=== PATIENT | female | born 1950 | race American Indian/Alaskan Native ===

== ENCOUNTER 2021-11-15 16:57 | Inpatient (IN) | payer MEDICARE ==
[2021-11-15] MEDS ORDERED: SODIUM CHLORIDE 0.9% 500 ML 1,000 ML IV ONE (17:27)
[2021-11-15] MEDS ORDERED: CEFEPIME/NS 2 GM/100 ML 2 GM/100 ML BAG IV ONE (17:29)
--- NOTE | 2021-11-15 18:02 | XRay Report ---
CHEST 1 VIEW 11/15/2021 4:50 PM INDICATION / CLINICAL INFORMATION: TACHY. Malaise x2 days. History of ovarian cancer. COMPARISON: None available. FINDINGS: SUPPORT DEVICES: Right Port-A-Cath with tip projecting over the cavoatrial junction. HEART / MEDIASTINUM: Cardiac silhouette is obscured. LUNGS / PLEURA: Complete opacification of the left hemithorax. Right lung is essentially clear. No pn eumothorax. ADDITIONAL FINDINGS: No significant additional findings. IMPRESSION: 1. Complete opacification of the left hemithorax possibly due to large left pleural effusion. Signer Name: Mahendra David MD Signed: 11/15/2021 5:57 PM Workstation Name: [id number]
[2021-11-15 18:33] LABS: Alanine Aminotransferase 12 units/L (7-56); Albumin 2.4 g/dL (3.9-5); BUN/Creatinine Ratio 16; Blood Urea Nitrogen 13 mg/dL (7-17); Calcium 8.8 mg/dL (8.4-10.2); Hemolysis Index 4
[2021-11-15 18:43] LABS: Chol/HDL Ratio 2.48 %
[2021-11-15] MEDS ORDERED: SODIUM CHLORIDE 0.9% 1000 ML 1,000 ML IV ONE (18:52)
--- NOTE | 2021-11-15 21:17 | Cat Scan Report ---
CTA CHEST WITH CONTRAST INDICATION / CLINICAL INFORMATION: Chest pain, tachycardia, history of unspecified cancer. TECHNIQUE: Axial CT images were obtained through the chest after injection of 100 cc Omnipaque 350 IV contrast. 3 plane MIP and/or 3D reconstructions were produced. All CT scans at this location are per formed using CT dose reduction for ALARA by means of automated exposure control. COMPARISON: One view of the chest performed today. FINDINGS: PULMONARY EMBOLUS: Positive. Most proximal level of embolus is Main Pulmonary Artery. A saddle embolu s is present. THORACIC AORTA: No significant abnormality. HEART: There is left ventricular hypertrophy without other significant abnormalities. CORONARY ARTERY CALCIFICATION: Absent -- None. MEDIASTINUM / JB: No significant abnormality. There is expected positioning of a right internal jug ular vein Port-A-Cath. PLEURA: A large left pleural effusion is noted, accounting for previously seen complete opacification of the left hemithorax. There is a small right pleural effusion. No pneumothorax. LUNGS: Left atelectasis is noted without a suspicious nodule or mass. ADDITIONAL FINDINGS: None. UPPER ABDOMEN: Marked generalized gastric thickening is noted, most concerning for neoplastic involve ment. No other significant abnormality. SKELETAL STRUCTURES: No significant osseous abnormality. IMPRESSION: 1. Acute saddle pulmonary embolus. 2. Large left pleural effusion with associated atelectasis. 3. Incompletely included markedly abnormal appearance of the stomach, most concerning for neoplastic involvement. CRITICAL RESULT: Time of Discovery (MASONRY CONTRACTOR/CDT): 20:05 Time of Communication (MASONRY CONTRACTOR/CDT): 20:10 Licensed Practitioner Receiving Report: Dr. Thompson Read-Back Performed: Yes. Signer Name: Charli Harkins MD Signed: 11/15/2021 9:13 PM Workstation Name: [id number]
--- NOTE | 2021-11-15 21:59 | Emergency Department Report ---
ED General Adult HPI - General Chief complaint: Weakness Stated complaint: MALAISE Time Seen by Provider: 11/15/21 17:21 Source: patient, EMS Mode of arrival: Stretcher Limitations: No Limitations - History of Present Illness Initial comments: Patient presents to the emergency department with a chief complaint of shortness of breath and chest pain. Patient has a history of ovarian cancer that was initially diagnosed in 2017. Patient went into remission for 5 years and to return this June. Patient states that over the last couple days she has been more short of breath and also is having chest pain. Patient states any type of movement makes her shortness of breath worse. The son concerned that the patient may have a buildup of fluid on her lungs. -: Gradual Location: chest Radiation: non-radiation Severity scale (0 -10): 3 Quality: dull Consistency: constant Improves with: none Worsens with: movement Associated Symptoms: denies other symptoms - Related Data Allergies Allergy/AdvReac Type Severity Reaction Status Date / Time No Known Allergies Allergy Verified 11/15/21 17:02 ED Review of Systems ROS: Stated complaint: MALAISE Other details as noted in HPI Comment: All other systems reviewed and negative Constitutional: denies: chills, fever Eyes: denies: eye pain, eye discharge, vision change ENT: denies: ear pain, throat pain Respiratory: shortness of breath. denies: cough, wheezing Cardiovascular: chest pain. denies: palpitations Endocrine: no symptoms reported Gastrointestinal: denies: abdominal pain, nausea, diarrhea Genitourinary: denies: urgency, dysuria, discharge Musculoskeletal: denies: back pain, joint swelling, arthralgia Skin: denies: rash, lesions Neurological: denies: headache, weakness, paresthesias Psychiatric: denies: anxiety, depression Hematological/Lymphatic: denies: easy bleeding, easy bruising ED Physical Exam - General Limitations: No Limitations General appearance: alert, in no apparent distress - Head Head exam: Present: atraumatic, normocephalic - Eye Eye exam: Present: normal appearance, PERRL, EOMI - ENT ENT exam: Present: mucous membranes moist - Neck Neck exam: Present: normal inspection - Respiratory Respiratory exam: Present: decreased breath sounds. Absent: respiratory distress - Cardiovascular Cardiovascular Exam: Present: normal rhythm, tachycardia. Absent: systolic murmur, diastolic murmur, rubs, gallop - GI/Abdominal GI/Abdominal exam: Present: soft, distended, normal bowel sounds. Absent: tenderness - Extremities Exam Extremities exam: Present: normal inspection - Back Exam Back exam: Present: normal inspection - Neurological Exam Neurological exam: Present: alert, oriented X3, CN II-XII intact. Absent: motor sensory deficit - Psychiatric Psychiatric exam: Present: normal affect, normal mood - Skin Skin exam: Present: warm, dry, intact, normal color. Absent: rash ED Course Vital Signs 11/15/21 11/15/21 17:00 18:12 Temperature 99.4 F 99.6 F Pulse Rate 134 H 124 H Respiratory 20 21 Rate Blood Pressure 126/80 [Left] O2 Sat by Pulse 100 100 Oximetry ED Medical Decision Making - Lab Data Result diagrams: 11/15/21 21:30 11/15/21 17:57 Lab Results 11/15/21 11/15/21 11/15/21 Range/Units 17:57 17:57 17:57 APTT 29.2 (24.2-36.6) Sec. Sodium 138 (137-145) mmol/L Potassium 3.3 L (3.6-5.0) mmol/L Chloride 96.6 L (98-107) mmol/L Carbon Dioxide 26 (22-30) mmol/L Anion Gap 19 mmol/L BUN 13 (7-17) mg/dL Creatinine 0.8 (0.6-1.2) mg/dL Estimated GFR > 60 ml/min BUN/Creatinine Ratio 16 % Glucose 182 H (65-100) mg/dL Lactic Acid (0.7-2.0) mmol/L Calcium 8.8 (8.4-10.2) mg/dL Total Bilirubin 0.50 (0.1-1.2) mg/dL AST 36 (5-40) units/L ALT 12 (7-56) units/L Alkaline Phosphatase 76 (35-129) units/L Troponin T 0.070 H (0.00-0.029) ng/mL NT-Pro-B Natriuret Pep (0-900) pg/mL Total Protein 6.0 L (6.3-8.2) g/dL Albumin 2.4 L (3.9-5) g/dL Albumin/Globulin Ratio 0.7 % Triglycerides 127 (2-149) mg/dL Cholesterol 129 (50-199) mg/dL LDL Cholesterol Direct 48 L (50-130) mg/dL HDL Cholesterol 52 (40-59) mg/dL Cholesterol/HDL Ratio 2.48 % 11/15/21 11/15/21 11/15/21 Range/Units 17:57 17:57 18:39 APTT (24.2-36.6) Sec. Sodium (137-145) mmol/L Potassium (3.6-5.0) mmol/L Chloride (98-107) mmol/L Carbon Dioxide (22-30) mmol/L Anion Gap mmol/L BUN (7-17) mg/dL Creatinine (0.6-1.2) mg/dL Estimated GFR ml/min BUN/Creatinine Ratio % Glucose (65-100) mg/dL Lactic Acid 2.20 H* 2.40 H* (0.7-2.0) mmol/L Calcium (8.4-10.2) mg/dL Total Bilirubin (0.1-1.2) mg/dL AST (5-40) units/L ALT (7-56) units/L Alkaline Phosphatase (35-129) units/L Troponin T (0.00-0.029) ng/mL NT-Pro-B Natriuret Pep 504.5 (0-900) pg/mL Total Protein (6.3-8.2) g/dL Albumin (3.9-5) g/dL Albumin/Globulin Ratio % Triglycerides (2-149) mg/dL Cholesterol (50-199) mg/dL LDL Cholesterol Direct (50-130) mg/dL HDL Cholesterol (40-59) mg/dL Cholesterol/HDL Ratio % - EKG Data -: EKG Interpreted by Mi EKG shows normal: sinus rhythm Rate: tachycardia - EKG Data Interpretation: other (Nonspecific T wave abnormalities) - Radiology Data Radiology results: report reviewed - Medical Decision Making Patient was given IV antibiotics Discussed results with patient and her son IV heparin initiated Packed RBCs ordered for the patient is anemia Vascular surgery was paged Critical Care Time: Yes Critical care time in (mins) excluding proc time.: 75 Critical care attestation.: If time is entered above; I have spent that time in minutes in the direct care of this critically ill patient, excluding procedure time. ED Disposition Clinical Impression: Pulmonary embolus, Anemia requiring transfusions, Lactic acidosis Disposition: ADMITTED INPATIENT Is pt being admited?: Yes Does the pt Need Aspirin: No Condition: Fair Referrals: PRIMARY CARE, [Primary Care Provider] - 3-5 Days
[2021-11-15] MEDS ORDERED: SODIUM CHLORIDE 0.9% 500 ML 500 ML IV ONE (22:05)
[2021-11-15 22:07] LABS: Hematocrit 11.8 % (30.3-42.9); Mean Corpuscular HGB Conc 34 % (30-34); Mean Corpuscular Volume 97 fl (79-97); Red Blood Count 1.23 M/mm3 (3.65-5.03)
[2021-11-15 22:08] LABS: Platelet Count 6 K/mm3 (140-440)
[2021-11-15] MEDS ORDERED: MAGNESIUM HYDROXIDE (MOM) ORAL LIQD UDC PO PRN (22:35)
[2021-11-15] MEDS ORDERED: ONDANSETRON 4 MG/2 ML INJ IV PRN (22:35)
[2021-11-15] MEDS ORDERED: SODIUM CHLORIDE 0.9% 1000 ML 1,000 ML IV SCH (22:45)
--- NOTE | 2021-11-15 22:48 | History and Physical Report ---
History of Present Illness Date of examination: 11/15/21 Date of admission: 11/15/2021 Chief complaint: Difficulty Breathing History of present illness: 70-year-old -[place] female with known history of metastatic ovarian cancer which was initially diagnosed in 2016 went into remission but had a recurrence again in June 2021 presenting to the emergency room today complaining of shortness of breath. Shortness of breath has been ongoing for the past few days. She has also had some mild chest discomfort. Shortness of breath is worse on minimal exertion. Patient receives her care at [facility] and has been following up with Dr. Diaz who is a program scheduler. She has had recurrent thoracentesis for pleural effusion. Patient denies any fever or chills no headache or dizziness and no diaphoresis. No nausea or vomiting and no abdominal pain. She denies any calf swelling. She however has had minimal lower extremity edema. Work-up in the emergency room today, labs were significant for hemoglobin of 4, hematocrit of 11.8, WBC of 1.5, platelet count of 6. Potassium of 3.3. Lactic acid of 2.4, troponin 0.07 Chest x-ray significant for complete opacification of the left hemithorax possibly due to large left pleural effusion. CT angiogram of the chest shows acute pulmonary embolus. Large left pleural effusion with associated atelectasis. Incompletely included markedly abnormal appearance of the stomach most concerning for neoplastic involvement. Patient has been started on anticoagulation with heparin for the pulmonary embolism. Vascular surgeon has also been notified. Patient has been initiated on blood transfusion for the severe anemia. Past History Past Medical History: diabetes, other (H/O Ovarian Ca.) Past Surgical History: Other (Thoracentesis) Social history: no significant social history Family history: no significant family history Medications and Allergies Allergies Allergy/AdvReac Type Severity Reaction Status Date / Time No Known Allergies Allergy Verified 11/15/21 17:02 Active Meds: Active Medications Acetaminophen (Acetaminophen 325 Mg Tab) 650 mg PO Q4H PRN PRN Reason: Pain MILD(1-3)/Fever >100.5/APTEL Dextrose (Dextrose 50% In Water (25gm) 50 Ml Syringe) 50 ml IV Q30MIN PRN; Protocol PRN Reason: Hypoglycemia Sodium Chloride (Nacl 0.9% 1000 Ml) 1,000 mls @ 75 mls/hr IV DIRECT GRAHAM Cefepime HCl (Cefepime/Ns 2 Gm/100 Ml) 2 gm in 100 mls @ 200 mls/hr IV Q8H GRAHAM; Protocol Insulin Human Lispro (Insulin Lispro 100 Unit/Ml) 0 unit SUB-Q ACHS GRAHAM; Protocol Magnesium Hydroxide (Magnesium Hydroxide (Mom) Oral Liqd Udc) 30 ml PO Q4H PRN PRN Reason: Constipation Morphine Sulfate (Morphine 2 Mg/1 Ml Inj) 2 mg IV Q4H PRN PRN Reason: Pain, Moderate (4-6) Morphine Sulfate (Morphine 4 Mg/1 Ml Inj) 4 mg IV Q4H PRN PRN Reason: Pain , Severe (7-10) Ondansetron HCl (Ondansetron 4 Mg/2 Ml Inj) 4 mg IV Q8H PRN PRN Reason: Nausea And Vomiting Sodium Chloride (Sodium Chloride 0.9% 10 Ml Flush Syringe) 10 ml IV BID GRAHAM Sodium Chloride (Sodium Chloride 0.9% 10 Ml Flush Syringe) 10 ml IV PRN PRN PRN Reason: LINE FLUSH Review of Systems Constitutional: no fever, no chills Ears, nose, mouth and throat: no nasal congestion, no sore throat Cardiovascular: no chest pain, no palpitations Respiratory: shortness of breath, no cough Gastrointestinal: no abdominal pain, no nausea, no vomiting, no diarrhea Genitourinary Female: no pelvic pain, no dysuria, no hematuria Musculoskeletal: no neck pain, no low back pain Integumentary: no rash, no pruritis Neurological: no headaches, no confusion Psychiatric: no anxiety, no depression Endocrine: no polyphagia, no polydipsia, no polyuria, no nocturia Exam - Constitutional Vitals: Temp Pulse Resp BP Pulse Ox 99.6 F 124 H 21 126/80 100 11/15/21 18:12 11/15/21 18:12 11/15/21 18:12 11/15/21 17:00 11/15/21 18:12 General appearance: Present: no acute distress, well-nourished, other (Severe Pallor) - EENT Eyes: Present: PERRL, EOM intact. Absent: scleral icterus ENT: hearing intact, clear oral mucosa, dentition normal - Neck Neck: Present: supple, normal ROM - Respiratory Respiratory effort: normal Respiratory: bilateral: diminished - Cardiovascular Rhythm: regular Heart Sounds: Present: S1 & S2. Absent: gallop, systolic murmur, diastolic murmur, rub, click - Extremities Extremities: no ischemia, pulses intact, pulses symmetrical, normal temperature, normal color, Full ROM Extremity abnormal: edema (Trace bilateral ankle edema.), ulceration (Dressing over right heel ulcer) Peripheral Pulses: within normal limits - Abdominal General gastrointestinal: Present: soft, non-tender, non-distended, normal bowel sounds. Absent: mass - Integumentary Integumentary: Present: clear, warm, dry, normal turgor. Absent: rash - Musculoskeletal Musculoskeletal: strength equal bilaterally - Psychiatric Psychiatric: appropriate mood/affect, intact judgment & insight, memory intact, cooperative - Neurologic Neurologic: CNII-XII intact, no focal deficits, moves all extremities HEART Score - HEART Score Troponin: Troponin T 0.070 ng/mL (0.00-0.029) H 11/15/21 17:57 Results - Labs CBC & Chem 7: 11/15/21 21:30 11/15/21 17:57 Labs: Abnormal lab results 11/15/21 11/15/21 11/15/21 Range/Units 17:57 17:57 17:57 WBC (4.5-11.0) K/mm3 RBC (3.65-5.03) M/mm3 Hgb (10.1-14.3) gm/dl Hct (30.3-42.9) % RDW (13.2-15.2) % Plt Count (140-440) K/mm3 Potassium 3.3 L (3.6-5.0) mmol/L Chloride 96.6 L (98-107) mmol/L Glucose 182 H (65-100) mg/dL Lactic Acid 2.20 H* (0.7-2.0) mmol/L Troponin T 0.070 H (0.00-0.029) ng/mL Total Protein 6.0 L (6.3-8.2) g/dL Albumin 2.4 L (3.9-5) g/dL LDL Cholesterol Direct 48 L (50-130) mg/dL 11/15/21 11/15/21 11/15/21 Range/Units 18:39 21:26 21:30 WBC 1.5 L* (4.5-11.0) K/mm3 RBC 1.23 L (3.65-5.03) M/mm3 Hgb 4.0 L* (10.1-14.3) gm/dl Hct 11.8 L* (30.3-42.9) % RDW 22.0 H (13.2-15.2) % Plt Count 6 L* (140-440) K/mm3 Potassium (3.6-5.0) mmol/L Chloride (98-107) mmol/L Glucose (65-100) mg/dL Lactic Acid 2.40 H* 3.60 H* (0.7-2.0) mmol/L Troponin T (0.00-0.029) ng/mL Total Protein (6.3-8.2) g/dL Albumin (3.9-5) g/dL LDL Cholesterol Direct (50-130) mg/dL Assessment and Plan - Patient Problems (1) Pulmonary embolus Current Visit: Yes Status: Acute Plan to address problem: Patient started on anticoagulation with heparin. Consult placed to vascular surgeon for evaluation. (2) Ovarian ca Current Visit: Yes Status: Acute Plan to address problem: Metastatic. Initially diagnosed in 2017. Patient follows up with her oncologist. (3) Anemia requiring transfusions Current Visit: Yes Status: Acute Plan to address problem: Patient to be transfused with packed red blood cell. (4) Pancytopenia Current Visit: Yes Status: Acute Plan to address problem: Will consult heme-onc for recommendations. (5) Pleural effusion Current Visit: Yes Status: Acute Plan to address problem: CT angiogram shows large left pleural effusion. Consult placed to pulmonology for evaluation and recommendations. Patient may need thoracentesis. (6) Elevated troponin Current Visit: Yes Status: Acute Plan to address problem: Likely secondary to demand ischemia Consult to cardiology for recommendations. (7) Lactic acidosis Current Visit: Yes Status: Acute Plan to address problem: Patient placed on IV fluid. We will also place on empiric IV antibiotics. (8) Full code status Current Visit: Yes Status: Acute Plan to address problem: Patient is full code.
--- NOTE | 2021-11-15 22:57 | Event Note ---
Date: 11/15/21 70 year old female with metastatic ovarian cancer who presents with pulmonary embolism and shortness of breath with severe anemia. Being transfused, on room air with 100% o2 sat, tachycardic likely from both PE and severe anemia. Troponin elevated. LV/RV ratio nearly 1. Left effusion with complete atelectasis of the left lung. Multiple reasons for SOB and tachycardia (large effusion with complete lung collapse, pulmonary embolism, severe anemia). Being transfused overnight with 3 unit pRBC. Keep on heparin IV. Will see tomorrow.
[2021-11-15 23:13] LABS: Band Neutrophils # (Manual) 0.1 K/mm3; Basophils % (Manual) 0 % (0.0-1.8); Eosinophils % (Manual) 0 % (0.0-4.3); Total Cells Counted 50
[2021-11-15 23:14] LABS: Anisocytosis 1+; Platelet Estimate Consistent w Auto
[2021-11-16] MEDS ORDERED: POTASSIUM CHLORIDE 10 MEQ 10 MEQ/100 ML BAG IV ONE (01:26)
[2021-11-16] MEDS ORDERED: CEFEPIME/NS 2 GM/100 ML 2 GM/100 ML BAG IV SCH (02:00)
[2021-11-16] MEDS: CEFEPIME/NS 2 GM/100 ML 2 GM/100 ML BAG IV SCH ×2 (09:17→22:28)
[2021-11-16] MEDS ORDERED: SODIUM CHLORIDE 0.9% 500 ML 500 ML IV NR (09:35)
[2021-11-16] MEDS: INSULIN LISPRO 100 UNIT/ML SUB-Q SCH ×4 (09:43→21:10)
--- NOTE | 2021-11-16 09:54 | Hem/Onc Consultation ---
History of Present Illness - Reason for Consult Consult date: 11/16/21 Pancytopenia, metastatic ovarian cancer - History of Present Illness Heme/Onc Consult Note Seen via amplify CPT 48337 Dx Pancytopenia This is a 70yo AA woman who presented to [facility] ED with complaints of shortness of breath. Past medical history of metastatic uterine cancer, initially diagnosed in 2016, went into remission but with recurrence of disease June 2021. Shortness of breath started a few days ago, and reports of chest pain. Patient is treated at [facility] and has been following up with Building Maintenance Technician Dr. Diaz, for recurrent pleural effusions requiring thoracentesis. Patient denies calf pain, fever or chills, headache, dizziness, nausea or vomiting. In the ED, H/H 4/11.8, plts 6,000, WBC 1.5. Chest x-ray revealed complete opacification of the left hemithorax possibly due to large left pleural effusion. Chest CTA revealed acute saddle pulmonary embolus, large left pleural effusion with associated atelectasis, and incompletely included markedly abnormal appearance of the stomach most concerning for neoplastic involvement. Hematology/Oncology was consulted for evaluation of pancytopenia and metastatic ovarian cancer. Patient examined at bedside, in no acute distress noted, accompanied by sister. Reports feeling a lot better than yesterday; denies shortness of breath or chest pain. Denies prior clotting episode. Denies bleeding. Followed by Oncologist Dr. Sunny Ma Last chemotherapy was the second week of October, due November 27 for another round, every 30 days. DATA REVIEWED BELOW IMP: Metastatic uterine cancer Post chemotherapy anson --> pancytopenia Severe anemia, s/p multiple pRBC transfusions Severe thrombocytopenia, pending plt transfusion Neutropenia Plan: Supportive transfusion parameters: --Transfuse 1 unit pRBC whenever hct <23 --Transfuse 1 dose of plts whenever plt <15 Neupogen for neutropenia daily until WBC >5 Prophylactic antibiotics Start Lovenox when plt count is above 30, unless visible bleeding Appreciate IVR recommendations Outpatient followup with established Oncologist Case d/w Dr. Henry Chaparro Laboratory Last Values WBC 2.0 K/mm3 (4.5-11.0) L 11/16/21 11:03 Hgb 10.1 gm/dl (10.1-14.3) D 11/16/21 11:03 Hct 29.3 % (30.3-42.9) L D 11/16/21 11:03 MCV 86 fl (79-97) 11/16/21 11:03 Plt Count 6 K/mm3 (140-440) L* 11/16/21 11:03 Monocytes % (Manual) 12.0 % (0.0-7.3) H 11/15/21 21:30 Seg Neutrophils # Man 0.9 K/mm3 (1.8-7.7) L 11/15/21 21:30 Band Neutrophils # 0.1 K/mm3 11/15/21 21:30 Lymphocytes # (Manual) 0.4 K/mm3 (1.2-5.4) L 11/15/21 21:30 APTT 29.2 Sec. (24.2-36.6) 11/15/21 17:57 Creatinine 1.3 mg/dL (0.6-1.2) H D 11/16/21 09:29 AST 36 units/L (5-40) 11/15/21 17:57 ALT 12 units/L (7-56) 11/15/21 17:57 Alkaline Phosphatase 76 units/L (35-129) 11/15/21 17:57 Blood Type O POSITIVE 11/15/21 23:09 Antibody Screen Negative 11/15/21 23:09 Crossmatch See Detail 11/15/21 23:09 Past History Past Medical History: diabetes, other (H/O Ovarian Ca.) Past Surgical History: Other (Thoracentesis) Social history: no significant social history Family history: no significant family history Medications and Allergies Allergies Allergy/AdvReac Type Severity Reaction Status Date / Time No Known Allergies Allergy Verified 11/15/21 17:02 Active Meds: Active Medications Acetaminophen (Acetaminophen 325 Mg Tab) 650 mg PO Q4H PRN PRN Reason: Pain MILD(1-3)/Fever >100.5/PATEL Dextrose (Dextrose 50% In Water (25gm) 50 Ml Syringe) 50 ml IV Q30MIN PRN; Protocol PRN Reason: Hypoglycemia Sodium Chloride (Nacl 0.9% 1000 Ml) 1,000 mls @ 75 mls/hr IV DIRECT [facility] Last Admin: 11/16/21 09:19 Dose: 75 mls/hr Cefepime HCl (Cefepime/Ns 2 Gm/100 Ml) 2 gm in 100 mls @ 200 mls/hr IV Q12H [facility]; Protocol Last Admin: 11/16/21 09:17 Dose: 200 mls/hr Sodium Chloride (Nacl 0.9% 500 Ml) 500 mls @ 0 mls/hr IV ONCE NR Stop: 11/16/21 18:00 Insulin Human Lispro (Insulin Lispro 100 Unit/Ml) 0 unit SUB-Q ACHS [facility]; Protocol Last Admin: 11/16/21 09:43 Dose: Not Given Magnesium Hydroxide (Magnesium Hydroxide (Mom) Oral Liqd Udc) 30 ml PO Q4H PRN PRN Reason: Constipation Melatonin (Melatonin 5 Mg Tab) 5 mg PO QHS PRN PRN Reason: Sleep Morphine Sulfate (Morphine 2 Mg/1 Ml Inj) 2 mg IV Q4H PRN PRN Reason: Pain, Moderate (4-6) Morphine Sulfate (Morphine 4 Mg/1 Ml Inj) 4 mg IV Q4H PRN PRN Reason: Pain , Severe (7-10) Ondansetron HCl (Ondansetron 4 Mg/2 Ml Inj) 4 mg IV Q8H PRN PRN Reason: Nausea And Vomiting Sodium Chloride (Sodium Chloride 0.9% 10 Ml Flush Syringe) 10 ml IV BID [facility] Last Admin: 11/16/21 09:44 Dose: 10 ml Sodium Chloride (Sodium Chloride 0.9% 10 Ml Flush Syringe) 10 ml IV PRN PRN PRN Reason: LINE FLUSH Tbo-Filgrastim (Tbo-Filgrastim 480 Mcg/0.8 Ml) 480 mcg SUB-Q DAILY [facility] Exam - Constitutional Vitals: Last Vital Signs Temp 99.0 F 11/16/21 06:37 Pulse 111 H 11/16/21 07:58 Resp 18 11/16/21 07:58 BP 140/90 11/16/21 07:58 Pulse Ox 100 11/16/21 07:58 Results - Labs lab Results: Laboratory Results - last 24 hr 11/15/21 11/15/21 11/15/21 17:57 17:57 17:57 WBC RBC Hgb Hct MCV MCH MCHC RDW Plt Count Add Manual Diff Total Counted Seg Neuts % (Manual) Band Neutrophils % Lymphocytes % (Manual) Reactive Lymphs % (Man) Monocytes % (Manual) Eosinophils % (Manual) Basophils % (Manual) Metamyelocytes % Myelocytes % Promyelocytes % Blast Cells % Nucleated RBC % Seg Neutrophils # Man Band Neutrophils # Lymphocytes # (Manual) Abs React Lymphs (Man) Monocytes # (Manual) Eosinophils # (Manual) Basophils # (Manual) Metamyelocytes # Myelocytes # Promyelocytes # Blast Cells # WBC Morphology Hypersegmented Neuts Hyposegmented Neuts Hypogranular Neuts Smudge Cells Toxic Granulation Toxic Vacuolation Dohle Bodies Pelger-Huet Anomaly Renetta Rods Platelet Estimate Clumped Platelets Plt Clumps, EDTA Large Platelets Giant Platelets Platelet Satelliting Plt Morphology Comment RBC Morphology Dimorphic RBCs Polychromasia Hypochromasia Poikilocytosis Anisocytosis Microcytosis Macrocytosis Spherocytes Pappenheimer Bodies Sickle Cells Target Cells Tear Drop Cells Ovalocytes Helmet Cells [place] Bodies [place] Rings [place] Cells Bite Cells Crenated Cell Elliptocytes Acanthocytes (Spur) Rouleaux Hemoglobin C Crystals Schistocytes Malaria parasites Víctor Bodies Hem Pathologist Commnt APTT 29.2 Sodium 138 Potassium 3.3 L Chloride 96.6 L Carbon Dioxide 26 Anion Gap 19 BUN 13 Creatinine 0.8 Estimated GFR > 60 BUN/Creatinine Ratio 16 Glucose 182 H Lactic Acid Calcium 8.8 Total Bilirubin 0.50 AST 36 ALT 12 Alkaline Phosphatase 76 Troponin T 0.070 H NT-Pro-B Natriuret Pep Total Protein 6.0 L Albumin 2.4 L Albumin/Globulin Ratio 0.7 Triglycerides 127 Cholesterol 129 LDL Cholesterol Direct 48 L HDL Cholesterol 52 Cholesterol/HDL Ratio 2.48 Blood Type Antibody Screen Crossmatch 11/15/21 11/15/21 11/15/21 17:57 17:57 18:39 WBC RBC Hgb Hct MCV MCH MCHC RDW Plt Count Add Manual Diff Total Counted Seg Neuts % (Manual) Band Neutrophils % Lymphocytes % (Manual) Reactive Lymphs % (Man) Monocytes % (Manual) Eosinophils % (Manual) Basophils % (Manual) Metamyelocytes % Myelocytes % Promyelocytes % Blast Cells % Nucleated RBC % Seg Neutrophils # Man Band Neutrophils # Lymphocytes # (Manual) Abs React Lymphs (Man) Monocytes # (Manual) Eosinophils # (Manual) Basophils # (Manual) Metamyelocytes # Myelocytes # Promyelocytes # Blast Cells # WBC Morphology Hypersegmented Neuts Hyposegmented Neuts Hypogranular Neuts Smudge Cells Toxic Granulation Toxic Vacuolation Dohle Bodies Pelger-Huet Anomaly Renetta Rods Platelet Estimate Clumped Platelets Plt Clumps, EDTA Large Platelets Giant Platelets Platelet Satelliting Plt Morphology Comment RBC Morphology Dimorphic RBCs Polychromasia Hypochromasia Poikilocytosis Anisocytosis Microcytosis Macrocytosis Spherocytes Pappenheimer Bodies Sickle Cells Target Cells Tear Drop Cells Ovalocytes Helmet Cells [place] Bodies [place] Rings [place] Cells Bite Cells Crenated Cell Elliptocytes Acanthocytes (Spur) Rouleaux Hemoglobin C Crystals Schistocytes Malaria parasites Víctor Bodies Hem Pathologist Commnt APTT Sodium Potassium Chloride Carbon Dioxide Anion Gap BUN Creatinine Estimated GFR BUN/Creatinine Ratio Glucose Lactic Acid 2.20 H* 2.40 H* Calcium Total Bilirubin AST ALT Alkaline Phosphatase Troponin T NT-Pro-B Natriuret Pep 504.5 Total Protein Albumin Albumin/Globulin Ratio Triglycerides Cholesterol LDL Cholesterol Direct HDL Cholesterol Cholesterol/HDL Ratio Blood Type Antibody Screen Crossmatch 11/15/21 11/15/21 11/15/21 21:26 21:30 23:09 WBC 1.5 L* RBC 1.23 L Hgb 4.0 L* Hct 11.8 L* MCV 97 MCH 32 MCHC 34 RDW 22.0 H Plt Count 6 L* Add Manual Diff Complete Total Counted 50 Seg Neuts % (Manual) 58.0 Band Neutrophils % 4.0 Lymphocytes % (Manual) 26.0 Reactive Lymphs % (Man) 0 Monocytes % (Manual) 12.0 H Eosinophils % (Manual) 0 Basophils % (Manual) 0 Metamyelocytes % 0 Myelocytes % 0 Promyelocytes % 0 Blast Cells % 0 Nucleated RBC % Not Reportable Seg Neutrophils # Man 0.9 L Band Neutrophils # 0.1 Lymphocytes # (Manual) 0.4 L Abs React Lymphs (Man) 0.0 Monocytes # (Manual) 0.2 Eosinophils # (Manual) 0.0 Basophils # (Manual) 0.0 Metamyelocytes # 0.0 Myelocytes # 0.0 Promyelocytes # 0.0 Blast Cells # 0.0 WBC Morphology Not Reportable Hypersegmented Neuts Not Reportable Hyposegmented Neuts Not Reportable Hypogranular Neuts Not Reportable Smudge Cells Not Reportable Toxic Granulation Not Reportable Toxic Vacuolation Not Reportable Dohle Bodies Not Reportable Pelger-Huet Anomaly Not Reportable Renetta Rods Not Reportable Platelet Estimate Consistent w auto Clumped Platelets Not Reportable Plt Clumps, EDTA Not Reportable Large Platelets Not Reportable Giant Platelets Not Reportable Platelet Satelliting Not Reportable Plt Morphology Comment Not Reportable RBC Morphology Not Reportable Dimorphic RBCs Not Reportable Polychromasia Not Reportable Hypochromasia Not Reportable Poikilocytosis Not Reportable Anisocytosis 1+ Microcytosis Not Reportable Macrocytosis Not Reportable Spherocytes Not Reportable Pappenheimer Bodies Not Reportable Sickle Cells Not Reportable Target Cells Not Reportable Tear Drop Cells Not Reportable Ovalocytes Not Reportable Helmet Cells Not Reportable [place] Bodies Not Reportable Cop[place] Rings Not Reportable [place] Cells Not Reportable Bite Cells Not Reportable Crenated Cell Not Reportable Elliptocytes Not Reportable Acanthocytes (Spur) Not Reportable Rouleaux Not Reportable Hemoglobin C Crystals Not Reportable Schistocytes Not Reportable Malaria parasites Not Reportable Víctor Bodies Not Reportable Hem Pathologist Commnt No APTT Sodium Potassium Chloride Carbon Dioxide Anion Gap BUN Creatinine Estimated GFR BUN/Creatinine Ratio Glucose Lactic Acid 3.60 H* Calcium Total Bilirubin AST ALT Alkaline Phosphatase Troponin T NT-Pro-B Natriuret Pep Total Protein Albumin Albumin/Globulin Ratio Triglycerides Cholesterol LDL Cholesterol Direct HDL Cholesterol Cholesterol/HDL Ratio Blood Type O POSITIVE Antibody Screen Negative Crossmatch See Detail 11/15/21 23:13 WBC RBC Hgb Hct MCV MCH MCHC RDW Plt Count Add Manual Diff Total Counted Seg Neuts % (Manual) Band Neutrophils % Lymphocytes % (Manual) Reactive Lymphs % (Man) Monocytes % (Manual) Eosinophils % (Manual) Basophils % (Manual) Metamyelocytes % Myelocytes % Promyelocytes % Blast Cells % Nucleated RBC % Seg Neutrophils # Man Band Neutrophils # Lymphocytes # (Manual) Abs React Lymphs (Man) Monocytes # (Manual) Eosinophils # (Manual) Basophils # (Manual) Metamyelocytes # Myelocytes # Promyelocytes # Blast Cells # WBC Morphology Hypersegmented Neuts Hyposegmented Neuts Hypogranular Neuts Smudge Cells Toxic Granulation Toxic Vacuolation Dohle Bodies Pelger-Huet Anomaly Renetta Rods Platelet Estimate Clumped Platelets Plt Clumps, EDTA Large Platelets Giant Platelets Platelet Satelliting Plt Morphology Comment RBC Morphology Dimorphic RBCs Polychromasia Hypochromasia Poikilocytosis Anisocytosis Microcytosis Macrocytosis Spherocytes Pappenheimer Bodies Sickle Cells Target Cells Tear Drop Cells Ovalocytes Helmet Cells [place] Bodies Cop[place] Rings [place] Cells Bite Cells Crenated Cell Elliptocytes Acanthocytes (Spur) Rouleaux Hemoglobin C Crystals Schistocytes Malaria parasites Víctor Bodies Hem Pathologist Commnt APTT Sodium Potassium Chloride Carbon Dioxide Anion Gap BUN Creatinine Estimated GFR BUN/Creatinine Ratio Glucose Lactic Acid 2.90 H* Calcium Total Bilirubin AST ALT Alkaline Phosphatase Troponin T NT-Pro-B Natriuret Pep Total Protein Albumin Albumin/Globulin Ratio Triglycerides Cholesterol LDL Cholesterol Direct HDL Cholesterol Cholesterol/HDL Ratio Blood Type Antibody Screen Crossmatch
[2021-11-16 10:45] LABS: Calcium 8.8 mg/dL (8.4-10.2)
[2021-11-16] MEDS: TBO-FILGRASTIM 480 MCG/0.8 ML SUB-Q SCH (11:14)
--- NOTE | 2021-11-16 11:48 | Consultation ---
History of Present Illness Consult date: 11/16/21 Consult reason: elevated troponin History of present illness: The patient is a 70-year-old woman with a history of ovarian cancer, brought to the emergency room for evaluation of several days of weakness and general malaise. There were severe abnormalities on the initial laboratory and radiologic assessments. There was marked pancytopenia with a WBC of 1.5, hematocrit 11 and platelet count of only 6000. The chest x-ray by my assessment showed total white out of the left lung field. A CT angiogram of the chest reported a large left pleural effusion with atelectasis of the left lung, and also an acute saddle pulmonary embolism. It was in this milieu that troponin levels were measured and borderline increased at 0.07. Cardiology consultation was requested for the troponin measurement. The patient reports no chest pain, no palpitations, no lower extremity edema. No prior cardiac history. Shortness of breath is attributable to the total collapse of the right lung with a large left pleural effusion. EKG on presen tation was sinus tachycardia at 130, with nonspecific ST changes, no acute ischemia or infarction. Since hospitalization, the sinus rate has reduced to the low 100s. Past History Past Medical History: diabetes, other (History of ovarian cancer) Past Surgical History: Other (Thoracentesis) Social history: no significant social history Family history: no significant family history Medications and Allergies Allergies Allergy/AdvReac Type Severity Reaction Status Date / Time No Known Allergies Allergy Verified 11/15/21 17:02 Active Meds: Active Medications Acetaminophen (Acetaminophen 325 Mg Tab) 650 mg PO Q4H PRN PRN Reason: Pain MILD(1-3)/Fever >100.5/PATEL Dextrose (Dextrose 50% In Water (25gm) 50 Ml Syringe) 50 ml IV Q30MIN PRN; Protocol PRN Reason: Hypoglycemia Sodium Chloride (Nacl 0.9% 1000 Ml) 1,000 mls @ 75 mls/hr IV DIRECT [facility] Last Admin: 11/16/21 09:19 Dose: 75 mls/hr Cefepime HCl (Cefepime/Ns 2 Gm/100 Ml) 2 gm in 100 mls @ 200 mls/hr IV Q12H [facility]; Protocol Last Admin: 11/16/21 09:17 Dose: 200 mls/hr Sodium Chloride (Nacl 0.9% 500 Ml) 500 mls @ 0 mls/hr IV ONCE NR Stop: 11/16/21 18:00 Insulin Human Lispro (Insulin Lispro 100 Unit/Ml) 0 unit SUB-Q ACHS [facility]; Protocol Last Admin: 11/16/21 09:43 Dose: Not Given Magnesium Hydroxide (Magnesium Hydroxide (Mom) Oral Liqd Udc) 30 ml PO Q4H PRN PRN Reason: Constipation Melatonin (Melatonin 5 Mg Tab) 5 mg PO QHS PRN PRN Reason: Sleep Morphine Sulfate (Morphine 2 Mg/1 Ml Inj) 2 mg IV Q4H PRN PRN Reason: Pain, Moderate (4-6) Morphine Sulfate (Morphine 4 Mg/1 Ml Inj) 4 mg IV Q4H PRN PRN Reason: Pain , Severe (7-10) Ondansetron HCl (Ondansetron 4 Mg/2 Ml Inj) 4 mg IV Q8H PRN PRN Reason: Nausea And Vomiting Sodium Chloride (Sodium Chloride 0.9% 10 Ml Flush Syringe) 10 ml IV BID [facility] Last Admin: 11/16/21 09:44 Dose: 10 ml Sodium Chloride (Sodium Chloride 0.9% 10 Ml Flush Syringe) 10 ml IV PRN PRN PRN Reason: LINE FLUSH Tbo-Filgrastim (Tbo-Filgrastim 480 Mcg/0.8 Ml) 480 mcg SUB-Q DAILY [facility] Last Admin: 11/16/21 11:14 Dose: 480 mcg Review of Systems Cardiovascular: shortness of breath, no chest pain, no orthopnea, no palpitations, no rapid/irregular heart beat, no edema, no syncope, no lightheadedness Physical Examination Vital Signs Temp Pulse Resp BP Pulse Ox 99.4 F 134 H 20 126/80 100 11/15/21 17:00 11/15/21 17:00 11/15/21 17:00 11/15/21 17:00 11/15/21 17:00 General appearance: cachectic, other (Patient appears frail, cachectic, chronically ill) HEENT: Positive: PERRL Neck: Positive: neck supple Cardiac: Positive: Reg Rate and Rhythm Lungs: Positive: Decreased Breath Sounds Neuro: Positive: Grossly Intact Abdomen: Positive: Soft Female genitourinary: deferred Skin: Positive: Clear Extremities: Absent: edema Results 11/15/21 21:30 11/16/21 09:29 Cardiac Enzymes 11/15/21 Range/Units 17:57 AST 36 (5-40) units/L Coagulation 11/15/21 Range/Units 17:57 APTT 29.2 (24.2-36.6) Sec. Lipids 11/15/21 Range/Units 17:57 Triglycerides 127 (2-149) mg/dL Cholesterol 129 (50-199) mg/dL HDL Cholesterol 52 (40-59) mg/dL Cholesterol/HDL Ratio 2.48 % CBC 11/15/21 Range/Units 21:30 WBC 1.5 L* (4.5-11.0) K/mm3 RBC 1.23 L (3.65-5.03) M/mm3 Hgb 4.0 L* (10.1-14.3) gm/dl Hct 11.8 L* (30.3-42.9) % Plt Count 6 L* (140-440) K/mm3 Comprehensive Metabolic Panel 11/15/21 11/16/21 Range/Units 17:57 09:29 Sodium 138 135 L (137-145) mmol/L Potassium 3.3 L 3.4 L (3.6-5.0) mmol/L Chloride 96.6 L 96.6 L (98-107) mmol/L Carbon Dioxide 26 22 (22-30) mmol/L BUN 13 16 (7-17) mg/dL Creatinine 0.8 1.3 H D (0.6-1.2) mg/dL Glucose 182 H 167 H (65-100) mg/dL Calcium 8.8 8.8 (8.4-10.2) mg/dL AST 36 (5-40) units/L ALT 12 (7-56) units/L Alkaline Phosphatase 76 (35-129) units/L Total Protein 6.0 L (6.3-8.2) g/dL Albumin 2.4 L (3.9-5) g/dL EKG interpretations - Telemetry EKG Rhythm: Sinus Tachycardia Assessment and Plan - Patient Problems (1) Elevated troponin Current Visit: Yes Status: Acute Plan to address problem: Borderline troponin elevation in this clinical setting is a likely nonspecific finding, no further cardiac work-up is indicated, defer to hematology, pulmonary medicine and internal medicine for management of patient's multiple severe acute comorbidities as outlined above. We will sign off. You may reconsult for any future cardiac issues.
[2021-11-16 11:51] LABS: Hematocrit 29.3 % (30.3-42.9); Hemoglobin 10.1 gm/dl (10.1-14.3); Mean Corpuscular HGB Conc 35 % (30-34); Mean Corpuscular Volume 86 fl (79-97); Red Blood Count 3.39 M/mm3 (3.65-5.03); Red Cell Distribution Width 18.3 % (13.2-15.2)
[2021-11-16 11:54] LABS: Platelet Count 6 K/mm3 (140-440)
--- NOTE | 2021-11-16 12:20 | Consultation ---
History of Present Illness - Reason for Consult Consult date: 11/16/21 Pulmonary embolism - History of Present Illness Patient with a history of ovarian cancer who presented with worsening shortness of breath. On admission, the patient was pancytopenic, completed fluid opacification of her left hemithorax and a small saddle pulmonary embolus was also demonstrated on her CTA of the chest. I the patient received 3 units of blood overnight and is breathing much more comfortably. Patient previously had recurrent fluid buildup on her right side and ultimately had placement of a tunneled right-sided chest tube to allow drainage at home. When the drainage on the right side stopped, the chest tube was removed. The patient has had multiple thoracenteses on the left the most recent approximately 1 month ago per patient. Past History Past Medical History: cancer, diabetes, other (History of ovarian cancer) Past Surgical History: Other (Thoracentesis) Social history: no significant social history Family history: no significant family history Medications and Allergies Allergies Allergy/AdvReac Type Severity Reaction Status Date / Time No Known Allergies Allergy Verified 11/15/21 17:02 Active Meds: Active Medications Acetaminophen (Acetaminophen 325 Mg Tab) 650 mg PO Q4H PRN PRN Reason: Pain MILD(1-3)/Fever >100.5/PATEL Dextrose (Dextrose 50% In Water (25gm) 50 Ml Syringe) 50 ml IV Q30MIN PRN; Protocol PRN Reason: Hypoglycemia Sodium Chloride (Nacl 0.9% 1000 Ml) 1,000 mls @ 75 mls/hr IV DIRECT [facility] Last Admin: 11/16/21 09:19 Dose: 75 mls/hr Cefepime HCl (Cefepime/Ns 2 Gm/100 Ml) 2 gm in 100 mls @ 200 mls/hr IV Q12H [facility]; Protocol Last Admin: 11/16/21 09:17 Dose: 200 mls/hr Sodium Chloride (Nacl 0.9% 500 Ml) 500 mls @ 0 mls/hr IV ONCE NR Stop: 11/16/21 18:00 Insulin Human Lispro (Insulin Lispro 100 Unit/Ml) 0 unit SUB-Q ACHS [facility]; Protocol Last Admin: 11/16/21 09:43 Dose: Not Given Magnesium Hydroxide (Magnesium Hydroxide (Mom) Oral Liqd Udc) 30 ml PO Q4H PRN PRN Reason: Constipation Melatonin (Melatonin 5 Mg Tab) 5 mg PO QHS PRN PRN Reason: Sleep Morphine Sulfate (Morphine 2 Mg/1 Ml Inj) 2 mg IV Q4H PRN PRN Reason: Pain, Moderate (4-6) Morphine Sulfate (Morphine 4 Mg/1 Ml Inj) 4 mg IV Q4H PRN PRN Reason: Pain , Severe (7-10) Ondansetron HCl (Ondansetron 4 Mg/2 Ml Inj) 4 mg IV Q8H PRN PRN Reason: Nausea And Vomiting Sodium Chloride (Sodium Chloride 0.9% 10 Ml Flush Syringe) 10 ml IV BID [facility] Last Admin: 11/16/21 09:44 Dose: 10 ml Sodium Chloride (Sodium Chloride 0.9% 10 Ml Flush Syringe) 10 ml IV PRN PRN PRN Reason: LINE FLUSH Tbo-Filgrastim (Tbo-Filgrastim 480 Mcg/0.8 Ml) 480 mcg SUB-Q DAILY [facility] Last Admin: 11/16/21 11:14 Dose: 480 mcg Review of Systems All systems: negative Exam - Constitutional Vitals: Temp Pulse Resp BP Pulse Ox 99.0 F 111 H 18 140/90 100 11/16/21 06:37 11/16/21 07:58 11/16/21 07:58 11/16/21 07:58 11/16/21 07:58 General appearance: Present: no acute distress - EENT Eyes: Present: EOM intact ENT: hearing intact - Neck Neck: Present: supple, normal ROM - Respiratory Respiratory effort: normal - Abdominal General gastrointestinal: Present: deferred Female genitourinary: Present: deferred - Rectal Rectal Exam: deferred - Psychiatric Psychiatric: cooperative Results - Labs CBC & Chem 7: 11/16/21 11:03 11/16/21 09:29 Labs: Abnormal lab results 11/15/21 11/15/21 11/15/21 Range/Units 17:57 17:57 17:57 WBC (4.5-11.0) K/mm3 RBC (3.65-5.03) M/mm3 Hgb (10.1-14.3) gm/dl Hct (30.3-42.9) % MCHC (30-34) % RDW (13.2-15.2) % Plt Count (140-440) K/mm3 Monocytes % (Manual) (0.0-7.3) % Seg Neutrophils # Man (1.8-7.7) K/mm3 Lymphocytes # (Manual) (1.2-5.4) K/mm3 Sodium (137-145) mmol/L Potassium 3.3 L (3.6-5.0) mmol/L Chloride 96.6 L (98-107) mmol/L Creatinine (0.6-1.2) mg/dL Glucose 182 H (65-100) mg/dL POC Glucose (70-105) mg/dL Lactic Acid 2.20 H* (0.7-2.0) mmol/L Troponin T 0.070 H (0.00-0.029) ng/mL Total Protein 6.0 L (6.3-8.2) g/dL Albumin 2.4 L (3.9-5) g/dL LDL Cholesterol Direct 48 L (50-130) mg/dL Crossmatch 11/15/21 11/15/21 11/15/21 Range/Units 18:39 21:26 21:30 WBC 1.5 L* (4.5-11.0) K/mm3 RBC 1.23 L (3.65-5.03) M/mm3 Hgb 4.0 L* (10.1-14.3) gm/dl Hct 11.8 L* (30.3-42.9) % MCHC (30-34) % RDW 22.0 H (13.2-15.2) % Plt Count 6 L* (140-440) K/mm3 Monocytes % (Manual) 12.0 H (0.0-7.3) % Seg Neutrophils # Man 0.9 L (1.8-7.7) K/mm3 Lymphocytes # (Manual) 0.4 L (1.2-5.4) K/mm3 Sodium (137-145) mmol/L Potassium (3.6-5.0) mmol/L Chloride (98-107) mmol/L Creatinine (0.6-1.2) mg/dL Glucose (65-100) mg/dL POC Glucose (70-105) mg/dL Lactic Acid 2.40 H* 3.60 H* (0.7-2.0) mmol/L Troponin T (0.00-0.029) ng/mL Total Protein (6.3-8.2) g/dL Albumin (3.9-5) g/dL LDL Cholesterol Direct (50-130) mg/dL Crossmatch 11/15/21 11/15/21 11/16/21 Range/Units 23:09 23:13 09:29 WBC (4.5-11.0) K/mm3 RBC (3.65-5.03) M/mm3 Hgb (10.1-14.3) gm/dl Hct (30.3-42.9) % MCHC (30-34) % RDW (13.2-15.2) % Plt Count (140-440) K/mm3 Monocytes % (Manual) (0.0-7.3) % Seg Neutrophils # Man (1.8-7.7) K/mm3 Lymphocytes # (Manual) (1.2-5.4) K/mm3 Sodium 135 L (137-145) mmol/L Potassium 3.4 L (3.6-5.0) mmol/L Chloride 96.6 L (98-107) mmol/L Creatinine 1.3 H D (0.6-1.2) mg/dL Glucose 167 H (65-100) mg/dL POC Glucose (70-105) mg/dL Lactic Acid 2.90 H* (0.7-2.0) mmol/L Troponin T (0.00-0.029) ng/mL Total Protein (6.3-8.2) g/dL Albumin (3.9-5) g/dL LDL Cholesterol Direct (50-130) mg/dL Crossmatch See Detail 11/16/21 11/16/21 11/16/21 Range/Units 09:29 11:03 11:31 WBC 2.0 L (4.5-11.0) K/mm3 RBC 3.39 L (3.65-5.03) M/mm3 Hgb (10.1-14.3) gm/dl Hct 29.3 L D (30.3-42.9) % MCHC 35 H (30-34) % RDW 18.3 H (13.2-15.2) % Plt Count 6 L* (140-440) K/mm3 Monocytes % (Manual) (0.0-7.3) % Seg Neutrophils # Man (1.8-7.7) K/mm3 Lymphocytes # (Manual) (1.2-5.4) K/mm3 Sodium (137-145) mmol/L Potassium (3.6-5.0) mmol/L Chloride (98-107) mmol/L Creatinine (0.6-1.2) mg/dL Glucose (65-100) mg/dL POC Glucose 156 H (70-105) mg/dL Lactic Acid 2.10 H* (0.7-2.0) mmol/L Troponin T (0.00-0.029) ng/mL Total Protein (6.3-8.2) g/dL Albumin (3.9-5) g/dL LDL Cholesterol Direct (50-130) mg/dL Crossmatch - Imaging and Cardiology CT scan - chest: image reviewed Assessment and Plan Patient with pancytopenia with a hemoglobin of 4 on admission as well as platelets of 6. In the outpatient setting, the patient is on Lovenox however this has been discontinued. Patient with a small saddle pulmonary embolism which does not appear to be the source of the patient's shortness of breath. I the patient will need to be scheduled for thoracentesis however, the patient's platelets will need to be corrected prior to this. I discussed with patient that when she is stabilized, the patient may benefit from placement of a tunneled chest tube on the left to allow drainage at home. She will be discussing this with her outpatient mash filter press operator. Once the patient is able to, the patient will need to be restarted on her anticoagulation. We will not plan on intervening on her pulmonary embolism as it does not appear to be the source of her shortness of breath.
--- NOTE | 2021-11-16 13:47 | Consultation ---
History of Present Illness Consult date: 11/16/21 Reason for consult: dyspnea, hypoxemia, pleural effusion History of present illness: 70-year-old -[place] female with known history of metastatic ovarian cancer which was initially diagnosed in 2016 went into remission but had a recurrence again in June 2021 presenting to the emergency room today complaining of shortness of breath. Shortness of breath has been ongoing for the past few days. She has also had some mild chest discomfort. Shortness of breath is worse on minimal exertion. Patient receives her care at [facility] and has been following up with Dr. Diaz who is a curing oven attendant. She has had recurrent thoracentesis for pleural effusion. Patient denies any fever or chills no headache or dizziness and no diaphoresis. No nausea or vomiting and no abdominal pain. She denies any calf swelling. She however has had minimal lower extremity edema. Work-up in the emergency room today, labs were significant for hemoglobin of 4, hematocrit of 11.8, WBC of 1.5, platelet count of 6. Potassium of 3.3. Lactic acid of 2.4, troponin 0.07 Chest x-ray significant for complete opacification of the left hemithorax po ssibly due to large left pleural effusion. CT angiogram of the chest shows acute pulmonary embolus. Large left pleural effusion with associated atelectasis. Incompletely included markedly abnormal a ppearance of the stomach most concerning for neoplastic involvement. Vascular surgeon has also been notified. Patient has been initiated on blood transfusion for the severe anemia. Patient has history of Diabetes, HTN and Metastatic Ovarian CA. Patient has no history of smoking, alcohol or drug abuse. 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 No known drug allergies. Patient awake, weak. Resting on 3 litres O2. O2 saturation 100%. Mild shortness of breat rest. Patient denies shortness of breath, chest pain or cough at rest. Patient afebrile. Patient has leukopenia, wbc 2.0. Blood pressure 148/95, pulse 113, respirations 16. Chest xray 11/15/21 reported Complete opacification of the left hemithorax possibly due to large left pleural effusion. CT scan of chest 11/15/21 reported Acute saddle pulmonary embolus. Large left pleural effusion with associated atelectasis. Incompletely included markedly abnormal appearance of the stomach, most concerning for neoplastic involvement. Patient is on cefepime. Recommend albuterol aerosol treatment q 6 hours prn for shortness of breath. Recommend GI prophylaxis famotine. Recommend left thoracentesis by interventional radiology and sent for Cytology, Cell count, LDH, Protein, Glucose, Amylase, Gram stain, culture and sensitivity .AFB and Fungus. Recommend to start on anticoagulation after thoracentsis. If thoracentesis delayed for too long, recommend to start anticoagulation. Past History Past Medical History: diabetes, hypertension, other (H/O Ovarian Ca.) Past Surgical History: Other (Thoracentesis) Social history: no significant social history Family history: no significant family history Medications and Allergies Allergies Allergy/AdvReac Type Severity Reaction Status Date / Time No Known Allergies Allergy Verified 11/15/21 17:02 Active Meds: Active Medications Acetaminophen (Acetaminophen 325 Mg Tab) 650 mg PO Q4H PRN PRN Reason: Pain MILD(1-3)/Fever >100.5/PATEL Dextrose (Dextrose 50% In Water (25gm) 50 Ml Syringe) 50 ml IV Q30MIN PRN; Protocol PRN Reason: Hypoglycemia Sodium Chloride (Nacl 0.9% 1000 Ml) 1,000 mls @ 75 mls/hr IV DIRECT [facility] Last Admin: 11/16/21 09:19 Dose: 75 mls/hr Cefepime HCl (Cefepime/Ns 2 Gm/100 Ml) 2 gm in 100 mls @ 200 mls/hr IV Q12H [facility]; Protocol Last Admin: 11/16/21 09:17 Dose: 200 mls/hr Sodium Chloride (Nacl 0.9% 500 Ml) 500 mls @ 0 mls/hr IV ONCE NR Stop: 11/16/21 18:00 Insulin Human Lispro (Insulin Lispro 100 Unit/Ml) 0 unit SUB-Q ACHS [facility]; Protocol Last Admin: 11/16/21 12:20 Dose: 2 unit Magnesium Hydroxide (Magnesium Hydroxide (Mom) Oral Liqd Udc) 30 ml PO Q4H PRN PRN Reason: Constipation Melatonin (Melatonin 5 Mg Tab) 5 mg PO QHS PRN PRN Reason: Sleep Morphine Sulfate (Morphine 2 Mg/1 Ml Inj) 2 mg IV Q4H PRN PRN Reason: Pain, Moderate (4-6) Morphine Sulfate (Morphine 4 Mg/1 Ml Inj) 4 mg IV Q4H PRN PRN Reason: Pain , Severe (7-10) Ondansetron HCl (Ondansetron 4 Mg/2 Ml Inj) 4 mg IV Q8H PRN PRN Reason: Nausea And Vomiting Sodium Chloride (Sodium Chloride 0.9% 10 Ml Flush Syringe) 10 ml IV BID [facility] Last Admin: 11/16/21 09:44 Dose: 10 ml Sodium Chloride (Sodium Chloride 0.9% 10 Ml Flush Syringe) 10 ml IV PRN PRN PRN Reason: LINE FLUSH Tbo-Filgrastim (Tbo-Filgrastim 480 Mcg/0.8 Ml) 480 mcg SUB-Q DAILY [facility] Last Admin: 11/16/21 11:14 Dose: 480 mcg Physical Examination Vital signs: Vital Signs Temp Pulse Resp BP Pulse Ox 99.4 F 134 H 20 126/80 100 11/15/21 17:00 11/15/21 17:00 11/15/21 17:00 11/15/21 17:00 11/15/21 17:00 General appearance: no acute distress, alert, other (Weak.) Eyes: non-icteric ENT: oropharynx dry Neck: supple, no JVD Effort: mildly labored Ascultation: Left: diminished breath sounds (Dullness to percussion.) Cardiovascular: regular rate and rhythm Gastrointestinal: normoactive bowel sounds, soft, non-tender Integumentary: normal Extremities: no cyanosis, no edema Musculoskeletal: no deformities Gait: other (Patient weak, resting in bed.) normal mental status, non-focal exam, pupils equal and round depressed Results - Laboratory Findings CBC and BMP: 11/16/21 11:03 11/16/21 09:29 Abnormal lab findings: Abnormal Labs 11/15/21 11/15/21 11/15/21 17:57 17:57 17:57 WBC RBC Hgb Hct MCHC RDW Plt Count Monocytes % (Manual) Seg Neutrophils # Man Lymphocytes # (Manual) Sodium Potassium 3.3 L Chloride 96.6 L Creatinine Glucose 182 H POC Glucose Lactic Acid 2.20 H* Troponin T 0.070 H Total Protein 6.0 L Albumin 2.4 L LDL Cholesterol Direct 48 L Crossmatch 11/15/21 11/15/21 11/15/21 18:39 21:26 21:30 WBC 1.5 L* RBC 1.23 L Hgb 4.0 L* Hct 11.8 L* MCHC RDW 22.0 H Plt Count 6 L* Monocytes % (Manual) 12.0 H Seg Neutrophils # Man 0.9 L Lymphocytes # (Manual) 0.4 L Sodium Potassium Chloride Creatinine Glucose POC Glucose Lactic Acid 2.40 H* 3.60 H* Troponin T Total Protein Albumin LDL Cholesterol Direct Crossmatch 11/15/21 11/15/21 11/16/21 23:09 23:13 09:29 WBC RBC Hgb Hct MCHC RDW Plt Count Monocytes % (Manual) Seg Neutrophils # Man Lymphocytes # (Manual) Sodium 135 L Potassium 3.4 L Chloride 96.6 L Creatinine 1.3 H D Glucose 167 H POC Glucose Lactic Acid 2.90 H* Troponin T Total Protein Albumin LDL Cholesterol Direct Crossmatch See Detail 11/16/21 11/16/21 11/16/21 09:29 11:03 11:31 WBC 2.0 L RBC 3.39 L Hgb Hct 29.3 L D MCHC 35 H RDW 18.3 H Plt Count 6 L* Monocytes % (Manual) Seg Neutrophils # Man Lymphocytes # (Manual) Sodium Potassium Chloride Creatinine Glucose POC Glucose 156 H Lactic Acid 2.10 H* Troponin T Total Protein Albumin LDL Cholesterol Direct Crossmatch - Diagnostic Findings Chest x-ray: report reviewed, image reviewed CT scan - chest: report reviewed, image reviewed Additional studies: HEST 1 VIEW 11/15/2021 4:50 PM INDICATION / CLINICAL INFORMATION: TACHY. Malaise x2 days. History of ovarian cancer. COMPARISON: None available. FINDINGS: SUPPORT DEVICES: Right Port-A-Cath with tip projecting over the cavoatrial junction. HEART / MEDIASTINUM: Cardiac silhouette is obscured. LUNGS / PLEURA: Complete opacification of the left hemithorax. Right lung is essentially clear. No pneumothorax. ADDITIONAL FINDINGS: No significant additional findings. IMPRESSION: 1. Complete opacification of the left hemithorax possibly due to large left pleural effusion. CTA CHEST WITH CONTRAST 11/15/21 INDICATION / CLINICAL INFORMATION: Chest pain, tachycardia, history of unspecified cancer. TECHNIQUE: Axial CT images were obtained through the chest after injection of 100 cc Omnipaque 350 IV contrast. 3 plane MIP and/or 3D reconstructions were produced. All CT scans at this location are performed using CT dose reduction for ALARA by means of automated exposure control. COMPARISON: One view of the chest performed today. FINDINGS: PULMONARY EMBOLUS: Positive. Most proximal level of embolus is Main Pulmonary Artery. A saddle embolus is present. THORACIC AORTA: No significant abnormality. HEART: There is left ventricular hypertrophy without other significant abnormalities. CORONARY ARTERY CALCIFICATION: Absent -- None. MEDIASTINUM / JB: No significant abnormality. There is expected positioning of a right internal jugular vein Port-A-Cath. PLEURA: A large left pleural effusion is noted, accounting for previously seen complete opacification of the left hemithorax. There is a small right pleural effusion. No pneumothorax. LUNGS: Left atelectasis is noted without a suspicious nodule or mass. ADDITIONAL FINDINGS: None. UPPER ABDOMEN: Marked generalized gastric thickening is noted, most concerning for neoplastic involvement. No other significant abnormality. SKELETAL STRUCTURES: No significant osseous abnormality. IMPRESSION: 1. Acute saddle pulmonary embolus. 2. Large left pleural effusion with associated atelectasis. 3. Incompletely included markedly abnormal appearance of the stomach, most concerning for neoplastic involvement. Assessment and Plan 70-year-old -[place] female with known history of metastatic ovarian cancer which was initially diagnosed in 2016 went into remission but had a recurrence again in June 2021 presenting to the emergency room today complaining of shortness of breath. Shortness of breath has been ongoing for the past few days. She has also had some mild chest discomfort. Shortness of breath is worse on minimal exertion. Patient receives her care at [facility] and has been following up with Dr. Diaz who is a curing oven attendant. She has had recurrent thoracentesis for pleural effusion. Patient denies any fever or chills no headache or dizziness and no diaphoresis. No nausea or vomiting and no abdominal pain. She denies any calf swelling. She however has had minimal lower extremity edema. Work-up in the emergency room today, labs were significant for hemoglobin of 4, hematocrit of 11.8, WBC of 1.5, platelet count of 6. Potassium of 3.3. Lactic acid of 2.4, troponin 0.07 Chest x-ray significant for complete opacification of the left hemithorax possibly due to large left pleural effusion. CT angiogram of the chest shows acute pulmonary embolus. Large left pleural effusion with associated atelectasis. Incompletely included markedly abnormal appearance of the stomach most concerning for neoplastic involvement. Vascular surgeon has also been notified. Patient has been initiated on blood transfusion for the severe anemia. Patient has history of Diabetes, HTN and Metastatic Ovarian CA. Patient has no history of smoking, alcohol or drug abuse. 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 No known drug allergies. Patient awake, weak. Resting on 3 litres O2. O2 saturation 100%. Mild shortness of breat rest. Patient denies shortness of breath, chest pain or cough at rest. Patient afebrile. Patient has leukopenia, wbc 2.0. Blood pressure 148/95, pulse 113, respirations 16. Chest xray 11/15/21 reported Complete opacification of the left hemithorax possibly due to large left pleural effusion. CT scan of chest 11/15/21 reported Acute saddle pulmonary embolus. Large left pleural effusion with associated atelectasis. Incompletely included markedly abnormal appearance of the stomach, most concerning for neoplastic involvement. Patient is on cefepime. Recommend albuterol aerosol treatment q 6 hours prn for shortness of breath. Recommend GI prophylaxis famotine. Recommend left thoracentesis by interventional radiology and sent for Cytology, Cell count, LDH, Protein, Glucose, Amylase, Gram stain, culture and sensitivity.AFB and Fungus. Recommend to start on anticoagulation after thoracentsis. If thoracentesis delayed for too long, recommend to start anticoagulation. Patients sister at bed side. Explained to her patients respiratory status and plan. I spent critical care time of 45 minutes, obtaining the history, review the c cochran, examine the patient, Review labs, chest xray, talking to primary care physician, nursing staff and work up plan of treatment in this critically ill patient. - Patient Problems (1) Recurrent left pleural effusion Current Visit: Yes Status: Acute Plan to address problem: Recommend left thoracentesis by interventional radiology and sent for Cytology, Cell count, LDH, Protein, Glucose, Amylase, Gram stain, culture and sensitivity.AFB and Fungus. (2) Pulmonary embolus Current Visit: Yes Status: Acute Plan to address problem: Recommend sart on anticoagulation, I/V heparin after thoracentsis. Continue O2 supplementation. (3) Anemia requiring transfusions Current Visit: Yes Status: Acute Plan to address problem: Patient received blood transfusion. Recommend to repoeat CMP. (4) Ovarian ca Current Visit: Yes Status: Acute Plan to address problem: Management as per oncology.
[2021-11-16] MEDS ORDERED: SODIUM CHLORIDE 0.9% 500 ML 500 ML IV SCH (16:00)
--- NOTE | 2021-11-16 16:03 | Progress Note ---
Assessment and Plan --Acute hypoxic respiratory failure Multifactorial, likely due to pulmonary embolus and large left pleural effusion Continue nebulizer breathing treatment, supplemental O2 Initiated Lovenox and platelet count greater than 30 to treat PE and plan for thoracentesis when platelet count improves -- Pulmonary embolus Patient started on anticoagulation with heparin but now discontinued for severe thrombocytopenia and severe anemia Consult placed to vascular surgeon and hematology for evaluation. Hematology recommended to initiate Lovenox when platelets greater than 30 and if no other sign of bleeding Continue to monitor CBC -- Ovarian ca stage IV: Metastatic. Initially diagnosed in 2017. Patient follows up with her oncologist at [facility]. --Severe anemia requiring transfusions No sign of active bleeding, likely due to chemotherapy Status post 3 packs of RBC transfusion -- Pancytopenia consulted heme-onc for recommendations. --Transfuse 1 unit pRBC whenever hct <23 --Transfuse 1 dose of plts whenever plt <15 Neupogen for neutropenia daily until WBC >5 Neutropenic precaution --Left pleural effusion CT angiogram shows large left pleural effusion. Consult placed to pulmonology for evaluation and recommendations. Patient will need thoracentesis once platelets count improves >30 -- Elevated troponin Likely secondary to demand ischemia Consulted to cardiology for recommendations. -- Lactic acidosis s/p IV fluid. We will also place on empiric IV antibiotics. -- Full code status 11/16/21: Status post 2 unit of packed RBC transfusion today. H&H improved. Platelet remains at 6. Ordered for 2 units of platelets. Platelet count need to be improved for thoracentesis. Once platelet count improves greater than 30 patient need to be started on Lovenox for surgical PE. Discussed with patient and patient's sister at the bedside in details. Also discussed with Dr. Carolina and Dr. Ogden to coordinate care. Subjective Date of service: 11/16/21 Objective - Exam Narrative Exam: GENERAL: well-developed obese -[place] female lying on bed appeared to be in no discomfort. HEENT: Normocephalic. Atraumatic. No conjunctival congestion or icterus. Patient has moist mucous membranes. NECK: Supple. Trachea midline. CHEST/LUNGS: Diminished breath sounds auscultated on the left side, patient on 3 L nasal cannula O2 HEART/CARDIOVASCULAR: Regular in rate and rhythm. S1 and S2 positive. ABDOMEN: Abdomen is soft, nontender. Patient has normal bowel sounds. SKIN: There is no rash. Warm and dry. NEURO: No focal motor deficit. Follows command. MUSCULOSKELETAL: No joint effusion or tenderness. EXTRIMITY: edema (Trace bilateral ankle edema.), ulceration (Dressing over right heel ulcer) Peripheral Pulses: within normal limits PSYCH: Cooperative. - Constitutional Vitals: Vital Signs - 12hr 11/16/21 11/16/21 11/16/21 04:46 06:37 07:58 Temperature 98.2 F 99.0 F Pulse Rate 111 H 108 H 111 H Pulse Rate [ From Monitor] Respiratory 16 17 18 Rate Blood Pressure 154/99 Blood Pressure 151/100 140/90 [Left] O2 Sat by Pulse 100 100 100 Oximetry 11/16/21 11/16/21 13:27 14:10 Temperature Pulse Rate 119 H Pulse Rate [ 118 H From Monitor] Respiratory 20 Rate Blood Pressure Blood Pressure [Left] O2 Sat by Pulse 100 Oximetry - Labs CBC & Chem 7: 11/16/21 11:03 11/16/21 09:29 Labs: Abnormal lab results 11/15/21 11/15/21 11/15/21 Range/Units 17:57 17:57 17:57 WBC (4.5-11.0) K/mm3 RBC (3.65-5.03) M/mm3 Hgb (10.1-14.3) gm/dl Hct (30.3-42.9) % MCHC (30-34) % RDW (13.2-15.2) % Plt Count (140-440) K/mm3 Monocytes % (Manual) (0.0-7.3) % Seg Neutrophils # Man (1.8-7.7) K/mm3 Lymphocytes # (Manual) (1.2-5.4) K/mm3 Sodium (137-145) mmol/L Potassium 3.3 L (3.6-5.0) mmol/L Chloride 96.6 L (98-107) mmol/L Creatinine (0.6-1.2) mg/dL Glucose 182 H (65-100) mg/dL POC Glucose (70-105) mg/dL Lactic Acid 2.20 H* (0.7-2.0) mmol/L Troponin T 0.070 H (0.00-0.029) ng/mL Total Protein 6.0 L (6.3-8.2) g/dL Albumin 2.4 L (3.9-5) g/dL LDL Cholesterol Direct 48 L (50-130) mg/dL Crossmatch 11/15/21 11/15/21 11/15/21 Range/Units 18:39 21:26 21:30 WBC 1.5 L* (4.5-11.0) K/mm3 RBC 1.23 L (3.65-5.03) M/mm3 Hgb 4.0 L* (10.1-14.3) gm/dl Hct 11.8 L* (30.3-42.9) % MCHC (30-34) % RDW 22.0 H (13.2-15.2) % Plt Count 6 L* (140-440) K/mm3 Monocytes % (Manual) 12.0 H (0.0-7.3) % Seg Neutrophils # Man 0.9 L (1.8-7.7) K/mm3 Lymphocytes # (Manual) 0.4 L (1.2-5.4) K/mm3 Sodium (137-145) mmol/L Potassium (3.6-5.0) mmol/L Chloride (98-107) mmol/L Creatinine (0.6-1.2) mg/dL Glucose (65-100) mg/dL POC Glucose (70-105) mg/dL Lactic Acid 2.40 H* 3.60 H* (0.7-2.0) mmol/L Troponin T (0.00-0.029) ng/mL Total Protein (6.3-8.2) g/dL Albumin (3.9-5) g/dL LDL Cholesterol Direct (50-130) mg/dL Crossmatch 11/15/21 11/15/21 11/16/21 Range/Units 23:09 23:13 09:29 WBC (4.5-11.0) K/mm3 RBC (3.65-5.03) M/mm3 Hgb (10.1-14.3) gm/dl Hct (30.3-42.9) % MCHC (30-34) % RDW (13.2-15.2) % Plt Count (140-440) K/mm3 Monocytes % (Manual) (0.0-7.3) % Seg Neutrophils # Man (1.8-7.7) K/mm3 Lymphocytes # (Manual) (1.2-5.4) K/mm3 Sodium 135 L (137-145) mmol/L Potassium 3.4 L (3.6-5.0) mmol/L Chloride 96.6 L (98-107) mmol/L Creatinine 1.3 H D (0.6-1.2) mg/dL Glucose 167 H (65-100) mg/dL POC Glucose (70-105) mg/dL Lactic Acid 2.90 H* (0.7-2.0) mmol/L Troponin T (0.00-0.029) ng/mL Total Protein (6.3-8.2) g/dL Albumin (3.9-5) g/dL LDL Cholesterol Direct (50-130) mg/dL Crossmatch See Detail 11/16/21 11/16/21 11/16/21 Range/Units 09:29 11:03 11:31 WBC 2.0 L (4.5-11.0) K/mm3 RBC 3.39 L (3.65-5.03) M/mm3 Hgb (10.1-14.3) gm/dl Hct 29.3 L D (30.3-42.9) % MCHC 35 H (30-34) % RDW 18.3 H (13.2-15.2) % Plt Count 6 L* (140-440) K/mm3 Monocytes % (Manual) (0.0-7.3) % Seg Neutrophils # Man (1.8-7.7) K/mm3 Lymphocytes # (Manual) (1.2-5.4) K/mm3 Sodium (137-145) mmol/L Potassium (3.6-5.0) mmol/L Chloride (98-107) mmol/L Creatinine (0.6-1.2) mg/dL Glucose (65-100) mg/dL POC Glucose 156 H (70-105) mg/dL Lactic Acid 2.10 H* (0.7-2.0) mmol/L Troponin T (0.00-0.029) ng/mL Total Protein (6.3-8.2) g/dL Albumin (3.9-5) g/dL LDL Cholesterol Direct (50-130) mg/dL Crossmatch HEART Score - HEART Score Troponin: Troponin T 0.070 ng/mL (0.00-0.029) H 11/15/21 17:57
[2021-11-16] MEDS ORDERED: ALBUTEROL 2.5 MG/3 ML NEBU IH PRN (17:38)
[2021-11-16 21:11] LABS: ABG Base Excess 1.4 mmol/L (-2.0-3.0); ABG HCO3 26.4 mmol/L (20.0-26.0); ABG Methemoglobin 0.6 % (0.0-1.5); ABG Oxygen Saturation 98.8 % (95.0-99.0); ABG PCO2 43.5 mm Hg; ABG PH 7.401 pH Units (7.350-7.450)
[2021-11-17 05:54] LABS: Hematocrit 23.9 % (30.3-42.9); Hemoglobin 8.1 gm/dl (10.1-14.3); Mean Corpuscular HGB Conc 34 % (30-34); Mean Corpuscular Volume 86 fl (79-97); Red Blood Count 2.78 M/mm3 (3.65-5.03); Red Cell Distribution Width 17.9 % (13.2-15.2)
[2021-11-17 05:55] LABS: Platelet Count 93 K/mm3 (140-440)
[2021-11-17 06:10] LABS: Calcium 8.6 mg/dL (8.4-10.2)
[2021-11-17 06:46] LABS: Anisocytosis 1+; Band Neutrophils # (Manual) 0.1 K/mm3; Basophils % (Manual) 0 % (0.0-1.8); Eosinophils % (Manual) 0 % (0.0-4.3); Total Cells Counted 100
[2021-11-17 06:47] LABS: Platelet Estimate Consistent w Auto
[2021-11-17] MEDS: INSULIN LISPRO 100 UNIT/ML SUB-Q SCH ×4 (10:13→21:15)
[2021-11-17] MEDS: CEFEPIME/NS 2 GM/100 ML 2 GM/100 ML BAG IV SCH ×2 (10:13→22:02)
[2021-11-17] MEDS: TBO-FILGRASTIM 480 MCG/0.8 ML SUB-Q SCH (10:14)
[2021-11-17] MEDS ORDERED: HEPARIN 10,000 UNITS/10 ML VIAL IV PRN (10:23)
[2021-11-17] MEDS ORDERED: HEPARIN/ 0.45% NACL DRIP 25,000 UNIT/500 ML BAG IV SCH (11:00)
--- NOTE | 2021-11-17 11:40 | Hem/Onc Progress Note ---
Subjective Date of service: 11/17/21 Interval history: Heme/Onc Progress Note Discussed with Dr. Marks and sister at bedside Patient was not in room during rounds CPT 34153 Dx Pancytopenia 70yo obese AA woman with complaints of shortness of breath Pmhx of metastatic uterine cancer, initially diagnosed in 2016, went into remission but with recurrence of disease June 2021 Treated at [facility],followed by Oncology Dr. Ma and Package Pick Up Dr. Diaz In the ED, H/H 4/11.8, plts 6,000, WBC 1.5 Chest xray revealed complete opacification of the left hemithorax possibly due to large left pleural effusion Chest CTA revealed acute saddle pulmonary embolus, large left pleural effusion with associated atelectasis, and incompletely included markedly abnormal appearance of the stomach most concerning for neoplastic involvement Hematology/Oncology following for pancytopenia and metastatic ovarian cancer. DATA REVIEWED BELOW IMP: Metastatic uterine cancer Pancytopenia, post chemotherapy anson Severe anemia, s/p multiple pRBC transfusions Severe thrombocytopenia, s/p plt transfusions Neutropenia Plan: Start Lovenox 1mg/kg daily, frequency adjusted due to low plts and creatinine --Plan to increase frequency to BID tomorrow if thrombocytopenia (plts above 30) and creat remain stable Supportive transfusion parameters: --Transfuse 1 unit pRBC whenever hct <23 --Transfuse 1 dose of plts whenever plt <15 Neupogen for neutropenia daily until WBC >5 Prophylactic antibiotics Outpatient followup with established Oncologist Case d/w Dr. Henry Chaparro Laboratory Last Values WBC 2.5 K/mm3 (4.5-11.0) L 11/17/21 05:26 Hgb 8.1 gm/dl (10.1-14.3) L 11/17/21 05:26 Hct 23.9 % (30.3-42.9) L 11/17/21 05:26 MCV 86 fl (79-97) 11/17/21 05:26 Plt Count 93 K/mm3 (140-440) L D 11/17/21 05:26 Monocytes % (Manual) 8.0 % (0.0-7.3) H 11/17/21 05:26 Seg Neutrophils # Man 1.4 K/mm3 (1.8-7.7) L 11/17/21 05:26 Band Neutrophils # 0.1 K/mm3 11/17/21 05:26 Lymphocytes # (Manual) 0.8 K/mm3 (1.2-5.4) L 11/17/21 05:26 APTT 29.2 Sec. (24.2-36.6) 11/15/21 17:57 Creatinine 1.5 mg/dL (0.6-1.2) H 11/17/21 05:26 AST 36 units/L (5-40) 11/15/21 17:57 ALT 12 units/L (7-56) 11/15/21 17:57 Alkaline Phosphatase 76 units/L (35-129) 11/15/21 17:57 Blood Type O POSITIVE 11/15/21 23:09 Antibody Screen Negative 11/15/21 23:09 Crossmatch See Detail 11/15/21 23:09 Objective - Constitutional Vitals: Last Vital Signs Temp 98.0 F 11/17/21 08:57 Pulse 110 H 11/17/21 08:57 Resp 18 11/17/21 08:57 BP 130/79 11/17/21 08:57 Pulse Ox 100 11/17/21 08:57 - Labs Lab Results: Laboratory Results - last 24 hr 11/15/21 11/16/21 11/16/21 23:09 11:03 11:03 WBC 2.0 L RBC 3.39 L Hgb 10.1 D Hct 29.3 L D MCV 86 MCH 30 MCHC 35 H RDW 18.3 H Plt Count 6 L* Add Manual Diff Total Counted Seg Neuts % (Manual) Band Neutrophils % Lymphocytes % (Manual) Reactive Lymphs % (Man) Monocytes % (Manual) Eosinophils % (Manual) Basophils % (Manual) Metamyelocytes % Myelocytes % Promyelocytes % Blast Cells % Nucleated RBC % Seg Neutrophils # Man Band Neutrophils # Lymphocytes # (Manual) Abs React Lymphs (Man) Monocytes # (Manual) Eosinophils # (Manual) Basophils # (Manual) Metamyelocytes # Myelocytes # Promyelocytes # Blast Cells # WBC Morphology Hypersegmented Neuts Hyposegmented Neuts Hypogranular Neuts Smudge Cells Toxic Granulation Toxic Vacuolation Dohle Bodies Pelger-Huet Anomaly Renetta Rods Platelet Estimate Clumped Platelets Plt Clumps, EDTA Large Platelets Giant Platelets Platelet Satelliting Plt Morphology Comment RBC Morphology Dimorphic RBCs Polychromasia Hypochromasia Poikilocytosis Anisocytosis Microcytosis Macrocytosis Spherocytes Pappenheimer Bodies Sickle Cells Target Cells Tear Drop Cells Ovalocytes Helmet Cells Beckman-Oakman Bodies [place] Cells Bite Cells Crenated Cell Elliptocytes Acanthocytes (Spur) Rouleaux Hemoglobin C Crystals Schistocytes Malaria parasites Víctor Bodies Hem Pathologist Commnt ABG pH ABG pCO2 ABG pO2 ABG HCO3 ABG O2 Saturation ABG O2 Content ABG Base Excess ABG Hemoglobin ABG Carboxyhemoglobin ABG Methemoglobin Oxyhemoglobin FiO2 Sodium Potassium Chloride Carbon Dioxide Anion Gap BUN Creatinine Estimated GFR BUN/Creatinine Ratio Glucose POC Glucose Lactic Acid 1.70 Calcium Blood Type O POSITIVE Antibody Screen Negative Crossmatch See Detail 11/16/21 11/16/21 11/16/21 11:31 16:51 20:24 WBC RBC Hgb Hct MCV MCH MCHC RDW Plt Count Add Manual Diff Total Counted Seg Neuts % (Manual) Band Neutrophils % Lymphocytes % (Manual) Reactive Lymphs % (Man) Monocytes % (Manual) Eosinophils % (Manual) Basophils % (Manual) Metamyelocytes % Myelocytes % Promyelocytes % Blast Cells % Nucleated RBC % Seg Neutrophils # Man Band Neutrophils # Lymphocytes # (Manual) Abs React Lymphs (Man) Monocytes # (Manual) Eosinophils # (Manual) Basophils # (Manual) Metamyelocytes # Myelocytes # Promyelocytes # Blast Cells # WBC Morphology Hypersegmented Neuts Hyposegmented Neuts Hypogranular Neuts Smudge Cells Toxic Granulation Toxic Vacuolation Dohle Bodies Pelger-Huet Anomaly Renetta Rods Platelet Estimate Clumped Platelets Plt Clumps, EDTA Large Platelets Giant Platelets Platelet Satelliting Plt Morphology Comment RBC Morphology Dimorphic RBCs Polychromasia Hypochromasia Poikilocytosis Anisocytosis Microcytosis Macrocytosis Spherocytes Pappenheimer Bodies Sickle Cells Target Cells Tear Drop Cells Ovalocytes Helmet Cells Beckman-[place]ak[place] Bodies [place] Cells Bite Cells Crenated Cell Elliptocytes Acanthocytes (Spur) Rouleaux Hemoglobin C Crystals Schistocytes Malaria parasites Víctor Bodies Hem Pathologist Commnt ABG pH ABG pCO2 ABG pO2 ABG HCO3 ABG O2 Saturation ABG O2 Content ABG Base Excess ABG Hemoglobin ABG Carboxyhemoglobin ABG Methemoglobin Oxyhemoglobin FiO2 Sodium Potassium Chloride Carbon Dioxide Anion Gap BUN Creatinine Estimated GFR BUN/Creatinine Ratio Glucose POC Glucose 156 H 149 H 138 H Lactic Acid Calcium Blood Type Antibody Screen Crossmatch 11/16/21 11/17/21 11/17/21 20:50 05:26 05:26 WBC 2.5 L RBC 2.78 L Hgb 8.1 L Hct 23.9 L MCV 86 MCH 29 MCHC 34 RDW 17.9 H Plt Count 93 L D Add Manual Diff Complete Total Counted 100 Seg Neuts % (Manual) 57.0 Band Neutrophils % 4.0 Lymphocytes % (Manual) 30.0 Reactive Lymphs % (Man) 0 Monocytes % (Manual) 8.0 H Eosinophils % (Manual) 0 Basophils % (Manual) 0 Metamyelocytes % 1.0 Myelocytes % 0 Promyelocytes % 0 Blast Cells % 0 Nucleated RBC % 1.0 H Seg Neutrophils # Man 1.4 L Band Neutrophils # 0.1 Lymphocytes # (Manual) 0.8 L Abs React Lymphs (Man) 0.0 Monocytes # (Manual) 0.2 Eosinophils # (Manual) 0.0 Basophils # (Manual) 0.0 Metamyelocytes # 0.0 Myelocytes # 0.0 Promyelocytes # 0.0 Blast Cells # 0.0 WBC Morphology Not Reportable Hypersegmented Neuts Not Reportable Hyposegmented Neuts Not Reportable Hypogranular Neuts Not Reportable Smudge Cells Not Reportable Toxic Granulation Not Reportable Toxic Vacuolation Not Reportable Dohle Bodies Not Reportable Pelger-Huet Anomaly Not Reportable Renetta Rods Not Reportable Platelet Estimate Consistent w auto Clumped Platelets Not Reportable Plt Clumps, EDTA Not Reportable Large Platelets Not Reportable Giant Platelets Not Reportable Platelet Satelliting Not Reportable Plt Morphology Comment Not Reportable RBC Morphology Not Reportable Dimorphic RBCs Not Reportable Polychromasia Not Reportable Hypochromasia Not Reportable Poikilocytosis Not Reportable Anisocytosis 1+ Microcytosis Not Reportable Macrocytosis Not Reportable Spherocytes Not Reportable Pappenheimer Bodies Not Reportable Sickle Cells Not Reportable Target Cells Not Reportable Tear Drop Cells Not Reportable Ovalocytes Not Reportable Helmet Cells Not Reportable Beckman-Oakman Bodies Not Reportable [place] Rings Not Reportable [place] Cells Not Reportable Bite Cells Not Reportable Crenated Cell Not Reportable Elliptocytes Not Reportable Acanthocytes (Spur) Not Reportable Rouleaux Not Reportable Hemoglobin C Crystals Not Reportable Schistocytes Not Reportable Malaria parasites Not Reportable Víctor Bodies Not Reportable Hem Pathologist Commnt No ABG pH 7.401 ABG pCO2 43.5 ABG pO2 144.0 H ABG HCO3 26.4 H ABG O2 Saturation 98.8 ABG O2 Content 12.8 ABG Base Excess 1.4 ABG Hemoglobin 9.2 L ABG Carboxyhemoglobin 1.4 ABG Methemoglobin 0.6 Oxyhemoglobin 96.9 FiO2 32 Sodium 136 L Potassium 3.3 L Chloride 96.5 L Carbon Dioxide 25 Anion Gap 18 BUN 20 H Creatinine 1.5 H Estimated GFR 42 BUN/Creatinine Ratio 13 Glucose 113 H POC Glucose Lactic Acid Calcium 8.6 Blood Type Antibody Screen Crossmatch 11/17/21 07:40 WBC RBC Hgb Hct MCV MCH MCHC RDW Plt Count Add Manual Diff Total Counted Seg Neuts % (Manual) Band Neutrophils % Lymphocytes % (Manual) Reactive Lymphs % (Man) Monocytes % (Manual) Eosinophils % (Manual) Basophils % (Manual) Metamyelocytes % Myelocytes % Promyelocytes % Blast Cells % Nucleated RBC % Seg Neutrophils # Man Band Neutrophils # Lymphocytes # (Manual) Abs React Lymphs (Man) Monocytes # (Manual) Eosinophils # (Manual) Basophils # (Manual) Metamyelocytes # Myelocytes # Promyelocytes # Blast Cells # WBC Morphology Hypersegmented Neuts Hyposegmented Neuts Hypogranular Neuts Smudge Cells Toxic Granulation Toxic Vacuolation Dohle Bodies Pelger-Huet Anomaly Renetta Rods Platelet Estimate Clumped Platelets Plt Clumps, EDTA Large Platelets Giant Platelets Platelet Satelliting Plt Morphology Comment RBC Morphology Dimorphic RBCs Polychromasia Hypochromasia Poikilocytosis Anisocytosis Microcytosis Macrocytosis Spherocytes Pappenheimer Bodies Sickle Cells Target Cells Tear Drop Cells Ovalocytes Helmet Cells Beckman-Oakman Bodies [place] Cells Bite Cells Crenated Cell Elliptocytes Acanthocytes (Spur) Rouleaux Hemoglobin C Crystals Schistocytes Malaria parasites Víctor Bodies Hem Pathologist Commnt ABG pH ABG pCO2 ABG pO2 ABG HCO3 ABG O2 Saturation ABG O2 Content ABG Base Excess ABG Hemoglobin ABG Carboxyhemoglobin ABG Methemoglobin Oxyhemoglobin FiO2 Sodium Potassium Chloride Carbon Dioxide Anion Gap BUN Creatinine Estimated GFR BUN/Creatinine Ratio Glucose POC Glucose 109 H Lactic Acid Calcium Blood Type Antibody Screen Crossmatch Medications & Allergies - Medications Allergies/Adverse Reactions: Allergies No Known Allergies Allergy (Verified 11/15/21 17:02) Active Medications: Generic Name Dose Route Start Last Admin Trade Name Freq PRN Reason Stop Dose Admin Acetaminophen 650 mg 11/15/21 22:35 Acetaminophen 325 Mg Tab PO Q4H PRN Pain MILD(1-3)/Fever >100.5/PATEL Albuterol 2.5 mg 11/16/21 17:38 Albuterol 2.5 Mg/3 Ml Nebu IH Q6HRT PRN Shortness Of Breath Dextrose 50 ml 11/15/21 22:35 Dextrose 50% In Water (25gm) 50 Ml Syringe IV Q30MIN PRN Hypoglycemia Protocol Enoxaparin Sodium 110 mg 11/17/21 12:00 Enoxaparin 100 Mg/1 Ml Inj 1 mg/kg (110 mg) SUB-Q Q24HR GRAHAM Protocol Cefepime HCl 2 gm in 100 mls @ 200 mls/hr 11/16/21 10:00 11/17/21 10:13 Cefepime/Ns 2 Gm/100 Ml IV 200 mls/hr Q12H GRAHAM Administration Protocol Insulin Human Lispro 0 unit 11/16/21 07:30 11/17/21 10:13 Insulin Lispro 100 Unit/Ml SUB-Q Not Given ACHS GRAHAM Protocol Magnesium Hydroxide 30 ml 11/15/21 22:35 Magnesium Hydroxide (Mom) Oral Liqd Udc PO Q4H PRN Constipation Melatonin 5 mg 11/16/21 01:36 Melatonin 5 Mg Tab PO QHS PRN Sleep Morphine Sulfate 2 mg 11/15/21 22:35 Morphine 2 Mg/1 Ml Inj IV Q4H PRN Pain, Moderate (4-6) Morphine Sulfate 4 mg 11/15/21 22:35 Morphine 4 Mg/1 Ml Inj IV Q4H PRN Pain , Severe (7-10) Ondansetron HCl 4 mg 11/15/21 22:35 Ondansetron 4 Mg/2 Ml Inj IV Q8H PRN Nausea And Vomiting Sodium Chloride 10 ml 11/16/21 10:00 11/17/21 10:15 Sodium Chloride 0.9% 10 Ml Flush Syringe IV 10 ml BID GRAHAM Administration Sodium Chloride 10 ml 11/15/21 22:35 Sodium Chloride 0.9% 10 Ml Flush Syringe IV PRN PRN LINE FLUSH Tbo-Filgrastim 480 mcg 11/16/21 10:00 11/17/21 10:14 Tbo-Filgrastim 480 Mcg/0.8 Ml SUB-Q 480 mcg DAILY GRAHAM Administration
[2021-11-17 12:02] LABS: Hematocrit 21.7 % (30.3-42.9); Hemoglobin 7.5 gm/dl (10.1-14.3)
[2021-11-17 12:33] LABS: INR 1.03 (0.87-1.13)
[2021-11-17 12:34] LABS: Partial Thromboplastin Time 30.7 Sec. (24.2-36.6)
--- NOTE | 2021-11-17 13:07 | Procedure Note ---
Date of procedure: 11/17/21 Pre-op diagnosis: left pleural effusion Post-op diagnosis: other (left hemothorax) Procedure: US thoracentesis Findings: large complex left pleural fluid. bloody and septated. Anesthesia: local Surgeon: TOM MANCILLA Estimated blood loss: none Pathology: list (120cc) Specimen disposition: to lab Condition: stable Disposition: floor
[2021-11-17] MEDS: ENOXAPARIN 100 MG/1 ML INJ SUB-Q SCH (13:24)
--- NOTE | 2021-11-17 13:35 | Progress Note ---
Assessment and Plan 70-year-old -Portuguese female with known history of metastatic ovarian cancer which was initially diagnosed in 2016 went into remission but had a recurrence again in June 2021 presenting to the emergency room today complaining of shortness of breath. Shortness of breath has been ongoing for the past few days. She has also had some mild chest discomfort. Shortness of breath is worse on minimal exertion. Patient receives her care at [facility] and has been following up with Dr. Diaz who is a ict development manager. She has had recurrent thoracentesis for pleural effusion. Patient denies any fever or chills no headache or dizziness and no diaphoresis. No nausea or vomiting and no abdominal pain. She denies any calf swelling. She however has had minimal lower extremity edema. Work-up in the emergency room today, labs were significant for hemoglobin of 4, hematocrit of 11.8, WBC of 1.5, platelet count of 6. Potassium of 3.3. Lactic acid of 2.4, troponin 0.07 Chest x-ray significant for complete opacification of the left hemithorax possibly due to large left pleural effusion. CT angiogram of the chest shows acute pulmonary embolus. Large left pleural effusion with associated atelectasis. Incompletely included markedly abnormal appearance of the stomach most concerning for neoplastic involvement. Vascular surgeon has also been notified. Patient has been initiated on blood transfusion for the severe anemia. Patient has history of Diabetes, HTN and Metastatic Ovarian CA. Patient has no history of smoking, alcohol or drug abuse. 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 No known drug allergies. Patient awake, weak. Resting on 3 litres O2. O2 saturation 100%.Appears having Mild shortness of breath at rest. Patient denies shortness of breath, chest pain or cough at rest. ABG on 3 litres O2. ABG pH 7.401 pH Units (7.350-7.450) 11/16/21 20:50 ABG pCO2 43.5 mm Hg 11/16/21 20:50 ABG pO2 144.0 mm Hg (80.0-90.0) H 11/16/21 20:50 ABG O2 Saturation 98.8 % (95.0-99.0) 11/16/21 20:50 Patient afebrile. Patient has leukopenia, Blood pressure 130/79, pulse 110, respirations 18. Chest xray 11/15/21 reported Complete opacification of the left hemithorax possibly due to large left pleural effusion. CT scan of chest 11/15/21 reported Acute saddle pulmonary embolus. Large left pleural effusion with associated atelectasis. Incompletely included markedly abnormal appearance of the stomach, most concerning for neoplastic involvement. Patient is on cefepime. Recommend albuterol aerosol treatment q 6 hours prn for shortness of breath. Recommend GI prophylaxis famotine. Recommended left thoracentesis by interventional radiology and sent for Cytology, Cell count, LDH, Protein, Glucose, Amylase, Gram stain, culture and se nsitivity.AFB and Fungus. Patient undergone left thoracentesis to day by interventional radiology. Reported pleural fluid turbid, WBC count 330, RBC [id number], Neutrophils 81%, Lymphocytes 17%. Rest of the pleural fluid results pending. Patient started on anti coagulation S/C Lovenox in therapeutic doses. I spent critical care time of 35 minutes, obtaining the history, review the chart, examine the patient, Review labs, chest xray, talking to primary care physician, nursing staff and work up plan of treatment in this critically ill patient. - Patient Problems (1) Recurrent left pleural effusion Current Visit: Yes Status: Acute Plan to address problem: Patient undergone left thoracentesis to day by interventional radiology. Reported pleural fluid turbid, WBC count 330, RBC [id number], Neutrophils 81%, Lymphocytes 17%. Rest of the pleural fluid results pending. (2) Pulmonary embolus Current Visit: Yes Status: Acute Plan to address problem: Continue O2 supplementation. Patient started on S/C Lovenox in therapeutic doses. (3) Anemia requiring transfusions Current Visit: Yes Status: Acute Plan to address problem: Patient received blood transfusion. Recommend to repoeat CBC (4) Ovarian ca Current Visit: Yes Status: Acute Plan to address problem: Management as per oncology. Subjective Date of service: 11/17/21 Interval history: 70-year-old -Portuguese female with known history of metastatic ovarian cancer which was initially diagnosed in 2016 went into remission but had a recurrence again in June 2021 presenting to the emergency room today complaining of shortness of breath. Shortness of breath has been ongoing for the past few days. She has also had some mild chest discomfort. Shortness of breath is worse on minimal exertion. Patient receives her care at [facility] and has been following up with Dr. Diaz who is a ict development manager. She has had recurrent thoracentesis for pleural effusion. Patient denies any fever or chills no headache or dizziness and no diaphoresis. No nausea or vomiting and no abdominal pain. She denies any calf swelling. She however has had minimal lower extremity edema. Work-up in the emergency room today, labs were significant for hemoglobin of 4, hematocrit of 11.8, WBC of 1.5, platelet count of 6. Potassium of 3.3. Lactic acid of 2.4, troponin 0.07 Chest x-ray significant for complete opacification of the left hemithorax possibly due to large left pleural effusion. CT angiogram of the chest shows acute pulmonary embolus. Large left pleural effusion with associated atelectasis. Incompletely included markedly abnormal appearance of the stomach most concerning for neoplastic involvement. Vascular surgeon has also been notified. Patient has been initiated on blood transfusion for the severe anemia. Patient has history of Diabetes, HTN and Metastatic Ovarian CA. Patient has no history of smoking, alcohol or drug abuse. 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 No known drug allergies. Patient awake, weak. Resting on 3 litres O2. O2 saturation 100%.Appears having Mild shortness of breath at rest. Patient denies shortness of breath, chest pain or cough at rest. ABG on 3 litres O2. ABG pH 7.401 pH Units (7.350-7.450) 11/16/21 20:50 ABG pCO2 43.5 mm Hg 11/16/21 20:50 ABG pO2 144.0 mm Hg (80.0-90.0) H 11/16/21 20:50 ABG O2 Saturation 98.8 % (95.0-99.0) 11/16/21 20:50 Patient afebrile. Patient has leukopenia, Blood pressure 130/79, pulse 110, respirations 18. Chest xray 11/15/21 reported Complete opacification of the left hemithorax possibly due to large left pleural effusion. CT scan of chest 11/15/21 reported Acute saddle pulmonary embolus. Large left pleural effusion with associated atelectasis. Incompletely included markedly abnormal appearance of the stomach, most concerning for neoplastic involvement. Patient is on cefepime. Recommend albuterol aerosol treatment q 6 hours prn for shortness of breath. Recommend GI prophylaxis famotine. Recommended left thoracentesis by interventional radiology and sent for Cytology, Cell count, LDH, Protein, Glucose, Amylase, Gram stain, culture and sensitivity.AFB and Fungus. Patient undergone left thoracentesis to day by interventional radiology. Reported pleural fluid turbid, WBC count 330, RBC [id number], Neutrophils 81%, Lymphocytes 17%. Rest of the pleural fluid results pending. Patient started on anti coagulation S/C Lovenox in therapeutic doses. Objective Vital Signs - 12hr 11/17/21 11/17/21 11/17/21 02:00 03:49 08:57 Temperature 98.0 F 98.0 F Pulse Rate 117 H 110 H Respiratory 19 18 Rate Blood Pressure 126/65 Blood Pressure 130/79 [Left] O2 Sat by Pulse 100 100 100 Oximetry Constitutional: no acute distress, alert, other (Weak.) Eyes: non-icteric ENT: oropharynx dry Neck: supple, no JVD Effort: mildly labored Ascultation: Left: diminished breath sounds (Slightly improved breath sounds on left side.) Cardiovascular: regular rate and rhythm Gastrointestinal: normoactive bowel sounds, soft, non-tender Integumentary: normal Extremities: no cyanosis, no edema Neurologic: normal mental status, non-focal exam, pupils equal and round Psychiatric: depressed CBC and BMP: 11/17/21 10:56 11/18/21 05:09 ABG, PT/INR, D-dimer: ABG ABG pH 7.401 pH Units (7.350-7.450) 11/16/21 20:50 ABG pCO2 43.5 mm Hg 11/16/21 20:50 ABG pO2 144.0 mm Hg (80.0-90.0) H 11/16/21 20:50 ABG O2 Saturation 98.8 % (95.0-99.0) 11/16/21 20:50 PT/INR, D-dimer PT 14.7 Sec. (12.2-14.9) 11/17/21 10:56 INR 1.03 (0.87-1.13) 11/17/21 10:56 Abnormal lab findings: Abnormal Labs 11/15/21 11/15/21 11/15/21 17:57 17:57 17:57 WBC RBC Hgb Hct MCHC RDW Plt Count Monocytes % (Manual) Nucleated RBC % Seg Neutrophils # Man Lymphocytes # (Manual) ABG pO2 ABG HCO3 ABG Hemoglobin Sodium Potassium 3.3 L Chloride 96.6 L BUN Creatinine Glucose 182 H POC Glucose Lactic Acid 2.20 H* Troponin T 0.070 H Total Protein 6.0 L Albumin 2.4 L LDL Cholesterol Direct 48 L Crossmatch 11/15/21 11/15/21 11/15/21 18:39 21:26 21:30 WBC 1.5 L* RBC 1.23 L Hgb 4.0 L* Hct 11.8 L* MCHC RDW 22.0 H Plt Count 6 L* Monocytes % (Manual) 12.0 H Nucleated RBC % Seg Neutrophils # Man 0.9 L Lymphocytes # (Manual) 0.4 L ABG pO2 ABG HCO3 ABG Hemoglobin Sodium Potassium Chloride BUN Creatinine Glucose POC Glucose Lactic Acid 2.40 H* 3.60 H* Troponin T Total Protein Albumin LDL Cholesterol Direct Crossmatch 11/15/21 11/15/21 11/16/21 23:09 23:13 09:29 WBC RBC Hgb Hct MCHC RDW Plt Count Monocytes % (Manual) Nucleated RBC % Seg Neutrophils # Man Lymphocytes # (Manual) ABG pO2 ABG HCO3 ABG Hemoglobin Sodium 135 L Potassium 3.4 L Chloride 96.6 L BUN Creatinine 1.3 H D Glucose 167 H POC Glucose Lactic Acid 2.90 H* Troponin T Total Protein Albumin LDL Cholesterol Direct Crossmatch See Detail 11/16/21 11/16/21 11/16/21 09:29 11:03 11:31 WBC 2.0 L RBC 3.39 L Hgb Hct 29.3 L D MCHC 35 H RDW 18.3 H Plt Count 6 L* Monocytes % (Manual) Nucleated RBC % Seg Neutrophils # Man Lymphocytes # (Manual) ABG pO2 ABG HCO3 ABG Hemoglobin Sodium Potassium Chloride BUN Creatinine Glucose POC Glucose 156 H Lactic Acid 2.10 H* Troponin T Total Protein Albumin LDL Cholesterol Direct Crossmatch 11/16/21 11/16/21 11/16/21 16:51 20:24 20:50 WBC RBC Hgb Hct MCHC RDW Plt Count Monocytes % (Manual) Nucleated RBC % Seg Neutrophils # Man Lymphocytes # (Manual) ABG pO2 144.0 H ABG HCO3 26.4 H ABG Hemoglobin 9.2 L Sodium Potassium Chloride BUN Creatinine Glucose POC Glucose 149 H 138 H Lactic Acid Troponin T Total Protein Albumin LDL Cholesterol Direct Crossmatch 11/17/21 11/17/21 11/17/21 05:26 05:26 07:40 WBC 2.5 L RBC 2.78 L Hgb 8.1 L Hct 23.9 L MCHC RDW 17.9 H Plt Count 93 L D Monocytes % (Manual) 8.0 H Nucleated RBC % 1.0 H Seg Neutrophils # Man 1.4 L Lymphocytes # (Manual) 0.8 L ABG pO2 ABG HCO3 ABG Hemoglobin Sodium 136 L Potassium 3.3 L Chloride 96.5 L BUN 20 H Creatinine 1.5 H Glucose 113 H POC Glucose 109 H Lactic Acid Troponin T Total Protein Albumin LDL Cholesterol Direct Crossmatch 11/17/21 10:56 WBC RBC Hgb 7.5 L Hct 21.7 L MCHC RDW Plt Count 82 L Monocytes % (Manual) Nucleated RBC % Seg Neutrophils # Man Lymphocytes # (Manual) ABG pO2 ABG HCO3 ABG Hemoglobin Sodium Potassium Chloride BUN Creatinine Glucose POC Glucose Lactic Acid Troponin T Total Protein Albumin LDL Cholesterol Direct Crossmatch Chest x-ray: report reviewed, image reviewed Additional Studies: ULTRASOUND-GUIDED THORACENTESIS 11/17/21 HISTORY: left pleural effusion. COMPARISON: CTA chest 10/16/2021 PROCEDURE: The risks (including but not limited to bleeding, infection, and pneumothorax) and benefits were explained to the patient and informed consent was obtained. A time out procedure was performed. Ultrasound was used to evaluate the left pleural effusion and locate the optimal site for needle entry. The large left pleural effusion was complex with debris and septation. Once the skin was marked, the procedure site was prepped and draped in the usual sterile fashion and lidocaine was used for local anesthesia. A 5-German thoracentesis catheter was placed. The patient was monitored closely throughout the procedure, and a total of 1200 mL of bloody fluid was aspirated. Samples were sent to the lab for further evaluation per the primary clinicians orders. The patient tolerated the procedure well with no complications. A post- procedure chest x-ray was immediately ordered. IMPRESSION: Successful thoracentesis as above with a total of 1200 mL of bloody fluid aspirated. Only 1200 cc of bloody fluid could be aspirated due to septation and viscosity of this collection. CHEST 1 VIEW 11/17/2021 2:03 PM INDICATION / CLINICAL INFORMATION: recent left thora, sob, effusion. COMPARISON: 10/16/2021 FINDINGS: SUPPORT DEVICES: Stable positioning of the right [id number] HEART / MEDIASTINUM: No significant abnormality. LUNGS / PLEURA: Large left pleural effusion is decreased by 25-50% after thoracentesis. Please note that only 1200 cc of bloody fluid could be aspirated. The collection was complex with septation and debris. Mild to moderate left hemothorax persists. The left upper lobe is partially aerated. The left lower lobe is compressed. The right lung is clear. No pneumothorax. ADDITIONAL FINDINGS: No significant additional findings. IMPRESSION: 1. No evidence for pneumothorax following left thoracentesis. See above.
--- NOTE | 2021-11-17 14:06 | Progress Note ---
Assessment and Plan --Acute hypoxic respiratory failure Multifactorial, likely due to pulmonary embolus and large left pleural effusion Continue nebulizer breathing treatment, supplemental O2 Initiated Lovenox as platelet count greater than 30 to treat PE and s/p thoracentesis today/11/17/21 -- Pulmonary embolus Patient started on anticoagulation with heparin but now discontinued for severe thrombocytopenia and severe anemia Consult placed to vascular surgeon and hematology for evaluation. Hematology recommended to initiate Lovenox as long as platelets greater than 30 and if no other sign of bleeding Continue to monitor CBC -- Ovarian ca stage IV: Metastatic. Initially diagnosed in 2017. Patient follows up with her oncologist at [place]. --Severe anemia requiring transfusions No sign of active bleeding, likely due to chemotherapy Status post 3 packs of RBC transfusion -- Pancytopenia, s/p 4 units PRBC and 1 unit platelets transfusion consulted heme-onc for recommendations. --Transfuse 1 unit pRBC whenever hct <23 --Transfuse 1 dose of plts whenever plt <15 Neupogen for neutropenia daily until WBC >5 Neutropenic precaution --Left pleural effusion CT angiogram shows large left pleural effusion. Consult placed to pulmonology for evaluation and recommendations. s/p thoracentesis drained about 1.2 L of fluid -- Elevated troponin Likely secondary to demand ischemia Consulted to cardiology for recommendations. --Mild LEANN, likely prerenal with vasomotor nephropathy We will continue to follow, monitor BMP IV fluid as needed -- Lactic acidosis s/p IV fluid. We will also place on empiric IV antibiotics. -- Full code status 11/16/21: Status post 2 unit of packed RBC transfusion today. H&H improved. Platelet remains at 6. Ordered for 2 units of platelets. Platelet count need to be improved for thoracentesis. Once platelet count improves greater than 30 patient need to be started on Lovenox for surgical PE. Discussed with patient and patient's sister at the bedside in details. Also discussed with Dr. Carolina and Dr. Ogden to coordinate care. 11/17/21: H&H and platelets improved. So far transfused 4 units of packed RBC and 1 units of platelets. Status post paracentesis today. Initiated on Lovenox 1 mg/kg every 24 hours as creatinine increased to 1.5. Will change to Lovenox to twice daily when creatinine improves. Continue to follow CBC and watch for bleeding. Monitor renal function. Subjective Date of service: 11/17/21 Interval history: Patient seen and examined. Medical records and medication list reviewed. No acute event overnight noted by the RN. S/p left thoracentesis today Patient wished to remain full code H&H and platelet improved Discussed plan of care at bedside with patient and with her sister. Objective - Exam Narrative Exam: GENERAL: well-developed obese -Mexican female lying on bed appeared to be in no discomfort. HEENT: Normocephalic. Atraumatic. No conjunctival congestion or icterus. Patient has moist mucous membranes. NECK: Supple. Trachea midline. CHEST/LUNGS: Improved breath sounds auscultated on the left side, patient on 3 L nasal cannula O2 HEART/CARDIOVASCULAR: Regular in rate and rhythm. S1 and S2 positive. ABDOMEN: Abdomen is soft, nontender. Patient has normal bowel sounds. SKIN: There is no rash. Warm and dry. NEURO: No focal motor deficit. Follows command. MUSCULOSKELETAL: No joint effusion or tenderness. EXTRIMITY: edema (Trace bilateral ankle edema.), ulceration (Dressing over right heel ulcer) Peripheral Pulses: within normal limits PSYCH: Cooperative. - Constitutional Vitals: Vital Signs - 12hr 11/17/21 11/17/21 03:49 08:57 Temperature 98.0 F 98.0 F Pulse Rate 117 H 110 H Respiratory 19 18 Rate Blood Pressure 126/65 Blood Pressure 130/79 [Left] O2 Sat by Pulse 100 100 Oximetry - Labs CBC & Chem 7: 11/18/21 05:09 11/18/21 05:09 Labs: Abnormal lab results 11/15/21 11/16/21 11/16/21 Range/Units 23:09 16:51 20:24 WBC (4.5-11.0) K/mm3 RBC (3.65-5.03) M/mm3 Hgb (10.1-14.3) gm/dl Hct (30.3-42.9) % RDW (13.2-15.2) % Plt Count (140-440) K/mm3 Monocytes % (Manual) (0.0-7.3) % Nucleated RBC % (0.0-0.9) % Seg Neutrophils # Man (1.8-7.7) K/mm3 Lymphocytes # (Manual) (1.2-5.4) K/mm3 ABG pO2 (80.0-90.0) mm Hg ABG HCO3 (20.0-26.0) mmol/L ABG Hemoglobin (12.0-16.0) gm/dl Sodium (137-145) mmol/L Potassium (3.6-5.0) mmol/L Chloride (98-107) mmol/L BUN (7-17) mg/dL Creatinine (0.6-1.2) mg/dL Glucose (65-100) mg/dL POC Glucose 149 H 138 H (70-105) mg/dL Crossmatch See Detail 11/16/21 11/17/21 11/17/21 Range/Units 20:50 05:26 05:26 WBC 2.5 L (4.5-11.0) K/mm3 RBC 2.78 L (3.65-5.03) M/mm3 Hgb 8.1 L (10.1-14.3) gm/dl Hct 23.9 L (30.3-42.9) % RDW 17.9 H (13.2-15.2) % Plt Count 93 L D (140-440) K/mm3 Monocytes % (Manual) 8.0 H (0.0-7.3) % Nucleated RBC % 1.0 H (0.0-0.9) % Seg Neutrophils # Man 1.4 L (1.8-7.7) K/mm3 Lymphocytes # (Manual) 0.8 L (1.2-5.4) K/mm3 ABG pO2 144.0 H (80.0-90.0) mm Hg ABG HCO3 26.4 H (20.0-26.0) mmol/L ABG Hemoglobin 9.2 L (12.0-16.0) gm/dl Sodium 136 L (137-145) mmol/L Potassium 3.3 L (3.6-5.0) mmol/L Chloride 96.5 L (98-107) mmol/L BUN 20 H (7-17) mg/dL Creatinine 1.5 H (0.6-1.2) mg/dL Glucose 113 H (65-100) mg/dL POC Glucose (70-105) mg/dL Crossmatch 11/17/21 11/17/21 11/17/21 Range/Units 07:40 10:56 13:41 WBC (4.5-11.0) K/mm3 RBC (3.65-5.03) M/mm3 Hgb 7.5 L (10.1-14.3) gm/dl Hct 21.7 L (30.3-42.9) % RDW (13.2-15.2) % Plt Count 82 L (140-440) K/mm3 Monocytes % (Manual) (0.0-7.3) % Nucleated RBC % (0.0-0.9) % Seg Neutrophils # Man (1.8-7.7) K/mm3 Lymphocytes # (Manual) (1.2-5.4) K/mm3 ABG pO2 (80.0-90.0) mm Hg ABG HCO3 (20.0-26.0) mmol/L ABG Hemoglobin (12.0-16.0) gm/dl Sodium (137-145) mmol/L Potassium (3.6-5.0) mmol/L Chloride (98-107) mmol/L BUN (7-17) mg/dL Creatinine (0.6-1.2) mg/dL Glucose (65-100) mg/dL POC Glucose 109 H 109 H (70-105) mg/dL Crossmatch HEART Score - HEART Score Troponin: Troponin T 0.070 ng/mL (0.00-0.029) H 11/15/21 17:57
--- NOTE | 2021-11-17 15:19 | Ultrasound Report ---
ULTRASOUND-GUIDED THORACENTESIS HISTORY: left pleural effusion. COMPARISON: CTA chest 10/16/2021 PROCEDURE: The risks (including but not limited to bleeding, infection, and pneumothorax) and benefi ts were explained to the patient and informed consent was obtained. A time out procedure was perform ed. Ultrasound was used to evaluate the left pleural effusion and locate the optimal site for needle entr y. The large left pleural effusion was complex with debris and septation. Once the skin was marked, t procedure site was prepped and draped in the usual sterile fashion and lidocaine was used for loca l anesthesia. A 5-Wallisian thoracentesis catheter was placed. The patient was monitored closely throu ghout the procedure, and a total of 1200 mL of bloody fluid was aspirated. Samples were sent to the lab for further evaluation per the primary clinicians orders. The patient tolerated the procedure well with no complications. A post-procedure chest x-ray was imm ediately ordered. IMPRESSION: Successful thoracentesis as above with a total of 1200 mL of bloody fluid aspirated. Only 1200 cc of bloody fluid could be aspirated due to septation and viscosity of this collection. Signer Name: Robinson Jay Jr, MD Signed: 11/17/2021 3:15 PM Workstation Name: [id number][id number]
--- NOTE | 2021-11-17 15:21 | XRay Report ---
CHEST 1 VIEW 11/17/2021 2:03 PM INDICATION / CLINICAL INFORMATION: recent left thora, sob, effusion. COMPARISON: 10/16/2021 FINDINGS: SUPPORT DEVICES: Stable positioning of the right [id number] HEART / MEDIASTINUM: No significant abnormality. LUNGS / PLEURA: Large left pleural effusion is decreased by 25-50% after thoracentesis. Please note t hat only 1200 cc of bloody fluid could be aspirated. The collection was complex with septation and de bris. Mild to moderate left hemothorax persists. The left upper lobe is partially aerated. The left l ower lobe is compressed. The right lung is clear. No pneumothorax. ADDITIONAL FINDINGS: No significant additional findings. IMPRESSION: 1. No evidence for pneumothorax following left thoracentesis. See above. Signer Name: Robinson Jay Jr, MD Signed: 11/17/2021 3:16 PM Workstation Name: [id number]
[2021-11-17] MEDS ORDERED: SODIUM CHLORIDE 0.9% 500 ML 500 ML IV ONE (16:05)
--- NOTE | 2021-11-17 17:35 | Electrocardiograph Report ---
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
[2021-11-17 19:51] LABS: Total Cells Counted 100 /mm3
[2021-11-18] MEDS: MELATONIN 5 MG TAB PO PRN ×2 (00:35→21:00)
[2021-11-18 06:27] LABS: BUN/Creatinine Ratio 16; Blood Urea Nitrogen 16 mg/dL (7-17); Calcium 8.4 mg/dL (8.4-10.2); Hemolysis Index 14
[2021-11-18] MEDS ORDERED: POTASSIUM CHLORIDE ER 20 MEQ TAB PO ONE (06:48)
[2021-11-18] MEDS ORDERED: POTASSIUM CHLORIDE 10 MEQ 10 MEQ/100 ML BAG IV ONE (06:51)
[2021-11-18 08:35] LABS: Hematocrit 26.3 % (30.3-42.9); Hemoglobin 8.8 gm/dl (10.1-14.3); Mean Corpuscular HGB Conc 34 % (30-34); Mean Corpuscular Volume 87 fl (79-97); Red Blood Count 3.03 M/mm3 (3.65-5.03)
[2021-11-18 08:47] LABS: Platelet Count 46 K/mm3 (140-440)
[2021-11-18] MEDS: INSULIN LISPRO 100 UNIT/ML SUB-Q SCH ×3 (08:50→19:00)
[2021-11-18] MEDS ORDERED: SODIUM CHLORIDE 0.9% 500 ML 500 ML ONE (08:55)
[2021-11-18] MEDS: CEFEPIME/NS 2 GM/100 ML 2 GM/100 ML BAG IV SCH ×2 (09:08→23:00)
[2021-11-18] MEDS: ENOXAPARIN 100 MG/1 ML INJ SUB-Q SCH ×2 (09:13→21:01)
[2021-11-18] MEDS: POTASSIUM CHLORIDE ER 20 MEQ TAB PO SCH (09:13)
[2021-11-18] MEDS: TBO-FILGRASTIM 480 MCG/0.8 ML SUB-Q SCH (09:42)
[2021-11-18 11:05] LABS: Bilirubin,Urine NEG (Negative); Blood,Urine SM (Negative); Color,Urine Yellow (Yellow); Urobilinogen,Urine < 2.0 mg/dL (<2.0)
--- NOTE | 2021-11-18 16:49 | Progress Note ---
Assessment and Plan --Acute hypoxic respiratory failure Multifactorial, likely due to pulmonary embolus and large left pleural effusion Continue nebulizer breathing treatment, supplemental O2 Initiated Lovenox as platelet count greater than 30 to treat PE and s/p thoracentesis 11/17/21 -- Pulmonary embolus Patient started on anticoagulation with heparin but now discontinued for severe thrombocytopenia and severe anemia Consult placed to vascular surgeon and hematology for evaluation. Hematology recommended to initiate Lovenox as long as platelets greater than 30 and if no other sign of bleeding Continue to monitor CBC -- Uterine ca stage IV: Metastatic. Initially documented during this admission as ovarian cancer. Reviewed [facility] records and it revealed that patient has metastatic uterine cancer Initially diagnosed in 2017. Patient follows up with her oncologist at [facility]. --Severe anemia requiring transfusions No sign of active bleeding, likely due to chemotherapy Status post 3 packs of RBC transfusion -- Pancytopenia, s/p 4 units PRBC and 1 unit platelets transfusion consulted heme-onc for recommendations. --Transfuse 1 unit pRBC whenever hct <23 --Transfuse 1 dose of plts whenever plt <15 Neupogen for neutropenia daily until WBC >5 Neutropenic precaution --Left pleural effusion CT angiogram shows large left pleural effusion. Consult placed to pulmonology for evaluation and recommendations. s/p thoracentesis drained about 1.2 L of fluid -- Elevated troponin Likely secondary to demand ischemia Consulted to cardiology for recommendations. --Mild LEANN, likely prerenal with vasomotor nephropathy We will continue to follow, monitor BMP IV fluid as needed -- Hypoglycemia, cont dextrose saline --Hypokalemia, replace -- Lactic acidosis s/p IV fluid. We will also place on empiric IV antibiotics. -- Full code status 11/16/21: Status post 2 unit of packed RBC transfusion today. H&H improved. Plat elet remains at 6. Ordered for 2 units of platelets. Platelet count need to be improved for thoracentesis. Once platelet count improves greater than 30 patient need to be started on Lovenox for surgical PE. Discussed with patient and patient's sister at the bedside in details. Also discussed with Dr. Carolina and Dr. Ogden to coordinate care. 11/17/21: H&H and platelets improved. So far transfused 3 units of packed RBC and 1 units of platelets. Status post paracentesis today. Initiated on Lovenox 1 mg/kg every 24 hours as creatinine increased to 1.5. Will change to Lovenox to twice daily when creatinine improves. Continue to follow CBC and watch for bleeding. Monitor renal function. 11/18/21: Hemoglobin dropped below 7 overnight and received another unit of blood transfusion. Platelet drop to 40s today. Patient also with hypoglycemia and hypokalemia. Will place on D5 normal saline with potassium supplements. Encouraged oral nutrition, monitor CBC BMP and electrolytes. Discussed in length with the patient patient's son at the bedside and also with patient's sister on the speaker phone. All question answered and patient and patient family verbalized understanding. Subjective Date of service: 11/18/21 Interval history: Patient seen and examined. Medical records and medication list reviewed. No acute event overnight noted by the RN. Patient wished to remain full code Patient with extremely poor appetite Discussed plan of care at bedside with patient and with her Son . Objective - Exam Narrative Exam: GENERAL: well-developed obese -[place] female lying on bed appeared to be in no discomfort. HEENT: Normocephalic. Atraumatic. No conjunctival congestion or icterus. Patient has moist mucous membranes. NECK: Supple. Trachea midline. CHEST/LUNGS: Improved breath sounds auscultated on the left side, patient on 3 L nasal cannula O2 HEART/CARDIOVASCULAR: Regular in rate and rhythm. S1 and S2 positive. ABDOMEN: Abdomen is soft, nontender. Patient has normal bowel sounds. SKIN: There is no rash. Warm and dry. NEURO: No focal motor deficit. Follows command. MUSCULOSKELETAL: No joint effusion or tenderness. EXTRIMITY: edema (Trace bilateral ankle edema.), ulceration (Dressing over right heel ulcer) Peripheral Pulses: within normal limits PSYCH: Cooperative. - Constitutional Vitals: Vital Signs - 12hr 11/18/21 11/18/21 08:00 14:00 Temperature 98.3 F Respiratory 18 Rate Blood Pressure 127/66 O2 Sat by Pulse 100 Oximetry - Labs CBC & Chem 7: 11/20/21 04:21 11/20/21 04:21 Labs: Abnormal lab results 11/15/21 11/18/21 11/18/21 Range/Units 23:09 05:09 05:09 WBC 2.2 L (4.5-11.0) K/mm3 RBC 3.03 L (3.65-5.03) M/mm3 Hgb 8.8 L (10.1-14.3) gm/dl Hct 26.3 L (30.3-42.9) % RDW 17.0 H (13.2-15.2) % Plt Count 46 L (140-440) K/mm3 Percent Retic 0.52 L (0.78-2.58) % Potassium 2.7 L* (3.6-5.0) mmol/L POC Glucose (70-105) mg/dL Lactate Dehydrogenase 659 H (91-180) units/L Crossmatch See Detail 11/18/21 Range/Units 12:07 WBC (4.5-11.0) K/mm3 RBC (3.65-5.03) M/mm3 Hgb (10.1-14.3) gm/dl Hct (30.3-42.9) % RDW (13.2-15.2) % Plt Count (140-440) K/mm3 Percent Retic (0.78-2.58) % Potassium (3.6-5.0) mmol/L POC Glucose 61 L (70-105) mg/dL Lactate Dehydrogenase (91-180) units/L Crossmatch HEART Score - HEART Score Troponin: Troponin T 0.070 ng/mL (0.00-0.029) H 11/15/21 17:57
--- NOTE | 2021-11-18 17:26 | Progress Note ---
Assessment and Plan (1) Recurrent left pleural effusion Current Visit: Yes Status: Acute Plan to address problem: s/p left thoracentesis May need pleurx on discharge Discussed with primary service Updated the son and patient at the bedside (2) Pulmonary embolus Current Visit: Yes Status: Acute Plan to address problem: Continue O2 supplementation,titrate to keep SpO2 89-92% Patient started on S/C Lovenox in therapeutic dosing (3) Anemia requiring transfusions Current Visit: Yes Status: Acute Plan to address problem: Supportive transfusions, keep Hg >7g/dL (4) Ovarian ca Current Visit: Yes Status: Acute Plan to address problem: Management as per oncology. Subjective Date of service: 11/18/21 Interval history: F/UP for malignant pleural effusion, Pancytopenia Seen and examined. Vitals, labs, medications, chart and imaging reviewed. No adverse overnight events, son visiting at the bedside Patient denies any chest pain, no shortness of breath. No fevers or chills. Has a poor appetite Objective Vital Signs - 12hr 11/18/21 11/18/21 08:00 14:00 Temperature 98.3 F Respiratory 18 Rate Blood Pressure 127/66 O2 Sat by Pulse 100 Oximetry Constitutional: no acute distress, alert, other (Weak.) Eyes: non-icteric ENT: oropharynx dry Neck: supple, no JVD Effort: mildly labored Ascultation: Left: diminished breath sounds (Slightly improved breath sounds on left side.) Cardiovascular: regular rate and rhythm Gastrointestinal: normoactive bowel sounds, soft, non-tender Integumentary: normal Extremities: no cyanosis, no edema Neurologic: normal mental status, non-focal exam, pupils equal and round Psychiatric: depressed CBC and BMP: 11/27/21 08:32 11/26/21 05:48 ABG, PT/INR, D-dimer: ABG ABG pH 7.401 pH Units (7.350-7.450) 11/16/21 20:50 ABG pCO2 43.5 mm Hg 11/16/21 20:50 ABG pO2 144.0 mm Hg (80.0-90.0) H 11/16/21 20:50 ABG O2 Saturation 98.8 % (95.0-99.0) 11/16/21 20:50 PT/INR, D-dimer PT 14.7 Sec. (12.2-14.9) 11/17/21 10:56 INR 1.03 (0.87-1.13) 11/17/21 10:56 Abnormal lab findings: Abnormal Labs 11/15/21 11/15/21 11/15/21 17:57 17:57 17:57 WBC RBC Hgb Hct MCHC RDW Plt Count Monocytes % (Manual) Nucleated RBC % Seg Neutrophils # Man Lymphocytes # (Manual) Percent Retic ABG pO2 ABG HCO3 ABG Hemoglobin Sodium Potassium 3.3 L Chloride 96.6 L BUN Creatinine Glucose 182 H POC Glucose Lactic Acid 2.20 H* Lactate Dehydrogenase Troponin T 0.070 H Total Protein 6.0 L Albumin 2.4 L LDL Cholesterol Direct 48 L Crossmatch 11/15/21 11/15/21 11/15/21 18:39 21:26 21:30 WBC 1.5 L* RBC 1.23 L Hgb 4.0 L* Hct 11.8 L* MCHC RDW 22.0 H Plt Count 6 L* Monocytes % (Manual) 12.0 H Nucleated RBC % Seg Neutrophils # Man 0.9 L Lymphocytes # (Manual) 0.4 L Percent Retic ABG pO2 ABG HCO3 ABG Hemoglobin Sodium Potassium Chloride BUN Creatinine Glucose POC Glucose Lactic Acid 2.40 H* 3.60 H* Lactate Dehydrogenase Troponin T Total Protein Albumin LDL Cholesterol Direct Crossmatch 11/15/21 11/15/21 11/16/21 23:09 23:13 09:29 WBC RBC Hgb Hct MCHC RDW Plt Count Monocytes % (Manual) Nucleated RBC % Seg Neutrophils # Man Lymphocytes # (Manual) Percent Retic ABG pO2 ABG HCO3 ABG Hemoglobin Sodium 135 L Potassium 3.4 L Chloride 96.6 L BUN Creatinine 1.3 H D Glucose 167 H POC Glucose Lactic Acid 2.90 H* Lactate Dehydrogenase Troponin T Total Protein Albumin LDL Cholesterol Direct Crossmatch See Detail 11/16/21 11/16/21 11/16/21 09:29 11:03 11:31 WBC 2.0 L RBC 3.39 L Hgb Hct 29.3 L D MCHC 35 H RDW 18.3 H Plt Count 6 L* Monocytes % (Manual) Nucleated RBC % Seg Neutrophils # Man Lymphocytes # (Manual) Percent Retic ABG pO2 ABG HCO3 ABG Hemoglobin Sodium Potassium Chloride BUN Creatinine Glucose POC Glucose 156 H Lactic Acid 2.10 H* Lactate Dehydrogenase Troponin T Total Protein Albumin LDL Cholesterol Direct Crossmatch 11/16/21 11/16/21 11/16/21 16:51 20:24 20:50 WBC RBC Hgb Hct MCHC RDW Plt Count Monocytes % (Manual) Nucleated RBC % Seg Neutrophils # Man Lymphocytes # (Manual) Percent Retic ABG pO2 144.0 H ABG HCO3 26.4 H ABG Hemoglobin 9.2 L Sodium Potassium Chloride BUN Creatinine Glucose POC Glucose 149 H 138 H Lactic Acid Lactate Dehydrogenase Troponin T Total Protein Albumin LDL Cholesterol Direct Crossmatch 11/17/21 11/17/21 11/17/21 05:26 05:26 07:40 WBC 2.5 L RBC 2.78 L Hgb 8.1 L Hct 23.9 L MCHC RDW 17.9 H Plt Count 93 L D Monocytes % (Manual) 8.0 H Nucleated RBC % 1.0 H Seg Neutrophils # Man 1.4 L Lymphocytes # (Manual) 0.8 L Percent Retic ABG pO2 ABG HCO3 ABG Hemoglobin Sodium 136 L Potassium 3.3 L Chloride 96.5 L BUN 20 H Creatinine 1.5 H Glucose 113 H POC Glucose 109 H Lactic Acid Lactate Dehydrogenase Troponin T Total Protein Albumin LDL Cholesterol Direct Crossmatch 11/17/21 11/17/21 11/17/21 10:56 13:41 15:56 WBC RBC Hgb 7.5 L Hct 21.7 L MCHC RDW Plt Count 82 L Monocytes % (Manual) Nucleated RBC % Seg Neutrophils # Man Lymphocytes # (Manual) Percent Retic ABG pO2 ABG HCO3 ABG Hemoglobin Sodium Potassium Chloride BUN Creatinine Glucose POC Glucose 109 H 109 H Lactic Acid Lactate Dehydrogenase Troponin T Total Protein Albumin LDL Cholesterol Direct Crossmatch 11/18/21 11/18/21 11/18/21 05:09 05:09 12:07 WBC 2.2 L RBC 3.03 L Hgb 8.8 L Hct 26.3 L MCHC RDW 17.0 H Plt Count 46 L Monocytes % (Manual) Nucleated RBC % Seg Neutrophils # Man Lymphocytes # (Manual) Percent Retic 0.52 L ABG pO2 ABG HCO3 ABG Hemoglobin Sodium Potassium 2.7 L* Chloride BUN Creatinine Glucose POC Glucose 61 L Lactic Acid Lactate Dehydrogenase 659 H Troponin T Total Protein Albumin LDL Cholesterol Direct Crossmatch Chest x-ray: image reviewed
[2021-11-18] MEDS ORDERED: LORazepam 0.5 MG TAB PO ONE (20:20)
[2021-11-18] MEDS: D5NS W/KCL 20 MEQ 20 MEQ/1,000 ML BAG IV SCH (21:04)
[2021-11-19] MEDS ORDERED: LORazepam 0.5 MG TAB PO ONE (00:30)
[2021-11-19 07:11] LABS: Hematocrit 26.9 % (30.3-42.9); Hemoglobin 9.1 gm/dl (10.1-14.3); Mean Corpuscular HGB Conc 34 % (30-34); Mean Corpuscular Volume 87 fl (79-97); Red Blood Count 3.08 M/mm3 (3.65-5.03); Red Cell Distribution Width 17.4 % (13.2-15.2)
[2021-11-19 07:13] LABS: Platelet Count 33 K/mm3 (140-440)
[2021-11-19 07:27] LABS: BUN/Creatinine Ratio 15; Blood Urea Nitrogen 12 mg/dL (7-17); Calcium 8.3 mg/dL (8.4-10.2); Hemolysis Index 9
[2021-11-19] MEDS: ACETAMINOPHEN 325 MG TAB PO PRN (08:07)
[2021-11-19] MEDS: INSULIN LISPRO 100 UNIT/ML SUB-Q SCH ×5 (08:38→22:00)
[2021-11-19] MEDS: POTASSIUM CHLORIDE ER 20 MEQ TAB PO SCH (09:39)
[2021-11-19] MEDS: CEFEPIME/NS 2 GM/100 ML 2 GM/100 ML BAG IV SCH ×2 (09:39→21:00)
[2021-11-19] MEDS: ENOXAPARIN 100 MG/1 ML INJ SUB-Q SCH ×2 (09:39→21:00)
[2021-11-19] MEDS: MORPHINE 2 MG/1 ML INJ IV PRN ×3 (09:40→20:47)
[2021-11-19] MEDS: TBO-FILGRASTIM 480 MCG/0.8 ML SUB-Q SCH (11:00)
[2021-11-19 11:11] LABS: Basophils % (Manual) 0 % (0.0-1.8); Eosinophils % (Manual) 0 % (0.0-4.3); Hypochromasia Few; Target Cells Few; Total Cells Counted 100
[2021-11-19 11:13] LABS: Platelet Estimate Appears Decreased; Spherocytes Few
[2021-11-19] MEDS: ALPRAZolam 0.25 MG TAB PO PRN ×2 (11:41→21:00)
--- NOTE | 2021-11-19 13:02 | Progress Note ---
Assessment and Plan --Acute hypoxic respiratory failure Multifactorial, likely due to pulmonary embolus and large left pleural effusion Continue nebulizer breathing treatment, supplemental O2 Initiated Lovenox as platelet count greater than 30 to treat PE and s/p thoracentesis 11/17/21 -- Pulmonary embolus Patient started on anticoagulation with heparin but now discontinued for severe thrombocytopenia and severe anemia Consult placed to vascular surgeon and hematology for evaluation. Hematology recommended to initiate Lovenox as long as platelets greater than 30 and if no other sign of bleeding Continue to monitor CBC -- Uterine ca stage IV: Metastatic. Initially documented during this admission as ovarian cancer. Reviewed [facility] records and it revealed that patient has metastatic uterine cancer Initially diagnosed in 2017. Patient follows up with her oncologist at [facility]. --Severe anemia requiring transfusions No sign of active bleeding, likely due to chemotherapy Status post 3 packs of RBC transfusion -- Pancytopenia, s/p 4 units PRBC and 1 unit platelets transfusion consulted heme-onc for recommendations. --Transfuse 1 unit pRBC whenever hct <23 --Transfuse 1 dose of plts whenever plt <15 Neupogen for neutropenia daily until WBC >5 Neutropenic precaution --Left pleural effusion CT angiogram shows large left pleural effusion. Consult placed to pulmonology for evaluation and recommendations. s/p thoracentesis drained about 1.2 L of fluid -- Elevated troponin Likely secondary to demand ischemia Consulted to cardiology for recommendations. --Mild LEANN, likely prerenal with vasomotor nephropathy We will continue to follow, monitor BMP IV fluid as needed -- Hypoglycemia, cont dextrose saline --Hypokalemia, replace -- Lactic acidosis s/p IV fluid. We will also place on empiric IV antibiotics. -- Full code status 11/16/21: Status post 2 unit of packed RBC transfusion today. H&H improved. Platelet remains at 6. Ordered for 2 units of platelets. Platelet count need to be improved for thoracentesis. Once platelet count improves greater than 30 patient need to be started on Lovenox for surgical PE. Discussed with patient and patient's sister at the bedside in details. Also discussed with Dr. Carolina and Dr. Ogden to coordinate care. 11/17/21: H&H and platelets improved. So far transfused 3 units of packed RBC and 1 units of platelets. Status post paracentesis today. Initiated on Lovenox 1 mg/kg every 24 hours as creatinine increased to 1.5. Will change to Lovenox to twice daily when creatinine improves. Continue to follow CBC and watch for bleeding. Monitor renal function. 11/18/21: Hemoglobin dropped below 7 overnight and received another unit of blood transfusion. Platelet drop to 40s today. Patient also with hypoglycemia and hypokalemia. Will place on D5 normal saline with potassium supplements. Encouraged oral nutrition, monitor CBC BMP and electrolytes. Discussed in length with the patient patient's son at the bedside and also with patient's sister on the speaker phone. All question answered and patient and patient family verbalized understanding. 11/19/21: H&H remained stable, platelet drops to lower 30s today. Per hematology recommendation continue to provide therapeutic dose of Lovenox to twice daily as renal function stable. Discussed plan of care in details with patient and with her daughter at the bedside. Family and patient both understands that patient has a terminal illness with stage IV uterine cancer with extremely poor progn osis. They wish to continue their cancer treatment at [facility] and to remain as full code. They can consider hospice if that gets recommended at [facility] by their oncologist. Continue to follow clinically, monitor platelets. If H&H and platelets stable and no need for further transfusion, plan to DC home with home health for patient to follow-up and continue treatment at [facility]. Ordered a.m. labs. Subjective Date of service: 11/19/21 Interval history: Patient seen and examined. Medical records and medication list reviewed. No acute event overnight noted by the RN. Patient wished to remain full code Patient with extremely poor appetite Discussed plan of care at bedside with patient and with her daughter. Objective - Exam Narrative Exam: GENERAL: well-developed obese -[place] female lying on bed appeared to be in no discomfort. HEENT: Normocephalic. Atraumatic. No conjunctival congestion or icterus. Patient has moist mucous membranes. NECK: Supple. Trachea midline. CHEST/LUNGS: Improved breath sounds auscultated on the left side, patient on 3 L nasal cannula O2 HEART/CARDIOVASCULAR: Regular in rate and rhythm. S1 and S2 positive. ABDOMEN: Abdomen is soft, nontender. Patient has normal bowel sounds. SKIN: There is no rash. Warm and dry. NEURO: No focal motor deficit. Follows command. MUSCULOSKELETAL: No joint effusion or tenderness. EXTRIMITY: edema (Trace bilateral ankle edema.), ulceration (Dressing over right heel ulcer) Peripheral Pulses: within normal limits PSYCH: Cooperative. - Constitutional Vitals: Vital Signs - 12hr 11/19/21 11/19/21 11/19/21 02:00 04:38 08:29 Temperature 98.8 F 98.4 F Pulse Rate 110 H 110 H Respiratory 16 19 Rate Blood Pressure 136/68 122/68 O2 Sat by Pulse 100 100 99 Oximetry 11/19/21 11/19/21 09:41 11:33 Temperature 98.2 F Pulse Rate 107 H Respiratory 18 18 Rate Blood Pressure 129/70 132/65 O2 Sat by Pulse 100 Oximetry - Labs CBC & Chem 7: 11/20/21 04:21 11/20/21 04:21 Labs: Abnormal lab results 11/15/21 11/18/21 11/18/21 Range/Units 23:09 16:39 20:39 WBC (4.5-11.0) K/mm3 RBC (3.65-5.03) M/mm3 Hgb (10.1-14.3) gm/dl Hct (30.3-42.9) % RDW (13.2-15.2) % Plt Count (140-440) K/mm3 Seg Neuts % (Manual) (40.0-70.0) % Lymphocytes % (Manual) (13.4-35.0) % Monocytes % (Manual) (0.0-7.3) % Lymphocytes # (Manual) (1.2-5.4) K/mm3 Potassium 3.3 L D (3.6-5.0) mmol/L POC Glucose 68 L (70-105) mg/dL Calcium (8.4-10.2) mg/dL Crossmatch See Detail 11/19/21 11/19/21 Range/Units 05:48 05:48 WBC 3.1 L (4.5-11.0) K/mm3 RBC 3.08 L (3.65-5.03) M/mm3 Hgb 9.1 L (10.1-14.3) gm/dl Hct 26.9 L (30.3-42.9) % RDW 17.4 H (13.2-15.2) % Plt Count 33 L (140-440) K/mm3 Seg Neuts % (Manual) 81.0 H (40.0-70.0) % Lymphocytes % (Manual) 8.0 L (13.4-35.0) % Monocytes % (Manual) 10.0 H (0.0-7.3) % Lymphocytes # (Manual) 0.2 L (1.2-5.4) K/mm3 Potassium 3.1 L (3.6-5.0) mmol/L POC Glucose (70-105) mg/dL Calcium 8.3 L (8.4-10.2) mg/dL Crossmatch HEART Score - HEART Score Troponin: Troponin T 0.070 ng/mL (0.00-0.029) H 11/15/21 17:57
--- NOTE | 2021-11-19 15:20 | Progress Note ---
Assessment and Plan 70-year-old -[place] female with known history of metastatic ovarian cancer which was initially diagnosed in 2016 went into remission but had a recurrence again in June 2021 presenting to the emergency room today complaining of shortness of breath. Shortness of breath has been ongoing for the past few days. She has also had some mild chest discomfort. Shortness of breath is worse on minimal exertion. Patient receives her care at [facility] and has been following up with Dr. Diaz who is a bar roller. She has had recurrent thoracentesis for pleural effusion. Patient denies any fever or chills no headache or dizziness and no diaphoresis. No nausea or vomiting and no abdominal pain. She denies any calf swelling. She however has had minimal lower extremity edema. Work-up in the emergency room today, labs were significant for hemoglobin of 4, hematocrit of 11.8, WBC of 1.5, platelet count of 6. Potassium of 3.3. Lactic acid of 2.4, troponin 0.07 Chest x-ray significant for complete opacification of the left hemithorax possibly due to large left pleural effusion. CT angiogram of the chest shows acute pulmonary embolus. Large left pleural effusion with associated atelectasis. Incompletely included markedly abnormal appearance of the stomach most concerning for neoplastic involvement. Vascular surgeon has also been notified. Patient has been initiated on blood transfusion for the severe anemia. Patient has history of Diabetes, HTN and Metastatic Ovarian CA. Patient has no history of smoking, alcohol or drug abuse. 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 No known drug allergies. Patient sleeping, weak. On 3 litres O2. O2 saturation 100%. No acute respiratory distress at rest. ABG on 3 litres O2. ABG pH 7.401 pH Units (7.350-7.450) 11/16/21 20:50 ABG pCO2 43.5 mm Hg 11/16/21 20:50 ABG pO2 144.0 mm Hg (80.0-90.0) H 11/16/21 20:50 ABG O2 Saturation 98.8 % (95.0-99.0) 11/16/21 20:50 Patient afebrile. Patient has leukopenia, Blood pressure 115/66, pulse 106, respirations 18. Chest xray 11/15/21 reported Complete opacification of the left hemithorax possibly due to large left pleural effusion. CT scan of chest 11/15/21 reported Acute saddle pulmonary embolus. Large left pleural effusion with associated atelectasis. Incompletely included markedly abnormal appearance of the stomach, most concerning for neoplastic involvement. Patient is on cefepime. Recommend albuterol aerosol treatment q 6 hours prn for shortness of breath. Recommend GI prophylaxis famotine. Recommended left thoracentesis by interventional radiology and sent for Cytology, Cell count, LDH, Protein, Glucose, Amylase, Gram stain, culture and sensitivity.AFB and Fungus. Patient undergone left thoracentesis by interventional radiology. Reported pleural fluid turbid, WBC count 330, RBC [id number], Neutrophils 81%, Lymphocytes 17%. Rest of the pleural fluid results pending. Chest xray 11/17/21 reported No evidence for pneumothorax following left thoracentesis. Patient started on anti coagulation S/C Lovenox in therapeutic doses. Patients daughter at bed side. Explained patients respiratory status. - Patient Problems (1) Recurrent left pleural effusion Current Visit: Yes Status: Acute Plan to address problem: Patient undergone left thoracentesis to day by interventional radiology. Reported pleural fluid turbid, WBC count 330, RBC [id number], Neutrophils 81%, Lymphocytes 17%. Rest of the pleural fluid results pending. (2) Pulmonary embolus Current Visit: Yes Status: Acute Plan to address problem: Continue O2 supplementation. Patient started on S/C Lovenox in therapeutic doses. (3) Anemia requiring transfusions Current Visit: Yes Status: Acute Plan to address problem: Patient received blood transfusion. Repeat HGB to day 9.1. (4) Ovarian ca Current Visit: Yes Status: Acute Plan to address problem: Management as per oncology. Subjective Date of service: 11/19/21 Interval history: 70-year-old -[place] female with known history of metastatic ovarian cancer which was initially diagnosed in 2016 went into remission but had a recurrence again in June 2021 presenting to the emergency room today complaining of shortness of breath. Shortness of breath has been ongoing for the past few days. She has also had some mild chest discomfort. Shortness of breath is worse on minimal exertion. Patient receives her care at [facility] and has been following up with Dr. Diaz who is a bar roller. She has had recurrent thoracentesis for pleural effusion. Patient denies any fever or chills no headache or dizziness and no diaphoresis. No nausea or vomiting and no abdominal pain. She denies any calf swelling. She however has had minimal lower extremity edema. Work-up in the emergency room today, labs were significant for hemoglobin of 4, hematocrit of 11.8, WBC of 1.5, platelet count of 6. Potassium of 3.3. Lactic acid of 2.4, troponin 0.07 Chest x-ray significant for complete opacification of the left hemithorax possibly due to large left pleural effusion. CT angiogram of the chest shows acute pulmonary embolus. Large left pleural effusion with associated atelectasis. Incompletely included markedly abnormal appearance of the stomach most concerning for neoplastic involvement. Vascular surgeon has also been notified. Patient has been initiated on blood transfusion for the severe anemia. Patient has history of Diabetes, HTN and Metastatic Ovarian CA. Patient has no history of smoking, alcohol or drug abuse. 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 No known drug allergies. Patient sleeping, weak. On 3 litres O2. O2 saturation 100%. No acute respiratory distress at rest. ABG on 3 litres O2. ABG pH 7.401 pH Units (7.350-7.450) 11/16/21 20:50 ABG pCO2 43.5 mm Hg 11/16/21 20:50 ABG pO2 144.0 mm Hg (80.0-90.0) H 11/16/21 20:50 ABG O2 Saturation 98.8 % (95.0-99.0) 11/16/21 20:50 Patient afebrile. Patient has leukopenia, Blood pressure 115/66, pulse 106, respirations 18. Chest xray 11/15/21 reported Complete opacification of the left hemithorax possibly due to large left pleural effusion. CT scan of chest 11/15/21 reported Acute saddle pulmonary embolus. Large left pleural effusion with associated atelectasis. Incompletely included markedly abnormal appearance of the stomach, most concerning for neoplastic involvement. Patient is on cefepime. Recommend albuterol aerosol treatment q 6 hours prn for shortness of breath. Recommend GI prophylaxis famotine. Recommended left thoracentesis by interventional radiology and sent for Cytology, Cell count, LDH, Protein, Glucose, Amylase, Gram stain, culture and s ensitivity.AFB and Fungus. Patient undergone left thoracentesis by interventional radiology. Reported pleural fluid turbid, WBC count 330, RBC [id number], Neutrophils 81%, Lymphocytes 17%. Rest of the pleural fluid results pending. Chest xray 11/17/21 reported No evidence for pneumothorax following left thoracentesis. Patient started on anti coagulation S/C Lovenox in therapeutic doses. Objective Vital Signs - 12hr 11/19/21 11/19/21 11/19/21 04:38 08:29 09:41 Temperature 98.8 F 98.4 F Pulse Rate 110 H 110 H Respiratory 16 19 18 Rate Respiratory Rate [Bilateral Leg] Blood Pressure 136/68 122/68 129/70 O2 Sat by Pulse 100 99 Oximetry 11/19/21 11/19/21 11:33 13:00 Temperature 98.2 F Pulse Rate 107 H Respiratory 18 Rate Respiratory 18 Rate [Bilateral Leg] Blood Pressure 132/65 O2 Sat by Pulse 100 Oximetry Constitutional: no acute distress, asleep, other (Weak.) Eyes: non-icteric ENT: oropharynx moist Neck: supple, no JVD Effort: mildly labored Ascultation: Left: diminished breath sounds (Slightly improved breath sounds on left side.) Cardiovascular: regular rate and rhythm Gastrointestinal: normoactive bowel sounds, soft, non-tender Integumentary: normal Extremities: no cyanosis, no edema Neurologic: normal mental status, non-focal exam, pupils equal and round Psychiatric: depressed CBC and BMP: 11/19/21 05:48 11/19/21 05:48 ABG, PT/INR, D-dimer: ABG ABG pH 7.401 pH Units (7.350-7.450) 11/16/21 20:50 ABG pCO2 43.5 mm Hg 11/16/21 20:50 ABG pO2 144.0 mm Hg (80.0-90.0) H 11/16/21 20:50 ABG O2 Saturation 98.8 % (95.0-99.0) 11/16/21 20:50 PT/INR, D-dimer PT 14.7 Sec. (12.2-14.9) 11/17/21 10:56 INR 1.03 (0.87-1.13) 11/17/21 10:56 Abnormal lab findings: Abnormal Labs 11/15/21 11/15/21 11/15/21 17:57 17:57 17:57 WBC RBC Hgb Hct MCHC RDW Plt Count Seg Neuts % (Manual) Lymphocytes % (Manual) Monocytes % (Manual) Nucleated RBC % Seg Neutrophils # Man Lymphocytes # (Manual) Percent Retic ABG pO2 ABG HCO3 ABG Hemoglobin Sodium Potassium 3.3 L Chloride 96.6 L BUN Creatinine Glucose 182 H POC Glucose Lactic Acid 2.20 H* Calcium Lactate Dehydrogenase Troponin T 0.070 H Total Protein 6.0 L Albumin 2.4 L LDL Cholesterol Direct 48 L Crossmatch 11/15/21 11/15/21 11/15/21 18:39 21:26 21:30 WBC 1.5 L* RBC 1.23 L Hgb 4.0 L* Hct 11.8 L* MCHC RDW 22.0 H Plt Count 6 L* Seg Neuts % (Manual) Lymphocytes % (Manual) Monocytes % (Manual) 12.0 H Nucleated RBC % Seg Neutrophils # Man 0.9 L Lymphocytes # (Manual) 0.4 L Percent Retic ABG pO2 ABG HCO3 ABG Hemoglobin Sodium Potassium Chloride BUN Creatinine Glucose POC Glucose Lactic Acid 2.40 H* 3.60 H* Calcium Lactate Dehydrogenase Troponin T Total Protein Albumin LDL Cholesterol Direct Crossmatch 11/15/21 11/15/21 11/16/21 23:09 23:13 09:29 WBC RBC Hgb Hct MCHC RDW Plt Count Seg Neuts % (Manual) Lymphocytes % (Manual) Monocytes % (Manual) Nucleated RBC % Seg Neutrophils # Man Lymphocytes # (Manual) Percent Retic ABG pO2 ABG HCO3 ABG Hemoglobin Sodium 135 L Potassium 3.4 L Chloride 96.6 L BUN Creatinine 1.3 H D Glucose 167 H POC Glucose Lactic Acid 2.90 H* Calcium Lactate Dehydrogenase Troponin T Total Protein Albumin LDL Cholesterol Direct Crossmatch See Detail 11/16/21 11/16/21 11/16/21 09:29 11:03 11:31 WBC 2.0 L RBC 3.39 L Hgb Hct 29.3 L D MCHC 35 H RDW 18.3 H Plt Count 6 L* Seg Neuts % (Manual) Lymphocytes % (Manual) Monocytes % (Manual) Nucleated RBC % Seg Neutrophils # Man Lymphocytes # (Manual) Percent Retic ABG pO2 ABG HCO3 ABG Hemoglobin Sodium Potassium Chloride BUN Creatinine Glucose POC Glucose 156 H Lactic Acid 2.10 H* Calcium Lactate Dehydrogenase Troponin T Total Protein Albumin LDL Cholesterol Direct Crossmatch 11/16/21 11/16/21 11/16/21 16:51 20:24 20:50 WBC RBC Hgb Hct MCHC RDW Plt Count Seg Neuts % (Manual) Lymphocytes % (Manual) Monocytes % (Manual) Nucleated RBC % Seg Neutrophils # Man Lymphocytes # (Manual) Percent Retic ABG pO2 144.0 H ABG HCO3 26.4 H ABG Hemoglobin 9.2 L Sodium Potassium Chloride BUN Creatinine Glucose POC Glucose 149 H 138 H Lactic Acid Calcium Lactate Dehydrogenase Troponin T Total Protein Albumin LDL Cholesterol Direct Crossmatch 11/17/21 11/17/21 11/17/21 05:26 05:26 07:40 WBC 2.5 L RBC 2.78 L Hgb 8.1 L Hct 23.9 L MCHC RDW 17.9 H Plt Count 93 L D Seg Neuts % (Manual) Lymphocytes % (Manual) Monocytes % (Manual) 8.0 H Nucleated RBC % 1.0 H Seg Neutrophils # Man 1.4 L Lymphocytes # (Manual) 0.8 L Percent Retic ABG pO2 ABG HCO3 ABG Hemoglobin Sodium 136 L Potassium 3.3 L Chloride 96.5 L BUN 20 H Creatinine 1.5 H Glucose 113 H POC Glucose 109 H Lactic Acid Calcium Lactate Dehydrogenase Troponin T Total Protein Albumin LDL Cholesterol Direct Crossmatch 11/17/21 11/17/21 11/17/21 10:56 13:41 15:56 WBC RBC Hgb 7.5 L Hct 21.7 L MCHC RDW Plt Count 82 L Seg Neuts % (Manual) Lymphocytes % (Manual) Monocytes % (Manual) Nucleated RBC % Seg Neutrophils # Man Lymphocytes # (Manual) Percent Retic ABG pO2 ABG HCO3 ABG Hemoglobin Sodium Potassium Chloride BUN Creatinine Glucose POC Glucose 109 H 109 H Lactic Acid Calcium Lactate Dehydrogenase Troponin T Total Protein Albumin LDL Cholesterol Direct Crossmatch 11/18/21 11/18/21 11/18/21 05:09 05:09 12:07 WBC 2.2 L RBC 3.03 L Hgb 8.8 L Hct 26.3 L MCHC RDW 17.0 H Plt Count 46 L Seg Neuts % (Manual) Lymphocytes % (Manual) Monocytes % (Manual) Nucleated RBC % Seg Neutrophils # Man Lymphocytes # (Manual) Percent Retic 0.52 L ABG pO2 ABG HCO3 ABG Hemoglobin Sodium Potassium 2.7 L* Chloride BUN Creatinine Glucose POC Glucose 61 L Lactic Acid Calcium Lactate Dehydrogenase 659 H Troponin T Total Protein Albumin LDL Cholesterol Direct Crossmatch 11/18/21 11/18/21 11/19/21 16:39 20:39 05:48 WBC 3.1 L RBC 3.08 L Hgb 9.1 L Hct 26.9 L MCHC RDW 17.4 H Plt Count 33 L Seg Neuts % (Manual) 81.0 H Lymphocytes % (Manual) 8.0 L Monocytes % (Manual) 10.0 H Nucleated RBC % Seg Neutrophils # Man Lymphocytes # (Manual) 0.2 L Percent Retic ABG pO2 ABG HCO3 ABG Hemoglobin Sodium Potassium 3.3 L D Chloride BUN Creatinine Glucose POC Glucose 68 L Lactic Acid Calcium Lactate Dehydrogenase Troponin T Total Protein Albumin LDL Cholesterol Direct Crossmatch 11/19/21 05:48 WBC RBC Hgb Hct MCHC RDW Plt Count Seg Neuts % (Manual) Lymphocytes % (Manual) Monocytes % (Manual) Nucleated RBC % Seg Neutrophils # Man Lymphocytes # (Manual) Percent Retic ABG pO2 ABG HCO3 ABG Hemoglobin Sodium Potassium 3.1 L Chloride BUN Creatinine Glucose POC Glucose Lactic Acid Calcium 8.3 L Lactate Dehydrogenase Troponin T Total Protein Albumin LDL Cholesterol Direct Crossmatch Chest x-ray: report reviewed, image reviewed Additional Studies: CHEST 1 VIEW 11/17/2021 2:03 PM INDICATION / CLINICAL INFORMATION: recent left thora, sob, effusion. COMPARISON: 10/16/2021 FINDINGS: SUPPORT DEVICES: Stable positioning of the right [id number] HEART / MEDIASTINUM: No significant abnormality. LUNGS / PLEURA: Large left pleural effusion is decreased by 25-50% after thoracentesis. Please note that only 1200 cc of bloody fluid could be aspirated. The collection was complex with septation and debris. Mild to moderate left hemothorax persists. The left upper lobe is partially aerated. The left lower lobe is compressed. The right lung is clear. No pneumothorax. ADDITIONAL FINDINGS: No significant additional findings. IMPRESSION: 1. No evidence for pneumothorax following left thoracentesis. See above.
[2021-11-19] MEDS: MELATONIN 5 MG TAB PO PRN (20:55)
[2021-11-20] MEDS: D5NS W/KCL 20 MEQ 20 MEQ/1,000 ML BAG IV SCH (03:39)
[2021-11-20 04:49] LABS: Hematocrit 27.1 % (30.3-42.9); Hemoglobin 9.3 gm/dl (10.1-14.3); Mean Corpuscular HGB Conc 34 % (30-34); Mean Corpuscular Volume 87 fl (79-97); Red Blood Count 3.11 M/mm3 (3.65-5.03); Red Cell Distribution Width 17.4 % (13.2-15.2)
[2021-11-20 05:06] LABS: Platelet Count 28 K/mm3 (140-440)
[2021-11-20 05:12] LABS: Blood Urea Nitrogen 12 mg/dL (7-17); Calcium 8.3 mg/dL (8.4-10.2); Hemolysis Index 175
[2021-11-20 05:13] LABS: BUN/Creatinine Ratio 17
[2021-11-20 06:47] LABS: Band Neutrophils # (Manual) 0.1 K/mm3; Basophils % (Manual) 0 % (0.0-1.8); Total Cells Counted 100
[2021-11-20 06:48] LABS: Hypochromasia Few; Smudge Cells Few
[2021-11-20 06:49] LABS: Burr Cells Few; Spherocytes Few
[2021-11-20 06:50] LABS: Platelet Estimate Appears Decreased; Toxic Vacuolation 1+
[2021-11-20] MEDS: INSULIN LISPRO 100 UNIT/ML SUB-Q SCH ×4 (09:26→22:00)
[2021-11-20] MEDS: ENOXAPARIN 100 MG/1 ML INJ SUB-Q SCH ×2 (09:27→21:46)
[2021-11-20] MEDS: MEGESTROL 400 MG/10 ML ORAL LIQD PO SCH (09:28)
[2021-11-20] MEDS: POTASSIUM CHLORIDE ER 20 MEQ TAB PO SCH ×2 (09:28→09:31)
--- NOTE | 2021-11-20 12:33 | Hem/Onc Progress Note ---
Subjective Date of service: 11/20/21 Interval history: Heme/Onc Progress Note Seen via amplify CPT 67486 Dx uterine cancer 70yo obese AA woman with complaints of shortness of breath Pmhx of metastatic uterine cancer, initially diagnosed in 2016, went into remission but with recurrence of disease June 2021 Treated at [facility],followed by Oncology Dr. Ma and Grain Merchandiser Dr. Diaz In the ED, H/H 08/21.8, plts 6,000, WBC 1.5 Chest xray revealed complete opacification of the left hemithorax possibly due to large left pleural effusion Chest CTA revealed acute saddle pulmonary embolus, large left pleural effusion with associated atelectasis, and incompletely included markedly abnormal appearance of the stomach most concerning for neoplastic involvement Hematology/Oncology following for pancytopenia and metastatic ovarian cancer. Patient examined at bedside, in no acute distress noted, accompanied by sister S/p thoracentesis 11/17 Wants to go home DATA REVIEWED BELOW IMP: Metastatic uterine cancer Pancytopenia, post chemotherapy anson Severe anemia, s/p multiple pRBC transfusions Severe thrombocytopenia, s/p plt transfusions Neutropenia Thoracentesis 11/17/21 Plan: Continue Lovenox 1mg/kg BID Supportive transfusion parameters: --Transfuse 1 unit pRBC whenever hct <23 --Transfuse 1 dose of plts whenever plt <15 Outpatient followup with established Oncologist Case d/w Dr. Henry Chaparro Laboratory Last Values WBC 3.4 K/mm3 (4.5-11.0) L 11/20/21 04:21 Hgb 9.3 gm/dl (10.1-14.3) L 11/20/21 04:21 Hct 27.1 % (30.3-42.9) L 11/20/21 04:21 MCV 87 fl (79-97) 11/20/21 04:21 Plt Count 28 K/mm3 (140-440) L 11/20/21 04:21 Lymphocytes % (Manual) 10.0 % (13.4-35.0) L 11/20/21 04:21 Monocytes % (Manual) 18.0 % (0.0-7.3) H 11/20/21 04:21 Lymphocytes # (Manual) 0.3 K/mm3 (1.2-5.4) L 11/20/21 04:21 PT 14.7 Sec. (12.2-14.9) 11/17/21 10:56 INR 1.03 (0.87-1.13) 11/17/21 10:56 APTT 30.7 Sec. (24.2-36.6) 11/17/21 10:56 Creatinine 0.7 mg/dL (0.6-1.2) 11/20/21 04:21 AST 36 units/L (5-40) 11/15/21 17:57 ALT 12 units/L (7-56) 11/15/21 17:57 Alkaline Phosphatase 76 units/L (35-129) 11/15/21 17:57 Lactate Dehydrogenase 659 units/L (91-180) H 11/18/21 05:09 Troponin T 0.070 ng/mL (0.00-0.029) H 11/15/21 17:57 Blood Type O POSITIVE 11/15/21 23:09 Antibody Screen Negative 11/15/21 23:09 Crossmatch See Detail 11/15/21 23:09 Objective - Constitutional Vitals: Last Vital Signs Temp 98.4 F 11/20/21 09:12 Pulse 103 H 11/20/21 09:12 Resp 22 11/20/21 09:12 BP 139/70 11/20/21 09:12 Pulse Ox 100 11/20/21 09:12 - Labs Lab Results: Laboratory Results - last 24 hr 11/19/21 11/20/21 11/20/21 16:37 00:19 04:21 WBC 3.4 L RBC 3.11 L Hgb 9.3 L Hct 27.1 L MCV 87 MCH 30 MCHC 34 RDW 17.4 H Plt Count 28 L Add Manual Diff Complete Total Counted 100 Seg Neuts % (Manual) 66.0 Band Neutrophils % 3.0 Lymphocytes % (Manual) 10.0 L Reactive Lymphs % (Man) 1.0 Monocytes % (Manual) 18.0 H Eosinophils % (Manual) 1.0 Basophils % (Manual) 0 Metamyelocytes % 1.0 Myelocytes % 0 Promyelocytes % 0 Blast Cells % 0 Nucleated RBC % Not Reportable Seg Neutrophils # Man 2.2 Band Neutrophils # 0.1 Lymphocytes # (Manual) 0.3 L Abs React Lymphs (Man) 0.0 Monocytes # (Manual) 0.6 Eosinophils # (Manual) 0.0 Basophils # (Manual) 0.0 Metamyelocytes # 0.0 Myelocytes # 0.0 Promyelocytes # 0.0 Blast Cells # 0.0 WBC Morphology Not Reportable Hypersegmented Neuts Not Reportable Hyposegmented Neuts Not Reportable Hypogranular Neuts Not Reportable Smudge Cells Few Toxic Granulation Not Reportable Toxic Vacuolation 1+ Dohle Bodies Not Reportable Pelger-Huet Anomaly Not Reportable Renetta Rods Not Reportable Platelet Estimate Appears decreased Clumped Platelets Not Reportable Plt Clumps, EDTA Not Reportable Large Platelets Not Reportable Giant Platelets Not Reportable Platelet Satelliting Not Reportable Plt Morphology Comment Not Reportable RBC Morphology Not Reportable Dimorphic RBCs Not Reportable Polychromasia Rare Hypochromasia Few Poikilocytosis Not Reportable Anisocytosis Not Reportable Microcytosis Not Reportable Macrocytosis Not Reportable Spherocytes Few Pappenheimer Bodies Not Reportable Sickle Cells Not Reportable Target Cells Not Reportable Tear Drop Cells Not Reportable Ovalocytes Not Reportable Helmet Cells Not Reportable Beckman-Kistler Bodies Not Reportable [place] Rings Not Reportable Xiang Cells Few Bite Cells Not Reportable Crenated Cell Not Reportable Elliptocytes Few Acanthocytes (Spur) Few Rouleaux Not Reportable Hemoglobin C Crystals Not Reportable Schistocytes Not Reportable Malaria parasites Not Reportable Víctor Bodies Not Reportable Hem Pathologist Commnt No Sodium Potassium Chloride Carbon Dioxide Anion Gap BUN Creatinine Estimated GFR BUN/Creatinine Ratio Glucose POC Glucose 97 99 Calcium 11/20/21 11/20/21 11/20/21 04:21 07:50 11:23 WBC RBC Hgb Hct MCV MCH MCHC RDW Plt Count Add Manual Diff Total Counted Seg Neuts % (Manual) Band Neutrophils % Lymphocytes % (Manual) Reactive Lymphs % (Man) Monocytes % (Manual) Eosinophils % (Manual) Basophils % (Manual) Metamyelocytes % Myelocytes % Promyelocytes % Blast Cells % Nucleated RBC % Seg Neutrophils # Man Band Neutrophils # Lymphocytes # (Manual) Abs React Lymphs (Man) Monocytes # (Manual) Eosinophils # (Manual) Basophils # (Manual) Metamyelocytes # Myelocytes # Promyelocytes # Blast Cells # WBC Morphology Hypersegmented Neuts Hyposegmented Neuts Hypogranular Neuts Smudge Cells Toxic Granulation Toxic Vacuolation Dohle Bodies Pelger-Huet Anomaly Renetta Rods Platelet Estimate Clumped Platelets Plt Clumps, EDTA Large Platelets Giant Platelets Platelet Satelliting Plt Morphology Comment RBC Morphology Dimorphic RBCs Polychromasia Hypochromasia Poikilocytosis Anisocytosis Microcytosis Macrocytosis Spherocytes Pappenheimer Bodies Sickle Cells Target Cells Tear Drop Cells Ovalocytes Helmet Cells Beckman-Kistler Bodies [place] Rings Xiang Cells Bite Cells Crenated Cell Elliptocytes Acanthocytes (Spur) Rouleaux Hemoglobin C Crystals Schistocytes Malaria parasites Víctor Bodies Hem Pathologist Commnt Sodium 137 Potassium 4.3 D Chloride 105.2 Carbon Dioxide 21 L Anion Gap 15 BUN 12 Creatinine 0.7 Estimated GFR > 60 BUN/Creatinine Ratio 17 Glucose 86 POC Glucose 80 81 Calcium 8.3 L Medications & Allergies - Medications Allergies/Adverse Reactions: Allergies No Known Allergies Allergy (Verified 11/15/21 17:02) Home Medications: Home Medications Medication Instructions Recorded Confirmed Last Taken Type Gabapentin 500 mg PO BID 11/18/21 11/18/21 11/14/21 History Latanoprost 0.005% 1 drop OU DAILY 11/18/21 11/18/21 11/14/21 History Lisinopril 40 mg PO DAILY 11/18/21 11/18/21 11/14/21 History Potassium Chloride 20 meq PO DAILY 11/18/21 11/18/21 11/14/21 History Prochlorperazine 10 mg PO Q6HR PRN 11/18/21 11/18/21 11/14/21 History Active Medications: Generic Name Dose Route Start Last Admin Trade Name Sloan PRN Reason Stop Dose Admin Acetaminophen 650 mg 11/15/21 22:35 11/19/21 08:07 Acetaminophen 325 Mg Tab PO 650 mg Q4H PRN Administration Pain MILD(1-3)/Fever >100.5/PATEL Albuterol 2.5 mg 11/16/21 17:38 Albuterol 2.5 Mg/3 Ml Nebu IH Q6HRT PRN Shortness Of Breath Alprazolam 0.25 mg 11/19/21 10:04 11/19/21 21:00 Alprazolam 0.25 Mg Tab PO 0.25 mg Q8H PRN Administration Anxiety Dextrose 50 ml 11/15/21 22:35 Dextrose 50% In Water (25gm) 50 Ml Syringe IV Q30MIN PRN Hypoglycemia Protocol Enoxaparin Sodium 100 mg 11/18/21 22:00 11/20/21 09:27 Enoxaparin 100 Mg/1 Ml Inj SUB-Q 100 mg Q12HR GRAHAM Administration Protocol Potassium Chloride/Dextrose/Sod Cl 20 meq in 1,000 mls @ 42 mls/hr 11/18/21 13:00 11/20/21 03:39 D5w/Ns W/Kcl 20meq IV 42 mls/hr DIRECT GRAHAM Administration Insulin Human Lispro 0 unit 11/16/21 07:30 11/20/21 09:26 Insulin Lispro 100 Unit/Ml SUB-Q Not Given ACHS GRAHAM Protocol Magnesium Hydroxide 30 ml 11/15/21 22:35 Magnesium Hydroxide (Mom) Oral Liqd Udc PO Q4H PRN Constipation Megestrol Acetate 400 mg 11/20/21 10:00 11/20/21 09:28 Megestrol 400 Mg/10 Ml Oral Liqd PO 400 mg QDAY GRAHAM Administration Melatonin 5 mg 11/16/21 01:36 11/19/21 20:55 Melatonin 5 Mg Tab PO 5 mg QHS PRN Administration Sleep Morphine Sulfate 2 mg 11/15/21 22:35 11/19/21 20:47 Morphine 2 Mg/1 Ml Inj IV 2 mg Q4H PRN Administration Pain, Moderate (4-6) Morphine Sulfate 4 mg 11/15/21 22:35 Morphine 4 Mg/1 Ml Inj IV Q4H PRN Pain , Severe (7-10) Ondansetron HCl 4 mg 11/15/21 22:35 11/18/21 09:25 Ondansetron 4 Mg/2 Ml Inj IV 4 mg Q8H PRN Administration Nausea And Vomiting Potassium Chloride 20 meq 11/18/21 10:00 11/20/21 09:31 Potassium Chloride Er 20 Meq Tab PO Not Given QDAY GRAHAM Sodium Chloride 10 ml 11/16/21 10:00 11/20/21 09:27 Sodium Chloride 0.9% 10 Ml Flush Syringe IV 10 ml BID GRAHMA Administration Sodium Chloride 10 ml 11/15/21 22:35 Sodium Chloride 0.9% 10 Ml Flush Syringe IV PRN PRN LINE FLUSH Tbo-Filgrastim 480 mcg 11/16/21 10:00 11/19/21 11:00 Tbo-Filgrastim 480 Mcg/0.8 Ml SUB-Q Not Given DAILY GRAHAM
[2021-11-20] MEDS: TBO-FILGRASTIM 480 MCG/0.8 ML SUB-Q SCH (12:44)
--- NOTE | 2021-11-20 13:57 | Progress Note ---
Assessment and Plan --Acute hypoxic respiratory failure Multifactorial, likely due to pulmonary embolus and large left pleural effusion Continue nebulizer breathing treatment, supplemental O2 Initiated Lovenox as platelet count greater than 30 to treat PE and s/p thoracentesis 11/17/21 -- Pulmonary embolus Patient started on anticoagulation with heparin but now discontinued for severe thrombocytopenia and severe anemia Consult placed to vascular surgeon and hematology for evaluation. Hematology recommended to initiate Lovenox as long as platelets greater than 30 and if no other sign of bleeding Continue to monitor CBC -- Uterine ca stage IV: Metastatic. Initially documented during this admission as ovarian cancer. Reviewed [facility] records and it revealed that patient has metastatic uterine cancer Initially diagnosed in 2017. Patient follows up with her oncologist at [facility]. --Severe anemia requiring transfusions No sign of active bleeding, likely due to chemotherapy Status post 3 packs of RBC transfusion -- Pancytopenia, s/p 4 units PRBC and 1 unit platelets transfusion consulted heme-onc for recommendations. --Transfuse 1 unit pRBC whenever hct <23 --Transfuse 1 dose of plts whenever plt <15 Neupogen for neutropenia daily until WBC >5 Neutropenic precaution --Left pleural effusion CT angiogram shows large left pleural effusion. Consult placed to pulmonology for evaluation and recommendations. s/p thoracentesis drained about 1.2 L of fluid -- Elevated troponin Likely secondary to demand ischemia Consulted to cardiology for recommendations. --Mild LEANN, likely prerenal with vasomotor nephropathy We will continue to follow, monitor BMP IV fluid as needed -- Hypoglycemia, cont dextrose saline --Hypokalemia, replace -- Lactic acidosis s/p IV fluid. We will also place on empiric IV antibiotics. -- Full code status 11/16/21: Status post 2 unit of packed RBC transfusion today. H&H improved. Platelet remains at 6. Ordered for 2 units of platelets. Platelet count need to be improved for thoracentesis. Once platelet count improves greater than 30 patient need to be started on Lovenox for surgical PE. Discussed with patient and patient's sister at the bedside in details. Also discussed with Dr. Carolina and Dr. Ogden to coordinate care. 11/17/21: H&H and platelets improved. So far transfused 3 units of packed RBC and 1 units of platelets. Status post paracentesis today. Initiated on Lovenox 1 mg/kg every 24 hours as creatinine increased to 1.5. Will change to Lovenox to twice daily when creatinine improves. Continue to follow CBC and watch for bleeding. Monitor renal function. 11/18/21: Hemoglobin dropped below 7 overnight and received another unit of blood transfusion. Platelet drop to 40s today. Patient also with hypoglycemia and hypokalemia. Will place on D5 normal saline with potassium supplements. Encouraged oral nutrition, monitor CBC BMP and electrolytes. Discussed in length with the patient patient's son at the bedside and also with patient's sister on the speaker phone. All question answered and patient and patient family verbalized understanding. 11/19/21: H&H remained stable, platelet drops to lower 30s today. Per hematology recommendation continue to provide therapeutic dose of Lovenox to twice daily as renal function stable. Discussed plan of care in details with patient and with her daughter at the bedside. Family and patient both understands that patient has a terminal illness with stage IV uterine cancer with extremely poor progn osis. They wish to continue their cancer treatment at [facility] and to remain as full code. They can consider hospice if that gets recommended at [facility] by their oncologist. Continue to follow clinically, monitor platelets. If H&H and platelets stable and no need for further transfusion, plan to DC home with home health for patient to follow-up and continue treatment at [facility]. Ordered a.m. labs. 11/20/21: Patient wants to go home with home health and continue follow-up with [facility]. Platelets dropped to 28 this morning. Hematology recommended to continue therapeutic dose of Lovenox twice daily. Patient with extremely poor appetite requiring continuous replacement of potassium and dextrose saline to prevent hypokalemia and hypoglycemia. Initiated on Megace. Currently DC home with home health if electrolytes stable and no further drop in platelets. Subjective Date of service: 11/20/21 Interval history: Patient seen and examined. Medical records and medication list reviewed. No acute event overnight noted by the RN. Patient wished to remain full code Patient with extremely poor appetite Discussed plan of care at bedside with patient and with her sister. Objective - Exam Narrative Exam: GENERAL: well-developed obese -[place] female lying on bed appeared to be in no discomfort. HEENT: Normocephalic. Atraumatic. No conjunctival congestion or icterus. Patient has moist mucous membranes. NECK: Supple. Trachea midline. CHEST/LUNGS: Improved breath sounds auscultated on the left side, patient on 3 L nasal cannula O2 HEART/CARDIOVASCULAR: Regular in rate and rhythm. S1 and S2 positive. ABDOMEN: Abdomen is soft, nontender. Patient has normal bowel sounds. SKIN: There is no rash. Warm and dry. NEURO: No focal motor deficit. Follows command. MUSCULOSKELETAL: No joint effusion or tenderness. EXTRIMITY: edema (Trace bilateral ankle edema.), ulceration (Dressing over right heel ulcer) Peripheral Pulses: within normal limits PSYCH: Cooperative. - Constitutional Vitals: Vital Signs - 12hr 11/20/21 11/20/21 11/20/21 02:00 09:12 10:00 Temperature 98.4 F Pulse Rate 103 H 103 H Pulse Rate [ 103 H From Monitor] Respiratory 18 22 Rate Blood Pressure 139/70 O2 Sat by Pulse 100 100 97 Oximetry - Labs CBC & Chem 7: 11/20/21 04:21 11/20/21 04:21 Labs: Abnormal lab results 11/20/21 11/20/21 Range/Units 04:21 04:21 WBC 3.4 L (4.5-11.0) K/mm3 RBC 3.11 L (3.65-5.03) M/mm3 Hgb 9.3 L (10.1-14.3) gm/dl Hct 27.1 L (30.3-42.9) % RDW 17.4 H (13.2-15.2) % Plt Count 28 L (140-440) K/mm3 Lymphocytes % (Manual) 10.0 L (13.4-35.0) % Monocytes % (Manual) 18.0 H (0.0-7.3) % Lymphocytes # (Manual) 0.3 L (1.2-5.4) K/mm3 Carbon Dioxide 21 L (22-30) mmol/L Calcium 8.3 L (8.4-10.2) mg/dL HEART Score - HEART Score Troponin: Troponin T 0.070 ng/mL (0.00-0.029) H 11/15/21 17:57
--- NOTE | 2021-11-20 20:15 | Progress Note ---
Assessment and Plan 70-year-old -[place] female with known history of metastatic ovarian cancer which was initially diagnosed in 2016 went into remission but had a recurrence again in June 2021 presenting to the emergency room today complaining of shortness of breath. Shortness of breath has been ongoing for the past few days. She has also had some mild chest discomfort. Shortness of breath is worse on minimal exertion. Patient receives her care at [facility] and has been following up with Dr. Diaz who is a deputy sheriff civil division. She has had recurrent thoracentesis for pleural effusion. Patient denies any fever or chills no headache or dizziness and no diaphoresis. No nausea or vomiting and no abdominal pain. She denies any calf swelling. She however has had minimal lower extremity edema. Work-up in the emergency room today, labs were significant for hemoglobin of 4, hematocrit of 11.8, WBC of 1.5, platelet count of 6. Potassium of 3.3. Lactic acid of 2.4, troponin 0.07 Chest x-ray significant for complete opacification of the left hemithorax possibly due to large left pleural effusion. CT angiogram of the chest shows acute pulmonary embolus. Large left pleural effusion with associated atelectasis. Incompletely included markedly abnormal appearance of the stomach most concerning for neoplastic involvement. Vascular surgeon has also been notified. Patient has been initiated on blood transfusion for the severe anemia. Patient has history of Diabetes, HTN and Metastatic Ovarian CA. Patient has no history of smoking, alcohol or drug abuse. 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 No known drug allergies. Patient awake, weak. On 3 litres O2. O2 saturation 100%. No acute respiratory distress at rest. Patient confused. ABG on 3 litres O2. ABG pH 7.401 pH Units (7.350-7.450) 11/16/21 20:50 ABG pCO2 43.5 mm Hg 11/16/21 20:50 ABG pO2 144.0 mm Hg (80.0-90.0) H 11/16/21 20:50 ABG O2 Saturation 98.8 % (95.0-99.0) 11/16/21 20:50 Patient afebrile. Patient has leukopenia, Blood pressure 139/70, pulse 103, respirations 22. Chest xray 11/15/21 reported Complete opacification of the left hemithorax possibly due to large left pleural effusion. CT scan of chest 11/15/21 reported Acute saddle pulmonary embolus. Large left pleural effusion with associated atelectasis. Incompletely included markedly abnormal appearance of the stomach, most concerning for neoplastic involvement. Patient is on cefepime. Albuterol inhaler 2 puffs po qid prn for shortness of breath.. Recommend GI prophylaxis famotidine. Recommended left thoracentesis by interventional radiology and sent for Cytology, Cell count, LDH, Protein, Glucose, Amylase, Gram stain, culture and sensitivity.AFB and Fungus. Patient undergone left thoracentesis by interventional radiology. Reported pleural fluid turbid, WBC count 330, RBC [id number], Neutrophils 81%, Lymphocytes 17%. Rest of the pleural fluid results pending. Chest xray 11/17/21 reported No evidence for pneumothorax following left thoracentesis. Patient started on anti coagulation S/C Lovenox in therapeutic doses. Patients daughter at bed side. Explained patients respiratory status. - Patient Problems (1) Recurrent left pleural effusion Current Visit: Yes Status: Acute Plan to address problem: Patient undergone left thoracentesis to day by interventional radiology. Reported pleural fluid turbid, WBC count 330, RBC [id number], Neutrophils 81%, Lymphocytes 17%. Rest of the pleural fluid results pending. (2) Pulmonary embolus Current Visit: Yes Status: Acute Plan to address problem: Continue O2 supplementation. Patient started on S/C Lovenox in therapeutic doses. (3) Anemia requiring transfusions Current Visit: Yes Status: Acute Plan to address problem: Patient received blood transfusion. Repeat HGB to day 9.1. (4) Ovarian ca Current Visit: Yes Status: Acute Plan to address problem: Management as per oncology. Subjective Date of service: 11/20/21 Interval history: 70-year-old -[place] female with known history of metastatic ovarian cancer which was initially diagnosed in 2016 went into remission but had a rec urrence again in June 2021 presenting to the emergency room today complaining of shortness of breath. Shortness of breath has been ongoing for the past few days. She has also had some mild chest discomfort. Shortness of breath is worse on minimal exertion. Patient receives her care at [facility] and has been following up with Dr. Diaz who is a deputy sheriff civil division. She has had recurrent thoracentesis for pleural effusion. Patient denies any fever or chills no headache or dizziness and no diaphoresis. No nausea or vomiting and no abdominal pain. She denies any calf swelling. She however has had minimal lower extremity edema. Work-up in the emergency room today, labs were significant for hemoglobin of 4, hematocrit of 11.8, WBC of 1.5, platelet count of 6. Potassium of 3.3. Lactic acid of 2.4, troponin 0.07 Chest x-ray significant for complete opacification of the left hemithorax possibly due to large left pleural effusion. CT angiogram of the chest shows acute pulmonary embolus. Large left pleural effusion with associated atelectasis. Incompletely included markedly abnormal appearance of the stomach most concerning for neoplastic involvement. Vascular surgeon has also been notified. Patient has been initiated on blood transfusion for the severe anemia. Patient has history of Diabetes, HTN and Metastatic Ovarian CA. Patient has no history of smoking, alcohol or drug abuse. 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 No known drug allergies. Patient awake, weak. On 3 litres O2. O2 saturation 100%. No acute respiratory distress at rest. Patient confused. ABG on 3 litres O2. ABG pH 7.401 pH Units (7.350-7.450) 11/16/21 20:50 ABG pCO2 43.5 mm Hg 11/16/21 20:50 ABG pO2 144.0 mm Hg (80.0-90.0) H 11/16/21 20:50 ABG O2 Saturation 98.8 % (95.0-99.0) 11/16/21 20:50 Patient afebrile. Patient has leukopenia, Blood pressure 139/70, pulse 103, respirations 22. Chest xray 11/15/21 reported Complete opacification of the left hemithorax possibly due to large left pleural effusion. CT scan of chest 11/15/21 reported Acute saddle pulmonary embolus. Large left pleural effusion with associated atelectasis. Incompletely included markedly abnormal appearance of the stomach, most concerning for neoplastic involvement. Patient is on cefepime. Albuterol inhaler 2 puffs po qid prn for shortness of breath.. Recommend GI prophylaxis famotidine. Recommended left thoracentesis by interventional radiology and sent for Cytology, Cell count, LDH, Protein, Glucose, Amylase, Gram stain, culture and sensitivity.AFB and Fungus. Patient undergone left thoracentesis by interventional radiology. Reported pleural fluid turbid, WBC count 330, RBC [id number], Neutrophils 81%, Lymphocytes 17%. Rest of the pleural fluid results pending. Chest xray 11/17/21 reported No evidence for pneumothorax following left thoracentesis. Patient started on anti coagulation S/C Lovenox in therapeutic doses. Objective Vital Signs - 12hr 11/20/21 11/20/21 11/20/21 09:12 10:00 14:00 Temperature 98.4 F Pulse Rate 103 H 99 H Pulse Rate [ 103 H From Monitor] Respiratory 22 18 Rate Blood Pressure 139/70 O2 Sat by Pulse 100 97 100 Oximetry Constitutional: no acute distress, lethargic, other (Weak and confused.) Eyes: non-icteric ENT: oropharynx moist Neck: supple, no JVD Effort: mildly labored Ascultation: Left: diminished breath sounds (Slightly improved breath sounds on left side.) Cardiovascular: regular rate and rhythm Gastrointestinal: normoactive bowel sounds, soft, non-tender Integumentary: normal Extremities: no cyanosis, no edema Neurologic: normal mental status, non-focal exam, pupils equal and round Psychiatric: depressed CBC and BMP: 11/20/21 04:21 11/20/21 04:21 ABG, PT/INR, D-dimer: ABG ABG pH 7.401 pH Units (7.350-7.450) 11/16/21 20:50 ABG pCO2 43.5 mm Hg 11/16/21 20:50 ABG pO2 144.0 mm Hg (80.0-90.0) H 11/16/21 20:50 ABG O2 Saturation 98.8 % (95.0-99.0) 11/16/21 20:50 PT/INR, D-dimer PT 14.7 Sec. (12.2-14.9) 11/17/21 10:56 INR 1.03 (0.87-1.13) 11/17/21 10:56 Abnormal lab findings: Abnormal Labs 11/15/21 11/15/21 11/15/21 17:57 17:57 17:57 WBC RBC Hgb Hct MCHC RDW Plt Count Seg Neuts % (Manual) Lymphocytes % (Manual) Monocytes % (Manual) Nucleated RBC % Seg Neutrophils # Man Lymphocytes # (Manual) Percent Retic ABG pO2 ABG HCO3 ABG Hemoglobin Sodium Potassium 3.3 L Chloride 96.6 L Carbon Dioxide BUN Creatinine Glucose 182 H POC Glucose Lactic Acid 2.20 H* Calcium Lactate Dehydrogenase Troponin T 0.070 H Total Protein 6.0 L Albumin 2.4 L LDL Cholesterol Direct 48 L Crossmatch 11/15/21 11/15/21 11/15/21 18:39 21:26 21:30 WBC 1.5 L* RBC 1.23 L Hgb 4.0 L* Hct 11.8 L* MCHC RDW 22.0 H Plt Count 6 L* Seg Neuts % (Manual) Lymphocytes % (Manual) Monocytes % (Manual) 12.0 H Nucleated RBC % Seg Neutrophils # Man 0.9 L Lymphocytes # (Manual) 0.4 L Percent Retic ABG pO2 ABG HCO3 ABG Hemoglobin Sodium Potassium Chloride Carbon Dioxide BUN Creatinine Glucose POC Glucose Lactic Acid 2.40 H* 3.60 H* Calcium Lactate Dehydrogenase Troponin T Total Protein Albumin LDL Cholesterol Direct Crossmatch 11/15/21 11/15/21 11/16/21 23:09 23:13 09:29 WBC RBC Hgb Hct MCHC RDW Plt Count Seg Neuts % (Manual) Lymphocytes % (Manual) Monocytes % (Manual) Nucleated RBC % Seg Neutrophils # Man Lymphocytes # (Manual) Percent Retic ABG pO2 ABG HCO3 ABG Hemoglobin Sodium 135 L Potassium 3.4 L Chloride 96.6 L Carbon Dioxide BUN Creatinine 1.3 H D Glucose 167 H POC Glucose Lactic Acid 2.90 H* Calcium Lactate Dehydrogenase Troponin T Total Protein Albumin LDL Cholesterol Direct Crossmatch See Detail 11/16/21 11/16/21 11/16/21 09:29 11:03 11:31 WBC 2.0 L RBC 3.39 L Hgb Hct 29.3 L D MCHC 35 H RDW 18.3 H Plt Count 6 L* Seg Neuts % (Manual) Lymphocytes % (Manual) Monocytes % (Manual) Nucleated RBC % Seg Neutrophils # Man Lymphocytes # (Manual) Percent Retic ABG pO2 ABG HCO3 ABG Hemoglobin Sodium Potassium Chloride Carbon Dioxide BUN Creatinine Glucose POC Glucose 156 H Lactic Acid 2.10 H* Calcium Lactate Dehydrogenase Troponin T Total Protein Albumin LDL Cholesterol Direct Crossmatch 11/16/21 11/16/21 11/16/21 16:51 20:24 20:50 WBC RBC Hgb Hct MCHC RDW Plt Count Seg Neuts % (Manual) Lymphocytes % (Manual) Monocytes % (Manual) Nucleated RBC % Seg Neutrophils # Man Lymphocytes # (Manual) Percent Retic ABG pO2 144.0 H ABG HCO3 26.4 H ABG Hemoglobin 9.2 L Sodium Potassium Chloride Carbon Dioxide BUN Creatinine Glucose POC Glucose 149 H 138 H Lactic Acid Calcium Lactate Dehydrogenase Troponin T Total Protein Albumin LDL Cholesterol Direct Crossmatch 11/17/21 11/17/21 11/17/21 05:26 05:26 07:40 WBC 2.5 L RBC 2.78 L Hgb 8.1 L Hct 23.9 L MCHC RDW 17.9 H Plt Count 93 L D Seg Neuts % (Manual) Lymphocytes % (Manual) Monocytes % (Manual) 8.0 H Nucleated RBC % 1.0 H Seg Neutrophils # Man 1.4 L Lymphocytes # (Manual) 0.8 L Percent Retic ABG pO2 ABG HCO3 ABG Hemoglobin Sodium 136 L Potassium 3.3 L Chloride 96.5 L Carbon Dioxide BUN 20 H Creatinine 1.5 H Glucose 113 H POC Glucose 109 H Lactic Acid Calcium Lactate Dehydrogenase Troponin T Total Protein Albumin LDL Cholesterol Direct Crossmatch 11/17/21 11/17/21 11/17/21 10:56 13:41 15:56 WBC RBC Hgb 7.5 L Hct 21.7 L MCHC RDW Plt Count 82 L Seg Neuts % (Manual) Lymphocytes % (Manual) Monocytes % (Manual) Nucleated RBC % Seg Neutrophils # Man Lymphocytes # (Manual) Percent Retic ABG pO2 ABG HCO3 ABG Hemoglobin Sodium Potassium Chloride Carbon Dioxide BUN Creatinine Glucose POC Glucose 109 H 109 H Lactic Acid Calcium Lactate Dehydrogenase Troponin T Total Protein Albumin LDL Cholesterol Direct Crossmatch 11/18/21 11/18/21 11/18/21 05:09 05:09 12:07 WBC 2.2 L RBC 3.03 L Hgb 8.8 L Hct 26.3 L MCHC RDW 17.0 H Plt Count 46 L Seg Neuts % (Manual) Lymphocytes % (Manual) Monocytes % (Manual) Nucleated RBC % Seg Neutrophils # Man Lymphocytes # (Manual) Percent Retic 0.52 L ABG pO2 ABG HCO3 ABG Hemoglobin Sodium Potassium 2.7 L* Chloride Carbon Dioxide BUN Creatinine Glucose POC Glucose 61 L Lactic Acid Calcium Lactate Dehydrogenase 659 H Troponin T Total Protein Albumin LDL Cholesterol Direct Crossmatch 0711/18/21 11/19/21 16:39 20:39 05:48 WBC 3.1 L RBC 3.08 L Hgb 9.1 L Hct 26.9 L MCHC RDW 17.4 H Plt Count 33 L Seg Neuts % (Manual) 81.0 H Lymphocytes % (Manual) 8.0 L Monocytes % (Manual) 10.0 H Nucleated RBC % Seg Neutrophils # Man Lymphocytes # (Manual) 0.2 L Percent Retic ABG pO2 ABG HCO3 ABG Hemoglobin Sodium Potassium 3.3 L D Chloride Carbon Dioxide BUN Creatinine Glucose POC Glucose 68 L Lactic Acid Calcium Lactate Dehydrogenase Troponin T Total Protein Albumin LDL Cholesterol Direct Crossmatch 11/19/21 11/20/21 11/20/21 05:48 04:21 04:21 WBC 3.4 L RBC 3.11 L Hgb 9.3 L Hct 27.1 L MCHC RDW 17.4 H Plt Count 28 L Seg Neuts % (Manual) Lymphocytes % (Manual) 10.0 L Monocytes % (Manual) 18.0 H Nucleated RBC % Seg Neutrophils # Man Lymphocytes # (Manual) 0.3 L Percent Retic ABG pO2 ABG HCO3 ABG Hemoglobin Sodium Potassium 3.1 L Chloride Carbon Dioxide 21 L BUN Creatinine Glucose POC Glucose Lactic Acid Calcium 8.3 L 8.3 L Lactate Dehydrogenase Troponin T Total Protein Albumin LDL Cholesterol Direct Crossmatch
[2021-11-20] MEDS: ALPRAZolam 0.25 MG TAB PO PRN (21:46)
[2021-11-20] MEDS: MORPHINE 2 MG/1 ML INJ IV PRN (21:46)
[2021-11-20] MEDS: MELATONIN 5 MG TAB PO PRN (21:46)
[2021-11-21 06:57] LABS: Red Cell Distribution Width 17.8 % (13.2-15.2)
[2021-11-21 07:09] LABS: Hematocrit 27.9 % (30.3-42.9); Hemoglobin 9.2 gm/dl (10.1-14.3); Mean Corpuscular HGB Conc 33 % (30-34); Mean Corpuscular Volume 87 fl (79-97); Red Blood Count 3.19 M/mm3 (3.65-5.03)
[2021-11-21 07:13] LABS: BUN/Creatinine Ratio 11; Blood Urea Nitrogen 10 mg/dL (7-17); Calcium 8.3 mg/dL (8.4-10.2); Hemolysis Index 3
[2021-11-21 07:38] LABS: Platelet Count 17 K/mm3 (140-440)
[2021-11-21] MEDS: INSULIN LISPRO 100 UNIT/ML SUB-Q SCH ×3 (07:42→22:00)
[2021-11-21] MEDS: DEXTROSE 50% IN WATER (25GM) 50 ML SYRINGE IV PRN (08:09)
[2021-11-21] MEDS: ALPRAZolam 0.25 MG TAB PO PRN (08:11)
[2021-11-21] MEDS: D5NS W/KCL 20 MEQ 20 MEQ/1,000 ML BAG IV SCH (08:38)
[2021-11-21] MEDS: POTASSIUM CHLORIDE 10 MEQ 10 MEQ/100 ML BAG IV SCH ×4 (08:42→12:46)
[2021-11-21] MEDS ORDERED: SODIUM CHLORIDE 0.9% 500 ML 500 ML IV SCH (09:00)
[2021-11-21] MEDS ORDERED: POTASSIUM CHLORIDE ER 20 MEQ TAB PO SCH (09:00)
[2021-11-21] MEDS: ENOXAPARIN 100 MG/1 ML INJ SUB-Q SCH ×2 (10:09→22:07)
[2021-11-21] MEDS: MEGESTROL 400 MG/10 ML ORAL LIQD PO SCH (10:10)
[2021-11-21] MEDS: TBO-FILGRASTIM 480 MCG/0.8 ML SUB-Q SCH (10:10)
[2021-11-21] MEDS: POTASSIUM CHLORIDE ER 10 MEQ TAB PO SCH (10:11)
--- NOTE | 2021-11-21 15:25 | Progress Note ---
Assessment and Plan Assessment and plan: #Acute hypoxic respiratory failure -Multifactorial, likely due to pulmonary embolus and large left pleural effusion -Continue nebulizer breathing treatment, supplemental O2 -Initiated Lovenox as platelet count greater than 30 to treat PE and s/p thoracentesis 11/17/21 #Pulmonary embolus -Patient started on anticoagulation with heparin but now discontinued for severe thrombocytopenia and severe anemia -Consult placed to vascular surgeon and hematology for evaluation. -Hematology recommended to initiate Lovenox as long as platelets greater than 30 and if no other sign of bleeding -Continue to monitor CBC #Uterine ca stage IV -Metastatic. Initially documented during this admission as ovarian cancer. Reviewed [facility] records and it revealed that patient has metastatic uterine cancer -Initially diagnosed in 2017. -Patient follows up with her oncologist at [facility]. #Severe anemia requiring transfusions - No sign of active bleeding, likely due to chemotherapy - Status post 3 packs of RBC transfusion #Pancytopenia - s/p 4 units PRBC and 1 unit platelets transfusion - consulted heme-onc for recommendations. -Transfuse 1 unit pRBC whenever hct <23 -Transfuse 1 dose of plts whenever plt <15 -Neupogen for neutropenia daily until WBC >5 -Neutropenic precaution #Left pleural effusion -CT angiogram shows large left pleural effusion. -Consult placed to pulmonology for evaluation and recommendations. -s/p thoracentesis drained about 1.2 L of fluid #Elevated troponin -Likely secondary to demand ischemia -Consulted to cardiology for recommendations. #Mild LEANN - likely prerenal with vasomotor nephropathy -We will continue to follow, monitor BMP -IV fluid as needed #Hypoglycemia -cont dextrose saline #Hypokalemia - replete and reassess with repeat BMP #Lactic acidosis -s/p IV fluid. -We will also place on empiric IV antibiotics. #Obesity #Weight loss counseling #Exercise counseling - BMI 33.9 - Counseled patient on the importance of weight loss, incorporating exercise, and dietary changes (lean meats, fresh fruits and vegetables, and water intake). Patient expresses understanding. - Time: +15 min #Advanced care planning -Disease education conducted, care plan discussed, diagnoses discussed, prognosis discussed, and patient acknowledges understanding with care plan -Time: +30 min -- Full code status 11/16/21: Status post 2 unit of packed RBC transfusion today. H&H improved. Platelet remains at 6. Ordered for 2 units of platelets. Platelet count need to be improved for thoracentesis. Once platelet count improves greater than 30 patient need to be started on Lovenox for surgical PE. Discussed with patient and patient's sister at the bedside in details. Also discussed with Dr. Carolina and Dr. Ogden to coordinate care. 11/17/21: H&H and platelets improved. So far transfused 3 units of packed RBC and 1 units of platelets. Status post paracentesis today. Initiated on Lovenox 1 mg/kg every 24 hours as creatinine increased to 1.5. Will change to Lovenox to twice daily when creatinine improves. Continue to follow CBC and watch for bleeding. Monitor renal function. 11/18/21: Hemoglobin dropped below 7 overnight and received another unit of blood transfusion. Platelet drop to 40s today. Patient also with hypoglycemia and hypokalemia. Will place on D5 normal saline with potassium supplements. E ncouraged oral nutrition, monitor CBC BMP and electrolytes. Discussed in length with the patient patient's son at the bedside and also with patient's sister on the speaker phone. All question answered and patient and patient family verbalized understanding. 11/19/21: H&H remained stable, platelet drops to lower 30s today. Per hematology recommendation continue to provide therapeutic dose of Lovenox to twice daily as renal function stable. Discussed plan of care in details with patient and with her daughter at the bedside. Family and patient both understands that patient has a terminal illness with stage IV uterine cancer with extremely poor prognosis. They wish to continue their cancer treatment at [facility] and to remain as full code. They can consider hospice if that gets recommended at [facility] by their oncologist. Continue to follow clinically, monitor platelets. If H&H and platelets stable and no need for further transfusion, plan to DC home with home health for patient to follow-up and continue treatment at [facility]. Ordered a.m. labs. 11/20/21: Patient wants to go home with home health and continue follow-up with [facility]. Platelets dropped to 28 this morning. Hematology recommended to continue therapeutic dose of Lovenox twice daily. Patient with extremely poor appetite requiring continuous replacement of potassium and dextrose saline to prevent hypokalemia and hypoglycemia. Initiated on Megace. Currently DC home with home health if electrolytes stable and no further drop in platelets. 11/21/21: Detailed discussion with her son (Agapito Gallagher) about her overall prognosis and the goal of trying to get her discharged when she is stable. Increasing xanax to 1mg q8hrs for anxiety and starting seroquel 12.5mg qHS for insomnia. Transfused 1 jumbo platelets (was 15 this morning). Disposition Plan: Continue medical management Total Time Spent with Patient (Minutes): 45 minutes History Interval history: No acute events overnight. Hospitalist Physical - Constitutional Vitals: Temp Pulse Resp BP Pulse Ox 98.4 F 110 H 18 152/70 99 11/21/21 07:05 11/21/21 07:05 11/21/21 02:00 11/21/21 07:05 11/21/21 07:05 General appearance: Present: no acute distress, obese - EENT Eyes: Present: PERRL, EOM intact ENT: hearing intact, clear oral mucosa, dentition normal - Respiratory Respiratory effort: normal Respiratory: bilateral: diminished (3L nasal cannula) - Cardiovascular Rhythm: regular Heart Sounds: Present: S1 & S2 - Extremities Extremities: no ischemia, pulses intact, pulses symmetrical, No edema, normal temperature, normal color Peripheral Pulses: within normal limits - Abdominal General gastrointestinal: soft, non-tender, non-distended, normal bowel sounds - Integumentary Integumentary: Present: clear, warm, dry - Psychiatric Psychiatric: appropriate mood/affect, intact judgment & insight, cooperative - Neurologic Neurologic: CNII-XII intact - Allied Health Allied health notes reviewed: nursing HEART Score - HEART Score Troponin: Troponin T 0.070 ng/mL (0.00-0.029) H 11/15/21 17:57 Results - Labs CBC & Chem 7: 11/21/21 06:23 11/21/21 06:23 Labs: Laboratory Last Values WBC 3.7 K/mm3 (4.5-11.0) L 11/21/21 06:23 RBC 3.19 M/mm3 (3.65-5.03) L 11/21/21 06:23 Hgb 9.2 gm/dl (10.1-14.3) L 11/21/21 06:23 Hct 27.9 % (30.3-42.9) L 11/21/21 06:23 MCV 87 fl (79-97) 11/21/21 06:23 MCH 29 pg (28-32) 11/21/21 06:23 MCHC 33 % (30-34) 11/21/21 06:23 RDW 17.8 % (13.2-15.2) H 11/21/21 06:23 Plt Count 17 K/mm3 (140-440) L* 11/21/21 06:23 Add Manual Diff Complete 11/20/21 04:21 Total Counted 100 11/20/21 04:21 Seg Neuts % (Manual) 66.0 % (40.0-70.0) 11/20/21 04:21 Band Neutrophils % 3.0 % 11/20/21 04:21 Lymphocytes % (Manual) 10.0 % (13.4-35.0) L 11/20/21 04:21 Reactive Lymphs % (Man) 1.0 % 11/20/21 04:21 Monocytes % (Manual) 18.0 % (0.0-7.3) H 11/20/21 04:21 Eosinophils % (Manual) 1.0 % (0.0-4.3) 11/20/21 04:21 Basophils % (Manual) 0 % (0.0-1.8) 11/20/21 04:21 Metamyelocytes % 1.0 % 11/20/21 04:21 Myelocytes % 0 % 11/20/21 04:21 Promyelocytes % 0 % 11/20/21 04:21 Blast Cells % 0 % 11/20/21 04:21 Nucleated RBC % Not Reportable 11/20/21 04:21 Seg Neutrophils # Man 2.2 K/mm3 (1.8-7.7) 11/20/21 04:21 Band Neutrophils # 0.1 K/mm3 11/20/21 04:21 Lymphocytes # (Manual) 0.3 K/mm3 (1.2-5.4) L 11/20/21 04:21 Abs React Lymphs (Man) 0.0 K/mm3 11/20/21 04:21 Monocytes # (Manual) 0.6 K/mm3 (0.0-0.8) 11/20/21 04:21 Eosinophils # (Manual) 0.0 K/mm3 (0.0-0.4) 11/20/21 04:21 Basophils # (Manual) 0.0 K/mm3 (0.0-0.1) 11/20/21 04:21 Metamyelocytes # 0.0 K/mm3 11/20/21 04:21 Myelocytes # 0.0 K/mm3 11/20/21 04:21 Promyelocytes # 0.0 K/mm3 11/20/21 04:21 Blast Cells # 0.0 K/mm3 11/20/21 04:21 WBC Morphology Not Reportable 11/20/21 04:21 Hypersegmented Neuts Not Reportable 11/20/21 04:21 Hyposegmented Neuts Not Reportable 11/20/21 04:21 Hypogranular Neuts Not Reportable 11/20/21 04:21 Smudge Cells Few 11/20/21 04:21 Toxic Granulation Not Reportable 11/20/21 04:21 Toxic Vacuolation 1+ 11/20/21 04:21 Dohle Bodies Not Reportable 11/20/21 04:21 Pelger-Huet Anomaly Not Reportable 11/20/21 04:21 Renetta Rods Not Reportable 11/20/21 04:21 Platelet Estimate Appears decreased 11/20/21 04:21 Clumped Platelets Not Reportable 11/20/21 04:21 Plt Clumps, EDTA Not Reportable 11/20/21 04:21 Large Platelets Not Reportable 11/20/21 04:21 Giant Platelets Not Reportable 11/20/21 04:21 Platelet Satelliting Not Reportable 11/20/21 04:21 Plt Morphology Comment Not Reportable 11/20/21 04:21 RBC Morphology Not Reportable 11/20/21 04:21 Dimorphic RBCs Not Reportable 11/20/21 04:21 Polychromasia Rare 11/20/21 04:21 Hypochromasia Few 11/20/21 04:21 Poikilocytosis Not Reportable 11/20/21 04:21 Anisocytosis Not Reportable 11/20/21 04:21 Microcytosis Not Reportable 11/20/21 04:21 Macrocytosis Not Reportable 11/20/21 04:21 Spherocytes Few 11/20/21 04:21 Pappenheimer Bodies Not Reportable 11/20/21 04:21 Sickle Cells Not Reportable 11/20/21 04:21 Target Cells Not Reportable 11/20/21 04:21 Tear Drop Cells Not Reportable 11/20/21 04:21 Ovalocytes Not Reportable 11/20/21 04:21 Helmet Cells Not Reportable 11/20/21 04:21 Beckman-Pala Bodies Not Reportable 11/20/21 04:21 [place] Rings Not Reportable 11/20/21 04:21 [place] Cells Few 11/20/21 04:21 Bite Cells Not Reportable 11/20/21 04:21 Crenated Cell Not Reportable 11/20/21 04:21 Elliptocytes Few 11/20/21 04:21 Acanthocytes (Spur) Few 11/20/21 04:21 Rouleaux Not Reportable 11/20/21 04:21 Hemoglobin C Crystals Not Reportable 11/20/21 04:21 Schistocytes Not Reportable 11/20/21 04:21 Malaria parasites Not Reportable 11/20/21 04:21 Percent Retic 0.52 % (0.78-2.58) L 11/18/21 05:09 Víctor Bodies Not Reportable 11/20/21 04:21 Hem Pathologist Commnt No 11/20/21 04:21 PT 14.7 Sec. (12.2-14.9) 11/17/21 10:56 INR 1.03 (0.87-1.13) 11/17/21 10:56 APTT 30.7 Sec. (24.2-36.6) 11/17/21 10:56 ABG pH 7.401 pH Units (7.350-7.450) 11/16/21 20:50 ABG pCO2 43.5 mm Hg 11/16/21 20:50 ABG pO2 144.0 mm Hg (80.0-90.0) H 11/16/21 20:50 ABG HCO3 26.4 mmol/L (20.0-26.0) H 11/16/21 20:50 ABG O2 Saturation 98.8 % (95.0-99.0) 11/16/21 20:50 ABG O2 Content 12.8 (0.0-44) 11/16/21 20:50 ABG Base Excess 1.4 mmol/L (-2.0-3.0) 11/16/21 20:50 ABG Hemoglobin 9.2 gm/dl (12.0-16.0) L 11/16/21 20:50 ABG Carboxyhemoglobin 1.4 % (0.0-5.0) 11/16/21 20:50 ABG Methemoglobin 0.6 % (0.0-1.5) 11/16/21 20:50 Oxyhemoglobin 96.9 % (95.0-99.0) 11/16/21 20:50 FiO2 32 % 11/16/21 20:50 Sodium 141 mmol/L (137-145) 11/21/21 06:23 Potassium 2.8 mmol/L (3.6-5.0) L* D 11/21/21 06:23 Chloride 106.9 mmol/L (98-107) 11/21/21 06:23 Carbon Dioxide 21 mmol/L (22-30) L 11/21/21 06:23 Anion Gap 16 mmol/L 11/21/21 06:23 BUN 10 mg/dL (7-17) 11/21/21 06:23 Creatinine 0.9 mg/dL (0.6-1.2) 11/21/21 06:23 Estimated GFR > 60 ml/min 11/21/21 06:23 BUN/Creatinine Ratio 11 % 11/21/21 06:23 Glucose 60 mg/dL (65-100) L 11/21/21 06:23 POC Glucose 77 mg/dL (70-105) 11/21/21 11:36 Lactic Acid 1.70 mmol/L (0.7-2.0) 11/16/21 11:03 Calcium 8.3 mg/dL (8.4-10.2) L 11/21/21 06:23 Total Bilirubin 0.50 mg/dL (0.1-1.2) 11/15/21 17:57 AST 36 units/L (5-40) 11/15/21 17:57 ALT 12 units/L (7-56) 11/15/21 17:57 Alkaline Phosphatase 76 units/L (35-129) 11/15/21 17:57 Lactate Dehydrogenase 659 units/L (91-180) H 11/18/21 05:09 Troponin T 0.070 ng/mL (0.00-0.029) H 11/15/21 17:57 NT-Pro-B Natriuret Pep 504.5 pg/mL (0-900) 11/15/21 17:57 Total Protein 6.0 g/dL (6.3-8.2) L 11/15/21 17:57 Albumin 2.4 g/dL (3.9-5) L 11/15/21 17:57 Albumin/Globulin Ratio 0.7 % 11/15/21 17:57 Triglycerides 127 mg/dL (2-149) 11/15/21 17:57 Cholesterol 129 mg/dL (50-199) 11/15/21 17:57 LDL Cholesterol Direct 48 mg/dL (50-130) L 11/15/21 17:57 HDL Cholesterol 52 mg/dL (40-59) 11/15/21 17:57 Cholesterol/HDL Ratio 2.48 % 11/15/21 17:57 Urine Color Yellow (Yellow) 11/18/21 07:40 Urine Turbidity Clear (Clear) 11/18/21 07:40 Urine pH 6.0 (5.0-7.0) 11/18/21 07:40 Ur Specific Dawn 1.019 (1.003-1.030) 11/18/21 07:40 Urine Protein 30 mg/dl mg/dL (Negative) 11/18/21 07:40 Urine Glucose (UA) 50 mg/dL (Negative) 11/18/21 07:40 Urine Ketones Neg mg/dL (Negative) 11/18/21 07:40 Urine Blood Sm (Negative) 11/18/21 07:40 Urine Nitrite Neg (Negative) 11/18/21 07:40 Urine Bilirubin Neg (Negative) 11/18/21 07:40 Urine Urobilinogen < 2.0 mg/dL (<2.0) 11/18/21 07:40 Ur Leukocyte Esterase Sm (Negative) 11/18/21 07:40 Urine WBC (Auto) 5.0 /HPF (0.0-6.0) 11/18/21 07:40 Urine RBC (Auto) 1.0 /HPF (0.0-6.0) 11/18/21 07:40 U Epithel Cells (Auto) 1.0 /HPF (0-13.0) 11/18/21 07:40 Fluid Type Pleural 11/17/21 12:40 Fluid Color Bloody 11/17/21 12:40 Fluid Appearance Turbid 11/17/21 12:40 Fluid WBC 330 /mm3 11/17/21 12:40 Fluid RBC [id number] /mm3 11/17/21 12:40 Fluid Seg Neutrophils 81.0 % 11/17/21 12:40 Fluid Lymphocytes 17.0 % 11/17/21 12:40 Fluid Reactive Lymphs 0 % 11/17/21 12:40 Fluid Monocytes 2.0 % 11/17/21 12:40 Fluid Eosinophils 0 % 11/17/21 12:40 Fluid Basophils 0 % 11/17/21 12:40 Blood Type O POSITIVE 11/21/21 08:43 Antibody Screen Negative 11/15/21 23:09 Crossmatch See Detail 11/15/21 23:09 Microbiology: Microbiology 11/17/21 12:40 Pleural Fluid - Pleura,Lt Lung Body Fluid Culture - Final 11/15/21 17:57 Peripheral/Venous Blood Culture - Final NO GROWTH AFTER 5 DAYS 11/15/21 17:57 Peripheral/Venous Blood Culture - Final NO GROWTH AFTER 5 DAYS Martins/IV: Voiding Method External Female Catheter Active Medications - Current Medications Current Medications: Generic Name Dose Route Start Last Admin Trade Name Freq PRN Reason Stop Dose Admin Acetaminophen 650 mg 11/15/21 22:35 11/19/21 08:07 Acetaminophen 325 Mg Tab PO 650 mg Q4H PRN Administration Pain MILD(1-3)/Fever >100.5/PATEL Albuterol 2.5 mg 11/16/21 17:38 Albuterol 2.5 Mg/3 Ml Nebu IH Q6HRT PRN Shortness Of Breath Alprazolam 0.25 mg 11/19/21 10:04 11/21/21 08:11 Alprazolam 0.25 Mg Tab PO 0.25 mg Q8H PRN Administration Anxiety Dextrose 50 ml 11/15/21 22:35 11/21/21 08:09 Dextrose 50% In Water (25gm) 50 Ml Syringe IV 20 ml Q30MIN PRN Administration Hypoglycemia Protocol Enoxaparin Sodium 100 mg 11/18/21 22:00 11/21/21 10:09 Enoxaparin 100 Mg/1 Ml Inj SUB-Q Not Given Q12HR GRAHAM Protocol Potassium Chloride/Dextrose/Sod Cl 20 meq in 1,000 mls @ 42 mls/hr 11/18/21 13:00 11/21/21 08:38 D5w/Ns W/Kcl 20meq IV 42 mls/hr DIRECT GRAHAM Administration Sodium Chloride 500 mls @ 0 mls/hr 11/21/21 09:00 Nacl 0.9% 500 Ml IV 11/21/21 18:00 ONCE@0900 GRAHAM As Directed Potassium Chloride 10 meq in 100 mls @ 100 mls/hr 11/21/21 16:00 Kcl 10meq/100ml IV 11/21/21 19:59 Q1H GRAHAM Insulin Human Lispro 0 unit 11/16/21 07:30 11/21/21 12:52 Insulin Lispro 100 Unit/Ml SUB-Q Not Given ACHS [facility] Protocol Magnesium Hydroxide 30 ml 11/15/21 22:35 Magnesium Hydroxide (Mom) Oral Liqd Udc PO Q4H PRN Constipation Megestrol Acetate 400 mg 11/20/21 10:00 11/21/21 10:10 Megestrol 400 Mg/10 Ml Oral Liqd PO 400 mg QDAY GRAHAM Administration Melatonin 5 mg 11/16/21 01:36 11/20/21 21:46 Melatonin 5 Mg Tab PO 5 mg QHS PRN Administration Sleep Morphine Sulfate 2 mg 11/15/21 22:35 11/20/21 21:46 Morphine 2 Mg/1 Ml Inj IV 2 mg Q4H PRN Administration Pain, Moderate (4-6) Morphine Sulfate 4 mg 11/15/21 22:35 Morphine 4 Mg/1 Ml Inj IV Q4H PRN Pain , Severe (7-10) Ondansetron HCl 4 mg 11/15/21 22:35 11/18/21 09:25 Ondansetron 4 Mg/2 Ml Inj IV 4 mg Q8H PRN Administration Nausea And Vomiting Potassium Chloride 10 meq 11/21/21 01:56 11/21/21 10:11 Potassium Chloride Er 10 Meq Tab PO Not Given QDAY GRAHAM Sodium Chloride 10 ml 11/16/21 10:00 11/21/21 10:11 Sodium Chloride 0.9% 10 Ml Flush Syringe IV 10 ml BID GRAHAM Administration Sodium Chloride 10 ml 11/15/21 22:35 Sodium Chloride 0.9% 10 Ml Flush Syringe IV PRN PRN LINE FLUSH Tbo-Filgrastim 480 mcg 11/16/21 10:00 11/21/21 10:10 Tbo-Filgrastim 480 Mcg/0.8 Ml SUB-Q 480 mcg DAILY GRAHAM Administration Nutrition/Malnutrition Assess - Dietary Evaluation Nutrition/Malnutrition Findings: Nutrition Notes Start: 11/16/21 15:06 Freq: Status: Active Protocol: Document 11/16/21 15:06 STACEY (Rec: 11/16/21 15:18 STACEY [id number]) Nutrition Notes Need for Assessment generated from: MD Order,Education Initial or Follow up Brief Note Current Diagnosis Respiratory Failure Other Pertinent Diagnosis Pulmonary Embolus, Pleural Effusion, Lactic Acidosis, Pancytopenia, Anemia. Current Diet Cardiac/Consistent Carbohydrates Diet (since B ). Height 5 ft 6 in Weight 113.89 kg [place] Body Weight (kg) 59.09 BMI 40.5 Intake Prior to Admission Poor Weight change and time frame Pt denies having loss body weight INSEAMER. Weight Status Morbidly Obese Subjective/Other Information RD consult for nutrition education assessment. Pt's PO intake of meals has been Good (75%) and well tolerated, according to ADL notes. Pt is on Nasal Cannula, O2 saturation @ 100%, according to Physical Assessment History notes. Pt still in critical condition , not a candidate for Nutrition Education at the time, will assess feasibility on F/U. Percent of energy/protein needs met: Prescribed Cardiac/Consistent Carbohydrates Diet provides for energy/protein needs (1, 977 Kcal/86 g) during LOS. Nutrition Intervention Follow-Up By: 11/23/21 Additional Comments Nutrition education will be provided at F/U, if feasible. Continue monitoring food tolerance, %PO intake of meals , and BM.
[2021-11-21] MEDS ORDERED: ALPRAZolam 0.25 MG TAB PO PRN (15:27)
[2021-11-21] MEDS: MORPHINE 2 MG/1 ML INJ IV PRN (22:07)
[2021-11-21] MEDS: QUEtiapine 25 MG TAB PO SCH (22:08)
[2021-11-22 00:46] LABS: BUN/Creatinine Ratio 13; Blood Urea Nitrogen 10 mg/dL (7-17); Calcium 8.4 mg/dL (8.4-10.2); Hemolysis Index 12
[2021-11-22] MEDS: POTASSIUM CHLORIDE 10 MEQ 10 MEQ/100 ML BAG IV SCH ×4 (02:00→08:29)
[2021-11-22 05:35] LABS: Hematocrit 27.2 % (30.3-42.9); Hemoglobin 9.4 gm/dl (10.1-14.3); Mean Corpuscular HGB Conc 35 % (30-34); Mean Corpuscular Volume 86 fl (79-97); Red Blood Count 3.16 M/mm3 (3.65-5.03); Red Cell Distribution Width 18.5 % (13.2-15.2)
[2021-11-22 05:38] LABS: Platelet Count 40 K/mm3 (140-440)
[2021-11-22 05:49] LABS: BUN/Creatinine Ratio 13; Blood Urea Nitrogen 10 mg/dL (7-17); Calcium 8.3 mg/dL (8.4-10.2); Hemolysis Index 48
[2021-11-22 07:59] LABS: Basophils % (Manual) 0 % (0.0-1.8); Total Cells Counted 100
[2021-11-22 08:04] LABS: Anisocytosis 1+; Hypochromasia 1+; Poikilocytosis Few
[2021-11-22 08:05] LABS: Ovalocytes Rare; Platelet Estimate Consistent w Auto; Schistocytes Rare; Target Cells Rare
[2021-11-22] MEDS: INSULIN LISPRO 100 UNIT/ML SUB-Q SCH ×5 (08:30→21:23)
[2021-11-22] MEDS ORDERED: SODIUM CHLORIDE 0.9% 1000 ML 1,000 ML IV ONE (09:00)
[2021-11-22] MEDS: POTASSIUM CHLORIDE ER 10 MEQ TAB PO SCH (09:09)
[2021-11-22] MEDS: ENOXAPARIN 100 MG/1 ML INJ SUB-Q SCH ×2 (09:10→21:21)
[2021-11-22] MEDS: MEGESTROL 400 MG/10 ML ORAL LIQD PO SCH (09:17)
--- NOTE | 2021-11-22 15:46 | Progress Note ---
Assessment and Plan Assessment and plan: #Acute hypoxic respiratory failure -Multifactorial, likely due to pulmonary embolus and large left pleural effusion -Continue nebulizer breathing treatment, supplemental O2 -Initiated Lovenox as platelet count greater than 30 to treat PE and s/p thoracentesis 11/17/21 #Pulmonary embolus -Patient started on anticoagulation with heparin but now discontinued for severe thrombocytopenia and severe anemia -Consult placed to vascular surgeon and hematology for evaluation. -Hematology recommended to initiate Lovenox as long as platelets greater than 30 and if no other sign of bleeding -Continue to monitor CBC #Uterine ca stage IV -Metastatic. Initially documented during this admission as ovarian cancer. Reviewed [facility] records and it revealed that patient has metastatic uterine cancer -Initially diagnosed in 2017. -Patient follows up with her oncologist at [facility]. #Severe anemia requiring transfusions - No sign of active bleeding, likely due to chemotherapy - Status post 3 packs of RBC transfusion #Pancytopenia - s/p 4 units PRBC and 1 unit platelets transfusion - consulted heme-onc for recommendations. -Transfuse 1 unit pRBC whenever hct <23 -Transfuse 1 dose of plts whenever plt <15 -Neupogen for neutropenia daily until WBC >5 -Neutropenic precaution #Left pleural effusion -CT angiogram shows large left pleural effusion. -Consult placed to pulmonology for evaluation and recommendations. -s/p thoracentesis drained about 1.2 L of fluid #Elevated troponin -Likely secondary to demand ischemia -Consulted to cardiology for recommendations. #Mild LEANN - likely prerenal with vasomotor nephropathy -We will continue to follow, monitor BMP -IV fluid as needed #Hypoglycemia -cont dextrose saline #Hypokalemia - replete and reassess with repeat BMP #Lactic acidosis -s/p IV fluid. -We will also place on empiric IV antibiotics. #Obesity #Weight loss counseling #Exercise counseling - BMI 33.9 - Counseled patient on the importance of weight loss, incorporating exercise, and dietary changes (lean meats, fresh fruits and vegetables, and water intake). Patient expresses understanding. - Time: +15 min #Advanced care planning -Disease education conducted, care plan discussed, diagnoses discussed, prognosis discussed, and patient acknowledges understanding with care plan -Time: +30 min -- Full code status 11/16/21: Status post 2 unit of packed RBC transfusion today. H&H improved. Platelet remains at 6. Ordered for 2 units of platelets. Platelet count need to be improved for thoracentesis. Once platelet count improves greater than 30 patient need to be started on Lovenox for surgical PE. Discussed with patient and patient's sister at the bedside in details. Also discussed with Dr. Carolina and Dr. Ogden to coordinate care. 11/17/21: H&H and platelets improved. So far transfused 3 units of packed RBC and 1 units of platelets. Status post paracentesis today. Initiated on Lovenox 1 mg/kg every 24 hours as creatinine increased to 1.5. Will change to Lovenox to twice daily when creatinine improves. Continue to follow CBC and watch for bleeding. Monitor renal function. 11/18/21: Hemoglobin dropped below 7 overnight and received another unit of blood transfusion. Platelet drop to 40s today. Patient also with hypoglycemia and hypokalemia. Will place on D5 normal saline with potassium supplements. E ncouraged oral nutrition, monitor CBC BMP and electrolytes. Discussed in length with the patient patient's son at the bedside and also with patient's sister on the speaker phone. All question answered and patient and patient family verbalized understanding. 11/19/21: H&H remained stable, platelet drops to lower 30s today. Per hematology recommendation continue to provide therapeutic dose of Lovenox to twice daily as renal function stable. Discussed plan of care in details with patient and with her daughter at the bedside. Family and patient both understands that patient has a terminal illness with stage IV uterine cancer with extremely poor prognosis. They wish to continue their cancer treatment at [facility] and to remain as full code. They can consider hospice if that gets recommended at [facility] by their oncologist. Continue to follow clinically, monitor platelets. If H&H and platelets stable and no need for further transfusion, plan to DC home with home health for patient to follow-up and continue treatment at [facility]. Ordered a.m. labs. 11/20/21: Patient wants to go home with home health and continue follow-up with [facility]. Platelets dropped to 28 this morning. Hematology recommended to continue therapeutic dose of Lovenox twice daily. Patient with extremely poor appetite requiring continuous replacement of potassium and dextrose saline to prevent hypokalemia and hypoglycemia. Initiated on Megace. Currently DC home with home health if electrolytes stable and no further drop in platelets. 11/21/21: Detailed discussion with her son (Agapito Gallagher) about her overall prognosis and the goal of trying to get her discharged when she is stable. Increasing xanax to 1mg q8hrs for anxiety and starting seroquel 12.5mg qHS for insomnia. Transfused 1 jumbo platelets (was 15 this morning). 11/22/2021: Bolusing normal saline given patient's tachycardia. Disposition Plan: Continue medical management Total Time Spent with Patient (Minutes): 30 minutes History Interval history: No acute events overnight. Hospitalist Physical - Constitutional Vitals: Temp Pulse Resp BP Pulse Ox 97.5 F L 120 H 20 150/84 100 11/22/21 04:42 11/22/21 04:42 11/22/21 04:42 11/22/21 04:42 11/22/21 04:42 General appearance: Present: no acute distress, obese - EENT Eyes: Present: PERRL, EOM intact ENT: hearing intact, clear oral mucosa, dentition normal - Neck Neck: Present: supple, normal ROM - Respiratory Respiratory effort: normal Respiratory: bilateral: diminished (on 3L NC) - Cardiovascular Heart rate: 120 Rhythm: regular Heart Sounds: Present: S1 & S2 - Extremities Extremities: no ischemia, pulses intact, pulses symmetrical, No edema, normal temperature, normal color Peripheral Pulses: within normal limits - Abdominal General gastrointestinal: soft, non-tender, non-distended, normal bowel sounds - Integumentary Integumentary: Present: clear, warm, dry - Psychiatric Psychiatric: appropriate mood/affect, cooperative - Neurologic Neurologic: CNII-XII intact - Allied Health Allied health notes reviewed: nursing HEART Score - HEART Score Troponin: Troponin T 0.070 ng/mL (0.00-0.029) H 11/15/21 17:57 Results - Labs CBC & Chem 7: 11/22/21 05:14 11/22/21 05:14 Labs: Laboratory Last Values WBC 5.5 K/mm3 (4.5-11.0) 11/22/21 05:14 RBC 3.16 M/mm3 (3.65-5.03) L 11/22/21 05:14 Hgb 9.4 gm/dl (10.1-14.3) L 11/22/21 05:14 Hct 27.2 % (30.3-42.9) L 11/22/21 05:14 MCV 86 fl (79-97) 11/22/21 05:14 MCH 30 pg (28-32) 11/22/21 05:14 MCHC 35 % (30-34) H 11/22/21 05:14 RDW 18.5 % (13.2-15.2) H 11/22/21 05:14 Plt Count 40 K/mm3 (140-440) L D 11/22/21 05:14 Add Manual Diff Complete 11/22/21 05:14 Total Counted 100 11/22/21 05:14 Seg Neuts % (Manual) 81.0 % (40.0-70.0) H 11/22/21 05:14 Band Neutrophils % 0 % 11/22/21 05:14 Lymphocytes % (Manual) 8.0 % (13.4-35.0) L 11/22/21 05:14 Reactive Lymphs % (Man) 0 % 11/22/21 05:14 Monocytes % (Manual) 10.0 % (0.0-7.3) H 11/22/21 05:14 Eosinophils % (Manual) 1.0 % (0.0-4.3) 11/22/21 05:14 Basophils % (Manual) 0 % (0.0-1.8) 11/22/21 05:14 Metamyelocytes % 0 % 11/22/21 05:14 Myelocytes % 0 % 11/22/21 05:14 Promyelocytes % 0 % 11/22/21 05:14 Blast Cells % 0 % 11/22/21 05:14 Nucleated RBC % 1.0 % (0.0-0.9) H 11/22/21 05:14 Seg Neutrophils # Man 4.5 K/mm3 (1.8-7.7) 11/22/21 05:14 Band Neutrophils # 0.0 K/mm3 11/22/21 05:14 Lymphocytes # (Manual) 0.4 K/mm3 (1.2-5.4) L 11/22/21 05:14 Abs React Lymphs (Man) 0.0 K/mm3 11/22/21 05:14 Monocytes # (Manual) 0.6 K/mm3 (0.0-0.8) 11/22/21 05:14 Eosinophils # (Manual) 0.1 K/mm3 (0.0-0.4) 11/22/21 05:14 Basophils # (Manual) 0.0 K/mm3 (0.0-0.1) 11/22/21 05:14 Metamyelocytes # 0.0 K/mm3 11/22/21 05:14 Myelocytes # 0.0 K/mm3 11/22/21 05:14 Promyelocytes # 0.0 K/mm3 11/22/21 05:14 Blast Cells # 0.0 K/mm3 11/22/21 05:14 WBC Morphology Not Reportable 11/22/21 05:14 Hypersegmented Neuts Not Reportable 11/22/21 05:14 Hyposegmented Neuts Few 11/22/21 05:14 Hypogranular Neuts Not Reportable 11/22/21 05:14 Smudge Cells Not Reportable 11/22/21 05:14 Toxic Granulation Not Reportable 11/22/21 05:14 Toxic Vacuolation Not Reportable 11/22/21 05:14 Dohle Bodies Not Reportable 11/22/21 05:14 Pelger-Huet Anomaly Not Reportable 11/22/21 05:14 Renetta Rods Not Reportable 11/22/21 05:14 Platelet Estimate Consistent w auto 11/22/21 05:14 Clumped Platelets Not Reportable 11/22/21 05:14 Plt Clumps, EDTA Not Reportable 11/22/21 05:14 Large Platelets Not Reportable 11/22/21 05:14 Giant Platelets Not Reportable 11/22/21 05:14 Platelet Satelliting Not Reportable 11/22/21 05:14 Plt Morphology Comment Not Reportable 11/22/21 05:14 RBC Morphology Not Reportable 11/22/21 05:14 Dimorphic RBCs Not Reportable 11/22/21 05:14 Polychromasia Not Reportable 11/22/21 05:14 Hypochromasia 1+ 11/22/21 05:14 Poikilocytosis Few 11/22/21 05:14 Anisocytosis 1+ 11/22/21 05:14 Microcytosis 1+ 11/22/21 05:14 Macrocytosis Not Reportable 11/22/21 05:14 Spherocytes Not Reportable 11/22/21 05:14 Pappenheimer Bodies Not Reportable 11/22/21 05:14 Sickle Cells Not Reportable 11/22/21 05:14 Target Cells Rare 11/22/21 05:14 Tear Drop Cells Not Reportable 11/22/21 05:14 Ovalocytes Rare 11/22/21 05:14 Helmet Cells Not Reportable 11/22/21 05:14 [place] Bodies Not Reportable 11/22/21 05:14 [place] Rings Not Reportable 11/22/21 05:14 [place] Cells Not Reportable 11/22/21 05:14 Bite Cells Not Reportable 11/22/21 05:14 Crenated Cell Not Reportable 11/22/21 05:14 Elliptocytes Not Reportable 11/22/21 05:14 Acanthocytes (Spur) Not Reportable 11/22/21 05:14 Rouleaux Not Reportable 11/22/21 05:14 Hemoglobin C Crystals Not Reportable 11/22/21 05:14 Schistocytes Rare 11/22/21 05:14 Malaria parasites Not Reportable 11/22/21 05:14 Percent Retic 0.52 % (0.78-2.58) L 11/18/21 05:09 Víctor Bodies Not Reportable 11/22/21 05:14 Hem Pathologist Commnt No 11/22/21 05:14 PT 14.7 Sec. (12.2-14.9) 11/17/21 10:56 INR 1.03 (0.87-1.13) 11/17/21 10:56 APTT 30.7 Sec. (24.2-36.6) 11/17/21 10:56 ABG pH 7.401 pH Units (7.350-7.450) 11/16/21 20:50 ABG pCO2 43.5 mm Hg 11/16/21 20:50 ABG pO2 144.0 mm Hg (80.0-90.0) H 11/16/21 20:50 ABG HCO3 26.4 mmol/L (20.0-26.0) H 11/16/21 20:50 ABG O2 Saturation 98.8 % (95.0-99.0) 11/16/21 20:50 ABG O2 Content 12.8 (0.0-44) 11/16/21 20:50 ABG Base Excess 1.4 mmol/L (-2.0-3.0) 11/16/21 20:50 ABG Hemoglobin 9.2 gm/dl (12.0-16.0) L 11/16/21 20:50 ABG Carboxyhemoglobin 1.4 % (0.0-5.0) 11/16/21 20:50 ABG Methemoglobin 0.6 % (0.0-1.5) 11/16/21 20:50 Oxyhemoglobin 96.9 % (95.0-99.0) 11/16/21 20:50 FiO2 32 % 11/16/21 20:50 Sodium 141 mmol/L (137-145) 11/22/21 05:14 Potassium 4.1 mmol/L (3.6-5.0) D 11/22/21 05:14 Chloride 108.3 mmol/L (98-107) H 11/22/21 05:14 Carbon Dioxide 22 mmol/L (22-30) 11/22/21 05:14 Anion Gap 15 mmol/L 11/22/21 05:14 BUN 10 mg/dL (7-17) 11/22/21 05:14 Creatinine 0.8 mg/dL (0.6-1.2) 11/22/21 05:14 Estimated GFR > 60 ml/min 11/22/21 05:14 BUN/Creatinine Ratio 13 % 11/22/21 05:14 Glucose 81 mg/dL (65-100) 11/22/21 05:14 POC Glucose 73 mg/dL (70-105) 11/22/21 12:24 Lactic Acid 1.70 mmol/L (0.7-2.0) 11/16/21 11:03 Calcium 8.3 mg/dL (8.4-10.2) L 11/22/21 05:14 Total Bilirubin 0.50 mg/dL (0.1-1.2) 11/15/21 17:57 AST 36 units/L (5-40) 11/15/21 17:57 ALT 12 units/L (7-56) 11/15/21 17:57 Alkaline Phosphatase 76 units/L (35-129) 11/15/21 17:57 Lactate Dehydrogenase 659 units/L (91-180) H 11/18/21 05:09 Troponin T 0.070 ng/mL (0.00-0.029) H 11/15/21 17:57 NT-Pro-B Natriuret Pep 504.5 pg/mL (0-900) 11/15/21 17:57 Total Protein 6.0 g/dL (6.3-8.2) L 11/15/21 17:57 Albumin 2.4 g/dL (3.9-5) L 11/15/21 17:57 Albumin/Globulin Ratio 0.7 % 11/15/21 17:57 Triglycerides 127 mg/dL (2-149) 11/15/21 17:57 Cholesterol 129 mg/dL (50-199) 11/15/21 17:57 LDL Cholesterol Direct 48 mg/dL (50-130) L 11/15/21 17:57 HDL Cholesterol 52 mg/dL (40-59) 11/15/21 17:57 Cholesterol/HDL Ratio 2.48 % 11/15/21 17:57 Urine Color Yellow (Yellow) 11/18/21 07:40 Urine Turbidity Clear (Clear) 11/18/21 07:40 Urine pH 6.0 (5.0-7.0) 11/18/21 07:40 Ur Specific Marine 1.019 (1.003-1.030) 11/18/21 07:40 Urine Protein 30 mg/dl mg/dL (Negative) 11/18/21 07:40 Urine Glucose (UA) 50 mg/dL (Negative) 11/18/21 07:40 Urine Ketones Neg mg/dL (Negative) 11/18/21 07:40 Urine Blood Sm (Negative) 11/18/21 07:40 Urine Nitrite Neg (Negative) 11/18/21 07:40 Urine Bilirubin Neg (Negative) 11/18/21 07:40 Urine Urobilinogen < 2.0 mg/dL (<2.0) 11/18/21 07:40 Ur Leukocyte Esterase Sm (Negative) 11/18/21 07:40 Urine WBC (Auto) 5.0 /HPF (0.0-6.0) 11/18/21 07:40 Urine RBC (Auto) 1.0 /HPF (0.0-6.0) 11/18/21 07:40 U Epithel Cells (Auto) 1.0 /HPF (0-13.0) 11/18/21 07:40 Fluid Type Pleural 11/17/21 12:40 Fluid Color Bloody 11/17/21 12:40 Fluid Appearance Turbid 11/17/21 12:40 Fluid WBC 330 /mm3 11/17/21 12:40 Fluid RBC 1342624 /mm3 11/17/21 12:40 Fluid Seg Neutrophils 81.0 % 11/17/21 12:40 Fluid Lymphocytes 17.0 % 11/17/21 12:40 Fluid Reactive Lymphs 0 % 11/17/21 12:40 Fluid Monocytes 2.0 % 11/17/21 12:40 Fluid Eosinophils 0 % 11/17/21 12:40 Fluid Basophils 0 % 11/17/21 12:40 Blood Type O POSITIVE 11/21/21 08:43 Antibody Screen Negative 11/15/21 23:09 Crossmatch See Detail 11/15/21 23:09 Microbiology: Microbiology 11/17/21 12:40 Pleural Fluid - Pleura,Lt Lung Body Fluid Culture - Final Martins/IV: Voiding Method External Female Catheter Active Medications - Current Medications Current Medications: Generic Name Dose Route Start Last Admin Trade Name Freq PRN Reason Stop Dose Admin Acetaminophen 650 mg 11/15/21 22:35 11/19/21 08:07 Acetaminophen 325 Mg Tab PO 650 mg Q4H PRN Administration Pain MILD(1-3)/Fever >100.5/PATEL Albuterol 2.5 mg 11/16/21 17:38 Albuterol 2.5 Mg/3 Ml Nebu IH Q6HRT PRN Shortness Of Breath Alprazolam 1 mg 11/21/21 15:27 Alprazolam 0.25 Mg Tab PO Q8H PRN Anxiety Dextrose 50 ml 11/15/21 22:35 11/21/21 08:09 Dextrose 50% In Water (25gm) 50 Ml Syringe IV 20 ml Q30MIN PRN Administration Hypoglycemia Protocol Enoxaparin Sodium 100 mg 11/18/21 22:00 11/22/21 09:10 Enoxaparin 100 Mg/1 Ml Inj SUB-Q 100 mg Q12HR GRAHAM Administration Protocol Potassium Chloride/Dextrose/Sod Cl 20 meq in 1,000 mls @ 42 mls/hr 11/18/21 13:00 11/21/21 08:38 D5w/Ns W/Kcl 20meq IV 42 mls/hr DIRECT GRAHAM Administration Insulin Human Lispro 0 unit 11/16/21 07:30 11/22/21 08:30 Insulin Lispro 100 Unit/Ml SUB-Q Not Given ACHS [facility] Protocol Magnesium Hydroxide 30 ml 11/15/21 22:35 Magnesium Hydroxide (Mom) Oral Liqd Udc PO Q4H PRN Constipation Megestrol Acetate 400 mg 11/20/21 10:00 11/22/21 09:17 Megestrol 400 Mg/10 Ml Oral Liqd PO Not Given QDAY GRAHAM Melatonin 5 mg 11/16/21 01:36 11/20/21 21:46 Melatonin 5 Mg Tab PO 5 mg QHS PRN Administration Sleep Morphine Sulfate 2 mg 11/15/21 22:35 11/21/21 22:07 Morphine 2 Mg/1 Ml Inj IV 2 mg Q4H PRN Administration Pain, Moderate (4-6) Morphine Sulfate 4 mg 11/15/21 22:35 Morphine 4 Mg/1 Ml Inj IV Q4H PRN Pain , Severe (7-10) Ondansetron HCl 4 mg 11/15/21 22:35 11/18/21 09:25 Ondansetron 4 Mg/2 Ml Inj IV 4 mg Q8H PRN Administration Nausea And Vomiting Potassium Chloride 10 meq 11/21/21 01:56 11/22/21 09:09 Potassium Chloride Er 10 Meq Tab PO 10 meq QDAY GRAHAM Administration Quetiapine Fumarate 12.5 mg 11/21/21 22:00 11/21/21 22:08 Quetiapine 25 Mg Tab PO 12.5 mg QHS GRAHAM Administration Sodium Chloride 10 ml 11/16/21 10:00 11/22/21 09:10 Sodium Chloride 0.9% 10 Ml Flush Syringe IV Not Given BID GRAHAM Sodium Chloride 10 ml 11/15/21 22:35 Sodium Chloride 0.9% 10 Ml Flush Syringe IV PRN PRN LINE FLUSH Nutrition/Malnutrition Assess - Dietary Evaluation Nutrition/Malnutrition Findings: Nutrition Notes Start: 11/16/21 15:06 Freq: Status: Active Protocol: Document 11/16/21 15:06 STACEY (Rec: 11/16/21 15:18 STACEY [id number]) Nutrition Notes Need for Assessment generated from: MD Order,Education Initial or Follow up Brief Note Current Diagnosis Respiratory Failure Other Pertinent Diagnosis Pulmonary Embolus, Pleural Effusion, Lactic Acidosis, Pancytopenia, Anemia. Current Diet Cardiac/Consistent Carbohydrates Diet (since B ). Height 5 ft 6 in Weight 113.89 kg [place] Body Weight (kg) 59.09 BMI 40.5 Intake Prior to Admission Poor Weight change and time frame Pt denies having loss body weight [employer]. Weight Status Morbidly Obese Subjective/Other Information RD consult for nutrition education assessment. Pt's PO intake of meals has been Good (75%) and well tolerated, according to ADL notes. Pt is on Nasal Cannula, O2 saturation @ 100%, according to Physical Assessment History notes. Pt still in critical condition , not a candidate for Nutrition Education at the time, will assess feasibility on F/U. Percent of energy/protein needs met: Prescribed Cardiac/Consistent Carbohydrates Diet provides for energy/protein needs (1, 977 Kcal/86 g) during LOS. Nutrition Intervention Follow-Up By: 11/23/21 Additional Comments Nutrition education will be provided at F/U, if feasible. Continue monitoring food tolerance, %PO intake of meals , and BM.
--- NOTE | 2021-11-22 20:59 | Progress Note ---
Assessment and Plan 70-year-old -[place] female with known history of metastatic ovarian cancer which was initially diagnosed in 2016 went into remission but had a recurrence again in June 2021 presenting to the emergency room today complaining of shortness of breath. Shortness of breath has been ongoing for the past few days. She has also had some mild chest discomfort. Shortness of breath is worse on minimal exertion. Patient receives her care at [facility] and has been following up with Dr. Diaz who is a reliability manager. She has had recurrent thoracentesis for pleural effusion. Patient denies any fever or chills no headache or dizziness and no diaphoresis. No nausea or vomiting and no abdominal pain. She denies any calf swelling. She however has had minimal lower extremity edema. Work-up in the emergency room today, labs were significant for hemoglobin of 4, hematocrit of 11.8, WBC of 1.5, platelet count of 6. Potassium of 3.3. Lactic acid of 2.4, troponin 0.07 Chest x-ray significant for complete opacification of the left hemithorax possibly due to large left pleural effusion. CT angiogram of the chest shows acute pulmonary embolus. Large left pleural effusion with associated atelectasis. Incompletely included markedly abnormal appearance of the stomach most concerning for neoplastic involvement. Vascular surgeon has also been notified. Patient has been initiated on blood transfusion for the severe anemia. Patient has history of Diabetes, HTN and Metastatic Ovarian CA. Patient has no history of smoking, alcohol or drug abuse. 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 No known drug allergies. atient awake, weak. On 2 litres O2. O2 saturation 100%. No acute respiratory distress at rest. Patient confused. ABG on 3 litres O2. ABG pH 7.401 pH Units (7.350-7.450) 11/16/21 20:50 ABG pCO2 43.5 mm Hg 11/16/21 20:50 ABG pO2 144.0 mm Hg (80.0-90.0) H 11/16/21 20:50 ABG O2 Saturation 98.8 % (95.0-99.0) 11/16/21 20:50 Patient afebrile. Patient has no leukocytosis, Blood pressure 145/78, pulse 115, respirations 20. Chest xray 11/15/21 reported Complete opacification of the left hemithorax possibly due to large left pleural effusion. CT scan of chest 11/15/21 reported Acute saddle pulmonary embolus. Large left pleural effusion with associated atelectasis. Incompletely included markedly abnormal appearance of the stomach, most concerning for neoplastic involvement. Patient is on cefepime. Albuterol inhaler 2 puffs po qid prn for shortness of breath.. Recommend GI prophylaxis famotidine. Recommended left thoracentesis by interventional radiology and sent for Cytology, Cell count, LDH, Protein, Glucose, Amylase, Gram stain, culture and sensitivity.AFB and Fungus. Patient undergone left thoracentesis by interventional radiology. Reported pleural fluid turbid, WBC count 330, RBC [id number], Neutrophils 81%, Ly mphocytes 17%. Rest of the pleural fluid results pending. Chest xray 11/17/21 reported No evidence for pneumothorax following left thoracentesis. Chest xray 11/23 21 reported Large left effusion with underlying atelectasis Patient started on anti coagulation S/C Lovenox in therapeutic doses. Albuterol inhaler - Patient Problems (1) Recurrent left pleural effusion Current Visit: Yes Status: Acute Plan to address problem: Patient undergone left thoracentesis to day by interventional radiology. Reported pleural fluid turbid, WBC count 330, RBC [id number], Neutrophils 81%, Lymphocytes 17%. Rest of the pleural fluid results pending. (2) Pulmonary embolus Current Visit: Yes Status: Acute Plan to address problem: Continue O2 supplementation. Patient started on S/C Lovenox in therapeutic doses. (3) Anemia requiring transfusions Current Visit: Yes Status: Acute Plan to address problem: Patient received blood transfusion. Repeat HGB to day 9.1. (4) Ovarian ca Current Visit: Yes Status: Acute Plan to address problem: Management as per oncology. Subjective Date of service: 11/22/21 Interval history: 70-year-old -[place] female with known history of metastatic ovarian cancer which was initially diagnosed in 2016 went into remission but had a recurrence again in June 2021 presenting to the emergency room today complaining of shortness of breath. Shortness of breath has been ongoing for the past few days. She has also had some mild chest discomfort. Shortness of breath is worse on minimal exertion. Patient receives her care at [facility] and has been following up with Dr. Diaz who is a reliability manager. She has had recurrent thoracentesis for pleural effusion. Patient denies any fever or chills no headache or dizziness and no diaphoresis. No nausea or vomiting and no abdominal pain. She denies any calf swelling. She however has had minimal lower extremity edema. Work-up in the emergency room today, labs were significant for hemoglobin of 4, hematocrit of 11.8, WBC of 1.5, platelet count of 6. Potassium of 3.3. Lactic acid of 2.4, troponin 0.07 Chest x-ray significant for complete opacification of the left hemithorax possibly due to large left pleural effusion. CT angiogram of the chest shows acute pulmonary embolus. Large left pleural effusion with associated atelectasis. Incompletely included markedly abnormal appearance of the stomach most concerning for neoplastic involvement. Vascular surgeon has also been notified. Patient has been initiated on blood transfusion for the severe anemia. Patient has history of Diabetes, HTN and Metastatic Ovarian CA. Patient has no history of smoking, alcohol or drug abuse. 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 No known drug allergies. Patient awake, weak. On 2 litres O2. O2 saturation 100%. No acute respiratory distress at rest. Patient confused. ABG on 3 litres O2. ABG pH 7.401 pH Units (7.350-7.450) 11/16/21 20:50 ABG pCO2 43.5 mm Hg 11/16/21 20:50 ABG pO2 144.0 mm Hg (80.0-90.0) H 11/16/21 20:50 ABG O2 Saturation 98.8 % (95.0-99.0) 11/16/21 20:50 Patient afebrile. Patient has no leukocytosis, Blood pressure 145/78, pulse 115, respirations 20. Chest xray 11/15/21 reported Complete opacification of the left hemithorax possibly due to large left pleural effusion. CT scan of chest 11/15/21 reported Acute saddle pulmonary embolus. Large left pleural effusion with associated atelectasis. Incompletely included markedly abnormal appearance of the stomach, most concerning for neoplastic involvement. Patient is on cefepime. Albuterol inhaler 2 puffs po qid prn for shortness of breath.. Recommend GI prophylaxis famotidine. Recommended left thoracentesis by interventional radiology and sent for Cytology, Cell count, LDH, Protein, Glucose, Amylase, Gram stain, culture and sensitivity.AFB and Fungus. Patient undergone left thoracentesis by interventional radiology. Reported pleural fluid turbid, WBC count 330, RBC [id number], Neutrophils 81%, Lymphocytes 17%. Rest of the pleural fluid results pending. Chest xray 11/17/21 reported No evidence for pneumothorax following left thoracentesis. Chest xray 11/23 21 reported Large left effusion with underlying atelectasis Patient started on anti coagulation S/C Lovenox in therapeutic doses. Albuterol inhaler. Objective Vital Signs - 12hr 11/22/21 14:00 Pulse Rate 114 H Pulse Rate [ 103 H From Monitor] Respiratory 18 Rate O2 Sat by Pulse 100 Oximetry Constitutional: no acute distress, lethargic, other (Weak and confused.) Eyes: non-icteric ENT: oropharynx moist Neck: supple, no JVD Effort: mildly labored Ascultation: Left: diminished breath sounds (Slightly improved breath sounds on left side.) Cardiovascular: regular rate and rhythm Gastrointestinal: normoactive bowel sounds, soft, non-tender Integumentary: normal Extremities: no cyanosis, no edema Neurologic: normal mental status, non-focal exam, pupils equal and round Psychiatric: depressed CBC and BMP: 11/23/21 13:17 11/23/21 05:39 ABG, PT/INR, D-dimer: ABG ABG pH 7.401 pH Units (7.350-7.450) 11/16/21 20:50 ABG pCO2 43.5 mm Hg 11/16/21 20:50 ABG pO2 144.0 mm Hg (80.0-90.0) H 11/16/21 20:50 ABG O2 Saturation 98.8 % (95.0-99.0) 11/16/21 20:50 PT/INR, D-dimer PT 14.7 Sec. (12.2-14.9) 11/17/21 10:56 INR 1.03 (0.87-1.13) 11/17/21 10:56 Abnormal lab findings: Abnormal Labs 11/15/21 11/15/21 11/15/21 17:57 17:57 17:57 WBC RBC Hgb Hct MCHC RDW Plt Count Seg Neuts % (Manual) Lymphocytes % (Manual) Monocytes % (Manual) Nucleated RBC % Seg Neutrophils # Man Lymphocytes # (Manual) Percent Retic ABG pO2 ABG HCO3 ABG Hemoglobin Sodium Potassium 3.3 L Chloride 96.6 L Carbon Dioxide BUN Creatinine Glucose 182 H POC Glucose Lactic Acid 2.20 H* Calcium Lactate Dehydrogenase Troponin T 0.070 H Total Protein 6.0 L Albumin 2.4 L LDL Cholesterol Direct 48 L Crossmatch 11/15/21 11/15/21 11/15/21 18:39 21:26 21:30 WBC 1.5 L* RBC 1.23 L Hgb 4.0 L* Hct 11.8 L* MCHC RDW 22.0 H Plt Count 6 L* Seg Neuts % (Manual) Lymphocytes % (Manual) Monocytes % (Manual) 12.0 H Nucleated RBC % Seg Neutrophils # Man 0.9 L Lymphocytes # (Manual) 0.4 L Percent Retic ABG pO2 ABG HCO3 ABG Hemoglobin Sodium Potassium Chloride Carbon Dioxide BUN Creatinine Glucose POC Glucose Lactic Acid 2.40 H* 3.60 H* Calcium Lactate Dehydrogenase Troponin T Total Protein Albumin LDL Cholesterol Direct Crossmatch 11/15/21 11/15/21 11/16/21 23:09 23:13 09:29 WBC RBC Hgb Hct MCHC RDW Plt Count Seg Neuts % (Manual) Lymphocytes % (Manual) Monocytes % (Manual) Nucleated RBC % Seg Neutrophils # Man Lymphocytes # (Manual) Percent Retic ABG pO2 ABG HCO3 ABG Hemoglobin Sodium 135 L Potassium 3.4 L Chloride 96.6 L Carbon Dioxide BUN Creatinine 1.3 H D Glucose 167 H POC Glucose Lactic Acid 2.90 H* Calcium Lactate Dehydrogenase Troponin T Total Protein Albumin LDL Cholesterol Direct Crossmatch See Detail 11/16/21 11/16/21 11/16/21 09:29 11:03 11:31 WBC 2.0 L RBC 3.39 L Hgb Hct 29.3 L D MCHC 35 H RDW 18.3 H Plt Count 6 L* Seg Neuts % (Manual) Lymphocytes % (Manual) Monocytes % (Manual) Nucleated RBC % Seg Neutrophils # Man Lymphocytes # (Manual) Percent Retic ABG pO2 ABG HCO3 ABG Hemoglobin Sodium Potassium Chloride Carbon Dioxide BUN Creatinine Glucose POC Glucose 156 H Lactic Acid 2.10 H* Calcium Lactate Dehydrogenase Troponin T Total Protein Albumin LDL Cholesterol Direct Crossmatch 11/16/21 11/16/21 11/16/21 16:51 20:24 20:50 WBC RBC Hgb Hct MCHC RDW Plt Count Seg Neuts % (Manual) Lymphocytes % (Manual) Monocytes % (Manual) Nucleated RBC % Seg Neutrophils # Man Lymphocytes # (Manual) Percent Retic ABG pO2 144.0 H ABG HCO3 26.4 H ABG Hemoglobin 9.2 L Sodium Potassium Chloride Carbon Dioxide BUN Creatinine Glucose POC Glucose 149 H 138 H Lactic Acid Calcium Lactate Dehydrogenase Troponin T Total Protein Albumin LDL Cholesterol Direct Crossmatch 11/17/21 11/17/21 11/17/21 05:26 05:26 07:40 WBC 2.5 L RBC 2.78 L Hgb 8.1 L Hct 23.9 L MCHC RDW 17.9 H Plt Count 93 L D Seg Neuts % (Manual) Lymphocytes % (Manual) Monocytes % (Manual) 8.0 H Nucleated RBC % 1.0 H Seg Neutrophils # Man 1.4 L Lymphocytes # (Manual) 0.8 L Percent Retic ABG pO2 ABG HCO3 ABG Hemoglobin Sodium 136 L Potassium 3.3 L Chloride 96.5 L Carbon Dioxide BUN 20 H Creatinine 1.5 H Glucose 113 H POC Glucose 109 H Lactic Acid Calcium Lactate Dehydrogenase Troponin T Total Protein Albumin LDL Cholesterol Direct Crossmatch 11/17/21 11/17/21 11/17/21 10:56 13:41 15:56 WBC RBC Hgb 7.5 L Hct 21.7 L MCHC RDW Plt Count 82 L Seg Neuts % (Manual) Lymphocytes % (Manual) Monocytes % (Manual) Nucleated RBC % Seg Neutrophils # Man Lymphocytes # (Manual) Percent Retic ABG pO2 ABG HCO3 ABG Hemoglobin Sodium Potassium Chloride Carbon Dioxide BUN Creatinine Glucose POC Glucose 109 H 109 H Lactic Acid Calcium Lactate Dehydrogenase Troponin T Total Protein Albumin LDL Cholesterol Direct Crossmatch 11/18/21 11/18/21 11/18/21 05:09 05:09 12:07 WBC 2.2 L RBC 3.03 L Hgb 8.8 L Hct 26.3 L MCHC RDW 17.0 H Plt Count 46 L Seg Neuts % (Manual) Lymphocytes % (Manual) Monocytes % (Manual) Nucleated RBC % Seg Neutrophils # Man Lymphocytes # (Manual) Percent Retic 0.52 L ABG pO2 ABG HCO3 ABG Hemoglobin Sodium Potassium 2.7 L* Chloride Carbon Dioxide BUN Creatinine Glucose POC Glucose 61 L Lactic Acid Calcium Lactate Dehydrogenase 659 H Troponin T Total Protein Albumin LDL Cholesterol Direct Crossmatch 11/18/21 11/18/21 11/19/21 16:39 20:39 05:48 WBC 3.1 L RBC 3.08 L Hgb 9.1 L Hct 26.9 L MCHC RDW 17.4 H Plt Count 33 L Seg Neuts % (Manual) 81.0 H Lymphocytes % (Manual) 8.0 L Monocytes % (Manual) 10.0 H Nucleated RBC % Seg Neutrophils # Man Lymphocytes # (Manual) 0.2 L Percent Retic ABG pO2 ABG HCO3 ABG Hemoglobin Sodium Potassium 3.3 L D Chloride Carbon Dioxide BUN Creatinine Glucose POC Glucose 68 L Lactic Acid Calcium Lactate Dehydrogenase Troponin T Total Protein Albumin LDL Cholesterol Direct Crossmatch 11/19/21 11/20/21 11/20/21 05:48 04:21 04:21 WBC 3.4 L RBC 3.11 L Hgb 9.3 L Hct 27.1 L MCHC RDW 17.4 H Plt Count 28 L Seg Neuts % (Manual) Lymphocytes % (Manual) 10.0 L Monocytes % (Manual) 18.0 H Nucleated RBC % Seg Neutrophils # Man Lymphocytes # (Manual) 0.3 L Percent Retic ABG pO2 ABG HCO3 ABG Hemoglobin Sodium Potassium 3.1 L Chloride Carbon Dioxide 21 L BUN Creatinine Glucose POC Glucose Lactic Acid Calcium 8.3 L 8.3 L Lactate Dehydrogenase Troponin T Total Protein Albumin LDL Cholesterol Direct Crossmatch 11/21/21 11/21/21 11/21/21 06:23 06:23 07:37 WBC 3.7 L RBC 3.19 L Hgb 9.2 L Hct 27.9 L MCHC RDW 17.8 H Plt Count 17 L* Seg Neuts % (Manual) Lymphocytes % (Manual) Monocytes % (Manual) Nucleated RBC % Seg Neutrophils # Man Lymphocytes # (Manual) Percent Retic ABG pO2 ABG HCO3 ABG Hemoglobin Sodium Potassium 2.8 L* D Chloride Carbon Dioxide 21 L BUN Creatinine Glucose 60 L POC Glucose 59 L Lactic Acid Calcium 8.3 L Lactate Dehydrogenase Troponin T Total Protein Albumin LDL Cholesterol Direct Crossmatch 11/22/21 11/22/21 11/22/21 00:10 05:14 05:14 WBC RBC 3.16 L Hgb 9.4 L Hct 27.2 L MCHC 35 H RDW 18.5 H Plt Count 40 L D Seg Neuts % (Manual) 81.0 H Lymphocytes % (Manual) 8.0 L Monocytes % (Manual) 10.0 H Nucleated RBC % 1.0 H Seg Neutrophils # Man Lymphocytes # (Manual) 0.4 L Percent Retic ABG pO2 ABG HCO3 ABG Hemoglobin Sodium Potassium 3.3 L Chloride 109.9 H 108.3 H Carbon Dioxide 21 L BUN Creatinine Glucose POC Glucose Lactic Acid Calcium 8.3 L Lactate Dehydrogenase Troponin T Total Protein Albumin LDL Cholesterol Direct Crossmatch 11/22/21 20:46 WBC RBC Hgb Hct MCHC RDW Plt Count Seg Neuts % (Manual) Lymphocytes % (Manual) Monocytes % (Manual) Nucleated RBC % Seg Neutrophils # Man Lymphocytes # (Manual) Percent Retic ABG pO2 ABG HCO3 ABG Hemoglobin Sodium Potassium Chloride Carbon Dioxide BUN Creatinine Glucose POC Glucose 63 L Lactic Acid Calcium Lactate Dehydrogenase Troponin T Total Protein Albumin LDL Cholesterol Direct Crossmatch Chest x-ray: report reviewed, image reviewed Additional Studies: CHEST 1 VIEW 11/23/2021 10:32 AM INDICATION / CLINICAL INFORMATION: Evaluate for possible pulmonary edema/effusion. COMPARISON: 11/17/2021 FINDINGS: SUPPORT DEVICES: Stable, satisfactory device positioning. HEART / MEDIASTINUM: No significant abnormality. LUNGS / PLEURA: Diffuse edema with large effusion the left lung ADDITIONAL FINDINGS: No significant additional findings. IMPRESSION: 1. Large left effusion with underlying atelectasis
[2021-11-22] MEDS: QUEtiapine 25 MG TAB PO SCH (21:22)
[2021-11-23 06:14] LABS: BUN/Creatinine Ratio 15; Blood Urea Nitrogen 12 mg/dL (7-17); Calcium 8.5 mg/dL (8.4-10.2); Hemolysis Index 103
[2021-11-23] MEDS: INSULIN LISPRO 100 UNIT/ML SUB-Q SCH ×4 (08:30→23:00)
[2021-11-23] MEDS: MEGESTROL 400 MG/10 ML ORAL LIQD PO SCH (09:34)
[2021-11-23] MEDS: ENOXAPARIN 100 MG/1 ML INJ SUB-Q SCH ×2 (09:34→22:18)
--- NOTE | 2021-11-23 10:52 | Progress Note ---
Assessment and Plan Assessment and plan: #Acute on chronic hypoxic respiratory failureresolved - etiology: Multifactorialpulmonary embolism and large left pleural effusion status post thoracentesis (11/17/2021) - baseline oxygen requirements: 2-3 L nasal cannula - supplemental oxygen: 3 L nasal cannula - Continue protocol: continue pulse oximetry, wean oxygen as tolerated, ordered incentive spirometry and educated patient on how to use it and its importance. - continue to monitor #Pulmonary embolus -Patient started on anticoagulation with heparin but now discontinued for severe thrombocytopenia and severe anemia. -Consult placed to vascular surgeon and hematology for evaluation. -Hematology recommended to initiate Lovenox as long as platelets greater than 30 and if no other sign of bleeding -Continue to monitor CBC daily #Uterine ca stage IV -Metastatic. Initially documented during this admission as ovarian cancer. Reviewed [place] records and it revealed that patient has metastatic uterine cancer -Initially diagnosed in 2017. -Patient follows up with her oncologist at [place]. #Severe anemia requiring transfusions #Pancytopenia - s/p 4 units PRBC and 3 unit platelets transfusion -Hematology/oncology consulted; appreciate recs -Transfuse 1 unit pRBC whenever hct <23 -Transfuse 1 dose of plts whenever plt <15 -Neupogen for neutropenia daily until WBC >5 -Neutropenic precaution #Left pleural effusionresolved -CT angiogram shows large left pleural effusion. -Consult placed to pulmonology for evaluation and recommendations. -s/p thoracentesis (11/17/2021) drained about 1.2 L of fluid #Elevated troponin -Likely secondary to demand ischemia -Consulted to cardiology for recommendations. #Mild AKIresolved - likely prerenal with vasomotor nephropathy -We will continue to follow, monitor BMP -IV fluid as needed #Hypoglycemia -cont dextrose saline #Hypokalemiaresolved - replete and reassess with repeat BMP #Lactic acidosisresolved -s/p IV fluid. -We will also place on empiric IV antibiotics. #Obesity #Weight loss counseling #Exercise counseling - BMI 33.9 - Counseled patient on the importance of weight loss, incorporating exercise, and dietary changes (lean meats, fresh fruits and vegetables, and water intake). Patient expresses understanding. - Time: +15 min #Advanced care planning -Disease education conducted, care plan discussed, diagnoses discussed, prognosis discussed, and patient acknowledges understanding with care plan -Time: +30 min -- Full code status 11/16/21: Status post 2 unit of packed RBC transfusion today. H&H improved. Platelet remains at 6. Ordered for 2 units of platelets. Platelet count need to be improved for thoracentesis. Once platelet count improves greater than 30 patient need to be started on Lovenox for surgical PE. Discussed with patient and patient's sister at the bedside in details. Also discussed with Dr. Carolina and Dr. Ogden to coordinate care. 11/17/21: H&H and platelets improved. So far transfused 3 units of packed RBC and 1 units of platelets. Status post paracentesis today. Initiated on Lovenox 1 mg/kg every 24 hours as creatinine increased to 1.5. Will change to Lovenox to twice daily when creatinine improves. Continue to follow CBC and watch for bleeding. Monitor renal function. 11/18/21: Hemoglobin dropped below 7 overnight and received another unit of blood transfusion. Platelet drop to 40s today. Patient also with hypoglycemia and hypokalemia. Will place on D5 normal saline with potassium supplements. Encouraged oral nutrition, monitor CBC BMP and electrolytes. Discussed in length with the patient patient's son at the bedside and also with patient's sister on the speaker phone. All question answered and patient and patient family verbalized understanding. 11/19/21: H&H remained stable, platelet drops to lower 30s today. Per hematology recommendation continue to provide therapeutic dose of Lovenox to twice daily as renal function stable. Discussed plan of care in details with patient and with her daughter at the bedside. Family and patient both understands that patient has a terminal illness with stage IV uterine cancer with extremely poor prognosis. They wish to continue their cancer treatment at [place] and to remain as full code. They can consider hospice if that gets recommended at [place] by their oncologist. Continue to follow clinically, monitor platelets. If H&H and platelets stable and no need for further transfusion, plan to DC home with home health for patient to follow-up and continue treatment at [place]. Ordered a.m. labs. 11/20/21: Patient wants to go home with home health and continue follow-up with [place]. Platelets dropped to 28 this morning. Hematology recommended to continue therapeutic dose of Lovenox twice daily. Patient with extremely poor appetite requiring continuous replacement of potassium and dextrose saline to prevent hypokalemia and hypoglycemia. Initiated on Megace. Currently DC home with home health if electrolytes stable and no further drop in platelets. 11/21/21: Detailed discussion with her son (Agapito Gallagher) about her overall prognosis and the goal of trying to get her discharged when she is stable. Increasing xanax to 1mg q8hrs for anxiety and starting seroquel 12.5mg qHS for insomnia. Transfused 1 jumbo platelets (was 15 this morning). 11/22/2021: Bolusing normal saline given patient's tachycardia. 11/23/2021: Pending repeat EKG and chest x-ray to evaluate for possible reaccumulation of left pleural effusion leading to continuous sinus tachycardia. Encouraging patient to increase p.o. intake; she endorses wanting to eat foods from home. Will discuss with patient's son (Agapito Gallagher) about dietary changes to increase nutrition. Continue to monitor. Disposition Plan: Continue medical management Total Time Spent with Patient (Minutes): 45 minutes History Interval history: No acute events overnight. Hospitalist Physical - Constitutional Vitals: Temp Pulse Resp BP Pulse Ox 98.1 F 121 H 22 154/91 100 11/23/21 04:14 11/23/21 04:14 11/23/21 04:14 11/23/21 04:14 11/23/21 04:14 General appearance: Present: no acute distress, obese - EENT Eyes: Present: PERRL, EOM intact ENT: hearing intact, clear oral mucosa, dentition normal - Neck Neck: Present: supple, normal ROM - Respiratory Respiratory effort: normal Respiratory: bilateral: diminished (On 3 L nasal cannula) - Cardiovascular Heart rate: 120 Rhythm: regular Heart Sounds: Present: S1 & S2 - Extremities Extremities: no ischemia, pulses intact, pulses symmetrical, No edema, normal temperature, normal color Peripheral Pulses: within normal limits - Abdominal General gastrointestinal: soft, non-tender, non-distended, normal bowel sounds - Integumentary Integumentary: Present: clear, warm, dry - Psychiatric Psychiatric: appropriate mood/affect, cooperative - Neurologic Neurologic: CNII-XII intact - Allied Health Allied health notes reviewed: nursing HEART Score - HEART Score Troponin: Troponin T 0.070 ng/mL (0.00-0.029) H 11/15/21 17:57 Results - Labs CBC & Chem 7: 11/22/21 05:14 11/23/21 05:39 Labs: Laboratory Last Values WBC 5.5 K/mm3 (4.5-11.0) 11/22/21 05:14 RBC 3.16 M/mm3 (3.65-5.03) L 11/22/21 05:14 Hgb 9.4 gm/dl (10.1-14.3) L 11/22/21 05:14 Hct 27.2 % (30.3-42.9) L 11/22/21 05:14 MCV 86 fl (79-97) 11/22/21 05:14 MCH 30 pg (28-32) 11/22/21 05:14 MCHC 35 % (30-34) H 11/22/21 05:14 RDW 18.5 % (13.2-15.2) H 11/22/21 05:14 Plt Count 40 K/mm3 (140-440) L D 11/22/21 05:14 Add Manual Diff Complete 11/22/21 05:14 Total Counted 100 11/22/21 05:14 Seg Neuts % (Manual) 81.0 % (40.0-70.0) H 11/22/21 05:14 Band Neutrophils % 0 % 11/22/21 05:14 Lymphocytes % (Manual) 8.0 % (13.4-35.0) L 11/22/21 05:14 Reactive Lymphs % (Man) 0 % 11/22/21 05:14 Monocytes % (Manual) 10.0 % (0.0-7.3) H 11/22/21 05:14 Eosinophils % (Manual) 1.0 % (0.0-4.3) 11/22/21 05:14 Basophils % (Manual) 0 % (0.0-1.8) 11/22/21 05:14 Metamyelocytes % 0 % 11/22/21 05:14 Myelocytes % 0 % 11/22/21 05:14 Promyelocytes % 0 % 11/22/21 05:14 Blast Cells % 0 % 11/22/21 05:14 Nucleated RBC % 1.0 % (0.0-0.9) H 11/22/21 05:14 Seg Neutrophils # Man 4.5 K/mm3 (1.8-7.7) 11/22/21 05:14 Band Neutrophils # 0.0 K/mm3 11/22/21 05:14 Lymphocytes # (Manual) 0.4 K/mm3 (1.2-5.4) L 11/22/21 05:14 Abs React Lymphs (Man) 0.0 K/mm3 11/22/21 05:14 Monocytes # (Manual) 0.6 K/mm3 (0.0-0.8) 11/22/21 05:14 Eosinophils # (Manual) 0.1 K/mm3 (0.0-0.4) 11/22/21 05:14 Basophils # (Manual) 0.0 K/mm3 (0.0-0.1) 11/22/21 05:14 Metamyelocytes # 0.0 K/mm3 11/22/21 05:14 Myelocytes # 0.0 K/mm3 11/22/21 05:14 Promyelocytes # 0.0 K/mm3 11/22/21 05:14 Blast Cells # 0.0 K/mm3 11/22/21 05:14 WBC Morphology Not Reportable 11/22/21 05:14 Hypersegmented Neuts Not Reportable 11/22/21 05:14 Hyposegmented Neuts Few 11/22/21 05:14 Hypogranular Neuts Not Reportable 11/22/21 05:14 Smudge Cells Not Reportable 11/22/21 05:14 Toxic Granulation Not Reportable 11/22/21 05:14 Toxic Vacuolation Not Reportable 11/22/21 05:14 Dohle Bodies Not Reportable 11/22/21 05:14 Pelger-Huet Anomaly Not Reportable 11/22/21 05:14 Renetta Rods Not Reportable 11/22/21 05:14 Platelet Estimate Consistent w auto 11/22/21 05:14 Clumped Platelets Not Reportable 11/22/21 05:14 Plt Clumps, EDTA Not Reportable 11/22/21 05:14 Large Platelets Not Reportable 11/22/21 05:14 Giant Platelets Not Reportable 11/22/21 05:14 Platelet Satelliting Not Reportable 11/22/21 05:14 Plt Morphology Comment Not Reportable 11/22/21 05:14 RBC Morphology Not Reportable 11/22/21 05:14 Dimorphic RBCs Not Reportable 11/22/21 05:14 Polychromasia Not Reportable 11/22/21 05:14 Hypochromasia 1+ 11/22/21 05:14 Poikilocytosis Few 11/22/21 05:14 Anisocytosis 1+ 11/22/21 05:14 Microcytosis 1+ 11/22/21 05:14 Macrocytosis Not Reportable 11/22/21 05:14 Spherocytes Not Reportable 11/22/21 05:14 Pappenheimer Bodies Not Reportable 11/22/21 05:14 Sickle Cells Not Reportable 11/22/21 05:14 Target Cells Rare 11/22/21 05:14 Tear Drop Cells Not Reportable 11/22/21 05:14 Ovalocytes Rare 11/22/21 05:14 Helmet Cells Not Reportable 11/22/21 05:14 Beck[place] Bodies Not Reportable 11/22/21 05:14 [place] Rings Not Reportable 11/22/21 05:14 Xiang Cells Not Reportable 11/22/21 05:14 Bite Cells Not Reportable 11/22/21 05:14 Crenated Cell Not Reportable 11/22/21 05:14 Elliptocytes Not Reportable 11/22/21 05:14 Acanthocytes (Spur) Not Reportable 11/22/21 05:14 Rouleaux Not Reportable 11/22/21 05:14 Hemoglobin C Crystals Not Reportable 11/22/21 05:14 Schistocytes Rare 11/22/21 05:14 Malaria parasites Not Reportable 11/22/21 05:14 Percent Retic 0.52 % (0.78-2.58) L 11/18/21 05:09 Víctor Bodies Not Reportable 11/22/21 05:14 Hem Pathologist Commnt No 11/22/21 05:14 PT 14.7 Sec. (12.2-14.9) 11/17/21 10:56 INR 1.03 (0.87-1.13) 11/17/21 10:56 APTT 30.7 Sec. (24.2-36.6) 11/17/21 10:56 ABG pH 7.401 pH Units (7.350-7.450) 11/16/21 20:50 ABG pCO2 43.5 mm Hg 11/16/21 20:50 ABG pO2 144.0 mm Hg (80.0-90.0) H 11/16/21 20:50 ABG HCO3 26.4 mmol/L (20.0-26.0) H 11/16/21 20:50 ABG O2 Saturation 98.8 % (95.0-99.0) 11/16/21 20:50 ABG O2 Content 12.8 (0.0-44) 11/16/21 20:50 ABG Base Excess 1.4 mmol/L (-2.0-3.0) 11/16/21 20:50 ABG Hemoglobin 9.2 gm/dl (12.0-16.0) L 11/16/21 20:50 ABG Carboxyhemoglobin 1.4 % (0.0-5.0) 11/16/21 20:50 ABG Methemoglobin 0.6 % (0.0-1.5) 11/16/21 20:50 Oxyhemoglobin 96.9 % (95.0-99.0) 11/16/21 20:50 FiO2 32 % 11/16/21 20:50 Sodium 140 mmol/L (137-145) 11/23/21 05:39 Potassium 5.0 mmol/L (3.6-5.0) D 11/23/21 05:39 Chloride 111.2 mmol/L (98-107) H 11/23/21 05:39 Carbon Dioxide 18 mmol/L (22-30) L 11/23/21 05:39 Anion Gap 16 mmol/L 11/23/21 05:39 BUN 12 mg/dL (7-17) 11/23/21 05:39 Creatinine 0.8 mg/dL (0.6-1.2) 11/23/21 05:39 Estimated GFR > 60 ml/min 11/23/21 05:39 BUN/Creatinine Ratio 15 % 11/23/21 05:39 Glucose 82 mg/dL (65-100) 11/23/21 05:39 POC Glucose 80 mg/dL (70-105) 11/23/21 08:20 Lactic Acid 1.70 mmol/L (0.7-2.0) 11/16/21 11:03 Calcium 8.5 mg/dL (8.4-10.2) 11/23/21 05:39 Total Bilirubin 0.50 mg/dL (0.1-1.2) 11/15/21 17:57 AST 36 units/L (5-40) 11/15/21 17:57 ALT 12 units/L (7-56) 11/15/21 17:57 Alkaline Phosphatase 76 units/L (35-129) 11/15/21 17:57 Lactate Dehydrogenase 659 units/L (91-180) H 11/18/21 05:09 Troponin T 0.070 ng/mL (0.00-0.029) H 11/15/21 17:57 NT-Pro-B Natriuret Pep 504.5 pg/mL (0-900) 11/15/21 17:57 Total Protein 6.0 g/dL (6.3-8.2) L 11/15/21 17:57 Albumin 2.4 g/dL (3.9-5) L 11/15/21 17:57 Albumin/Globulin Ratio 0.7 % 11/15/21 17:57 Triglycerides 127 mg/dL (2-149) 11/15/21 17:57 Cholesterol 129 mg/dL (50-199) 11/15/21 17:57 LDL Cholesterol Direct 48 mg/dL (50-130) L 11/15/21 17:57 HDL Cholesterol 52 mg/dL (40-59) 11/15/21 17:57 Cholesterol/HDL Ratio 2.48 % 11/15/21 17:57 Urine Color Yellow (Yellow) 11/18/21 07:40 Urine Turbidity Clear (Clear) 11/18/21 07:40 Urine pH 6.0 (5.0-7.0) 11/18/21 07:40 Ur Specific [place] 1.019 (1.003-1.030) 11/18/21 07:40 Urine Protein 30 mg/dl mg/dL (Negative) 11/18/21 07:40 Urine Glucose (UA) 50 mg/dL (Negative) 11/18/21 07:40 Urine Ketones Neg mg/dL (Negative) 11/18/21 07:40 Urine Blood Sm (Negative) 11/18/21 07:40 Urine Nitrite Neg (Negative) 11/18/21 07:40 Urine Bilirubin Neg (Negative) 11/18/21 07:40 Urine Urobilinogen < 2.0 mg/dL (<2.0) 11/18/21 07:40 Ur Leukocyte Esterase Sm (Negative) 11/18/21 07:40 Urine WBC (Auto) 5.0 /HPF (0.0-6.0) 11/18/21 07:40 Urine RBC (Auto) 1.0 /HPF (0.0-6.0) 11/18/21 07:40 U Epithel Cells (Auto) 1.0 /HPF (0-13.0) 11/18/21 07:40 Fluid Type Pleural 11/17/21 12:40 Fluid Color Bloody 11/17/21 12:40 Fluid Appearance Turbid 11/17/21 12:40 Fluid WBC 330 /mm3 11/17/21 12:40 Fluid RBC [id number] /mm3 11/17/21 12:40 Fluid Seg Neutrophils 81.0 % 11/17/21 12:40 Fluid Lymphocytes 17.0 % 11/17/21 12:40 Fluid Reactive Lymphs 0 % 11/17/21 12:40 Fluid Monocytes 2.0 % 11/17/21 12:40 Fluid Eosinophils 0 % 11/17/21 12:40 Fluid Basophils 0 % 11/17/21 12:40 Blood Type O POSITIVE 11/21/21 08:43 Antibody Screen Negative 11/15/21 23:09 Crossmatch See Detail 11/15/21 23:09 Martins/IV: Voiding Method External Female Catheter Active Medications - Current Medications Current Medications: Generic Name Dose Route Start Last Admin Trade Name Freq PRN Reason Stop Dose Admin Acetaminophen 650 mg 11/15/21 22:35 11/19/21 08:07 Acetaminophen 325 Mg Tab PO 650 mg Q4H PRN Administration Pain MILD(1-3)/Fever >100.5/PATEL Albuterol 2.5 mg 11/16/21 17:38 Albuterol 2.5 Mg/3 Ml Nebu IH Q6HRT PRN Shortness Of Breath Alprazolam 1 mg 11/21/21 15:27 Alprazolam 0.25 Mg Tab PO Q8H PRN Anxiety Dextrose 50 ml 11/15/21 22:35 11/21/21 08:09 Dextrose 50% In Water (25gm) 50 Ml Syringe IV 20 ml Q30MIN PRN Administration Hypoglycemia Protocol Enoxaparin Sodium 100 mg 11/18/21 22:00 11/23/21 09:34 Enoxaparin 100 Mg/1 Ml Inj SUB-Q 100 mg Q12HR GRAHAM Administration Protocol Insulin Human Lispro 0 unit 11/16/21 07:30 11/23/21 08:30 Insulin Lispro 100 Unit/Ml SUB-Q Not Given ACHS [facility] Protocol Magnesium Hydroxide 30 ml 11/15/21 22:35 Magnesium Hydroxide (Mom) Oral Liqd Udc PO Q4H PRN Constipation Megestrol Acetate 400 mg 11/20/21 10:00 11/23/21 09:34 Megestrol 400 Mg/10 Ml Oral Liqd PO Not Given QDAY GRAHAM Melatonin 5 mg 11/16/21 01:36 11/20/21 21:46 Melatonin 5 Mg Tab PO 5 mg QHS PRN Administration Sleep Morphine Sulfate 2 mg 11/15/21 22:35 11/21/21 22:07 Morphine 2 Mg/1 Ml Inj IV 2 mg Q4H PRN Administration Pain, Moderate (4-6) Morphine Sulfate 4 mg 11/15/21 22:35 Morphine 4 Mg/1 Ml Inj IV Q4H PRN Pain , Severe (7-10) Ondansetron HCl 4 mg 11/15/21 22:35 11/18/21 09:25 Ondansetron 4 Mg/2 Ml Inj IV 4 mg Q8H PRN Administration Nausea And Vomiting Quetiapine Fumarate 12.5 mg 11/21/21 22:00 11/22/21 21:22 Quetiapine 25 Mg Tab PO 12.5 mg QHS GRAHAM Administration Sodium Chloride 10 ml 11/16/21 10:00 11/23/21 09:34 Sodium Chloride 0.9% 10 Ml Flush Syringe IV 10 ml BID GRAHAM Administration Sodium Chloride 10 ml 11/15/21 22:35 Sodium Chloride 0.9% 10 Ml Flush Syringe IV PRN PRN LINE FLUSH Nutrition/Malnutrition Assess - Dietary Evaluation Nutrition/Malnutrition Findings: Nutrition Notes Start: 11/16/21 15:06 Freq: Status: Active Protocol: Document 11/16/21 15:06 STACEY (Rec: 11/16/21 15:18 STACEY [id number]) Nutrition Notes Need for Assessment generated from: MD Order,Education Initial or Follow up Brief Note Current Diagnosis Respiratory Failure Other Pertinent Diagnosis Pulmonary Embolus, Pleural Effusion, Lactic Acidosis, Pancytopenia, Anemia. Current Diet Cardiac/Consistent Carbohydrates Diet (since B ). Height 5 ft 6 in Weight 113.89 kg [place] Body Weight (kg) 59.09 BMI 40.5 Intake Prior to Admission Poor Weight change and time frame Pt denies having loss body weight [employer]. Weight Status Morbidly Obese Subjective/Other Information RD consult for nutrition education assessment. Pt's PO intake of meals has been Good (75%) and well tolerated, according to ADL notes. Pt is on Nasal Cannula, O2 saturation @ 100%, according to Physical Assessment History notes. Pt still in critical condition , not a candidate for Nutrition Education at the time, will assess feasibility on F/U. Percent of energy/protein needs met: Prescribed Cardiac/Consistent Carbohydrates Diet provides for energy/protein needs (1, 977 Kcal/86 g) during LOS. Nutrition Intervention Follow-Up By: 11/23/21 Additional Comments Nutrition education will be provided at F/U, if feasible. Continue monitoring food tolerance, %PO intake of meals , and BM.
--- NOTE | 2021-11-23 13:37 | XRay Report ---
CHEST 1 VIEW 11/23/2021 10:32 AM INDICATION / CLINICAL INFORMATION: Evaluate for possible pulmonary edema/effusion. COMPARISON: 11/17/2021 FINDINGS: SUPPORT DEVICES: Stable, satisfactory device positioning. HEART / MEDIASTINUM: No significant abnormality. LUNGS / PLEURA: Diffuse edema with large effusion the left lung ADDITIONAL FINDINGS: No significant a dditional findings. IMPRESSION: 1. Large left effusion with underlying atelectasis Signer Name: Handy Christensen MD Signed: 11/23/2021 1:33 PM Workstation Name: [id number]
[2021-11-23 14:19] LABS: Hematocrit 26.2 % (30.3-42.9); Hemoglobin 8.9 gm/dl (10.1-14.3); Mean Corpuscular HGB Conc 34 % (30-34); Mean Corpuscular Volume 87 fl (79-97); Red Blood Count 3.01 M/mm3 (3.65-5.03); Red Cell Distribution Width 18.3 % (13.2-15.2)
[2021-11-23 14:26] LABS: Platelet Count 23 K/mm3 (140-440)
[2021-11-23] MEDS ORDERED: SODIUM CHLORIDE 0.9% 500 ML 500 ML IV ONE (19:03)
--- NOTE | 2021-11-23 20:28 | Progress Note ---
Assessment and Plan 70-year-old -Wallis[place] female with known history of metastatic ovarian cancer which was initially diagnosed in 2016 went into remission but had a recurrence again in June 2021 presenting to the emergency room today complaining of shortness of breath. Shortness of breath has been ongoing for the past few days. She has also had some mild chest discomfort. Shortness of breath is worse on minimal exertion. Patient receives her care at [facility] and has been following up with Dr. Diaz who is a transplanter orchid. She has had recurrent thoracentesis for pleural effusion. Patient denies any fever or chills no headache or dizziness and no diaphoresis. No nausea or vomiting and no abdominal pain. She denies any calf swelling. She however has had minimal lower extremity edema. Work-up in the emergency room today, labs were significant for hemoglobin of 4, hematocrit of 11.8, WBC of 1.5, platelet count of 6. Potassium of 3.3. Lactic acid of 2.4, troponin 0.07 Chest x-ray significant for complete opacification of the left hemithorax possibly due to large left pleural effusion. CT angiogram of the chest shows acute pulmonary embolus. Large left pleural effusion with associated atelectasis. Incompletely included markedly abnormal appearance of the stomach most concerning for neoplastic involvement. Vascular surgeon has also been notified. Patient has been initiated on blood transfusion for the severe anemia. Patient has history of Diabetes, HTN and Metastatic Ovarian CA. Patient has no history of smoking, alcohol or drug abuse. 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 No known drug allergies. Patient sleeping, weak. On 2 litres O2. O2 saturation 100%. No acute respiratory distress at rest. ABG on 3 litres O2. ABG pH 7.401 pH Units (7.350-7.450) 11/16/21 20:50 ABG pCO2 43.5 mm Hg 11/16/21 20:50 ABG pO2 144.0 mm Hg (80.0-90.0) H 11/16/21 20:50 ABG O2 Saturation 98.8 % (95.0-99.0) 11/16/21 20:50 Patient afebrile. No leukocytosis., Blood pressure 145/78, pulse 115, respirations 20. Chest xray 11/15/21 reported Complete opacification of the left hemithorax possibly due to large left pleural effusion. CT scan of chest 11/15/21 reported Acute saddle pulmonary embolus. Large left pleural effusion with associated atelectasis. Incompletely included markedly abnormal appearance of the stomach, most concerning for neoplastic involvement. Recommended left thoracentesis by interventional radiology and sent for Cy tology, Cell count, LDH, Protein, Glucose, Amylase, Gram stain, culture and sensitivity.AFB and Fungus. Patient undergone left thoracentesis by interventional radiology. Reported pleural fluid turbid, WBC count 330, RBC [id number], Neutrophils 81%, Lymphocytes 17%. Rest of the pleural fluid results pending. Chest xray 11/17/21 reported No evidence for pneumothorax following left thoracentesis. Chest xray 11/23/21 reported Large left effusion with underlying atelectasis Patient started on anti coagulation S/C Lovenox in therapeutic doses. Albuterol inhaler 2 puffs po qid prn for shortness of breath.. Recommend GI prophylaxis famotidine. - Patient Problems (1) Recurrent left pleural effusion Current Visit: Yes Status: Acute Plan to address problem: Patient undergone left thoracentesis to day by interventional radiology. Reported pleural fluid turbid, WBC count 330, RBC [id number], Neutrophils 81%, Lymphocytes 17%. Rest of the pleural fluid results pending. (2) Pulmonary embolus Current Visit: Yes Status: Acute Plan to address problem: Continue O2 supplementation. Patient started on S/C Lovenox in therapeutic doses. (3) Anemia requiring transfusions Current Visit: Yes Status: Acute Plan to address problem: Patient received blood transfusion. Repeat HGB to day 9.1. (4) Ovarian ca Current Visit: Yes Status: Acute Plan to address problem: Management as per oncology. Subjective Date of service: 11/23/21 Interval history: 70-year-old -[place] female with known history of metastatic ovarian cancer which was initially diagnosed in 2016 went into remission but had a recurrence again in June 2021 presenting to the emergency room today complaining of shortness of breath. Shortness of breath has been ongoing for the past few days. She has also had some mild chest discomfort. Shortness of breath is worse on minimal exertion. Patient receives her care at [facility] and has been following up with Dr. Diaz who is a transplanter orchid. She has had recurrent thoracentesis for pleural effusion. Patient denies any fever or chills no headache or dizziness and no diaphoresis. No nausea or vomiting and no abdominal pain. She denies any calf swelling. She however has had minimal lower extremity edema. Work-up in the emergency room today, labs were significant for hemoglobin of 4, hematocrit of 11.8, WBC of 1.5, platelet count of 6. Potassium of 3.3. Lactic acid of 2.4, troponin 0.07 Chest x-ray significant for complete opacification of the left hemithorax possibly due to large left pleural effusion. CT angiogram of the chest shows acute pulmonary embolus. Large left pleural effusion with associated atelectasis. Incompletely included markedly abnormal appearance of the stomach most concerning for neoplastic involvement. Vascular surgeon has also been notified. Patient has been initiated on blood transfusion for the severe anemia. Patient has history of Diabetes, HTN and Metastatic Ovarian CA. Patient has no history of smoking, alcohol or drug abuse. 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 No known drug allergies. Patient sleeping, weak. On 2 litres O2. O2 saturation 100%. No acute respiratory distress at rest. ABG on 3 litres O2. ABG pH 7.401 pH Units (7.350-7.450) 11/16/21 20:50 ABG pCO2 43.5 mm Hg 11/16/21 20:50 ABG pO2 144.0 mm Hg (80.0-90.0) H 11/16/21 20:50 ABG O2 Saturation 98.8 % (95.0-99.0) 11/16/21 20:50 Patient afebrile. No leukocytosis., Blood pressure 145/78, pulse 115, respi rations 20. Chest xray 11/15/21 reported Complete opacification of the left hemithorax possibly due to large left pleural effusion. CT scan of chest 11/15/21 reported Acute saddle pulmonary embolus. Large left pleural effusion with associated atelectasis. Incompletely included markedly abnormal appearance of the stomach, most concerning for neoplastic involvement. Recommended left thoracentesis by interventional radiology and sent for Cytology, Cell count, LDH, Protein, Glucose, Amylase, Gram stain, culture and sensitivity.AFB and Fungus. Patient undergone left thoracentesis by interventional radiology. Reported pleural fluid turbid, WBC count 330, RBC [id number], Neutrophils 81%, Lym phocytes 17%. Rest of the pleural fluid results pending. Chest xray 11/17/21 reported No evidence for pneumothorax following left thoracentesis. Chest xray 11/23/21 reported Large left effusion with underlying atelectasis Patient started on anti coagulation S/C Lovenox in therapeutic doses. Albuterol inhaler 2 puffs po qid prn for shortness of breath.. Recommend GI prophylaxis famotidine. Objective Vital Signs - 12hr 11/23/21 11/23/21 11:56 15:29 Temperature 99.5 F 99.5 F Pulse Rate 118 H 115 H Respiratory 20 20 Rate Blood Pressure 156/81 145/78 O2 Sat by Pulse 100 100 Oximetry Constitutional: no acute distress, asleep Eyes: non-icteric ENT: oropharynx moist Neck: supple, no JVD Effort: mildly labored Ascultation: Left: diminished breath sounds (Slightly improved breath sounds on left side.) Cardiovascular: regular rate and rhythm Gastrointestinal: normoactive bowel sounds, soft, non-tender Integumentary: normal Extremities: no cyanosis, no edema Neurologic: normal mental status, non-focal exam, pupils equal and round Psychiatric: depressed CBC and BMP: 11/23/21 13:17 11/23/21 05:39 ABG, PT/INR, D-dimer: ABG ABG pH 7.401 pH Units (7.350-7.450) 11/16/21 20:50 ABG pCO2 43.5 mm Hg 11/16/21 20:50 ABG pO2 144.0 mm Hg (80.0-90.0) H 11/16/21 20:50 ABG O2 Saturation 98.8 % (95.0-99.0) 11/16/21 20:50 PT/INR, D-dimer PT 14.7 Sec. (12.2-14.9) 11/17/21 10:56 INR 1.03 (0.87-1.13) 11/17/21 10:56 Abnormal lab findings: Abnormal Labs 11/15/21 11/15/21 11/15/21 17:57 17:57 17:57 WBC RBC Hgb Hct MCHC RDW Plt Count Seg Neuts % (Manual) Lymphocytes % (Manual) Monocytes % (Manual) Nucleated RBC % Seg Neutrophils # Man Lymphocytes # (Manual) Percent Retic ABG pO2 ABG HCO3 ABG Hemoglobin Sodium Potassium 3.3 L Chloride 96.6 L Carbon Dioxide BUN Creatinine Glucose 182 H POC Glucose Lactic Acid 2.20 H* Calcium Lactate Dehydrogenase Troponin T 0.070 H Total Protein 6.0 L Albumin 2.4 L LDL Cholesterol Direct 48 L Crossmatch 11/15/21 11/15/21 11/15/21 18:39 21:26 21:30 WBC 1.5 L* RBC 1.23 L Hgb 4.0 L* Hct 11.8 L* MCHC RDW 22.0 H Plt Count 6 L* Seg Neuts % (Manual) Lymphocytes % (Manual) Monocytes % (Manual) 12.0 H Nucleated RBC % Seg Neutrophils # Man 0.9 L Lymphocytes # (Manual) 0.4 L Percent Retic ABG pO2 ABG HCO3 ABG Hemoglobin Sodium Potassium Chloride Carbon Dioxide BUN Creatinine Glucose POC Glucose Lactic Acid 2.40 H* 3.60 H* Calcium Lactate Dehydrogenase Troponin T Total Protein Albumin LDL Cholesterol Direct Crossmatch 11/15/21 11/15/21 11/16/21 23:09 23:13 09:29 WBC RBC Hgb Hct MCHC RDW Plt Count Seg Neuts % (Manual) Lymphocytes % (Manual) Monocytes % (Manual) Nucleated RBC % Seg Neutrophils # Man Lymphocytes # (Manual) Percent Retic ABG pO2 ABG HCO3 ABG Hemoglobin Sodium 135 L Potassium 3.4 L Chloride 96.6 L Carbon Dioxide BUN Creatinine 1.3 H D Glucose 167 H POC Glucose Lactic Acid 2.90 H* Calcium Lactate Dehydrogenase Troponin T Total Protein Albumin LDL Cholesterol Direct Crossmatch See Detail 11/16/21 11/16/21 11/16/21 09:29 11:03 11:31 WBC 2.0 L RBC 3.39 L Hgb Hct 29.3 L D MCHC 35 H RDW 18.3 H Plt Count 6 L* Seg Neuts % (Manual) Lymphocytes % (Manual) Monocytes % (Manual) Nucleated RBC % Seg Neutrophils # Man Lymphocytes # (Manual) Percent Retic ABG pO2 ABG HCO3 ABG Hemoglobin Sodium Potassium Chloride Carbon Dioxide BUN Creatinine Glucose POC Glucose 156 H Lactic Acid 2.10 H* Calcium Lactate Dehydrogenase Troponin T Total Protein Albumin LDL Cholesterol Direct Crossmatch 11/16/21 11/16/21 11/16/21 16:51 20:24 20:50 WBC RBC Hgb Hct MCHC RDW Plt Count Seg Neuts % (Manual) Lymphocytes % (Manual) Monocytes % (Manual) Nucleated RBC % Seg Neutrophils # Man Lymphocytes # (Manual) Percent Retic ABG pO2 144.0 H ABG HCO3 26.4 H ABG Hemoglobin 9.2 L Sodium Potassium Chloride Carbon Dioxide BUN Creatinine Glucose POC Glucose 149 H 138 H Lactic Acid Calcium Lactate Dehydrogenase Troponin T Total Protein Albumin LDL Cholesterol Direct Crossmatch 11/17/21 11/17/21 11/17/21 05:26 05:26 07:40 WBC 2.5 L RBC 2.78 L Hgb 8.1 L Hct 23.9 L MCHC RDW 17.9 H Plt Count 93 L D Seg Neuts % (Manual) Lymphocytes % (Manual) Monocytes % (Manual) 8.0 H Nucleated RBC % 1.0 H Seg Neutrophils # Man 1.4 L Lymphocytes # (Manual) 0.8 L Percent Retic ABG pO2 ABG HCO3 ABG Hemoglobin Sodium 136 L Potassium 3.3 L Chloride 96.5 L Carbon Dioxide BUN 20 H Creatinine 1.5 H Glucose 113 H POC Glucose 109 H Lactic Acid Calcium Lactate Dehydrogenase Troponin T Total Protein Albumin LDL Cholesterol Direct Crossmatch 11/17/21 11/17/21 11/17/21 10:56 13:41 15:56 WBC RBC Hgb 7.5 L Hct 21.7 L MCHC RDW Plt Count 82 L Seg Neuts % (Manual) Lymphocytes % (Manual) Monocytes % (Manual) Nucleated RBC % Seg Neutrophils # Man Lymphocytes # (Manual) Percent Retic ABG pO2 ABG HCO3 ABG Hemoglobin Sodium Potassium Chloride Carbon Dioxide BUN Creatinine Glucose POC Glucose 109 H 109 H Lactic Acid Calcium Lactate Dehydrogenase Troponin T Total Protein Albumin LDL Cholesterol Direct Crossmatch 11/18/21 11/18/21 11/18/21 05:09 05:09 12:07 WBC 2.2 L RBC 3.03 L Hgb 8.8 L Hct 26.3 L MCHC RDW 17.0 H Plt Count 46 L Seg Neuts % (Manual) Lymphocytes % (Manual) Monocytes % (Manual) Nucleated RBC % Seg Neutrophils # Man Lymphocytes # (Manual) Percent Retic 0.52 L ABG pO2 ABG HCO3 ABG Hemoglobin Sodium Potassium 2.7 L* Chloride Carbon Dioxide BUN Creatinine Glucose POC Glucose 61 L Lactic Acid Calcium Lactate Dehydrogenase 659 H Troponin T Total Protein Albumin LDL Cholesterol Direct Crossmatch 11/18/21 11/18/21 11/19/21 16:39 20:39 05:48 WBC 3.1 L RBC 3.08 L Hgb 9.1 L Hct 26.9 L MCHC RDW 17.4 H Plt Count 33 L Seg Neuts % (Manual) 81.0 H Lymphocytes % (Manual) 8.0 L Monocytes % (Manual) 10.0 H Nucleated RBC % Seg Neutrophils # Man Lymphocytes # (Manual) 0.2 L Percent Retic ABG pO2 ABG HCO3 ABG Hemoglobin Sodium Potassium 3.3 L D Chloride Carbon Dioxide BUN Creatinine Glucose POC Glucose 68 L Lactic Acid Calcium Lactate Dehydrogenase Troponin T Total Protein Albumin LDL Cholesterol Direct Crossmatch 11/19/21 11/20/21 11/20/21 05:48 04:21 04:21 WBC 3.4 L RBC 3.11 L Hgb 9.3 L Hct 27.1 L MCHC RDW 17.4 H Plt Count 28 L Seg Neuts % (Manual) Lymphocytes % (Manual) 10.0 L Monocytes % (Manual) 18.0 H Nucleated RBC % Seg Neutrophils # Man Lymphocytes # (Manual) 0.3 L Percent Retic ABG pO2 ABG HCO3 ABG Hemoglobin Sodium Potassium 3.1 L Chloride Carbon Dioxide 21 L BUN Creatinine Glucose POC Glucose Lactic Acid Calcium 8.3 L 8.3 L Lactate Dehydrogenase Troponin T Total Protein Albumin LDL Cholesterol Direct Crossmatch 11/21/21 11/21/21 11/21/21 06:23 06:23 07:37 WBC 3.7 L RBC 3.19 L Hgb 9.2 L Hct 27.9 L MCHC RDW 17.8 H Plt Count 17 L* Seg Neuts % (Manual) Lymphocytes % (Manual) Monocytes % (Manual) Nucleated RBC % Seg Neutrophils # Man Lymphocytes # (Manual) Percent Retic ABG pO2 ABG HCO3 ABG Hemoglobin Sodium Potassium 2.8 L* D Chloride Carbon Dioxide 21 L BUN Creatinine Glucose 60 L POC Glucose 59 L Lactic Acid Calcium 8.3 L Lactate Dehydrogenase Troponin T Total Protein Albumin LDL Cholesterol Direct Crossmatch 11/22/21 11/22/21 11/22/21 00:10 05:14 05:14 WBC RBC 3.16 L Hgb 9.4 L Hct 27.2 L MCHC 35 H RDW 18.5 H Plt Count 40 L D Seg Neuts % (Manual) 81.0 H Lymphocytes % (Manual) 8.0 L Monocytes % (Manual) 10.0 H Nucleated RBC % 1.0 H Seg Neutrophils # Man Lymphocytes # (Manual) 0.4 L Percent Retic ABG pO2 ABG HCO3 ABG Hemoglobin Sodium Potassium 3.3 L Chloride 109.9 H 108.3 H Carbon Dioxide 21 L BUN Creatinine Glucose POC Glucose Lactic Acid Calcium 8.3 L Lactate Dehydrogenase Troponin T Total Protein Albumin LDL Cholesterol Direct Crossmatch 11/22/21 11/23/21 11/23/21 20:46 05:39 13:17 WBC RBC 3.01 L Hgb 8.9 L Hct 26.2 L MCHC RDW 18.3 H Plt Count 23 L Seg Neuts % (Manual) Lymphocytes % (Manual) Monocytes % (Manual) Nucleated RBC % Seg Neutrophils # Man Lymphocytes # (Manual) Percent Retic ABG pO2 ABG HCO3 ABG Hemoglobin Sodium Potassium Chloride 111.2 H Carbon Dioxide 18 L BUN Creatinine Glucose POC Glucose 63 L Lactic Acid Calcium Lactate Dehydrogenase Troponin T Total Protein Albumin LDL Cholesterol Direct Crossmatch Chest x-ray: report reviewed, image reviewed Additional Studies: CHEST 1 VIEW 11/23/2021 10:32 AM INDICATION / CLINICAL INFORMATION: Evaluate for possible pulmonary e branden/effusion. COMPARISON: 11/17/2021 FINDINGS: SUPPORT DEVICES: Stable, satisfactory device positioning. HEART / MEDIASTINUM: No significant abnormality. LUNGS / PLEURA: Diffuse edema with large effusion the left lung ADDITIONAL FINDINGS: No significant additional findings. IMPRESSION: 1. Large left effusion with underlying atelectasis
[2021-11-24] MEDS: ACETAMINOPHEN 325 MG TAB PO PRN (00:15)
[2021-11-24 07:14] LABS: Hematocrit 25.1 % (30.3-42.9); Hemoglobin 8.3 gm/dl (10.1-14.3); Mean Corpuscular HGB Conc 33 % (30-34); Mean Corpuscular Volume 87 fl (79-97); Platelet Count 114 K/mm3 (140-440); Red Blood Count 2.88 M/mm3 (3.65-5.03); Red Cell Distribution Width 18.3 % (13.2-15.2)
[2021-11-24 07:30] LABS: Alanine Aminotransferase 152 units/L (7-56); Albumin 2.3 g/dL (3.9-5); Blood Urea Nitrogen 14 mg/dL (7-17); Calcium 8.5 mg/dL (8.4-10.2); Hemolysis Index 5
[2021-11-24] MEDS: INSULIN LISPRO 100 UNIT/ML SUB-Q SCH ×4 (07:30→21:26)
[2021-11-24 07:39] LABS: BUN/Creatinine Ratio 20
--- NOTE | 2021-11-24 08:40 | Electrocardiograph Report ---
[facility] Test Date: 2021-11-23 Test Time: 10:35:14 Pat Name: CARISSA WOODS Department: Room: A486 1 Gender: F Duct Layer: CATHY : 1950 Requested By: MARIETTA FERREIRA Order Number: [id number] Reading MD: Darshan Landis Measurements Intervals [place] Rate: 115 P: 44 OK: 137 QRS: 5 QRSD: 76 T: 61 QT: 314 QTc: 435 Interpretive Statements Sinus tachycardia nonspecific st-t Compared to ECG 11/15/2021 17:28:06 T-wave abnormality no longer present Electronically Signed On 11-24-2021 8:40:04 EDT by Darshan Landis
[2021-11-24] MEDS: DEXTROSE 50% IN WATER (25GM) 50 ML SYRINGE IV PRN (08:55)
[2021-11-24] MEDS ORDERED: MAGNESIUM SULFATE 1 GM in SODIUM CHLORIDE 0.9% 50 ML IV ONE (09:00)
[2021-11-24] MEDS ORDERED: SODIUM PHOSPHATE 15 MMOL in SODIUM CHLORIDE 0.9% 250ML 250 ML IV ONE (09:00)
--- NOTE | 2021-11-24 10:35 | Procedure Note ---
Date of procedure: 11/24/21 Pre-op diagnosis: left hemothorax Post-op diagnosis: same Procedure: US left thoracentesis Findings: moderate left pleural fluid Anesthesia: local Surgeon: TOM MANCILLA Estimated blood loss: none Pathology: none Specimen disposition: discarded Condition: stable Disposition: floor
[2021-11-24] MEDS: ENOXAPARIN 100 MG/1 ML INJ SUB-Q SCH ×2 (11:43→21:41)
[2021-11-24] MEDS: MEGESTROL 400 MG/10 ML ORAL LIQD PO SCH (11:43)
--- NOTE | 2021-11-24 11:49 | Cat Scan Report ---
CT HEAD WITHOUT CONTRAST INDICATION / CLINICAL INFORMATION: Acute metabolic encephalopathy. TECHNIQUE: Axial imaging performed from the skull apex through the skull base without the use of cont rast. Sagittal and coronal reformatted images. All CT scans at this location are performed using CT dose reduction for ALARA by means of automated exposure control. COMPARISON: None available. FINDINGS: CEREBRAL PARENCHYMA: No acute parenchymal abnormality. Mild diffuse cortical volume loss and mild chr onic microvascular ischemic changes in the white matter are noted. No chronic infarct. HEMORRHAGE: None. EXTRA-AXIAL SPACES: Normal in size and morphology for the patient's age. VENTRICULAR SYSTEM: Normal in size and morphology for the patient's age. MIDLINE SHIFT OR HERNIATION: None. CEREBELLUM / BRAINSTEM: No significant abnormality. CALVARIUM: No significant abnormality. ORBITS: Normal as visualized. PARANASAL SINUSES / MASTOID AIR CELLS: Normal as visualized. SOFT TISSUES of HEAD: No significant abnormality. ADDITIONAL FINDINGS: None. IMPRESSION: No acute intracranial abnormality. Age appropriate volume loss and chronic white matter changes. Signer Name: Robinson Jay Jr, MD Signed: 11/24/2021 11:44 AM Workstation Name: [id number]
--- NOTE | 2021-11-24 13:02 | XRay Report ---
CHEST 1 VIEW 11/24/2021 11:25 AM INDICATION / CLINICAL INFORMATION: left hemothorax, recent thora. COMPARISON: Yesterday FINDINGS: SUPPORT DEVICES: None. HEART / MEDIASTINUM: No significant abnormality. LUNGS / PLEURA: Recent left thoracentesis was performed with 750 cc of bloody fluid removed. There is significant decrease in the left pleural effusion. No pneumothorax. The right lung remains clear. ADDITIONAL FINDINGS: No significant additional findings. IMPRESSION: 1. No evidence for pneumothorax after left thoracentesis. Signer Name: Robinson Jay Jr, MD Signed: 11/24/2021 12:57 PM Workstation Name: [id number]
--- NOTE | 2021-11-24 13:02 | Ultrasound Report ---
. ULTRASOUND-GUIDED THORACENTESIS HISTORY: Left pleural effusion.. COMPARISON: 11/16/2021 PROCEDURE: The risks (including but not limited to bleeding, infection, and pneumothorax) and benefi ts were explained to the patient and informed consent was obtained. A time out procedure was perform ed. Ultrasound was used to evaluate the left pleural effusion and locate the optimal site for needle entr y. Once the skin was marked, the procedure site was prepped and draped in the usual sterile fashion and lidocaine was used for local anesthesia. A 5-Greek thoracentesis catheter was placed. The juan ent was monitored closely throughout the procedure, and a total of 750 mL of bloody fluid was aspirat ed. No labs were ordered. The patient tolerated the procedure well with no complications. A post-procedure chest x-ray was imm ediately ordered. IMPRESSION: Successful thoracentesis as above with a total of 750 mL of bloody fluid aspirated. Signer Name: Robinson Jay Jr, MD Signed: 11/24/2021 12:56 PM Workstation Name: [id number]
--- NOTE | 2021-11-24 13:22 | Progress Note ---
Assessment and Plan 70-year-old -Prydeinig female with known history of metastatic ovarian cancer which was initially diagnosed in 2016 went into remission but had a recurrence again in June 2021 presenting to the emergency room today complaining of shortness of breath. Shortness of breath has been ongoing for the past few days. She has also had some mild chest discomfort. Shortness of breath is worse on minimal exertion. Patient receives her care at [facility] and has been following up with Dr. Diaz who is a physics professor. She has had recurrent thoracentesis for pleural effusion. Patient denies any fever or chills no headache or dizziness and no diaphoresis. No nausea or vomiting and no abdominal pain. She denies any calf swelling. She however has had minimal lower extremity edema. Work-up in the emergency room today, labs were significant for hemoglobin of 4, hematocrit of 11.8, WBC of 1.5, platelet count of 6. Potassium of 3.3. Lactic acid of 2.4, troponin 0.07 Chest x-ray significant for complete opacification of the left hemithorax possibly due to large left pleural effusion. CT angiogram of the chest shows acute pulmonary embolus. Large left pleural effusion with associated atelectasis. Incompletely included markedly abnormal appearance of the stomach most concerning for neoplastic involvement. Vascular surgeon has also been notified. Patient has been initiated on blood transfusion for the severe anemia. Patient has history of Diabetes, HTN and Metastatic Ovarian CA. Patient has no history of smoking, alcohol or drug abuse. 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 No known drug allergies. Patient awake. s/p thoracentesis. On 2 liters O2 by nasal cannula. O2 saturation 100%. No acute respiratory distress at rest. ABG on 3 litres O2. ABG pH 7.401 pH Units (7.350-7.450) 11/16/21 20:50 ABG pCO2 43.5 mm Hg 11/16/21 20:50 ABG pO2 144.0 mm Hg (80.0-90.0) H 11/16/21 20:50 ABG O2 Saturation 98.8 % (95.0-99.0) 11/16/21 20:50 Patient afebrile. No leukocytosis. Blood pressure 152/80, pulse 105, respirations 15. Chest xray 11/15/21 reported Complete opacification of the left hemithorax possibly due to large left pleural effusion. CT scan of chest 11/15/21 reported Acute saddle pulmonary embolus. Large left pleural effusion with associated atelectasis. Incompletely included markedly abnormal appearance of the stomach, most concerning for neoplastic involvement. Recommended left thoracentesis by interventional radiology and sent for Cytology, Cell count, LDH, Protein, Glucose, Amylase, Gram stain, culture and sensitivity.AFB and Fungus. Patient has a repeat thoracentesis by interventional radiology today. Pleural fluid results pending. Chest xray 11/17/21 reported No evidence for pneumothorax following left thoracentesis. Chest xray 11/23/21 reported Large left effusion with underlying atelectasis Chest xray 11/24/21 reported no evidence of pneumothorax after left thoracentesis. Patient on anti coagulation S/C Lovenox in therapeutic doses. Albuterol inhaler 2 puffs po qid prn for shortness of breath.. Recommend GI prophylaxis famotidine. - Patient Problems (1) Recurrent left pleural effusion Current Visit: Yes Status: Acute Plan to address problem: Patient undergone repeat left thoracentesis by interventional radiology. Results of the pleural fluid pending. (2) Pulmonary embolus Current Visit: Yes Status: Acute Plan to address problem: Continue O2 supplementation. Patient started on S/C Lovenox in therapeutic doses. (3) Anemia requiring transfusions Current Visit: Yes Status: Acute Plan to address problem: Patient received blood transfusion. Repeat HGB to day 8.3. (4) Ovarian ca Current Visit: Yes Status: Acute Plan to address problem: Management as per oncology. Subjective Date of service: 11/24/21 Interval history: 70-year-old -Prydeinig female with known history of metastatic ovarian cancer which was initially diagnosed in 2016 went into remission but had a recurrence again in June 2021 presenting to the emergency room today complaining of shortness of breath. Shortness of breath has been ongoing for the past few days. She has also had some mild chest discomfort. Shortness of breath is worse on minimal exertion. Patient receives her care at [facility] and has been following up with Dr. Diaz who is a physics professor. She has had recurrent thoracentesis for pleural effusion. Patient denies any fever or chills no headache or dizziness and no diaphoresis. No nausea or vomiting and no abdominal pain. She denies any calf swelling. She however has had minimal lower extremity edema. Work-up in the emergency room today, labs were significant for hemoglobin of 4, hematocrit of 11.8, WBC of 1.5, platelet count of 6. Potassium of 3.3. Lactic acid of 2.4, troponin 0.07 Chest x-ray significant for complete opacification of the left hemithorax possibly due to large left pleural effusion. CT angiogram of the chest shows acute pulmonary embolus. Large left pleural effusion with associated atelectasis. Incompletely included markedly abnormal appearance of the stomach most concerning for neoplastic involvement. Vascular surgeon has also been notified. Patient has been initiated on blood transfusion for the severe anemia. Patient has history of Diabetes, HTN and Metastatic Ovarian CA. Patient has no history of smoking, alcohol or drug abuse. 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 No known drug allergies. Patient awake. s/p thoracentesis. On 2 liters O2 by nasal cannula. O2 saturation 100%. No acute respiratory distress at rest. ABG on 3 litres O2. ABG pH 7.401 pH Units (7.350-7.450) 11/16/21 20:50 ABG pCO2 43.5 mm Hg 11/16/21 20:50 ABG pO2 144.0 mm Hg (80.0-90.0) H 11/16/21 20:50 ABG O2 Saturation 98.8 % (95.0-99.0) 11/16/21 20:50 Patient afebrile. No leukocytosis. Blood pressure 152/80, pulse 105, respirations 15. Chest xray 11/15/21 reported Complete opacification of the left hemithorax possibly due to large left pleural effusion. CT scan of chest 11/15/21 reported Acute saddle pulmonary embolus. Large left pleural effusion with associated atelectasis. Incompletely included markedly abnormal appearance of the stomach, most concerning for neoplastic involvement. Recommended left thoracentesis by interventional radiology and sent for Cytology, Cell count, LDH, Protein, Glucose, Amylase, Gram stain, culture and sensitivity.AFB and Fungus. Patient has a repeat thoracentesis by interventional radiology today. Pleural fluid results pending. Chest xray 11/17/21 reported No evidence for pneumothorax following left thoracentesis. Chest xray 11/23/21 reported Large left effusion with underlying atelectasis Chest xray 11/24/21 reported no evidence of pneumothorax after left thoracentesis. Patient on anti coagulation S/C Lovenox in therapeutic doses. Albuterol inhaler 2 puffs po qid prn for shortness of breath.. Recommend GI prophylaxis famotidine. Objective Vital Signs - 12hr 11/24/21 11/24/21 08:45 12:14 Temperature 98.0 F 98.0 F Pulse Rate 105 H Respiratory 18 15 Rate Blood Pressure 164/79 152/80 O2 Sat by Pulse 100 Oximetry Constitutional: no acute distress, alert Eyes: non-icteric ENT: oropharynx moist Neck: supple, no JVD Effort: mildly labored Ascultation: Left: diminished breath sounds (Slightly improved breath sounds on left side.) Cardiovascular: regular rate and rhythm Gastrointestinal: normoactive bowel sounds, soft, non-tender Integumentary: normal Extremities: no cyanosis, no edema Neurologic: normal mental status, non-focal exam, pupils equal and round Psychiatric: depressed CBC and BMP: 11/24/21 06:42 11/24/21 06:42 ABG, PT/INR, D-dimer: ABG ABG pH 7.401 pH Units (7.350-7.450) 11/16/21 20:50 ABG pCO2 43.5 mm Hg 11/16/21 20:50 ABG pO2 144.0 mm Hg (80.0-90.0) H 11/16/21 20:50 ABG O2 Saturation 98.8 % (95.0-99.0) 11/16/21 20:50 PT/INR, D-dimer PT 14.7 Sec. (12.2-14.9) 11/17/21 10:56 INR 1.03 (0.87-1.13) 11/17/21 10:56 Abnormal lab findings: Abnormal Labs 11/15/21 11/15/21 11/15/21 17:57 17:57 17:57 WBC RBC Hgb Hct MCHC RDW Plt Count Seg Neuts % (Manual) Lymphocytes % (Manual) Monocytes % (Manual) Nucleated RBC % Seg Neutrophils # Man Lymphocytes # (Manual) Percent Retic ABG pO2 ABG HCO3 ABG Hemoglobin Sodium Potassium 3.3 L Chloride 96.6 L Carbon Dioxide BUN Creatinine Glucose 182 H POC Glucose Lactic Acid 2.20 H* Calcium Phosphorus Magnesium AST ALT Ammonia Lactate Dehydrogenase Troponin T 0.070 H Total Protein 6.0 L Albumin 2.4 L LDL Cholesterol Direct 48 L Crossmatch 11/15/21 11/15/21 11/15/21 18:39 21:26 21:30 WBC 1.5 L* RBC 1.23 L Hgb 4.0 L* Hct 11.8 L* MCHC RDW 22.0 H Plt Count 6 L* Seg Neuts % (Manual) Lymphocytes % (Manual) Monocytes % (Manual) 12.0 H Nucleated RBC % Seg Neutrophils # Man 0.9 L Lymphocytes # (Manual) 0.4 L Percent Retic ABG pO2 ABG HCO3 ABG Hemoglobin Sodium Potassium Chloride Carbon Dioxide BUN Creatinine Glucose POC Glucose Lactic Acid 2.40 H* 3.60 H* Calcium Phosphorus Magnesium AST ALT Ammonia Lactate Dehydrogenase Troponin T Total Protein Albumin LDL Cholesterol Direct Crossmatch 11/15/21 11/15/21 11/16/21 23:09 23:13 09:29 WBC RBC Hgb Hct MCHC RDW Plt Count Seg Neuts % (Manual) Lymphocytes % (Manual) Monocytes % (Manual) Nucleated RBC % Seg Neutrophils # Man Lymphocytes # (Manual) Percent Retic ABG pO2 ABG HCO3 ABG Hemoglobin Sodium 135 L Potassium 3.4 L Chloride 96.6 L Carbon Dioxide BUN Creatinine 1.3 H D Glucose 167 H POC Glucose Lactic Acid 2.90 H* Calcium Phosphorus Magnesium AST ALT Ammonia Lactate Dehydrogenase Troponin T Total Protein Albumin LDL Cholesterol Direct Crossmatch See Detail 11/16/21 11/16/21 11/16/21 09:29 11:03 11:31 WBC 2.0 L RBC 3.39 L Hgb Hct 29.3 L D MCHC 35 H RDW 18.3 H Plt Count 6 L* Seg Neuts % (Manual) Lymphocytes % (Manual) Monocytes % (Manual) Nucleated RBC % Seg Neutrophils # Man Lymphocytes # (Manual) Percent Retic ABG pO2 ABG HCO3 ABG Hemoglobin Sodium Potassium Chloride Carbon Dioxide BUN Creatinine Glucose POC Glucose 156 H Lactic Acid 2.10 H* Calcium Phosphorus Magnesium AST ALT Ammonia Lactate Dehydrogenase Troponin T Total Protein Albumin LDL Cholesterol Direct Crossmatch 11/16/21 11/16/21 11/16/21 16:51 20:24 20:50 WBC RBC Hgb Hct MCHC RDW Plt Count Seg Neuts % (Manual) Lymphocytes % (Manual) Monocytes % (Manual) Nucleated RBC % Seg Neutrophils # Man Lymphocytes # (Manual) Percent Retic ABG pO2 144.0 H ABG HCO3 26.4 H ABG Hemoglobin 9.2 L Sodium Potassium Chloride Carbon Dioxide BUN Creatinine Glucose POC Glucose 149 H 138 H Lactic Acid Calcium Phosphorus Magnesium AST ALT Ammonia Lactate Dehydrogenase Troponin T Total Protein Albumin LDL Cholesterol Direct Crossmatch 11/17/21 11/17/21 11/17/21 05:26 05:26 07:40 WBC 2.5 L RBC 2.78 L Hgb 8.1 L Hct 23.9 L MCHC RDW 17.9 H Plt Count 93 L D Seg Neuts % (Manual) Lymphocytes % (Manual) Monocytes % (Manual) 8.0 H Nucleated RBC % 1.0 H Seg Neutrophils # Man 1.4 L Lymphocytes # (Manual) 0.8 L Percent Retic ABG pO2 ABG HCO3 ABG Hemoglobin Sodium 136 L Potassium 3.3 L Chloride 96.5 L Carbon Dioxide BUN 20 H Creatinine 1.5 H Glucose 113 H POC Glucose 109 H Lactic Acid Calcium Phosphorus Magnesium AST ALT Ammonia Lactate Dehydrogenase Troponin T Total Protein Albumin LDL Cholesterol Direct Crossmatch 11/17/21 11/17/21 11/17/21 10:56 13:41 15:56 WBC RBC Hgb 7.5 L Hct 21.7 L MCHC RDW Plt Count 82 L Seg Neuts % (Manual) Lymphocytes % (Manual) Monocytes % (Manual) Nucleated RBC % Seg Neutrophils # Man Lymphocytes # (Manual) Percent Retic ABG pO2 ABG HCO3 ABG Hemoglobin Sodium Potassium Chloride Carbon Dioxide BUN Creatinine Glucose POC Glucose 109 H 109 H Lactic Acid Calcium Phosphorus Magnesium AST ALT Ammonia Lactate Dehydrogenase Troponin T Total Protein Albumin LDL Cholesterol Direct Crossmatch 11/18/21 11/18/21 11/18/21 05:09 05:09 12:07 WBC 2.2 L RBC 3.03 L Hgb 8.8 L Hct 26.3 L MCHC RDW 17.0 H Plt Count 46 L Seg Neuts % (Manual) Lymphocytes % (Manual) Monocytes % (Manual) Nucleated RBC % Seg Neutrophils # Man Lymphocytes # (Manual) Percent Retic 0.52 L ABG pO2 ABG HCO3 ABG Hemoglobin Sodium Potassium 2.7 L* Chloride Carbon Dioxide BUN Creatinine Glucose POC Glucose 61 L Lactic Acid Calcium Phosphorus Magnesium AST ALT Ammonia Lactate Dehydrogenase 659 H Troponin T Total Protein Albumin LDL Cholesterol Direct Crossmatch 11/18/21 11/18/21 11/19/21 16:39 20:39 05:48 WBC 3.1 L RBC 3.08 L Hgb 9.1 L Hct 26.9 L MCHC RDW 17.4 H Plt Count 33 L Seg Neuts % (Manual) 81.0 H Lymphocytes % (Manual) 8.0 L Monocytes % (Manual) 10.0 H Nucleated RBC % Seg Neutrophils # Man Lymphocytes # (Manual) 0.2 L Percent Retic ABG pO2 ABG HCO3 ABG Hemoglobin Sodium Potassium 3.3 L D Chloride Carbon Dioxide BUN Creatinine Glucose POC Glucose 68 L Lactic Acid Calcium Phosphorus Magnesium AST ALT Ammonia Lactate Dehydrogenase Troponin T Total Protein Albumin LDL Cholesterol Direct Crossmatch 11/19/21 11/20/21 11/20/21 05:48 04:21 04:21 WBC 3.4 L RBC 3.11 L Hgb 9.3 L Hct 27.1 L MCHC RDW 17.4 H Plt Count 28 L Seg Neuts % (Manual) Lymphocytes % (Manual) 10.0 L Monocytes % (Manual) 18.0 H Nucleated RBC % Seg Neutrophils # Man Lymphocytes # (Manual) 0.3 L Percent Retic ABG pO2 ABG HCO3 ABG Hemoglobin Sodium Potassium 3.1 L Chloride Carbon Dioxide 21 L BUN Creatinine Glucose POC Glucose Lactic Acid Calcium 8.3 L 8.3 L Phosphorus Magnesium AST ALT Ammonia Lactate Dehydrogenase Troponin T Total Protein Albumin LDL Cholesterol Direct Crossmatch 11/21/21 11/21/21 11/21/21 06:23 06:23 07:37 WBC 3.7 L RBC 3.19 L Hgb 9.2 L Hct 27.9 L MCHC RDW 17.8 H Plt Count 17 L* Seg Neuts % (Manual) Lymphocytes % (Manual) Monocytes % (Manual) Nucleated RBC % Seg Neutrophils # Man Lymphocytes # (Manual) Percent Retic ABG pO2 ABG HCO3 ABG Hemoglobin Sodium Potassium 2.8 L* D Chloride Carbon Dioxide 21 L BUN Creatinine Glucose 60 L POC Glucose 59 L Lactic Acid Calcium 8.3 L Phosphorus Magnesium AST ALT Ammonia Lactate Dehydrogenase Troponin T Total Protein Albumin LDL Cholesterol Direct Crossmatch 11/22/21 11/22/21 11/22/21 00:10 05:14 05:14 WBC RBC 3.16 L Hgb 9.4 L Hct 27.2 L MCHC 35 H RDW 18.5 H Plt Count 40 L D Seg Neuts % (Manual) 81.0 H Lymphocytes % (Manual) 8.0 L Monocytes % (Manual) 10.0 H Nucleated RBC % 1.0 H Seg Neutrophils # Man Lymphocytes # (Manual) 0.4 L Percent Retic ABG pO2 ABG HCO3 ABG Hemoglobin Sodium Potassium 3.3 L Chloride 109.9 H 108.3 H Carbon Dioxide 21 L BUN Creatinine Glucose POC Glucose Lactic Acid Calcium 8.3 L Phosphorus Magnesium AST ALT Ammonia Lactate Dehydrogenase Troponin T Total Protein Albumin LDL Cholesterol Direct Crossmatch 11/22/21 11/23/21 11/23/21 20:46 05:39 13:17 WBC RBC 3.01 L Hgb 8.9 L Hct 26.2 L MCHC RDW 18.3 H Plt Count 23 L Seg Neuts % (Manual) Lymphocytes % (Manual) Monocytes % (Manual) Nucleated RBC % Seg Neutrophils # Man Lymphocytes # (Manual) Percent Retic ABG pO2 ABG HCO3 ABG Hemoglobin Sodium Potassium Chloride 111.2 H Carbon Dioxide 18 L BUN Creatinine Glucose POC Glucose 63 L Lactic Acid Calcium Phosphorus Magnesium AST ALT Ammonia Lactate Dehydrogenase Troponin T Total Protein Albumin LDL Cholesterol Direct Crossmatch 11/24/21 11/24/21 11/24/21 06:42 06:42 06:42 WBC RBC 2.88 L Hgb 8.3 L Hct 25.1 L MCHC RDW 18.3 H Plt Count 114 L D Seg Neuts % (Manual) Lymphocytes % (Manual) Monocytes % (Manual) Nucleated RBC % Seg Neutrophils # Man Lymphocytes # (Manual) Percent Retic ABG pO2 ABG HCO3 ABG Hemoglobin Sodium Potassium Chloride 108.8 H Carbon Dioxide BUN Creatinine Glucose POC Glucose Lactic Acid Calcium Phosphorus 1.50 L Magnesium 1.10 L AST 146 H ALT 152 H Ammonia 12.0 L Lactate Dehydrogenase Troponin T Total Protein 5.6 L Albumin 2.3 L LDL Cholesterol Direct Crossmatch 11/24/21 08:11 WBC RBC Hgb Hct MCHC RDW Plt Count Seg Neuts % (Manual) Lymphocytes % (Manual) Monocytes % (Manual) Nucleated RBC % Seg Neutrophils # Man Lymphocytes # (Manual) Percent Retic ABG pO2 ABG HCO3 ABG Hemoglobin Sodium Potassium Chloride Carbon Dioxide BUN Creatinine Glucose POC Glucose 69 L Lactic Acid Calcium Phosphorus Magnesium AST ALT Ammonia Lactate Dehydrogenase Troponin T Total Protein Albumin LDL Cholesterol Direct Crossmatch Chest x-ray: report reviewed, image reviewed Additional Studies: CHEST 1 VIEW 11/24/2021 11:25 AM INDICATION / CLINICAL INFORMATION: left hemothorax, recent thora. COMPARISON: Yesterday FINDINGS: SUPPORT DEVICES: None. HEART / MEDIASTINUM: No significant abnormality. LUNGS / PLEURA: Recent left thoracentesis was performed with 750 cc of bloody fluid removed. There is significant decrease in the left pleural effusion. No pneumothorax. The right lung remains clear. ADDITIONAL FINDINGS: No significant additional findings. IMPRESSION: 1. No evidence for pneumothorax after left thoracentesis.
--- NOTE | 2021-11-24 13:34 | Ultrasound Report ---
ULTRASOUND ABDOMEN, COMPLETE INDICATION / CLINICAL INFORMATION: Elevated LFTs + encephalopathy. COMPARISON: 11/15/2021 CT chest. FINDINGS: PANCREAS: Not well visualized. ABDOMINAL AORTA: The distal aorta is obscured by overlying bowel gas. The remainder of the aorta demo nstrates no significant abnormality. IVC: No significant abnormality. LIVER: The liver is normal in size measuring 13.6 cm with diffusely echogenic appearance. Normal hepa topedal blood flow within the main portal vein. GALLBLADDER: A moderate amount of sludge and a few scattered tiny stones noted in the gallbladder. No evidence of wall thickening or pericholecystic fluid. BILE DUCTS: No significant abnormality. Common bile duct measures 4 mm. KIDNEYS: Right: The right kidney measures 9.7 cm. No significant abnormality. Left: The left kidney is not visualized. SPLEEN: The spleen is not visualized. FREE FLUID: None. ADDITIONAL FINDINGS: Multiple solid and complex lesions are visualized in the midline abdomen anterio r to the abdominal aorta measuring up to 9.6 cm. Large complex mass within the left upper quadrant me asuring 16.8 x 13.9 x 10.0 cm with internal vascularity. IMPRESSION: 1. Multiple solid and complex lesions are visualized in the abdomen with the largest measuring 16.8 c m in the left upper quadrant, as demonstrated on CT from 11/15/2021. 2. Diffusely echogenic appearance of the liver, most commonly seen with steatosis. 3. Moderate amount of sludge and a few tiny stones noted in the gallbladder without evidence of acute cholecystitis. Scribed by: January Arias RDMS, JOHN, KENDRICK Scribed: 11/24/2021 12:22 PM I have reviewed the images, agree with this report, and edited this report as needed. Signer Name: Claudy Barnes MD Signed: 11/24/2021 1:29 PM Workstation Name: [id number]
[2021-11-24 15:20] LABS: Eosinophils % (Manual) 0 % (0.0-4.3); Myelocytes # (Manual) 0.1 K/mm3; Stomatocytes Few; Total Cells Counted 100
[2021-11-24 15:21] LABS: Platelet Estimate Consistent w Auto
--- NOTE | 2021-11-24 15:49 | Progress Note ---
Assessment and Plan Assessment and plan: #Acute on chronic hypoxic respiratory failureresolved - etiology: Multifactorialpulmonary embolism and large left pleural effusion status post thoracentesis (11/17/2021) - baseline oxygen requirements: 2-3 L nasal cannula - supplemental oxygen: 3 L nasal cannula - Continue protocol: continue pulse oximetry, wean oxygen as tolerated, ordered incentive spirometry and educated patient on how to use it and its importance. - continue to monitor #Pulmonary embolus -Patient started on anticoagulation with heparin but now discontinued for severe thrombocytopenia and severe anemia. -Consult placed to vascular surgeon and hematology for evaluation. -Hematology recommended to initiate Lovenox as long as platelets greater than 30 and if no other sign of bleeding -Continue to monitor CBC daily #Uterine ca stage IV -Metastatic. Initially documented during this admission as ovarian cancer. Reviewed [facility] records and it revealed that patient has metastatic uterine cancer -Initially diagnosed in 2017. -Patient follows up with her oncologist at [facility]. #Severe anemia requiring transfusions #Pancytopenia-improving - s/p 4 units PRBC and 3 unit platelets transfusion -Hematology/oncology consulted; appreciate recs -Transfuse 1 unit pRBC whenever hct <23 -Transfuse 1 dose of plts whenever plt <15 -Neupogen for neutropenia daily until WBC >5 -Neutropenic precaution #Left pleural effusionresolved -CT angiogram shows large left pleural effusion. -Consult placed to pulmonology for evaluation and recommendations. -s/p thoracentesis (11/17/2021) drained about 1.2 L of fluid. Had a 2nd thoracentesis on 11/24/2021. #Elevated troponin -Likely secondary to demand ischemia -Consulted to cardiology for recommendations. #Mild AKIresolved - likely prerenal with vasomotor nephropathy -We will continue to follow, monitor BMP -IV fluid as needed #Hypoglycemia -cont dextrose saline #Hypokalemiaresolved - replete and reassess with repeat BMP #Lactic acidosisresolved -s/p IV fluid. -We will also place on empiric IV antibiotics. #Obesity #Weight loss counseling #Exercise counseling - BMI 33.9 - Counseled patient on the importance of weight loss, incorporating exercise, and dietary changes (lean meats, fresh fruits and vegetables, and water intake). Patient expresses understanding. - Time: +15 min #Advanced care planning -Disease education conducted, care plan discussed, diagnoses discussed, prognosis discussed, and patient acknowledges understanding with care plan -Time: +30 min -- Full code status 11/16/21: Status post 2 unit of packed RBC transfusion today. H&H improved. Platelet remains at 6. Ordered for 2 units of platelets. Platelet count need t o be improved for thoracentesis. Once platelet count improves greater than 30 patient need to be started on Lovenox for surgical PE. Discussed with patient and patient's sister at the bedside in details. Also discussed with Dr. Carolina and Dr. Ogden to coordinate care. 11/17/21: H&H and platelets improved. So far transfused 3 units of packed RBC and 1 units of platelets. Status post paracentesis today. Initiated on Lovenox 1 mg/kg every 24 hours as creatinine increased to 1.5. Will change to Lovenox to twice daily when creatinine improves. Continue to follow CBC and watch for ble eding. Monitor renal function. 11/18/21: Hemoglobin dropped below 7 overnight and received another unit of blood transfusion. Platelet drop to 40s today. Patient also with hypoglycemia and hypokalemia. Will place on D5 normal saline with potassium supplements. Encouraged oral nutrition, monitor CBC BMP and electrolytes. Discussed in length with the patient patient's son at the bedside and also with patient's sister on the speaker phone. All question answered and patient and patient family verbalized understanding. 11/19/21: H&H remained stable, platelet drops to lower 30s today. Per hematology recommendation continue to provide therapeutic dose of Lovenox to twice daily as renal function stable. Discussed plan of care in details with patient and with her daughter at the bedside. Family and patient both understands that patient has a terminal illness with stage IV uterine cancer with extremely poor prognosis. They wish to continue their cancer treatment at [facility] and to remain as full code. They can consider hospice if that gets recommended at [facility] by their oncologist. Continue to follow clinically, monitor platelets. If H&H and platelets stable and no need for further transfusion, plan to DC home with home health for patient to follow-up and continue treatment at [facility]. Ordered a.m. labs. 11/20/21: Patient wants to go home with home health and continue follow-up with [facility]. Platelets dropped to 28 this morning. Hematology recommended to continue therapeutic dose of Lovenox twice daily. Patient with extremely poor appetite requiring continuous replacement of potassium and dextrose saline to prevent hypokalemia and hypoglycemia. Initiated on Megace. Currently DC home with home health if electrolytes stable and no further drop in platelets. 11/21/21: Detailed discussion with her son (Agapito Gallagher) about her overall prognosis and the goal of trying to get her discharged when she is stable. Increasing xanax to 1mg q8hrs for anxiety and starting seroquel 12.5mg qHS for insomnia. Transfused 1 jumbo platelets (was 15 this morning). 11/22/2021: Bolusing normal saline given patient's tachycardia. 11/23/2021: Pending repeat EKG and chest x-ray to evaluate for possible reaccumulation of left pleural effusion leading to continuous sinus tachycardia. Encouraging patient to increase p.o. intake; she endorses wanting to eat foods from home. Will discuss with patient's son (Agapito Gallagher) about dietary changes to increase nutrition. Continue to monitor. 11/24/2021: Patient underwent US-guided thoracentesis with removal of moderate pleural effusion. This resolved her tachycardia. She had a CT head noncontrast that was unremarkable. Physical Therapy was consulted for debility. Disposition Plan: Continue medical management Total Time Spent with Patient (Minutes): 45 minutes History Interval history: No acute events overnight. Hospitalist Physical - Constitutional Vitals: Temp Pulse Resp BP Pulse Ox 98.0 F 97 H 18 152/80 100 11/24/21 12:14 11/24/21 14:32 11/24/21 14:32 11/24/21 12:14 11/24/21 14:32 General appearance: Present: no acute distress, obese - EENT Eyes: Present: PERRL, EOM intact ENT: hearing intact, clear oral mucosa, dentition normal - Neck Neck: Present: supple, normal ROM - Respiratory Respiratory effort: normal Respiratory: bilateral: diminished (on 3L nasal cannula) - Cardiovascular Rhythm: regular Heart Sounds: Present: S1 & S2 - Extremities Extremities: no ischemia, pulses intact, pulses symmetrical, No edema, normal temperature, normal color Peripheral Pulses: within normal limits - Abdominal General gastrointestinal: soft, non-tender, non-distended, normal bowel sounds - Integumentary Integumentary: Present: clear, warm, dry - Psychiatric Psychiatric: appropriate mood/affect, cooperative - Neurologic Neurologic: CNII-XII intact - Allied Health Allied health notes reviewed: nursing HEART Score - HEART Score Troponin: Troponin T 0.070 ng/mL (0.00-0.029) H 11/15/21 17:57 Results - Labs CBC & Chem 7: 11/24/21 06:42 11/24/21 06:42 Labs: Laboratory Last Values WBC 4.7 K/mm3 (4.5-11.0) 11/24/21 06:42 RBC 2.88 M/mm3 (3.65-5.03) L 11/24/21 06:42 Hgb 8.3 gm/dl (10.1-14.3) L 11/24/21 06:42 Hct 25.1 % (30.3-42.9) L 11/24/21 06:42 MCV 87 fl (79-97) 11/24/21 06:42 MCH 29 pg (28-32) 11/24/21 06:42 MCHC 33 % (30-34) 11/24/21 06:42 RDW 18.3 % (13.2-15.2) H 11/24/21 06:42 Plt Count 114 K/mm3 (140-440) L D 11/24/21 06:42 Add Manual Diff Complete 11/24/21 06:42 Total Counted 100 11/24/21 06:42 Seg Neuts % (Manual) 62.0 % (40.0-70.0) 11/24/21 06:42 Band Neutrophils % 0 % 11/24/21 06:42 Lymphocytes % (Manual) 25.0 % (13.4-35.0) 11/24/21 06:42 Reactive Lymphs % (Man) 0 % 11/24/21 06:42 Monocytes % (Manual) 10.0 % (0.0-7.3) H 11/24/21 06:42 Eosinophils % (Manual) 0 % (0.0-4.3) 11/24/21 06:42 Basophils % (Manual) 1.0 % (0.0-1.8) 11/24/21 06:42 Metamyelocytes % 0 % 11/24/21 06:42 Myelocytes % 2.0 % 11/24/21 06:42 Promyelocytes % 0 % 11/24/21 06:42 Blast Cells % 0 % 11/24/21 06:42 Nucleated RBC % Not Reportable 11/24/21 06:42 Seg Neutrophils # Man 2.9 K/mm3 (1.8-7.7) 11/24/21 06:42 Band Neutrophils # 0.0 K/mm3 11/24/21 06:42 Lymphocytes # (Manual) 1.2 K/mm3 (1.2-5.4) 11/24/21 06:42 Abs React Lymphs (Man) 0.0 K/mm3 11/24/21 06:42 Monocytes # (Manual) 0.5 K/mm3 (0.0-0.8) 11/24/21 06:42 Eosinophils # (Manual) 0.0 K/mm3 (0.0-0.4) 11/24/21 06:42 Basophils # (Manual) 0.0 K/mm3 (0.0-0.1) 11/24/21 06:42 Metamyelocytes # 0.0 K/mm3 11/24/21 06:42 Myelocytes # 0.1 K/mm3 11/24/21 06:42 Promyelocytes # 0.0 K/mm3 11/24/21 06:42 Blast Cells # 0.0 K/mm3 11/24/21 06:42 WBC Morphology Not Reportable 11/24/21 06:42 Hypersegmented Neuts Not Reportable 11/24/21 06:42 Hyposegmented Neuts Not Reportable 11/24/21 06:42 Hypogranular Neuts Not Reportable 11/24/21 06:42 Smudge Cells Not Reportable 11/24/21 06:42 Toxic Granulation Not Reportable 11/24/21 06:42 Toxic Vacuolation Not Reportable 11/24/21 06:42 Dohle Bodies Not Reportable 11/24/21 06:42 Pelger-Huet Anomaly Not Reportable 11/24/21 06:42 Renetta Rods Not Reportable 11/24/21 06:42 Platelet Estimate Consistent w auto 11/24/21 06:42 Clumped Platelets Not Reportable 11/24/21 06:42 Plt Clumps, EDTA Not Reportable 11/24/21 06:42 Large Platelets Not Reportable 11/24/21 06:42 Giant Platelets Not Reportable 11/24/21 06:42 Platelet Satelliting Not Reportable 11/24/21 06:42 Plt Morphology Comment Not Reportable 11/24/21 06:42 RBC Morphology Not Reportable 11/24/21 06:42 Dimorphic RBCs Not Reportable 11/24/21 06:42 Polychromasia Few 11/24/21 06:42 Hypochromasia Not Reportable 11/24/21 06:42 Poikilocytosis Not Reportable 11/24/21 06:42 Anisocytosis Not Reportable 11/24/21 06:42 Microcytosis Not Reportable 11/24/21 06:42 Macrocytosis Not Reportable 11/24/21 06:42 Spherocytes Not Reportable 11/24/21 06:42 Pappenheimer Bodies Not Reportable 11/24/21 06:42 Sickle Cells Not Reportable 11/24/21 06:42 Target Cells Not Reportable 11/24/21 06:42 Tear Drop Cells Not Reportable 11/24/21 06:42 Ovalocytes Not Reportable 11/24/21 06:42 Stomatocytes Few 11/24/21 06:42 Helmet Cells Not Reportable 11/24/21 06:42 Beckman-Clark Bodies Not Reportable 11/24/21 06:42 Marsing Rings Not Reportable 11/24/21 06:42 Xiang Cells Not Reportable 11/24/21 06:42 Bite Cells Not Reportable 11/24/21 06:42 Crenated Cell Not Reportable 11/24/21 06:42 Elliptocytes Not Reportable 11/24/21 06:42 Acanthocytes (Spur) Not Reportable 11/24/21 06:42 Rouleaux Not Reportable 11/24/21 06:42 Hemoglobin C Crystals Not Reportable 11/24/21 06:42 Schistocytes Not Reportable 11/24/21 06:42 Malaria parasites Not Reportable 11/24/21 06:42 Percent Retic 0.52 % (0.78-2.58) L 11/18/21 05:09 Víctor Bodies Not Reportable 11/24/21 06:42 Hem Pathologist Commnt No 11/24/21 06:42 PT 14.7 Sec. (12.2-14.9) 11/17/21 10:56 INR 1.03 (0.87-1.13) 11/17/21 10:56 APTT 30.7 Sec. (24.2-36.6) 11/17/21 10:56 ABG pH 7.401 pH Units (7.350-7.450) 11/16/21 20:50 ABG pCO2 43.5 mm Hg 11/16/21 20:50 ABG pO2 144.0 mm Hg (80.0-90.0) H 11/16/21 20:50 ABG HCO3 26.4 mmol/L (20.0-26.0) H 11/16/21 20:50 ABG O2 Saturation 98.8 % (95.0-99.0) 11/16/21 20:50 ABG O2 Content 12.8 (0.0-44) 11/16/21 20:50 ABG Base Excess 1.4 mmol/L (-2.0-3.0) 11/16/21 20:50 ABG Hemoglobin 9.2 gm/dl (12.0-16.0) L 11/16/21 20:50 ABG Carboxyhemoglobin 1.4 % (0.0-5.0) 11/16/21 20:50 ABG Methemoglobin 0.6 % (0.0-1.5) 11/16/21 20:50 Oxyhemoglobin 96.9 % (95.0-99.0) 11/16/21 20:50 FiO2 32 % 11/16/21 20:50 Sodium 141 mmol/L (137-145) 11/24/21 06:42 Potassium 3.8 mmol/L (3.6-5.0) D 11/24/21 06:42 Chloride 108.8 mmol/L (98-107) H 11/24/21 06:42 Carbon Dioxide 22 mmol/L (22-30) 11/24/21 06:42 Anion Gap 14 mmol/L 11/24/21 06:42 BUN 14 mg/dL (7-17) 11/24/21 06:42 Creatinine 0.7 mg/dL (0.6-1.2) 11/24/21 06:42 Estimated GFR > 60 ml/min 11/24/21 06:42 BUN/Creatinine Ratio 20 % 11/24/21 06:42 Glucose 78 mg/dL (65-100) 11/24/21 06:42 POC Glucose 98 mg/dL (70-105) 11/24/21 11:56 Lactic Acid 1.70 mmol/L (0.7-2.0) 11/16/21 11:03 Calcium 8.5 mg/dL (8.4-10.2) 11/24/21 06:42 Phosphorus 1.50 mg/dL (2.5-4.5) L 11/24/21 06:42 Magnesium 1.10 mg/dL (1.7-2.3) L 11/24/21 06:42 Total Bilirubin 0.80 mg/dL (0.1-1.2) 11/24/21 06:42 AST 146 units/L (5-40) H 11/24/21 06:42 ALT 152 units/L (7-56) H 11/24/21 06:42 Alkaline Phosphatase 90 units/L (35-129) 11/24/21 06:42 Ammonia 12.0 umol/L (25-60) L 11/24/21 06:42 Lactate Dehydrogenase 659 units/L (91-180) H 11/18/21 05:09 Troponin T 0.070 ng/mL (0.00-0.029) H 11/15/21 17:57 NT-Pro-B Natriuret Pep 504.5 pg/mL (0-900) 11/15/21 17:57 Total Protein 5.6 g/dL (6.3-8.2) L 11/24/21 06:42 Albumin 2.3 g/dL (3.9-5) L 11/24/21 06:42 Albumin/Globulin Ratio 0.7 % 11/24/21 06:42 Triglycerides 127 mg/dL (2-149) 11/15/21 17:57 Cholesterol 129 mg/dL (50-199) 11/15/21 17:57 LDL Cholesterol Direct 48 mg/dL (50-130) L 11/15/21 17:57 HDL Cholesterol 52 mg/dL (40-59) 11/15/21 17:57 Cholesterol/HDL Ratio 2.48 % 11/15/21 17:57 Urine Color Yellow (Yellow) 11/18/21 07:40 Urine Turbidity Clear (Clear) 11/18/21 07:40 Urine pH 6.0 (5.0-7.0) 11/18/21 07:40 Ur Specific [place] 1.019 (1.003-1.030) 11/18/21 07:40 Urine Protein 30 mg/dl mg/dL (Negative) 11/18/21 07:40 Urine Glucose (UA) 50 mg/dL (Negative) 11/18/21 07:40 Urine Ketones Neg mg/dL (Negative) 11/18/21 07:40 Urine Blood Sm (Negative) 11/18/21 07:40 Urine Nitrite Neg (Negative) 11/18/21 07:40 Urine Bilirubin Neg (Negative) 11/18/21 07:40 Urine Urobilinogen < 2.0 mg/dL (<2.0) 11/18/21 07:40 Ur Leukocyte Esterase Sm (Negative) 11/18/21 07:40 Urine WBC (Auto) 5.0 /HPF (0.0-6.0) 11/18/21 07:40 Urine RBC (Auto) 1.0 /HPF (0.0-6.0) 11/18/21 07:40 U Epithel Cells (Auto) 1.0 /HPF (0-13.0) 11/18/21 07:40 Fluid Type Pleural 11/17/21 12:40 Fluid Color Bloody 11/17/21 12:40 Fluid Appearance Turbid 11/17/21 12:40 Fluid WBC 330 /mm3 11/17/21 12:40 Fluid RBC 9825423 /mm3 11/17/21 12:40 Fluid Seg Neutrophils 81.0 % 11/17/21 12:40 Fluid Lymphocytes 17.0 % 11/17/21 12:40 Fluid Reactive Lymphs 0 % 11/17/21 12:40 Fluid Monocytes 2.0 % 11/17/21 12:40 Fluid Eosinophils 0 % 11/17/21 12:40 Fluid Basophils 0 % 11/17/21 12:40 Blood Type O POSITIVE 11/23/21 22:42 Antibody Screen Negative 11/15/21 23:09 Crossmatch See Detail 11/15/21 23:09 Microbiology: Microbiology 11/23/21 22:42 Peripheral/Venous Blood Culture - Preliminary Culture in Progress 11/23/21 22:42 Peripheral/Venous Blood Culture - Preliminary Culture in Progress Martins/IV: Voiding Method External Female Catheter Active Medications - Current Medications Current Medications: Generic Name Dose Route Start Last Admin Trade Name Freq PRN Reason Stop Dose Admin Acetaminophen 650 mg 11/15/21 22:35 11/24/21 00:15 Acetaminophen 325 Mg Tab PO 650 mg Q4H PRN Administration Pain MILD(1-3)/Fever >100.5/PATEL Albuterol 2.5 mg 11/16/21 17:38 Albuterol 2.5 Mg/3 Ml Nebu IH Q6HRT PRN Shortness Of Breath Dextrose 50 ml 11/15/21 22:35 11/24/21 08:55 Dextrose 50% In Water (25gm) 50 Ml Syringe IV 50 ml Q30MIN PRN Administration Hypoglycemia Protocol Enoxaparin Sodium 100 mg 11/18/21 22:00 11/24/21 11:43 Enoxaparin 100 Mg/1 Ml Inj SUB-Q 100 mg Q12HR GRAHAM Administration Protocol Insulin Human Lispro 0 unit 11/16/21 07:30 11/24/21 12:34 Insulin Lispro 100 Unit/Ml SUB-Q Not Given ACHS GRAHAM Protocol Magnesium Hydroxide 30 ml 11/15/21 22:35 Magnesium Hydroxide (Mom) Oral Liqd Udc PO Q4H PRN Constipation Megestrol Acetate 400 mg 11/20/21 10:00 11/24/21 11:43 Megestrol 400 Mg/10 Ml Oral Liqd PO Not Given QDAY GRAHAM Morphine Sulfate 2 mg 11/15/21 22:35 11/21/21 22:07 Morphine 2 Mg/1 Ml Inj IV 2 mg Q4H PRN Administration Pain, Moderate (4-6) Morphine Sulfate 4 mg 11/15/21 22:35 Morphine 4 Mg/1 Ml Inj IV Q4H PRN Pain , Severe (7-10) Ondansetron HCl 4 mg 11/15/21 22:35 11/18/21 09:25 Ondansetron 4 Mg/2 Ml Inj IV 4 mg Q8H PRN Administration Nausea And Vomiting Sodium Chloride 10 ml 11/16/21 10:00 11/24/21 11:43 Sodium Chloride 0.9% 10 Ml Flush Syringe IV 10 ml BID GRAHAM Administration Sodium Chloride 10 ml 11/15/21 22:35 Sodium Chloride 0.9% 10 Ml Flush Syringe IV PRN PRN LINE FLUSH Nutrition/Malnutrition Assess - Dietary Evaluation Nutrition/Malnutrition Findings: Nutrition Notes Start: 11/16/21 15:06 Freq: Status: Active Protocol: Document 11/23/21 17:15 STACEY (Rec: 11/23/21 17:41 STACEY [id number]) Nutrition Notes Initial or Follow up Assessment Other Pertinent Diagnosis Pulmonary Embolus, Anemia, Elevated Troponin, Uterine Cancer. Current Diet Cardiac/Consistent Carbohydrates Diet (B 11/16), D Suppl (11/24). Labs/Tests 11/23: Cl 111.2, CO2 18. Pertinent Medications 11/23: Nutritionally unremarkable. Height 5 ft 6 in Weight 95.3 kg [place] Body Weight (kg) 59.09 BMI 33.9 Weight change and time frame Discrepancy of 18.59 Kg body weight loss in 1 week reported . Weight Status Obese Subjective/Other Information RD consult for routine F/U on dietary advancement. Pt's PO intake of meals has been Poor (25%) and Pt refusing to eat, requesting food from home, according to ADL and Progress notes. I will prescribe dietary supplements to compensate for poor or insufficient PO intake of meals. Pt is on Nasal Cannula, O2 saturation @ 100%, according to Physical Assessment History notes. Pt presents an unspecified area of concern as sign of concern for skin risk at the time, according to Physical Assessment History notes. Pt still in critical condition , not a candidate for Nutrition Education at the time, will assess feasibility on F/U. Percent of energy/protein needs met: Prescribed Cardiac/Consistent Carbohydrates Diet provides for energy/protein needs (1, 977 Kcal/86 g) during LOS; additionally, Dietary Supplements will compensate for possible poor or insufficient PO intake of meals with 480 Kcal and 48 g of protein. Burn Absent Trauma Absent GI Symptoms None Food Allergy No Skin Integrity/Comment Unspecified area of concern. Current % PO Poor (25-49%) Minimum of two criteria No Fluid Accumulation N/A Reduced Sustainability Communicator Strength N/A (non-severe) Protein-Calorie Malnutrition N\A #1 Nutrition Diagnosis Inadequate protein-energy intake Etiology Uncertain. As Evidenced by Signs and Symptoms Pt's PO intake of meals has been Poor (25%) and Pt refusing to eat, requesting food from home, according to ADL and Progress notes. Is patient on ventilator? No Is Patient Ambulatory and/or Out of Bed No REE-(Fill[place]-St. Jeor-confined to bed) 2936.856 Calculation Used for Recommendations [place]-St Jeor Additional Notes Protein: 1-1.2 g/Kg AdjBW; 77- 92 g/day. Fluids: 1 ml/Kcal, or as per MD. Nutrition Intervention Change Diet Order: Continue Cardiac/Consistent Carbohydrates Diet. Add Supplement/Snack (indicate name/kcal Start 8 fl oz Ensure High /protein ) Protein; TID. Provides kCal: 480 Provides Protein (gm) 48 Goal #1 Compensate, through dietary supplementation, for possible poor or insufficient PO intake of meals during LOS. Goal #2 Adjust the dietary intervention to better serve Pt's needs and clinical conditions during LOS. Follow-Up By: 11/30/21 Additional Comments Nutrition education will be provided at F/U, if feasible. Continue monitoring food tolerance, %PO intake of meals and ONS, and BM.
[2021-11-24] MEDS: MORPHINE 4 MG/1 ML INJ IV PRN (21:41)
[2021-11-25] MEDS: INSULIN LISPRO 100 UNIT/ML SUB-Q SCH ×4 (07:35→21:56)
[2021-11-25 08:21] LABS: Hematocrit 25.2 % (30.3-42.9); Hemoglobin 8.5 gm/dl (10.1-14.3); Mean Corpuscular HGB Conc 34 % (30-34); Mean Corpuscular Volume 87 fl (79-97); Red Cell Distribution Width 18.8 % (13.2-15.2)
[2021-11-25 08:29] LABS: Blood Urea Nitrogen 12 mg/dL (7-17); Calcium 8.5 mg/dL (8.4-10.2); Hemolysis Index 21
[2021-11-25 08:32] LABS: BUN/Creatinine Ratio 17; Platelet Count 73 K/mm3 (140-440)
[2021-11-25] MEDS ORDERED: MAGNESIUM SULFATE 1 GM in SODIUM CHLORIDE 0.9% 50 ML IV ONE (09:11)
[2021-11-25] MEDS ORDERED: POTASSIUM PHOSPHATE 15 MMOL in SODIUM CHLORIDE 0.9% 250ML 250 ML IV ONE (09:11)
--- NOTE | 2021-11-25 09:27 | Progress Note ---
Assessment and Plan Assessment and plan: #Acute on chronic hypoxic respiratory failureresolved - etiology: Multifactorialpulmonary embolism and large left pleural effusion status post thoracentesis (11/17/2021) - baseline oxygen requirements: 2-3 L nasal cannula - supplemental oxygen: 3 L nasal cannula - Continue protocol: continue pulse oximetry, wean oxygen as tolerated, ordered incentive spirometry and educated patient on how to use it and its importance. - continue to monitor #Pulmonary embolus -Patient started on anticoagulation with heparin but now discontinued for severe thrombocytopenia and severe anemia. -Consult placed to vascular surgeon and hematology for evaluation. -Hematology recommended to initiate Lovenox as long as platelets greater than 30 and if no other sign of bleeding -Continue to monitor CBC daily #Uterine ca stage IV -Metastatic. Initially documented during this admission as ovarian cancer. Reviewed [facility] records and it revealed that patient has metastatic uterine cancer -Initially diagnosed in 2017. -Patient follows up with her oncologist at [facility]. #Severe anemia requiring transfusions #Pancytopenia-improving - s/p 4 units PRBC and 3 unit platelets transfusion -Hematology/oncology consulted; appreciate recs -Transfuse 1 unit pRBC whenever hct <23 -Transfuse 1 dose of plts whenever plt <15 -Neupogen for neutropenia daily until WBC >5 -Neutropenic precaution #Left pleural effusionresolved -CT angiogram shows large left pleural effusion. -Consult placed to pulmonology for evaluation and recommendations. -s/p thoracentesis (11/17/2021) drained about 1.2 L of fluid. Had a 2nd thoracentesis on 11/24/2021. #Elevated troponin -Likely secondary to demand ischemia -Consulted to cardiology for recommendations. #Mild AKIresolved - likely prerenal with vasomotor nephropathy -We will continue to follow, monitor BMP -IV fluid as needed #Hypoglycemia -cont dextrose saline #Hypokalemia - replete and reassess with repeat BMP #Hypomagnesemia Magnesium 1.2 Repleting. Continue to monitor. #Hypophosphatemia Phosphorus 1.6 Repleting. Continue to monitor. #Lactic acidosisresolved -s/p IV fluid. -We will also place on empiric IV antibiotics. #Obesity #Weight loss counseling #Exercise counseling - BMI 33.9 - Counseled patient on the importance of weight loss, incorporating exercise, and dietary changes (lean meats, fresh fruits and vegetables, and water intake). Patient expresses understanding. - Time: +15 min #Advanced care planning -Disease education conducted, care plan discussed, diagnoses discussed, prognosis discussed, and patient acknowledges understanding with care plan -Time: +30 min -- Full code status 11/16/21: Status post 2 unit of packed RBC transfusion today. H&H improved. Platelet remains at 6. Ordered for 2 units of platelets. Platelet count need to be improved for thoracentesis. Once platelet count improves greater than 30 patient need to be started on Lovenox for surgical PE. Discussed with patient and patient's sister at the bedside in details. Also discussed with Dr. Carolina and Dr. Ogden to coordinate care. 11/17/21: H&H and platelets improved. So far transfused 3 units of packed RBC and 1 units of platelets. Status post paracentesis today. Initiated on Lovenox 1 mg/kg every 24 hours as creatinine increased to 1.5. Will change to Lovenox to twice daily when creatinine improves. Continue to follow CBC and watch for bleeding. Monitor renal function. 11/18/21: Hemoglobin dropped below 7 overnight and received another unit of blood transfusion. Platelet drop to 40s today. Patient also with hypoglycemia and hypokalemia. Will place on D5 normal saline with potassium supplements. Encouraged oral nutrition, monitor CBC BMP and electrolytes. Discussed in length with the patient patient's son at the bedside and also with patient's sis ter on the speaker phone. All question answered and patient and patient family verbalized understanding. 11/19/21: H&H remained stable, platelet drops to lower 30s today. Per hematology recommendation continue to provide therapeutic dose of Lovenox to twice daily as renal function stable. Discussed plan of care in details with patient and with her daughter at the bedside. Family and patient both understands that patient has a terminal illness with stage IV uterine cancer with extremely poor prognosis. They wish to continue their cancer treatment at [facility] and to remain as full code. They can consider hospice if that gets recommended at [facility] by their oncologist. Continue to follow clinically, monitor platelets. If H&H and platelets stable and no need for further transfusion, plan to DC home with home health for patient to follow-up and continue treatment at [facility]. Ordered a.m. labs. 11/20/21: Patient wants to go home with home health and continue follow-up with [facility]. Platelets dropped to 28 this morning. Hematology recommended to continue therapeutic dose of Lovenox twice daily. Patient with extremely poor appetite requiring continuous replacement of potassium and dextrose saline to prevent hypokalemia and hypoglycemia. Initiated on Megace. Currently DC home with home health if electrolytes stable and no further drop in platelets. 11/21/21: Detailed discussion with her son (Agapito Gallagher) about her overall prognosis and the goal of trying to get her discharged when she is stable. Increasing xanax to 1mg q8hrs for anxiety and starting seroquel 12.5mg qHS for insomnia. Transfused 1 jumbo platelets (was 15 this morning). 11/22/2021: Bolusing normal saline given patient's tachycardia. 11/23/2021: Pending repeat EKG and chest x-ray to evaluate for possible r eaccumulation of left pleural effusion leading to continuous sinus tachycardia. Encouraging patient to increase p.o. intake; she endorses wanting to eat foods from home. Will discuss with patient's son (Agapito Gallagher) about dietary changes to increase nutrition. Continue to monitor. 11/24/2021: Patient underwent US-guided thoracentesis with removal of moderate pleural effusion. This resolved her tachycardia. She had a CT head noncontrast that was unremarkable. Physical Therapy was consulted for debility. 11/25/2021: Repleting electrolyte derangement (potassium, magnesium, phosphorus). Starting oral antihypertensives given the patient's significantly elevated blood pressure (losartan 100 mg daily, amlodipine 5 mg daily, and metoprolol tartrate 25 mg twice daily). Pending physical therapy recommendations. Continue to monitor. Disposition Plan: Continue medical management Total Time Spent with Patient (Minutes): 45 minutes History Interval history: Patient underwent ultrasound-guided thoracentesis of moderate left pleural effusion yesterday. Patient tolerated the procedure well. Hospitalist Physical - Constitutional Vitals: Temp Pulse Resp BP Pulse Ox 97.9 F 116 H 18 174/82 97 11/25/21 08:40 11/25/21 08:40 11/25/21 08:40 11/25/21 08:40 11/25/21 08:40 General appearance: Present: no acute distress, obese - EENT Eyes: Present: PERRL, EOM intact ENT: hearing intact, clear oral mucosa, dentition normal - Neck Neck: Present: supple, normal ROM - Respiratory Respiratory effort: normal Respiratory: bilateral: diminished (3 L nasal cannula (baseline)) - Cardiovascular Heart rate: 116 Rhythm: regular Heart Sounds: Present: S1 & S2 - Extremities Extremities: no ischemia, pulses intact, pulses symmetrical, normal temperature, normal color Peripheral Pulses: within normal limits - Abdominal General gastrointestinal: soft, non-tender, non-distended, normal bowel sounds - Integumentary Integumentary: Present: clear, warm, dry - Psychiatric Psychiatric: appropriate mood/affect, intact judgment & insight, memory intact, cooperative - Neurologic Neurologic: CNII-XII intact - Allied Health Allied health notes reviewed: nursing HEART Score - HEART Score Troponin: Troponin T 0.070 ng/mL (0.00-0.029) H 11/15/21 17:57 Results - Labs CBC & Chem 7: 11/25/21 07:36 11/25/21 07:36 Labs: Laboratory Last Values WBC 3.7 K/mm3 (4.5-11.0) L 11/25/21 07:36 RBC 2.90 M/mm3 (3.65-5.03) L 11/25/21 07:36 Hgb 8.5 gm/dl (10.1-14.3) L 11/25/21 07:36 Hct 25.2 % (30.3-42.9) L 11/25/21 07:36 MCV 87 fl (79-97) 11/25/21 07:36 MCH 29 pg (28-32) 11/25/21 07:36 MCHC 34 % (30-34) 11/25/21 07:36 RDW 18.8 % (13.2-15.2) H 11/25/21 07:36 Plt Count 73 K/mm3 (140-440) L 11/25/21 07:36 Add Manual Diff Complete 11/24/21 06:42 Total Counted 100 11/24/21 06:42 Seg Neuts % (Manual) 62.0 % (40.0-70.0) 11/24/21 06:42 Band Neutrophils % 0 % 11/24/21 06:42 Lymphocytes % (Manual) 25.0 % (13.4-35.0) 11/24/21 06:42 Reactive Lymphs % (Man) 0 % 11/24/21 06:42 Monocytes % (Manual) 10.0 % (0.0-7.3) H 11/24/21 06:42 Eosinophils % (Manual) 0 % (0.0-4.3) 11/24/21 06:42 Basophils % (Manual) 1.0 % (0.0-1.8) 11/24/21 06:42 Metamyelocytes % 0 % 11/24/21 06:42 Myelocytes % 2.0 % 11/24/21 06:42 Promyelocytes % 0 % 11/24/21 06:42 Blast Cells % 0 % 11/24/21 06:42 Nucleated RBC % Not Reportable 11/24/21 06:42 Seg Neutrophils # Man 2.9 K/mm3 (1.8-7.7) 11/24/21 06:42 Band Neutrophils # 0.0 K/mm3 11/24/21 06:42 Lymphocytes # (Manual) 1.2 K/mm3 (1.2-5.4) 11/24/21 06:42 Abs React Lymphs (Man) 0.0 K/mm3 11/24/21 06:42 Monocytes # (Manual) 0.5 K/mm3 (0.0-0.8) 11/24/21 06:42 Eosinophils # (Manual) 0.0 K/mm3 (0.0-0.4) 11/24/21 06:42 Basophils # (Manual) 0.0 K/mm3 (0.0-0.1) 11/24/21 06:42 Metamyelocytes # 0.0 K/mm3 11/24/21 06:42 Myelocytes # 0.1 K/mm3 11/24/21 06:42 Promyelocytes # 0.0 K/mm3 11/24/21 06:42 Blast Cells # 0.0 K/mm3 11/24/21 06:42 WBC Morphology Not Reportable 11/24/21 06:42 Hypersegmented Neuts Not Reportable 11/24/21 06:42 Hyposegmented Neuts Not Reportable 11/24/21 06:42 Hypogranular Neuts Not Reportable 11/24/21 06:42 Smudge Cells Not Reportable 11/24/21 06:42 Toxic Granulation Not Reportable 11/24/21 06:42 Toxic Vacuolation Not Reportable 11/24/21 06:42 Dohle Bodies Not Reportable 11/24/21 06:42 Pelger-Huet Anomaly Not Reportable 11/24/21 06:42 Renetta Rods Not Reportable 11/24/21 06:42 Platelet Estimate Consistent w auto 11/24/21 06:42 Clumped Platelets Not Reportable 11/24/21 06:42 Plt Clumps, EDTA Not Reportable 11/24/21 06:42 Large Platelets Not Reportable 11/24/21 06:42 Giant Platelets Not Reportable 11/24/21 06:42 Platelet Satelliting Not Reportable 11/24/21 06:42 Plt Morphology Comment Not Reportable 11/24/21 06:42 RBC Morphology Not Reportable 11/24/21 06:42 Dimorphic RBCs Not Reportable 11/24/21 06:42 Polychromasia Few 11/24/21 06:42 Hypochromasia Not Reportable 11/24/21 06:42 Poikilocytosis Not Reportable 11/24/21 06:42 Anisocytosis Not Reportable 11/24/21 06:42 Microcytosis Not Reportable 11/24/21 06:42 Macrocytosis Not Reportable 11/24/21 06:42 Spherocytes Not Reportable 11/24/21 06:42 Pappenheimer Bodies Not Reportable 11/24/21 06:42 Sickle Cells Not Reportable 11/24/21 06:42 Target Cells Not Reportable 11/24/21 06:42 Tear Drop Cells Not Reportable 11/24/21 06:42 Ovalocytes Not Reportable 11/24/21 06:42 Stomatocytes Few 11/24/21 06:42 Helmet Cells Not Reportable 11/24/21 06:42 Beck[place] Bodies Not Reportable 11/24/21 06:42 Tanana Rings Not Reportable 11/24/21 06:42 Xiang Cells Not Reportable 11/24/21 06:42 Bite Cells Not Reportable 11/24/21 06:42 Crenated Cell Not Reportable 11/24/21 06:42 Elliptocytes Not Reportable 11/24/21 06:42 Acanthocytes (Spur) Not Reportable 11/24/21 06:42 Rouleaux Not Reportable 11/24/21 06:42 Hemoglobin C Crystals Not Reportable 11/24/21 06:42 Schistocytes Not Reportable 11/24/21 06:42 Malaria parasites Not Reportable 11/24/21 06:42 Percent Retic 0.52 % (0.78-2.58) L 11/18/21 05:09 Víctor Bodies Not Reportable 11/24/21 06:42 Hem Pathologist Commnt No 11/24/21 06:42 PT 14.7 Sec. (12.2-14.9) 11/17/21 10:56 INR 1.03 (0.87-1.13) 11/17/21 10:56 APTT 30.7 Sec. (24.2-36.6) 11/17/21 10:56 ABG pH 7.401 pH Units (7.350-7.450) 11/16/21 20:50 ABG pCO2 43.5 mm Hg 11/16/21 20:50 ABG pO2 144.0 mm Hg (80.0-90.0) H 11/16/21 20:50 ABG HCO3 26.4 mmol/L (20.0-26.0) H 11/16/21 20:50 ABG O2 Saturation 98.8 % (95.0-99.0) 11/16/21 20:50 ABG O2 Content 12.8 (0.0-44) 11/16/21 20:50 ABG Base Excess 1.4 mmol/L (-2.0-3.0) 11/16/21 20:50 ABG Hemoglobin 9.2 gm/dl (12.0-16.0) L 11/16/21 20:50 ABG Carboxyhemoglobin 1.4 % (0.0-5.0) 11/16/21 20:50 ABG Methemoglobin 0.6 % (0.0-1.5) 11/16/21 20:50 Oxyhemoglobin 96.9 % (95.0-99.0) 11/16/21 20:50 FiO2 32 % 11/16/21 20:50 Sodium 140 mmol/L (137-145) 11/25/21 07:36 Potassium 3.4 mmol/L (3.6-5.0) L 11/25/21 07:36 Chloride 107.9 mmol/L (98-107) H 11/25/21 07:36 Carbon Dioxide 22 mmol/L (22-30) 11/25/21 07:36 Anion Gap 14 mmol/L 11/25/21 07:36 BUN 12 mg/dL (7-17) 11/25/21 07:36 Creatinine 0.7 mg/dL (0.6-1.2) 11/25/21 07:36 Estimated GFR > 60 ml/min 11/25/21 07:36 BUN/Creatinine Ratio 17 % 11/25/21 07:36 Glucose 98 mg/dL (65-100) 11/25/21 07:36 POC Glucose 89 mg/dL (70-105) 11/25/21 07:10 Lactic Acid 1.70 mmol/L (0.7-2.0) 11/16/21 11:03 Calcium 8.5 mg/dL (8.4-10.2) 11/25/21 07:36 Phosphorus 1.60 mg/dL (2.5-4.5) L 11/25/21 07:36 Magnesium 1.20 mg/dL (1.7-2.3) L 11/25/21 07:36 Total Bilirubin 0.80 mg/dL (0.1-1.2) 11/24/21 06:42 AST 146 units/L (5-40) H 11/24/21 06:42 ALT 152 units/L (7-56) H 11/24/21 06:42 Alkaline Phosphatase 90 units/L (35-129) 11/24/21 06:42 Ammonia 12.0 umol/L (25-60) L 11/24/21 06:42 Lactate Dehydrogenase 659 units/L (91-180) H 11/18/21 05:09 Troponin T 0.070 ng/mL (0.00-0.029) H 11/15/21 17:57 NT-Pro-B Natriuret Pep 504.5 pg/mL (0-900) 11/15/21 17:57 Total Protein 5.6 g/dL (6.3-8.2) L 11/24/21 06:42 Albumin 2.3 g/dL (3.9-5) L 11/24/21 06:42 Albumin/Globulin Ratio 0.7 % 11/24/21 06:42 Triglycerides 127 mg/dL (2-149) 11/15/21 17:57 Cholesterol 129 mg/dL (50-199) 11/15/21 17:57 LDL Cholesterol Direct 48 mg/dL (50-130) L 11/15/21 17:57 HDL Cholesterol 52 mg/dL (40-59) 11/15/21 17:57 Cholesterol/HDL Ratio 2.48 % 11/15/21 17:57 Procalcitonin 3.89 ng/mL (<0.15) 11/23/21 22:42 Urine Color Yellow (Yellow) 11/18/21 07:40 Urine Turbidity Clear (Clear) 11/18/21 07:40 Urine pH 6.0 (5.0-7.0) 11/18/21 07:40 Ur Specific [place] 1.019 (1.003-1.030) 11/18/21 07:40 Urine Protein 30 mg/dl mg/dL (Negative) 11/18/21 07:40 Urine Glucose (UA) 50 mg/dL (Negative) 11/18/21 07:40 Urine Ketones Neg mg/dL (Negative) 11/18/21 07:40 Urine Blood Sm (Negative) 11/18/21 07:40 Urine Nitrite Neg (Negative) 11/18/21 07:40 Urine Bilirubin Neg (Negative) 11/18/21 07:40 Urine Urobilinogen < 2.0 mg/dL (<2.0) 11/18/21 07:40 Ur Leukocyte Esterase Sm (Negative) 11/18/21 07:40 Urine WBC (Auto) 5.0 /HPF (0.0-6.0) 11/18/21 07:40 Urine RBC (Auto) 1.0 /HPF (0.0-6.0) 11/18/21 07:40 U Epithel Cells (Auto) 1.0 /HPF (0-13.0) 11/18/21 07:40 Fluid Type Pleural 11/17/21 12:40 Fluid Color Bloody 11/17/21 12:40 Fluid Appearance Turbid 11/17/21 12:40 Fluid WBC 330 /mm3 11/17/21 12:40 Fluid RBC [id number] /mm3 11/17/21 12:40 Fluid Seg Neutrophils 81.0 % 11/17/21 12:40 Fluid Lymphocytes 17.0 % 11/17/21 12:40 Fluid Reactive Lymphs 0 % 11/17/21 12:40 Fluid Monocytes 2.0 % 11/17/21 12:40 Fluid Eosinophils 0 % 11/17/21 12:40 Fluid Basophils 0 % 11/17/21 12:40 Blood Type O POSITIVE 11/23/21 22:42 Antibody Screen Negative 11/15/21 23:09 Crossmatch See Detail 11/15/21 23:09 Microbiology: Microbiology 11/23/21 22:42 Peripheral/Venous Blood Culture - Preliminary NO GROWTH AFTER 24 HOURS 11/23/21 22:42 Peripheral/Venous Blood Culture - Preliminary NO GROWTH AFTER 24 HOURS 11/17/21 12:40 Pleural Fluid - Pleura,Lt Lung Body Fluid Culture - Final Martins/IV: Voiding Method External Female Catheter Active Medications - Current Medications Current Medications: Generic Name Dose Route Start Last Admin Trade Name Freq PRN Reason Stop Dose Admin Acetaminophen 650 mg 11/15/21 22:35 11/24/21 00:15 Acetaminophen 325 Mg Tab PO 650 mg Q4H PRN Administration Pain MILD(1-3)/Fever >100.5/PATEL Albuterol 2.5 mg 11/16/21 17:38 Albuterol 2.5 Mg/3 Ml Nebu IH Q6HRT PRN Shortness Of Breath Amlodipine Besylate 5 mg 11/25/21 10:00 Amlodipine 5 Mg Tab PO QDAY GRAHAM Dextrose 50 ml 11/15/21 22:35 11/24/21 08:55 Dextrose 50% In Water (25gm) 50 Ml Syringe IV 50 ml Q30MIN PRN Administration Hypoglycemia Protocol Enoxaparin Sodium 100 mg 11/18/21 22:00 11/24/21 21:41 Enoxaparin 100 Mg/1 Ml Inj SUB-Q 100 mg Q12HR GRAHAM Administration Protocol Magnesium Sulfate 1 gm/ Sodium 52 mls @ 52 mls/hr 11/25/21 09:11 Chloride IV 11/25/21 10:10 ONCE ONE Potassium Phosphate 15 mmol/ 255 mls @ 125 mls/hr 11/25/21 09:11 Sodium Chloride IV 11/25/21 11:13 ONCE ONE Insulin Human Lispro 0 unit 11/16/21 07:30 11/25/21 07:35 Insulin Lispro 100 Unit/Ml SUB-Q Not Given ACHS GRAHAM Protocol Losartan Potassium 100 mg 11/25/21 10:00 Losartan 50 Mg Tab PO QDAY GRAHAM Magnesium Hydroxide 30 ml 11/15/21 22:35 Magnesium Hydroxide (Mom) Oral Liqd Udc PO Q4H PRN Constipation Megestrol Acetate 400 mg 11/20/21 10:00 11/24/21 11:43 Megestrol 400 Mg/10 Ml Oral Liqd PO Not Given QDAY [facility] Metoprolol Tartrate 25 mg 11/25/21 10:00 Metoprolol Tartrate 25 Mg Tab PO BID [facility] Morphine Sulfate 2 mg 11/15/21 22:35 11/21/21 22:07 Morphine 2 Mg/1 Ml Inj IV 2 mg Q4H PRN Administration Pain, Moderate (4-6) Morphine Sulfate 4 mg 11/15/21 22:35 11/24/21 21:41 Morphine 4 Mg/1 Ml Inj IV 4 mg Q4H PRN Administration Pain , Severe (7-10) Ondansetron HCl 4 mg 11/15/21 22:35 11/18/21 09:25 Ondansetron 4 Mg/2 Ml Inj IV 4 mg Q8H PRN Administration Nausea And Vomiting Sodium Chloride 10 ml 11/16/21 10:00 11/24/21 21:41 Sodium Chloride 0.9% 10 Ml Flush Syringe IV 10 ml BID GRAHAM Administration Sodium Chloride 10 ml 11/15/21 22:35 Sodium Chloride 0.9% 10 Ml Flush Syringe IV PRN PRN LINE FLUSH Nutrition/Malnutrition Assess - Dietary Evaluation Nutrition/Malnutrition Findings: Nutrition Notes Start: 11/16/21 15:06 Freq: Status: Active Protocol: Document 11/23/21 17:15 STACEY (Rec: 11/23/21 17:41 STACEY [id number]) Nutrition Notes Initial or Follow up Assessment Other Pertinent Diagnosis Pulmonary Embolus, Anemia, Elevated Troponin, Uterine Cancer. Current Diet Cardiac/Consistent Carbohydrates Diet (B 11/16), D Suppl (B 11/24). Labs/Tests 11/23: Cl 111.2, CO2 18. Pertinent Medications 11/23: Nutritionally unremarkable. Height 5 ft 6 in Weight 95.3 kg [place] Body Weight (kg) 59.09 BMI 33.9 Weight change and time frame Discrepancy of 18.59 Kg body weight loss in 1 week reported . Weight Status Obese Subjective/Other Information RD consult for routine F/U on dietary advancement. Pt's PO intake of meals has been Poor (25%) and Pt refusing to eat, requesting food from home, according to ADL and Progress notes. I will prescribe dietary supplements to compensate for poor or insufficient PO intake of meals. Pt is on Nasal Cannula, O2 saturation @ 100%, according to Physical Assessment History notes. Pt presents an unspecified area of concern as sign of concern for skin risk at the time, according to Physical Assessment History notes. Pt still in critical condition , not a candidate for Nutrition Education at the time, will assess feasibility on F/U. Percent of energy/protein needs met: Prescribed Cardiac/Consistent Carbohydrates Diet provides for energy/protein needs (1, 977 Kcal/86 g) during LOS; additionally, Dietary Supplements will compensate for possible poor or insufficient PO intake of meals with 480 Kcal and 48 g of protein. Burn Absent Trauma Absent GI Symptoms None Food Allergy No Skin Integrity/Comment Unspecified area of concern. 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 As Evidenced by Signs and Symptoms Pt's PO intake of meals has been Poor (25%) and Pt refusing to eat, requesting food from home, according to ADL and Progress notes. Is patient on ventilator? No Is Patient Ambulatory and/or Out of Bed No REE-([facility]-confined to bed) 7819.755 Calculation Used for Recommendations [facility] Additional Notes Protein: 1-1.2 g/Kg AdjBW; 77- 92 g/day. Fluids: 1 ml/Kcal, or as per MD. Nutrition Intervention Change Diet Order: Continue Cardiac/Consistent Carbohydrates Diet. Add Supplement/Snack (indicate name/kcal Start 8 fl oz Ensure High /protein ) Protein; TID. Provides kCal: 480 Provides Protein (gm) 48 Goal #1 Compensate, through dietary supplementation, for possible poor or insufficient PO intake of meals during LOS. Goal #2 Adjust the dietary intervention to better serve Pt's needs and clinical conditions during LOS. Follow-Up By: 11/30/21 Additional Comments Nutrition education will be provided at F/U, if feasible. Continue monitoring food tolerance, %PO intake of meals and ONS, and BM.
[2021-11-25] MEDS ORDERED: amLODIPine 5 MG TAB PO SCH (10:00)
--- NOTE | 2021-11-25 10:49 | Progress Note ---
Assessment and Plan 70-year-old -[place] female with known history of metastatic ovarian cancer which was initially diagnosed in 2016 went into remission but had a recurrence again in June 2021 presenting to the emergency room today complaining of shortness of breath. Shortness of breath has been ongoing for the past few days. She has also had some mild chest discomfort. Shortness of breath is worse on minimal exertion. Patient receives her care at [facility] and has been following up with Dr. Diaz who is a bank compliance officer. She has had recurrent thoracentesis for pleural effusion. Patient denies any fever or chills no headache or dizziness and no diaphoresis. No nausea or vomiting and no abdominal pain. She denies any calf swelling. She however has had minimal lower extremity edema. Work-up in the emergency room today, labs were significant for hemoglobin of 4, hematocrit of 11.8, WBC of 1.5, platelet count of 6. Potassium of 3.3. Lactic acid of 2.4, troponin 0.07 Chest x-ray significant for complete opacification of the left hemithorax possibly due to large left pleural effusion. CT angiogram of the chest shows acute pulmonary embolus. Large left pleural effusion with associated atelectasis. Incompletely included markedly abnormal appearance of the stomach most concerning for neoplastic involvement. Vascular surgeon has also been notified. Patient has been initiated on blood transfusion for the severe anemia. Patient has history of Diabetes, HTN and Metastatic Ovarian CA. Patient has no history of smoking, alcohol or drug abuse. 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 No known drug allergies. atient awake. s/p left thoracentesis x2 On 2 liters O2 by nasal cannula. O2 saturation 97%. No acute respiratory distress at rest. ABG on 3 litres O2. ABG pH 7.401 pH Units (7.350-7.450) 11/16/21 20:50 ABG pCO2 43.5 mm Hg 11/16/21 20:50 ABG pO2 144.0 mm Hg (80.0-90.0) H 11/16/21 20:50 ABG O2 Saturation 98.8 % (95.0-99.0) 11/16/21 20:50 Patient afebrile. No leukocytosis. Blood pressure 174/82, pulse 116, respirations 18. Chest xray 11/15/21 reported Complete opacification of the left hemithorax possibly due to large left pleural effusion. CT scan of chest 11/15/21 reported Acute saddle pulmonary embolus. Large left pleural effusion with associated atelectasis. Incompletely included markedly abnormal appearance of the stomach, most concerning for neoplastic involvement. Recommended left thoracentesis by interventional radiology and sent for Cytology, Cell count, LDH, Protein, Glucose, Amylase, Gram stain, culture and sensitivity.AFB and Fungus. Patient has a repeat thoracentesis by interventional radiology today. Pleural fluid results pending. Chest xray 11/17/21 reported No evidence for pneumothorax following left thoracentesis. Chest xray 11/23/21 reported Large left effusion with underlying atelectasis Chest xray 11/24/21 reported no evidence of pneumothorax after left thoracentesis. Patient on anti coagulation S/C Lovenox in therapeutic doses. Albuterol inhaler 2 puffs po qid prn for shortness of breath.. Recommend GI prophylaxis famotidine. Patients son at bed side. He told me she has right thoracentes and right chest tube placement in the fast. He told me pleural effusions are Malignant. Patient followed at [facility] By Dr. Karlos Stanley , [facility] pulmonary. S/P second left thoracentesis, Pleural fluid significantly reduced. If patient has repeat accumulation of left pleural effusion, recommend to Follow with Dr. Weinberg for left chest tube placement and sclerosis. - Patient Problems (1) Recurrent left pleural effusion Current Visit: Yes Status: Acute Plan to address problem: Patient undergone repeat left thoracentesis by interventional radiology. Results of the pleural fluid pending. If patient keeo on acumulating left pleural effusion, recommend left chest tube placement and sclerosis. (2) Pulmonary embolus Current Visit: Yes Status: Acute Plan to address problem: Continue O2 supplementation. Patient started on S/C Lovenox in therapeutic doses. (3) Anemia requiring transfusions Current Visit: Yes Status: Acute Plan to address problem: Patient received blood transfusion. Repeat HGB to day 8.5. (4) Ovarian ca Current Visit: Yes Status: Acute Plan to address problem: Management as per oncology. Subjective Date of service: 11/25/21 Interval history: 70-year-old -[place] female with known history of metastatic ovarian cancer which was initially diagnosed in 2016 went into remission but had a recurrence again in June 2021 presenting to the emergency room today complaining of shortness of breath. Shortness of breath has been ongoing for the past few days. She has also had some mild chest discomfort. Shortness of breath is worse on minimal exertion. Patient receives her care at [facility] and has been following up with Dr. Diaz who is a bank compliance officer. She has had recurrent thoracentesis for pleural effusion. Patient denies any fever or chills no headache or dizziness and no diaphoresis. No nausea or vomiting and no abdominal pain. She denies any calf swelling. She however has had minimal lower extremity edema. Work-up in the emergency room today, labs were significant for hemoglobin of 4, hematocrit of 11.8, WBC of 1.5, platelet count of 6. Potassium of 3.3. Lactic acid of 2.4, troponin 0.07 Chest x-ray significant for complete opacification of the left hemithorax possibly due to large left pleural effusion. CT angiogram of the chest shows acute pulmonary embolus. Large left pleural effusion with associated atelectasis. Incompletely included markedly abnormal appearance of the stomach most concerning for neoplastic involvement. Vascular surgeon has also been notified. Patient has been initiated on blood transfusion for the severe anemia. Patient has history of Diabetes, HTN and Metastatic Ovarian CA. Patient has no history of smoking, alcohol or drug abuse. 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 No known drug allergies. Patient awake. s/p left thoracentesis x2 On 2 liters O2 by nasal cannula. O2 saturation 97%. No acute respiratory distress at rest. ABG on 3 litres O2. ABG pH 7.401 pH Units (7.350-7.450) 11/16/21 20:50 ABG pCO2 43.5 mm Hg 11/16/21 20:50 ABG pO2 144.0 mm Hg (80.0-90.0) H 11/16/21 20:50 ABG O2 Saturation 98.8 % (95.0-99.0) 11/16/21 20:50 Patient afebrile. No leukocytosis. Blood pressure 174/82, pulse 116, respirations 18. Chest xray 11/15/21 reported Complete opacification of the left hemithorax possibly due to large left pleural effusion. CT scan of chest 11/15/21 reported Acute saddle pulmonary embolus. Large left pleural effusion with associated atelectasis. Incompletely included markedly abnormal appearance of the stomach, most concerning for neoplastic involvement. Recommended left thoracentesis by interventional radiology and sent for Cytology, Cell count, LDH, Protein, Glucose, Amylase, Gram stain, culture and sensitivity.AFB and Fungus. Patient has a repeat thoracentesis by interventional radiology today. Pleural fluid results pending. Chest xray 11/17/21 reported No evidence for pneumothorax following left thoracentesis. Chest xray 11/23/21 reported Large left effusion with underlying atelectasis Chest xray 11/24/21 reported no evidence of pneumothorax after left thoracentesis. Patient on anti coagulation S/C Lovenox in therapeutic doses. Albuterol inhaler 2 puffs po qid prn for shortness of breath.. Recommend GI prophylaxis famotidine. Patients son at bed side. He told me she has right thoracentes and right chest tube placement in the fast. He told me pleural effusions are Malignant. Patient followed at [facility] By Dr. Karlos Stanley , [facility] pulmonary. S/P second left thoracentesis, Pleural fluid significantly reduced. If patient has repeat accumulation of left pleural effusion, recommend to Follow with Dr. Weinberg for left chest tube placement and sclerosis. Objective Vital Signs - 12hr 11/24/21 11/24/21 11/25/21 22:52 23:22 03:49 Temperature 98.4 F 99.2 F Pulse Rate 118 H 111 H Respiratory 19 19 Rate Blood Pressure 153/77 183/91 Blood Pressure [Right] O2 Sat by Pulse 100 98 100 Oximetry 11/25/21 08:40 Temperature 97.9 F Pulse Rate 116 H Respiratory 18 Rate Blood Pressure Blood Pressure 174/82 [Right] O2 Sat by Pulse 97 Oximetry Constitutional: no acute distress, alert Eyes: non-icteric ENT: oropharynx moist Neck: supple, no JVD Effort: mildly labored Ascultation: Left: diminished breath sounds (Improved breath sounds on left side.) Cardiovascular: regular rate and rhythm Gastrointestinal: normoactive bowel sounds, soft, non-tender Integumentary: normal Extremities: no cyanosis, no edema Neurologic: normal mental status, non-focal exam, pupils equal and round Psychiatric: depressed CBC and BMP: 11/25/21 07:36 11/25/21 07:36 ABG, PT/INR, D-dimer: ABG ABG pH 7.401 pH Units (7.350-7.450) 11/16/21 20:50 ABG pCO2 43.5 mm Hg 11/16/21 20:50 ABG pO2 144.0 mm Hg (80.0-90.0) H 11/16/21 20:50 ABG O2 Saturation 98.8 % (95.0-99.0) 11/16/21 20:50 PT/INR, D-dimer PT 14.7 Sec. (12.2-14.9) 11/17/21 10:56 INR 1.03 (0.87-1.13) 11/17/21 10:56 Abnormal lab findings: Abnormal Labs 11/15/21 11/15/21 11/15/21 17:57 17:57 17:57 WBC RBC Hgb Hct MCHC RDW Plt Count Seg Neuts % (Manual) Lymphocytes % (Manual) Monocytes % (Manual) Nucleated RBC % Seg Neutrophils # Man Lymphocytes # (Manual) Percent Retic ABG pO2 ABG HCO3 ABG Hemoglobin Sodium Potassium 3.3 L Chloride 96.6 L Carbon Dioxide BUN Creatinine Glucose 182 H POC Glucose Lactic Acid 2.20 H* Calcium Phosphorus Magnesium AST ALT Ammonia Lactate Dehydrogenase Troponin T 0.070 H Total Protein 6.0 L Albumin 2.4 L LDL Cholesterol Direct 48 L Crossmatch 11/15/21 11/15/21 11/15/21 18:39 21:26 21:30 WBC 1.5 L* RBC 1.23 L Hgb 4.0 L* Hct 11.8 L* MCHC RDW 22.0 H Plt Count 6 L* Seg Neuts % (Manual) Lymphocytes % (Manual) Monocytes % (Manual) 12.0 H Nucleated RBC % Seg Neutrophils # Man 0.9 L Lymphocytes # (Manual) 0.4 L Percent Retic ABG pO2 ABG HCO3 ABG Hemoglobin Sodium Potassium Chloride Carbon Dioxide BUN Creatinine Glucose POC Glucose Lactic Acid 2.40 H* 3.60 H* Calcium Phosphorus Magnesium AST ALT Ammonia Lactate Dehydrogenase Troponin T Total Protein Albumin LDL Cholesterol Direct Crossmatch 11/15/21 11/15/21 11/16/21 23:09 23:13 09:29 WBC RBC Hgb Hct MCHC RDW Plt Count Seg Neuts % (Manual) Lymphocytes % (Manual) Monocytes % (Manual) Nucleated RBC % Seg Neutrophils # Man Lymphocytes # (Manual) Percent Retic ABG pO2 ABG HCO3 ABG Hemoglobin Sodium 135 L Potassium 3.4 L Chloride 96.6 L Carbon Dioxide BUN Creatinine 1.3 H D Glucose 167 H POC Glucose Lactic Acid 2.90 H* Calcium Phosphorus Magnesium AST ALT Ammonia Lactate Dehydrogenase Troponin T Total Protein Albumin LDL Cholesterol Direct Crossmatch See Detail 11/16/21 11/16/21 11/16/21 09:29 11:03 11:31 WBC 2.0 L RBC 3.39 L Hgb Hct 29.3 L D MCHC 35 H RDW 18.3 H Plt Count 6 L* Seg Neuts % (Manual) Lymphocytes % (Manual) Monocytes % (Manual) Nucleated RBC % Seg Neutrophils # Man Lymphocytes # (Manual) Percent Retic ABG pO2 ABG HCO3 ABG Hemoglobin Sodium Potassium Chloride Carbon Dioxide BUN Creatinine Glucose POC Glucose 156 H Lactic Acid 2.10 H* Calcium Phosphorus Magnesium AST ALT Ammonia Lactate Dehydrogenase Troponin T Total Protein Albumin LDL Cholesterol Direct Crossmatch 11/16/21 11/16/21 11/16/21 16:51 20:24 20:50 WBC RBC Hgb Hct MCHC RDW Plt Count Seg Neuts % (Manual) Lymphocytes % (Manual) Monocytes % (Manual) Nucleated RBC % Seg Neutrophils # Man Lymphocytes # (Manual) Percent Retic ABG pO2 144.0 H ABG HCO3 26.4 H ABG Hemoglobin 9.2 L Sodium Potassium Chloride Carbon Dioxide BUN Creatinine Glucose POC Glucose 149 H 138 H Lactic Acid Calcium Phosphorus Magnesium AST ALT Ammonia Lactate Dehydrogenase Troponin T Total Protein Albumin LDL Cholesterol Direct Crossmatch 11/17/21 11/17/21 11/17/21 05:26 05:26 07:40 WBC 2.5 L RBC 2.78 L Hgb 8.1 L Hct 23.9 L MCHC RDW 17.9 H Plt Count 93 L D Seg Neuts % (Manual) Lymphocytes % (Manual) Monocytes % (Manual) 8.0 H Nucleated RBC % 1.0 H Seg Neutrophils # Man 1.4 L Lymphocytes # (Manual) 0.8 L Percent Retic ABG pO2 ABG HCO3 ABG Hemoglobin Sodium 136 L Potassium 3.3 L Chloride 96.5 L Carbon Dioxide BUN 20 H Creatinine 1.5 H Glucose 113 H POC Glucose 109 H Lactic Acid Calcium Phosphorus Magnesium AST ALT Ammonia Lactate Dehydrogenase Troponin T Total Protein Albumin LDL Cholesterol Direct Crossmatch 11/17/21 11/17/21 11/17/21 10:56 13:41 15:56 WBC RBC Hgb 7.5 L Hct 21.7 L MCHC RDW Plt Count 82 L Seg Neuts % (Manual) Lymphocytes % (Manual) Monocytes % (Manual) Nucleated RBC % Seg Neutrophils # Man Lymphocytes # (Manual) Percent Retic ABG pO2 ABG HCO3 ABG Hemoglobin Sodium Potassium Chloride Carbon Dioxide BUN Creatinine Glucose POC Glucose 109 H 109 H Lactic Acid Calcium Phosphorus Magnesium AST ALT Ammonia Lactate Dehydrogenase Troponin T Total Protein Albumin LDL Cholesterol Direct Crossmatch 11/18/21 11/18/21 11/18/21 05:09 05:09 12:07 WBC 2.2 L RBC 3.03 L Hgb 8.8 L Hct 26.3 L MCHC RDW 17.0 H Plt Count 46 L Seg Neuts % (Manual) Lymphocytes % (Manual) Monocytes % (Manual) Nucleated RBC % Seg Neutrophils # Man Lymphocytes # (Manual) Percent Retic 0.52 L ABG pO2 ABG HCO3 ABG Hemoglobin Sodium Potassium 2.7 L* Chloride Carbon Dioxide BUN Creatinine Glucose POC Glucose 61 L Lactic Acid Calcium Phosphorus Magnesium AST ALT Ammonia Lactate Dehydrogenase 659 H Troponin T Total Protein Albumin LDL Cholesterol Direct Crossmatch 11/18/21 11/18/21 11/19/21 16:39 20:39 05:48 WBC 3.1 L RBC 3.08 L Hgb 9.1 L Hct 26.9 L MCHC RDW 17.4 H Plt Count 33 L Seg Neuts % (Manual) 81.0 H Lymphocytes % (Manual) 8.0 L Monocytes % (Manual) 10.0 H Nucleated RBC % Seg Neutrophils # Man Lymphocytes # (Manual) 0.2 L Percent Retic ABG pO2 ABG HCO3 ABG Hemoglobin Sodium Potassium 3.3 L D Chloride Carbon Dioxide BUN Creatinine Glucose POC Glucose 68 L Lactic Acid Calcium Phosphorus Magnesium AST ALT Ammonia Lactate Dehydrogenase Troponin T Total Protein Albumin LDL Cholesterol Direct Crossmatch 11/19/21 11/20/21 11/20/21 05:48 04:21 04:21 WBC 3.4 L RBC 3.11 L Hgb 9.3 L Hct 27.1 L MCHC RDW 17.4 H Plt Count 28 L Seg Neuts % (Manual) Lymphocytes % (Manual) 10.0 L Monocytes % (Manual) 18.0 H Nucleated RBC % Seg Neutrophils # Man Lymphocytes # (Manual) 0.3 L Percent Retic ABG pO2 ABG HCO3 ABG Hemoglobin Sodium Potassium 3.1 L Chloride Carbon Dioxide 21 L BUN Creatinine Glucose POC Glucose Lactic Acid Calcium 8.3 L 8.3 L Phosphorus Magnesium AST ALT Ammonia Lactate Dehydrogenase Troponin T Total Protein Albumin LDL Cholesterol Direct Crossmatch 11/21/21 11/21/21 11/21/21 06:23 06:23 07:37 WBC 3.7 L RBC 3.19 L Hgb 9.2 L Hct 27.9 L MCHC RDW 17.8 H Plt Count 17 L* Seg Neuts % (Manual) Lymphocytes % (Manual) Monocytes % (Manual) Nucleated RBC % Seg Neutrophils # Man Lymphocytes # (Manual) Percent Retic ABG pO2 ABG HCO3 ABG Hemoglobin Sodium Potassium 2.8 L* D Chloride Carbon Dioxide 21 L BUN Creatinine Glucose 60 L POC Glucose 59 L Lactic Acid Calcium 8.3 L Phosphorus Magnesium AST ALT Ammonia Lactate Dehydrogenase Troponin T Total Protein Albumin LDL Cholesterol Direct Crossmatch 11/22/21 11/22/21 11/22/21 00:10 05:14 05:14 WBC RBC 3.16 L Hgb 9.4 L Hct 27.2 L MCHC 35 H RDW 18.5 H Plt Count 40 L D Seg Neuts % (Manual) 81.0 H Lymphocytes % (Manual) 8.0 L Monocytes % (Manual) 10.0 H Nucleated RBC % 1.0 H Seg Neutrophils # Man Lymphocytes # (Manual) 0.4 L Percent Retic ABG pO2 ABG HCO3 ABG Hemoglobin Sodium Potassium 3.3 L Chloride 109.9 H 108.3 H Carbon Dioxide 21 L BUN Creatinine Glucose POC Glucose Lactic Acid Calcium 8.3 L Phosphorus Magnesium AST ALT Ammonia Lactate Dehydrogenase Troponin T Total Protein Albumin LDL Cholesterol Direct Crossmatch 11/22/21 11/23/21 11/23/21 20:46 05:39 13:17 WBC RBC 3.01 L Hgb 8.9 L Hct 26.2 L MCHC RDW 18.3 H Plt Count 23 L Seg Neuts % (Manual) Lymphocytes % (Manual) Monocytes % (Manual) Nucleated RBC % Seg Neutrophils # Man Lymphocytes # (Manual) Percent Retic ABG pO2 ABG HCO3 ABG Hemoglobin Sodium Potassium Chloride 111.2 H Carbon Dioxide 18 L BUN Creatinine Glucose POC Glucose 63 L Lactic Acid Calcium Phosphorus Magnesium AST ALT Ammonia Lactate Dehydrogenase Troponin T Total Protein Albumin LDL Cholesterol Direct Crossmatch 11/24/21 11/24/21 11/24/21 06:42 06:42 06:42 WBC RBC 2.88 L Hgb 8.3 L Hct 25.1 L MCHC RDW 18.3 H Plt Count 114 L D Seg Neuts % (Manual) Lymphocytes % (Manual) Monocytes % (Manual) 10.0 H Nucleated RBC % Seg Neutrophils # Man Lymphocytes # (Manual) Percent Retic ABG pO2 ABG HCO3 ABG Hemoglobin Sodium Potassium Chloride 108.8 H Carbon Dioxide BUN Creatinine Glucose POC Glucose Lactic Acid Calcium Phosphorus 1.50 L Magnesium 1.10 L AST 146 H ALT 152 H Ammonia 12.0 L Lactate Dehydrogenase Troponin T Total Protein 5.6 L Albumin 2.3 L LDL Cholesterol Direct Crossmatch 11/24/21 11/24/21 11/25/21 08:11 15:42 07:36 WBC 3.7 L RBC 2.90 L Hgb 8.5 L Hct 25.2 L MCHC RDW 18.8 H Plt Count 73 L Seg Neuts % (Manual) Lymphocytes % (Manual) Monocytes % (Manual) Nucleated RBC % Seg Neutrophils # Man Lymphocytes # (Manual) Percent Retic ABG pO2 ABG HCO3 ABG Hemoglobin Sodium Potassium Chloride Carbon Dioxide BUN Creatinine Glucose POC Glucose 69 L 114 H Lactic Acid Calcium Phosphorus Magnesium AST ALT Ammonia Lactate Dehydrogenase Troponin T Total Protein Albumin LDL Cholesterol Direct Crossmatch 11/25/21 07:36 WBC RBC Hgb Hct MCHC RDW Plt Count Seg Neuts % (Manual) Lymphocytes % (Manual) Monocytes % (Manual) Nucleated RBC % Seg Neutrophils # Man Lymphocytes # (Manual) Percent Retic ABG pO2 ABG HCO3 ABG Hemoglobin Sodium Potassium 3.4 L Chloride 107.9 H Carbon Dioxide BUN Creatinine Glucose POC Glucose Lactic Acid Calcium Phosphorus 1.60 L Magnesium 1.20 L AST ALT Ammonia Lactate Dehydrogenase Troponin T Total Protein Albumin LDL Cholesterol Direct Crossmatch
[2021-11-25 11:14] LABS: Eosinophils % (Auto) 0.1 % (0.0-4.3); Monocytes # (Auto) 0.4 K/mm3 (0.0-0.8); Monocytes % (Auto) 11.3 % (0.0-7.3)
[2021-11-25] MEDS: METOPROLOL TARTRATE 25 MG TAB PO SCH ×2 (11:27→21:57)
[2021-11-25] MEDS: LOSARTAN 50 MG TAB PO SCH (11:27)
[2021-11-25] MEDS: MEGESTROL 400 MG/10 ML ORAL LIQD PO SCH ×2 (11:27→11:35)
[2021-11-25] MEDS: ENOXAPARIN 100 MG/1 ML INJ SUB-Q SCH ×2 (11:28→21:56)
[2021-11-25 12:08] LABS: Basophils % (Manual) 0 % (0.0-1.8); Eosinophils % (Manual) 0 % (0.0-4.3); Total Cells Counted 100
[2021-11-25 12:09] LABS: Platelet Estimate Consistent w Auto; Target Cells Few
[2021-11-25] MEDS: MORPHINE 4 MG/1 ML INJ IV PRN (17:20)
[2021-11-26 06:14] LABS: Blood Urea Nitrogen 13 mg/dL (7-17); Calcium 8.4 mg/dL (8.4-10.2); Hemolysis Index 5
[2021-11-26 06:32] LABS: BUN/Creatinine Ratio 19
[2021-11-26] MEDS: INSULIN LISPRO 100 UNIT/ML SUB-Q SCH ×4 (08:20→22:24)
[2021-11-26] MEDS: LOSARTAN 50 MG TAB PO SCH (10:18)
[2021-11-26] MEDS: METOPROLOL TARTRATE 25 MG TAB PO SCH ×2 (10:18→22:28)
[2021-11-26] MEDS: ENOXAPARIN 100 MG/1 ML INJ SUB-Q SCH ×2 (10:18→22:24)
[2021-11-26] MEDS: MEGESTROL 400 MG/10 ML ORAL LIQD PO SCH (10:19)
--- NOTE | 2021-11-26 10:35 | Progress Note ---
Assessment and Plan Assessment and plan: #Acute on chronic hypoxic respiratory failureresolved - etiology: Multifactorialpulmonary embolism and large left pleural effusion status post thoracentesis (11/17/2021) - baseline oxygen requirements: 2-3 L nasal cannula - supplemental oxygen: 3 L nasal cannula - Continue protocol: continue pulse oximetry, wean oxygen as tolerated, ordered incentive spirometry and educated patient on how to use it and its importance. - continue to monitor #Pulmonary embolus -Patient started on anticoagulation with heparin but now discontinued for severe thrombocytopenia and severe anemia. -Consult placed to vascular surgeon and hematology for evaluation. -Hematology recommended to initiate Lovenox as long as platelets greater than 30 and if no other sign of bleeding -Continue to monitor CBC daily #Uterine ca stage IV -Metastatic. Initially documented during this admission as ovarian cancer. Reviewed [facility] records and it revealed that patient has metastatic uterine cancer -Initially diagnosed in 2017. -Patient follows up with her oncologist at [facility]. #Severe anemia requiring transfusions #Pancytopenia-improving - s/p 4 units PRBC and 3 unit platelets transfusion -Hematology/oncology consulted; appreciate recs -Transfuse 1 unit pRBC whenever hct <23 -Transfuse 1 dose of plts whenever plt <15 -Neupogen for neutropenia daily until WBC >5 -Neutropenic precaution #Left pleural effusionresolved -CT angiogram shows large left pleural effusion. -Consult placed to pulmonology for evaluation and recommendations. -s/p thoracentesis (11/17/2021) drained about 1.2 L of fluid. Had a 2nd thoracentesis on 11/24/2021. #Elevated troponin -Likely secondary to demand ischemia -Consulted to cardiology for recommendations. #Mild AKIresolved - likely prerenal with vasomotor nephropathy -We will continue to follow, monitor BMP -IV fluid as needed #Hypoglycemiaresolved -cont dextrose saline #Hypokalemiaresolved - replete and reassess with repeat BMP #Hypomagnesemiaimproving Magnesium 1.2--> 1.4 Repleting. Continue to monitor. #Hypophosphatemiaimproving Phosphorus 1.6--> 2.3 Repleting. Continue to monitor. #Lactic acidosisresolved -s/p IV fluid. -We will also place on empiric IV antibiotics. #Obesity #Weight loss counseling #Exercise counseling - BMI 33.9 - Counseled patient on the importance of weight loss, incorporating exercise, and dietary changes (lean meats, fresh fruits and vegetables, and water intake). Patient expresses understanding. - Time: +15 min #Advanced care planning -Disease education conducted, care plan discussed, diagnoses discussed, prognosis discussed, and patient acknowledges understanding with care plan -Time: +30 min -- Full code status 11/16/21: Status post 2 unit of packed RBC transfusion today. H&H improved. Platelet remains at 6. Ordered for 2 units of platelets. Platelet count need to be improved for thoracentesis. Once platelet count improves greater than 30 patient need to be started on Lovenox for surgical PE. Discussed with patient and patient's sister at the bedside in details. Also discussed with Dr. Carolina and Dr. Ogden to coordinate care. 11/17/21: H&H and platelets improved. So far transfused 3 units of packed RBC and 1 units of platelets. Status post paracentesis today. Initiated on Lovenox 1 mg/kg every 24 hours as creatinine increased to 1.5. Will change to Lovenox to twice daily when creatinine improves. Continue to follow CBC and watch for bleeding. Monitor renal function. 11/18/21: Hemoglobin dropped below 7 overnight and received another unit of blood transfusion. Platelet drop to 40s today. Patient also with hypoglycemia and hypokalemia. Will place on D5 normal saline with potassium supplements. Enc ouraged oral nutrition, monitor CBC BMP and electrolytes. Discussed in length with the patient patient's son at the bedside and also with patient's sister on the speaker phone. All question answered and patient and patient family verbalized understanding. 11/19/21: H&H remained stable, platelet drops to lower 30s today. Per hematology recommendation continue to provide therapeutic dose of Lovenox to twice daily as renal function stable. Discussed plan of care in details with patient and with her daughter at the bedside. Family and patient both understands that patient has a terminal illness with stage IV uterine cancer with extremely poor prognosis. They wish to continue their cancer treatment at [facility] and to remain as full code. They can consider hospice if that gets recommended at [facility] by their oncologist. Continue to follow clinically, monitor platelets. If H&H and platelets stable and no need for further transfusion, plan to DC home with home health for patient to follow-up and continue treatment at [facility]. Ordered a.m. labs. 11/20/21: Patient wants to go home with home health and continue follow-up with [facility]. Platelets dropped to 28 this morning. Hematology recommended to continue therapeutic dose of Lovenox twice daily. Patient with extremely poor appetite requiring continuous replacement of potassium and dextrose saline to prevent hypokalemia and hypoglycemia. Initiated on Megace. Currently DC home with home health if electrolytes stable and no further drop in platelets. 11/21/21: Detailed discussion with her son (Agapito Gallagher) about her overall pr ognosis and the goal of trying to get her discharged when she is stable. Increasing xanax to 1mg q8hrs for anxiety and starting seroquel 12.5mg qHS for insomnia. Transfused 1 jumbo platelets (was 15 this morning). 11/22/2021: Bolusing normal saline given patient's tachycardia. 11/23/2021: Pending repeat EKG and chest x-ray to evaluate for possible reaccumulation of left pleural effusion leading to continuous sinus tachycardia. Encouraging patient to increase p.o. intake; she endorses wanting to eat foods from home. Will discuss with patient's son (Agapito Gallagher) about dietary changes to increase nutrition. Continue to monitor. 11/24/2021: Patient underwent US-guided thoracentesis with removal of moderate pleural effusion. This resolved her tachycardia. She had a CT head noncontrast that was unremarkable. Physical Therapy was consulted for debility. 11/25/2021: Repleting electrolyte derangement (potassium, magnesium, phosphorus). Starting oral antihypertensives given the patient's significantly elevated blood pressure (losartan 100 mg daily, amlodipine 5 mg daily, and metoprolol tartrate 25 mg twice daily). Pending physical therapy recommendations. Continue to monitor. 11/26/2021. Repleting electrolyte derangement (magnesium and phosphorus). Patient and her son agreed to discontinue PT; however, they agreed to home health with physical therapy. Planning for possible discharge home via EMS and 24-72 hours. Disposition Plan: Pending possible discharge in 48 hours Total Time Spent with Patient (Minutes): 45 minutes History Interval history: No acute events overnight. Hospitalist Physical - Constitutional Vitals: Temp Pulse Resp BP Pulse Ox 98.3 F 65 19 114/59 100 11/26/21 04:11 11/26/21 07:50 11/26/21 04:11 11/26/21 07:50 11/26/21 10:01 General appearance: Present: no acute distress, obese - EENT Eyes: Present: PERRL, EOM intact ENT: hearing intact, clear oral mucosa, dentition normal - Neck Neck: Present: supple, normal ROM - Respiratory Respiratory effort: normal Respiratory: bilateral: diminished (2 L nasal cannula) - Cardiovascular Rhythm: regular Heart Sounds: Present: S1 & S2 - Extremities Extremities: no ischemia, pulses intact, pulses symmetrical, normal temperature, normal color Peripheral Pulses: within normal limits - Abdominal General gastrointestinal: soft, non-tender, non-distended, normal bowel sounds - Integumentary Integumentary: Present: clear, warm, dry - Psychiatric Psychiatric: appropriate mood/affect, intact judgment & insight, memory intact, cooperative - Neurologic Neurologic: CNII-XII intact - Allied Health Allied health notes reviewed: nursing HEART Score - HEART Score Troponin: Troponin T 0.070 ng/mL (0.00-0.029) H 11/15/21 17:57 Results - Labs CBC & Chem 7: 11/25/21 07:36 11/26/21 05:48 Labs: Laboratory Last Values WBC 3.7 K/mm3 (4.5-11.0) L 11/25/21 07:36 RBC 2.90 M/mm3 (3.65-5.03) L 11/25/21 07:36 Hgb 8.5 gm/dl (10.1-14.3) L 11/25/21 07:36 Hct 25.2 % (30.3-42.9) L 11/25/21 07:36 MCV 87 fl (79-97) 11/25/21 07:36 MCH 29 pg (28-32) 11/25/21 07:36 MCHC 34 % (30-34) 11/25/21 07:36 RDW 18.8 % (13.2-15.2) H 11/25/21 07:36 Plt Count 73 K/mm3 (140-440) L 11/25/21 07:36 [place] % (Auto) 11.3 % (0.0-7.3) H 11/25/21 07:36 Eos % (Auto) 0.1 % (0.0-4.3) 11/25/21 07:36 [place] # (Auto) 0.4 K/mm3 (0.0-0.8) 11/25/21 07:36 Eos # (Auto) 0.0 K/mm3 (0.0-0.4) 11/25/21 07:36 Baso # (Auto) 0.0 K/mm3 (0.0-0.1) 11/25/21 07:36 Add Manual Diff Complete 11/25/21 07:36 Total Counted 100 11/25/21 07:36 Seg Neutrophils % 52.7 % (40.0-70.0) 11/25/21 07:36 Seg Neuts % (Manual) 86.0 % (40.0-70.0) H 11/25/21 07:36 Band Neutrophils % 0 % 11/25/21 07:36 Lymphocytes % (Manual) 8.0 % (13.4-35.0) L 11/25/21 07:36 Reactive Lymphs % (Man) 0 % 11/25/21 07:36 Monocytes % (Manual) 6.0 % (0.0-7.3) 11/25/21 07:36 Eosinophils % (Manual) 0 % (0.0-4.3) 11/25/21 07:36 Basophils % (Manual) 0 % (0.0-1.8) 11/25/21 07:36 Metamyelocytes % 0 % 11/25/21 07:36 Myelocytes % 0 % 11/25/21 07:36 Promyelocytes % 0 % 11/25/21 07:36 Blast Cells % 0 % 11/25/21 07:36 Nucleated RBC % 4.0 % (0.0-0.9) H 11/25/21 07:36 Seg Neutrophils # 2.0 K/mm3 (1.8-7.7) 11/25/21 07:36 Seg Neutrophils # Man 3.2 K/mm3 (1.8-7.7) 11/25/21 07:36 Band Neutrophils # 0.0 K/mm3 11/25/21 07:36 Lymphocytes # (Manual) 0.3 K/mm3 (1.2-5.4) L 11/25/21 07:36 Abs React Lymphs (Man) 0.0 K/mm3 11/25/21 07:36 Monocytes # (Manual) 0.2 K/mm3 (0.0-0.8) 11/25/21 07:36 Eosinophils # (Manual) 0.0 K/mm3 (0.0-0.4) 11/25/21 07:36 Basophils # (Manual) 0.0 K/mm3 (0.0-0.1) 11/25/21 07:36 Metamyelocytes # 0.0 K/mm3 11/25/21 07:36 Myelocytes # 0.0 K/mm3 11/25/21 07:36 Promyelocytes # 0.0 K/mm3 11/25/21 07:36 Blast Cells # 0.0 K/mm3 11/25/21 07:36 WBC Morphology Not Reportable 11/25/21 07:36 Hypersegmented Neuts Not Reportable 11/25/21 07:36 Hyposegmented Neuts Not Reportable 11/25/21 07:36 Hypogranular Neuts Not Reportable 11/25/21 07:36 Smudge Cells Not Reportable 11/25/21 07:36 Toxic Granulation Not Reportable 11/25/21 07:36 Toxic Vacuolation Not Reportable 11/25/21 07:36 Dohle Bodies Not Reportable 11/25/21 07:36 Pelger-Huet Anomaly Not Reportable 11/25/21 07:36 Ernetta Rods Not Reportable 11/25/21 07:36 Platelet Estimate Consistent w auto 11/25/21 07:36 Clumped Platelets Not Reportable 11/25/21 07:36 Plt Clumps, EDTA Not Reportable 11/25/21 07:36 Large Platelets Not Reportable 11/25/21 07:36 Giant Platelets Not Reportable 11/25/21 07:36 Platelet Satelliting Not Reportable 11/25/21 07:36 Plt Morphology Comment Not Reportable 11/25/21 07:36 RBC Morphology Not Reportable 11/25/21 07:36 Dimorphic RBCs Not Reportable 11/25/21 07:36 Polychromasia Few 11/25/21 07:36 Hypochromasia Not Reportable 11/25/21 07:36 Poikilocytosis Not Reportable 11/25/21 07:36 Anisocytosis Not Reportable 11/25/21 07:36 Microcytosis Not Reportable 11/25/21 07:36 Macrocytosis Not Reportable 11/25/21 07:36 Spherocytes Not Reportable 11/25/21 07:36 Pappenheimer Bodies Not Reportable 11/25/21 07:36 Sickle Cells Not Reportable 11/25/21 07:36 Target Cells Few 11/25/21 07:36 Tear Drop Cells Not Reportable 11/25/21 07:36 Ovalocytes Not Reportable 11/25/21 07:36 Stomatocytes Few 11/24/21 06:42 Helmet Cells Not Reportable 11/25/21 07:36 [place] Bodies Not Reportable 11/25/21 07:36 [place] Rings Not Reportable 11/25/21 07:36 Xiang Cells Not Reportable 11/25/21 07:36 Bite Cells Not Reportable 11/25/21 07:36 Crenated Cell Not Reportable 11/25/21 07:36 Elliptocytes Not Reportable 11/25/21 07:36 Acanthocytes (Spur) Not Reportable 11/25/21 07:36 Rouleaux Not Reportable 11/25/21 07:36 Hemoglobin C Crystals Not Reportable 11/25/21 07:36 Schistocytes Not Reportable 11/25/21 07:36 Malaria parasites Not Reportable 11/25/21 07:36 Percent Retic 0.52 % (0.78-2.58) L 11/18/21 05:09 Víctor Bodies Not Reportable 11/25/21 07:36 Hem Pathologist Commnt No 11/25/21 07:36 PT 14.7 Sec. (12.2-14.9) 11/17/21 10:56 INR 1.03 (0.87-1.13) 11/17/21 10:56 APTT 30.7 Sec. (24.2-36.6) 11/17/21 10:56 ABG pH 7.401 pH Units (7.350-7.450) 11/16/21 20:50 ABG pCO2 43.5 mm Hg 11/16/21 20:50 ABG pO2 144.0 mm Hg (80.0-90.0) H 11/16/21 20:50 ABG HCO3 26.4 mmol/L (20.0-26.0) H 11/16/21 20:50 ABG O2 Saturation 98.8 % (95.0-99.0) 11/16/21 20:50 ABG O2 Content 12.8 (0.0-44) 11/16/21 20:50 ABG Base Excess 1.4 mmol/L (-2.0-3.0) 11/16/21 20:50 ABG Hemoglobin 9.2 gm/dl (12.0-16.0) L 11/16/21 20:50 ABG Carboxyhemoglobin 1.4 % (0.0-5.0) 11/16/21 20:50 ABG Methemoglobin 0.6 % (0.0-1.5) 11/16/21 20:50 Oxyhemoglobin 96.9 % (95.0-99.0) 11/16/21 20:50 FiO2 32 % 11/16/21 20:50 Sodium 140 mmol/L (137-145) 11/26/21 05:48 Potassium 3.7 mmol/L (3.6-5.0) 11/26/21 05:48 Chloride 109.2 mmol/L (98-107) H 11/26/21 05:48 Carbon Dioxide 25 mmol/L (22-30) 11/26/21 05:48 Anion Gap 10 mmol/L 11/26/21 05:48 BUN 13 mg/dL (7-17) 11/26/21 05:48 Creatinine 0.7 mg/dL (0.6-1.2) 11/26/21 05:48 Estimated GFR > 60 ml/min 11/26/21 05:48 BUN/Creatinine Ratio 19 % 11/26/21 05:48 Glucose 81 mg/dL (65-100) 11/26/21 05:48 POC Glucose 75 mg/dL (70-105) 11/26/21 07:42 Lactic Acid 1.70 mmol/L (0.7-2.0) 11/16/21 11:03 Calcium 8.4 mg/dL (8.4-10.2) 11/26/21 05:48 Phosphorus 2.30 mg/dL (2.5-4.5) L D 11/26/21 05:48 Magnesium 1.40 mg/dL (1.7-2.3) L 11/26/21 05:48 Total Bilirubin 0.80 mg/dL (0.1-1.2) 11/24/21 06:42 AST 146 units/L (5-40) H 11/24/21 06:42 ALT 152 units/L (7-56) H 11/24/21 06:42 Alkaline Phosphatase 90 units/L (35-129) 11/24/21 06:42 Ammonia 12.0 umol/L (25-60) L 11/24/21 06:42 Lactate Dehydrogenase 659 units/L (91-180) H 11/18/21 05:09 Troponin T 0.070 ng/mL (0.00-0.029) H 11/15/21 17:57 NT-Pro-B Natriuret Pep 504.5 pg/mL (0-900) 11/15/21 17:57 Total Protein 5.6 g/dL (6.3-8.2) L 11/24/21 06:42 Albumin 2.3 g/dL (3.9-5) L 11/24/21 06:42 Albumin/Globulin Ratio 0.7 % 11/24/21 06:42 Triglycerides 127 mg/dL (2-149) 11/15/21 17:57 Cholesterol 129 mg/dL (50-199) 11/15/21 17:57 LDL Cholesterol Direct 48 mg/dL (50-130) L 11/15/21 17:57 HDL Cholesterol 52 mg/dL (40-59) 11/15/21 17:57 Cholesterol/HDL Ratio 2.48 % 11/15/21 17:57 Procalcitonin 3.89 ng/mL (<0.15) 11/23/21 22:42 Urine Color Yellow (Yellow) 11/18/21 07:40 Urine Turbidity Clear (Clear) 11/18/21 07:40 Urine pH 6.0 (5.0-7.0) 11/18/21 07:40 Ur Specific [place] 1.019 (1.003-1.030) 11/18/21 07:40 Urine Protein 30 mg/dl mg/dL (Negative) 11/18/21 07:40 Urine Glucose (UA) 50 mg/dL (Negative) 11/18/21 07:40 Urine Ketones Neg mg/dL (Negative) 11/18/21 07:40 Urine Blood Sm (Negative) 11/18/21 07:40 Urine Nitrite Neg (Negative) 11/18/21 07:40 Urine Bilirubin Neg (Negative) 11/18/21 07:40 Urine Urobilinogen < 2.0 mg/dL (<2.0) 11/18/21 07:40 Ur Leukocyte Esterase Sm (Negative) 11/18/21 07:40 Urine WBC (Auto) 5.0 /HPF (0.0-6.0) 11/18/21 07:40 Urine RBC (Auto) 1.0 /HPF (0.0-6.0) 11/18/21 07:40 U Epithel Cells (Auto) 1.0 /HPF (0-13.0) 11/18/21 07:40 Fluid Type Pleural 11/17/21 12:40 Fluid Color Bloody 11/17/21 12:40 Fluid Appearance Turbid 11/17/21 12:40 Fluid WBC 330 /mm3 11/17/21 12:40 Fluid RBC 3817081 /mm3 11/17/21 12:40 Fluid Seg Neutrophils 81.0 % 11/17/21 12:40 Fluid Lymphocytes 17.0 % 11/17/21 12:40 Fluid Reactive Lymphs 0 % 11/17/21 12:40 Fluid Monocytes 2.0 % 11/17/21 12:40 Fluid Eosinophils 0 % 11/17/21 12:40 Fluid Basophils 0 % 11/17/21 12:40 Blood Type O POSITIVE 11/23/21 22:42 Antibody Screen Negative 11/15/21 23:09 Crossmatch See Detail 11/15/21 23:09 Microbiology: Microbiology 11/23/21 22:42 Peripheral/Venous Blood Culture - Preliminary NO GROWTH AFTER 48 HOURS 11/23/21 22:42 Peripheral/Venous Blood Culture - Preliminary NO GROWTH AFTER 48 HOURS Martins/IV: Voiding Method External Female Catheter Active Medications - Current Medications Current Medications: Generic Name Dose Route Start Last Admin Trade Name Freq PRN Reason Stop Dose Admin Acetaminophen 650 mg 11/15/21 22:35 11/24/21 00:15 Acetaminophen 325 Mg Tab PO 650 mg Q4H PRN Administration Pain MILD(1-3)/Fever >100.5/PATEL Albuterol 2.5 mg 11/16/21 17:38 Albuterol 2.5 Mg/3 Ml Nebu IH Q6HRT PRN Shortness Of Breath Dextrose 50 ml 11/15/21 22:35 11/24/21 08:55 Dextrose 50% In Water (25gm) 50 Ml Syringe IV 50 ml Q30MIN PRN Administration Hypoglycemia Protocol Enoxaparin Sodium 100 mg 11/18/21 22:00 11/26/21 10:18 Enoxaparin 100 Mg/1 Ml Inj SUB-Q 100 mg Q12HR GRAHAM Administration Protocol Magnesium Sulfate 2 gm in 50 mls @ 25 mls/hr 11/26/21 10:30 Magnesium Sulfate 2gm/50ml IV 11/26/21 12:29 ONCE ONE Potassium Phosphate 30 mmol/ 510 mls @ 85 mls/hr 11/26/21 10:30 Sodium Chloride IV 11/26/21 16:29 ONCE ONE Insulin Human Lispro 0 unit 11/16/21 07:30 11/26/21 08:20 Insulin Lispro 100 Unit/Ml SUB-Q Not Given ACHS GRAHAM Protocol Losartan Potassium 100 mg 11/25/21 10:00 11/26/21 10:18 Losartan 50 Mg Tab PO 100 mg QDAY GRAHAM Administration Magnesium Hydroxide 30 ml 11/15/21 22:35 Magnesium Hydroxide (Mom) Oral Liqd Udc PO Q4H PRN Constipation Megestrol Acetate 400 mg 11/20/21 10:00 11/26/21 10:19 Megestrol 400 Mg/10 Ml Oral Liqd PO Not Given QDAY GRAHAM Metoprolol Tartrate 25 mg 11/25/21 10:00 11/26/21 10:18 Metoprolol Tartrate 25 Mg Tab PO 25 mg BID GRAHAM Administration Morphine Sulfate 2 mg 11/15/21 22:35 11/21/21 22:07 Morphine 2 Mg/1 Ml Inj IV 2 mg Q4H PRN Administration Pain, Moderate (4-6) Morphine Sulfate 4 mg 11/15/21 22:35 11/25/21 17:20 Morphine 4 Mg/1 Ml Inj IV 4 mg Q4H PRN Administration Pain , Severe (7-10) Ondansetron HCl 4 mg 11/15/21 22:35 11/18/21 09:25 Ondansetron 4 Mg/2 Ml Inj IV 4 mg Q8H PRN Administration Nausea And Vomiting Sodium Chloride 10 ml 11/16/21 10:00 11/26/21 10:19 Sodium Chloride 0.9% 10 Ml Flush Syringe IV 10 ml BID GRAHAM Administration Sodium Chloride 10 ml 11/15/21 22:35 Sodium Chloride 0.9% 10 Ml Flush Syringe IV PRN PRN LINE FLUSH Nutrition/Malnutrition Assess - Dietary Evaluation Nutrition/Malnutrition Findings: Nutrition Notes Start: 11/16/21 15:06 Freq: Status: Active Protocol: Document 11/23/21 17:15 STACEY (Rec: 11/23/21 17:41 STACEY [id number]) Nutrition Notes Initial or Follow up Assessment Other Pertinent Diagnosis Pulmonary Embolus, Anemia, Elevated Troponin, Uterine Cancer. Current Diet Cardiac/Consistent Carbohydrates Diet (B 11/16), D Suppl (B 11/24). Labs/Tests 11/23: Cl 111.2, CO2 18. Pertinent Medications 11/23: Nutritionally unremarkable. Height 5 ft 6 in Weight 95.3 kg [place] Body Weight (kg) 59.09 BMI 33.9 Weight change and time frame Discrepancy of 18.59 Kg body weight loss in 1 week reported . Weight Status Obese Subjective/Other Information RD consult for routine F/U on dietary advancement. Pt's PO intake of meals has been Poor (25%) and Pt refusing to eat, requesting food from home, according to ADL and Progress notes. I will prescribe dietary supplements to compensate for poor or insufficient PO intake of meals. Pt is on Nasal Cannula, O2 saturation @ 100%, according to Physical Assessment History notes. Pt presents an unspecified area of concern as sign of concern for skin risk at the time, according to Physical Assessment History notes. Pt still in critical condition , not a candidate for Nutrition Education at the time, will assess feasibility on F/U. Percent of energy/protein needs met: Prescribed Cardiac/Consistent Carbohydrates Diet provides for energy/protein needs (1, 977 Kcal/86 g) during LOS; additionally, Dietary Supplements will compensate for possible poor or insufficient PO intake of meals with 480 Kcal and 48 g of protein. Burn Absent Trauma Absent GI Symptoms None Food Allergy No Skin Integrity/Comment Unspecified area of concern. 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 As Evidenced by Signs and Symptoms Pt's PO intake of meals has been Poor (25%) and Pt refusing to eat, requesting food from home, according to ADL and Progress notes. Is patient on ventilator? No Is Patient Ambulatory and/or Out of Bed No [facility] [phone] Calculation Used for Recommendations [facility] Additional Notes Protein: 1-1.2 g/Kg AdjBW; 77- 92 g/day. Fluids: 1 ml/Kcal, or as per MD. Nutrition Intervention Change Diet Order: Continue Cardiac/Consistent Carbohydrates Diet. Add Supplement/Snack (indicate name/kcal Start 8 fl oz Ensure High /protein ) Protein; TID. Provides kCal: 480 Provides Protein (gm) 48 Goal #1 Compensate, through dietary supplementation, for possible poor or insufficient PO intake of meals during LOS. Goal #2 Adjust the dietary intervention to better serve Pt's needs and clinical conditions during LOS. Follow-Up By: 11/30/21 Additional Comments Nutrition education will be provided at F/U, if feasible. Continue monitoring food tolerance, %PO intake of meals and ONS, and BM.
[2021-11-26] MEDS ORDERED: MAGNESIUM SULFATE 2 GM/50 ML BAG IV ONE (11:30)
[2021-11-26] MEDS ORDERED: POTASSIUM PHOSPHATE 30 MMOL in SODIUM CHLORIDE 0.9% 500 ML 500 ML IV ONE (12:00)
--- NOTE | 2021-11-26 14:02 | Progress Note ---
Assessment and Plan 70-year-old -[place] female with known history of metastatic ovarian cancer which was initially diagnosed in 2016 went into remission but had a recurrence again in June 2021 presenting to the emergency room today complaining of shortness of breath. Shortness of breath has been ongoing for the past few days. She has also had some mild chest discomfort. Shortness of breath is worse on minimal exertion. Patient receives her care at [facility] and has been following up with Dr. Diaz who is a plate maker zinc. She has had recurrent thoracentesis for pleural effusion. Patient denies any fever or chills no headache or dizziness and no diaphoresis. No nausea or vomiting and no abdominal pain. She denies any calf swelling. She however has had minimal lower extremity edema. Work-up in the emergency room today, labs were significant for hemoglobin of 4, hematocrit of 11.8, WBC of 1.5, platelet count of 6. Potassium of 3.3. Lactic acid of 2.4, troponin 0.07 Chest x-ray significant for complete opacification of the left hemithorax possibly due to large left pleural effusion. CT angiogram of the chest shows acute pulmonary embolus. Large left pleural effusion with associated atelectasis. Incompletely included markedly abnormal appearance of the stomach most concerning for neoplastic involvement. Vascular surgeon has also been notified. Patient has been initiated on blood transfusion for the severe anemia. Patient has history of Diabetes, HTN and Metastatic Ovarian CA. Patient has no history of smoking, alcohol or drug abuse. 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 No known drug allergies. Patient awake. s/p left thoracentesis x2 On 2 liters O2 by nasal cannula. O2 saturation 100%. No acute respiratory distress at rest. ABG on 3 litres O2. ABG pH 7.401 pH Units (7.350-7.450) 11/16/21 20:50 ABG pCO2 43.5 mm Hg 11/16/21 20:50 ABG pO2 144.0 mm Hg (80.0-90.0) H 11/16/21 20:50 ABG O2 Saturation 98.8 % (95.0-99.0) 11/16/21 20:50 Patient afebrile. No leukocytosis. Blood pressure 114/59, pulse 65, respirations 18. Chest xray 11/15/21 reported Complete opacification of the left hemithorax possibly due to large left pleural effusion. CT scan of chest 11/15/21 reported Acute saddle pulmonary embolus. Large left pleural effusion with associated atelectasis. Incompletely included markedly abnormal appearance of the stomach, most concerning for neoplastic involvement. Recommended left thoracentesis by interventional radiology and sent for Cytology, Cell count, LDH, Protein, Glucose, Amylase, Gram stain, culture and sensitivity.AFB and Fungus. Patient has a repeat thoracentesis by interventional radiology today. Pleural fluid results pending. Chest xray 11/17/21 reported No evidence for pneumothorax following left thoracentesis. Chest xray 11/23/21 reported Large left effusion with underlying atelectasis Chest xray 11/24/21 reported no evidence of pneumothorax after left thoracentesis. Patient on anti coagulation S/C Lovenox in therapeutic doses. Albuterol inhaler 2 puffs po qid prn for shortness of breath.. Recommend GI prophylaxis famotidine. Patients son at bed side. He told me she has right thoracentes and right chest tube placement in the fast. He told me pleural effusions are Malignant. Patient followed at [facility] By Dr. Karlos Stanley , [facility] pulmonary. S/P second left thoracentesis, Pleural fluid significantly reduced. If patient has repeat accumulation of left pleural effusion, recommend to Follow with Dr. Weinberg for left chest tube placement and sclerosis. - Patient Problems (1) Recurrent left pleural effusion Current Visit: Yes Status: Acute Plan to address problem: Patient undergone repeat left thoracentesis by interventional radiology. Results of the pleural fluid pending. If patient keeo on acumulating left pleural effusion, recommend left chest tube placement and sclerosis. (2) Pulmonary embolus Current Visit: Yes Status: Acute Plan to address problem: Continue O2 supplementation. Patient started on S/C Lovenox in therapeutic doses. (3) Anemia requiring transfusions Current Visit: Yes Status: Acute Plan to address problem: Patient received blood transfusion. Recent HGB 8.5. (4) Ovarian ca Current Visit: Yes Status: Acute Plan to address problem: Management as per oncology. Subjective Date of service: 11/26/21 Interval history: 70-year-old -[place] female with known history of metastatic ovarian cancer which was initially diagnosed in 2016 went into remission but had a r ecurrence again in June 2021 presenting to the emergency room today complaining of shortness of breath. Shortness of breath has been ongoing for the past few days. She has also had some mild chest discomfort. Shortness of breath is worse on minimal exertion. Patient receives her care at [facility] and has been following up with Dr. Diaz who is a plate maker zinc. She has had recurrent thoracentesis for pleural effusion. Patient denies any fever or chills no headache or dizziness and no diaphoresis. No nausea or vomiting and no abdominal pain. She denies any calf swelling. She however has had minimal lower extremity edema. Work-up in the emergency room today, labs were significant for hemoglobin of 4, hematocrit of 11.8, WBC of 1.5, platelet count of 6. Potassium of 3.3. Lactic acid of 2.4, troponin 0.07 Chest x-ray significant for complete opacification of the left hemithorax possibly due to large left pleural effusion. CT angiogram of the chest shows acute pulmonary embolus. Large left pleural effusion with associated atelectasis. Incompletely included markedly abnormal appearance of the stomach most concerning for neoplastic involvement. Vascular surgeon has also been notified. Patient has been initiated on blood transfusion for the severe anemia. Patient has history of Diabetes, HTN and Metastatic Ovarian CA. Patient has no history of smoking, alcohol or drug abuse. 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 No known drug allergies. Patient awake. s/p left thoracentesis x2 On 2 liters O2 by nasal cannula. O2 saturation 100%. No acute respiratory distress at rest. ABG on 3 litres O2. ABG pH 7.401 pH Units (7.350-7.450) 11/16/21 20:50 ABG pCO2 43.5 mm Hg 11/16/21 20:50 ABG pO2 144.0 mm Hg (80.0-90.0) H 11/16/21 20:50 ABG O2 Saturation 98.8 % (95.0-99.0) 11/16/21 20:50 Patient afebrile. No leukocytosis. Blood pressure 114/59, pulse 65, respirations 18. Chest xray 11/15/21 reported Complete opacification of the left hemithorax possibly due to large left pleural effusion. CT scan of chest 11/15/21 reported Acute saddle pulmonary embolus. Large left pleural effusion with associated atelectasis. Incompletely included markedly abnormal appearance of the stomach, most concerning for neoplastic involvement. Recommended left thoracentesis by interventional radiology and sent for Cytology, Cell count, LDH, Protein, Glucose, Amylase, Gram stain, culture and sensitivity.AFB and Fungus. Patient has a repeat thoracentesis by interventional radiology today. Pleural fluid results pending. Chest xray 11/17/21 reported No evidence for pneumothorax following left tho racentesis. Chest xray 11/23/21 reported Large left effusion with underlying atelectasis Chest xray 11/24/21 reported no evidence of pneumothorax after left thoracentesis. Patient on anti coagulation S/C Lovenox in therapeutic doses. Albuterol inhaler 2 puffs po qid prn for shortness of breath.. Recommend GI prophylaxis famotidine. Patients son at bed side. He told me she has right thoracentes and right chest tube placement in the fast. He told me pleural effusions are Malignant. Patient followed at [facility] By Dr. Karlos Stanley , [facility] pulmonary. S/P second left thoracentesis, Pleural fluid significantly reduced. If patient has repeat accumulation of left pleural effusion, recommend to Follow with Dr. Weinberg for left chest tube placement and sclerosis. Objective Vital Signs - 12hr 11/26/21 11/26/21 11/26/21 04:11 07:50 10:01 Temperature 98.3 F Pulse Rate 75 65 Respiratory 19 Rate Blood Pressure 98/53 114/59 O2 Sat by Pulse 85 100 100 Oximetry 11/26/21 12:00 Temperature Pulse Rate 74 Respiratory 18 Rate Blood Pressure O2 Sat by Pulse 97 Oximetry Constitutional: no acute distress, alert Eyes: non-icteric ENT: oropharynx moist Neck: supple, no JVD Effort: mildly labored Ascultation: Left: diminished breath sounds (Improved breath sounds on left side.) Cardiovascular: regular rate and rhythm Gastrointestinal: normoactive bowel sounds, soft, non-tender Integumentary: normal Extremities: no cyanosis, no edema Neurologic: normal mental status, non-focal exam, pupils equal and round Psychiatric: mood appropriate, affect normal CBC and BMP: 11/25/21 07:36 11/26/21 05:48 ABG, PT/INR, D-dimer: ABG ABG pH 7.401 pH Units (7.350-7.450) 11/16/21 20:50 ABG pCO2 43.5 mm Hg 11/16/21 20:50 ABG pO2 144.0 mm Hg (80.0-90.0) H 11/16/21 20:50 ABG O2 Saturation 98.8 % (95.0-99.0) 11/16/21 20:50 PT/INR, D-dimer PT 14.7 Sec. (12.2-14.9) 11/17/21 10:56 INR 1.03 (0.87-1.13) 11/17/21 10:56 Abnormal lab findings: Abnormal Labs 11/15/21 11/15/21 11/15/21 17:57 17:57 17:57 WBC RBC Hgb Hct MCHC RDW Plt Count [place] % (Auto) Seg Neuts % (Manual) Lymphocytes % (Manual) Monocytes % (Manual) Nucleated RBC % Seg Neutrophils # Man Lymphocytes # (Manual) Percent Retic ABG pO2 ABG HCO3 ABG Hemoglobin Sodium Potassium 3.3 L Chloride 96.6 L Carbon Dioxide BUN Creatinine Glucose 182 H POC Glucose Lactic Acid 2.20 H* Calcium Phosphorus Magnesium AST ALT Ammonia Lactate Dehydrogenase Troponin T 0.070 H Total Protein 6.0 L Albumin 2.4 L LDL Cholesterol Direct 48 L Crossmatch 11/15/21 11/15/21 11/15/21 18:39 21:26 21:30 WBC 1.5 L* RBC 1.23 L Hgb 4.0 L* Hct 11.8 L* MCHC RDW 22.0 H Plt Count 6 L* [place] % (Auto) Seg Neuts % (Manual) Lymphocytes % (Manual) Monocytes % (Manual) 12.0 H Nucleated RBC % Seg Neutrophils # Man 0.9 L Lymphocytes # (Manual) 0.4 L Percent Retic ABG pO2 ABG HCO3 ABG Hemoglobin Sodium Potassium Chloride Carbon Dioxide BUN Creatinine Glucose POC Glucose Lactic Acid 2.40 H* 3.60 H* Calcium Phosphorus Magnesium AST ALT Ammonia Lactate Dehydrogenase Troponin T Total Protein Albumin LDL Cholesterol Direct Crossmatch 11/15/21 11/15/21 11/16/21 23:09 23:13 09:29 WBC RBC Hgb Hct MCHC RDW Plt Count [place] % (Auto) Seg Neuts % (Manual) Lymphocytes % (Manual) Monocytes % (Manual) Nucleated RBC % Seg Neutrophils # Man Lymphocytes # (Manual) Percent Retic ABG pO2 ABG HCO3 ABG Hemoglobin Sodium 135 L Potassium 3.4 L Chloride 96.6 L Carbon Dioxide BUN Creatinine 1.3 H D Glucose 167 H POC Glucose Lactic Acid 2.90 H* Calcium Phosphorus Magnesium AST ALT Ammonia Lactate Dehydrogenase Troponin T Total Protein Albumin LDL Cholesterol Direct Crossmatch See Detail 11/16/21 11/16/21 11/16/21 09:29 11:03 11:31 WBC 2.0 L RBC 3.39 L Hgb Hct 29.3 L D MCHC 35 H RDW 18.3 H Plt Count 6 L* [place] % (Auto) Seg Neuts % (Manual) Lymphocytes % (Manual) Monocytes % (Manual) Nucleated RBC % Seg Neutrophils # Man Lymphocytes # (Manual) Percent Retic ABG pO2 ABG HCO3 ABG Hemoglobin Sodium Potassium Chloride Carbon Dioxide BUN Creatinine Glucose POC Glucose 156 H Lactic Acid 2.10 H* Calcium Phosphorus Magnesium AST ALT Ammonia Lactate Dehydrogenase Troponin T Total Protein Albumin LDL Cholesterol Direct Crossmatch 11/16/21 11/16/21 11/16/21 16:51 20:24 20:50 WBC RBC Hgb Hct MCHC RDW Plt Count [place] % (Auto) Seg Neuts % (Manual) Lymphocytes % (Manual) Monocytes % (Manual) Nucleated RBC % Seg Neutrophils # Man Lymphocytes # (Manual) Percent Retic ABG pO2 144.0 H ABG HCO3 26.4 H ABG Hemoglobin 9.2 L Sodium Potassium Chloride Carbon Dioxide BUN Creatinine Glucose POC Glucose 149 H 138 H Lactic Acid Calcium Phosphorus Magnesium AST ALT Ammonia Lactate Dehydrogenase Troponin T Total Protein Albumin LDL Cholesterol Direct Crossmatch 11/17/21 11/17/21 11/17/21 05:26 05:26 07:40 WBC 2.5 L RBC 2.78 L Hgb 8.1 L Hct 23.9 L MCHC RDW 17.9 H Plt Count 93 L D [place] % (Auto) Seg Neuts % (Manual) Lymphocytes % (Manual) Monocytes % (Manual) 8.0 H Nucleated RBC % 1.0 H Seg Neutrophils # Man 1.4 L Lymphocytes # (Manual) 0.8 L Percent Retic ABG pO2 ABG HCO3 ABG Hemoglobin Sodium 136 L Potassium 3.3 L Chloride 96.5 L Carbon Dioxide BUN 20 H Creatinine 1.5 H Glucose 113 H POC Glucose 109 H Lactic Acid Calcium Phosphorus Magnesium AST ALT Ammonia Lactate Dehydrogenase Troponin T Total Protein Albumin LDL Cholesterol Direct Crossmatch 11/17/21 11/17/21 11/17/21 10:56 13:41 15:56 WBC RBC Hgb 7.5 L Hct 21.7 L MCHC RDW Plt Count 82 L [place] % (Auto) Seg Neuts % (Manual) Lymphocytes % (Manual) Monocytes % (Manual) Nucleated RBC % Seg Neutrophils # Man Lymphocytes # (Manual) Percent Retic ABG pO2 ABG HCO3 ABG Hemoglobin Sodium Potassium Chloride Carbon Dioxide BUN Creatinine Glucose POC Glucose 109 H 109 H Lactic Acid Calcium Phosphorus Magnesium AST ALT Ammonia Lactate Dehydrogenase Troponin T Total Protein Albumin LDL Cholesterol Direct Crossmatch 11/18/21 11/18/21 11/18/21 05:09 05:09 12:07 WBC 2.2 L RBC 3.03 L Hgb 8.8 L Hct 26.3 L MCHC RDW 17.0 H Plt Count 46 L [place] % (Auto) Seg Neuts % (Manual) Lymphocytes % (Manual) Monocytes % (Manual) Nucleated RBC % Seg Neutrophils # Man Lymphocytes # (Manual) Percent Retic 0.52 L ABG pO2 ABG HCO3 ABG Hemoglobin Sodium Potassium 2.7 L* Chloride Carbon Dioxide BUN Creatinine Glucose POC Glucose 61 L Lactic Acid Calcium Phosphorus Magnesium AST ALT Ammonia Lactate Dehydrogenase 659 H Troponin T Total Protein Albumin LDL Cholesterol Direct Crossmatch 11/18/21 11/18/21 11/19/21 16:39 20:39 05:48 WBC 3.1 L RBC 3.08 L Hgb 9.1 L Hct 26.9 L MCHC RDW 17.4 H Plt Count 33 L [place] % (Auto) Seg Neuts % (Manual) 81.0 H Lymphocytes % (Manual) 8.0 L Monocytes % (Manual) 10.0 H Nucleated RBC % Seg Neutrophils # Man Lymphocytes # (Manual) 0.2 L Percent Retic ABG pO2 ABG HCO3 ABG Hemoglobin Sodium Potassium 3.3 L D Chloride Carbon Dioxide BUN Creatinine Glucose POC Glucose 68 L Lactic Acid Calcium Phosphorus Magnesium AST ALT Ammonia Lactate Dehydrogenase Troponin T Total Protein Albumin LDL Cholesterol Direct Crossmatch 11/19/21 11/20/21 11/20/21 05:48 04:21 04:21 WBC 3.4 L RBC 3.11 L Hgb 9.3 L Hct 27.1 L MCHC RDW 17.4 H Plt Count 28 L [place] % (Auto) Seg Neuts % (Manual) Lymphocytes % (Manual) 10.0 L Monocytes % (Manual) 18.0 H Nucleated RBC % Seg Neutrophils # Man Lymphocytes # (Manual) 0.3 L Percent Retic ABG pO2 ABG HCO3 ABG Hemoglobin Sodium Potassium 3.1 L Chloride Carbon Dioxide 21 L BUN Creatinine Glucose POC Glucose Lactic Acid Calcium 8.3 L 8.3 L Phosphorus Magnesium AST ALT Ammonia Lactate Dehydrogenase Troponin T Total Protein Albumin LDL Cholesterol Direct Crossmatch 11/21/21 11/21/21 11/21/21 06:23 06:23 07:37 WBC 3.7 L RBC 3.19 L Hgb 9.2 L Hct 27.9 L MCHC RDW 17.8 H Plt Count 17 L* [place] % (Auto) Seg Neuts % (Manual) Lymphocytes % (Manual) Monocytes % (Manual) Nucleated RBC % Seg Neutrophils # Man Lymphocytes # (Manual) Percent Retic ABG pO2 ABG HCO3 ABG Hemoglobin Sodium Potassium 2.8 L* D Chloride Carbon Dioxide 21 L BUN Creatinine Glucose 60 L POC Glucose 59 L Lactic Acid Calcium 8.3 L Phosphorus Magnesium AST ALT Ammonia Lactate Dehydrogenase Troponin T Total Protein Albumin LDL Cholesterol Direct Crossmatch 11/22/21 11/22/21 11/22/21 00:10 05:14 05:14 WBC RBC 3.16 L Hgb 9.4 L Hct 27.2 L MCHC 35 H RDW 18.5 H Plt Count 40 L D [place] % (Auto) Seg Neuts % (Manual) 81.0 H Lymphocytes % (Manual) 8.0 L Monocytes % (Manual) 10.0 H Nucleated RBC % 1.0 H Seg Neutrophils # Man Lymphocytes # (Manual) 0.4 L Percent Retic ABG pO2 ABG HCO3 ABG Hemoglobin Sodium Potassium 3.3 L Chloride 109.9 H 108.3 H Carbon Dioxide 21 L BUN Creatinine Glucose POC Glucose Lactic Acid Calcium 8.3 L Phosphorus Magnesium AST ALT Ammonia Lactate Dehydrogenase Troponin T Total Protein Albumin LDL Cholesterol Direct Crossmatch 11/22/21 11/23/21 11/23/21 20:46 05:39 13:17 WBC RBC 3.01 L Hgb 8.9 L Hct 26.2 L MCHC RDW 18.3 H Plt Count 23 L [place] % (Auto) Seg Neuts % (Manual) Lymphocytes % (Manual) Monocytes % (Manual) Nucleated RBC % Seg Neutrophils # Man Lymphocytes # (Manual) Percent Retic ABG pO2 ABG HCO3 ABG Hemoglobin Sodium Potassium Chloride 111.2 H Carbon Dioxide 18 L BUN Creatinine Glucose POC Glucose 63 L Lactic Acid Calcium Phosphorus Magnesium AST ALT Ammonia Lactate Dehydrogenase Troponin T Total Protein Albumin LDL Cholesterol Direct Crossmatch 11/24/21 11/24/21 11/24/21 06:42 06:42 06:42 WBC RBC 2.88 L Hgb 8.3 L Hct 25.1 L MCHC RDW 18.3 H Plt Count 114 L D [place] % (Auto) Seg Neuts % (Manual) Lymphocytes % (Manual) Monocytes % (Manual) 10.0 H Nucleated RBC % Seg Neutrophils # Man Lymphocytes # (Manual) Percent Retic ABG pO2 ABG HCO3 ABG Hemoglobin Sodium Potassium Chloride 108.8 H Carbon Dioxide BUN Creatinine Glucose POC Glucose Lactic Acid Calcium Phosphorus 1.50 L Magnesium 1.10 L AST 146 H ALT 152 H Ammonia 12.0 L Lactate Dehydrogenase Troponin T Total Protein 5.6 L Albumin 2.3 L LDL Cholesterol Direct Crossmatch 11/24/21 11/24/21 11/25/21 08:11 15:42 07:36 WBC 3.7 L RBC 2.90 L Hgb 8.5 L Hct 25.2 L MCHC RDW 18.8 H Plt Count 73 L [place] % (Auto) 11.3 H Seg Neuts % (Manual) 86.0 H Lymphocytes % (Manual) 8.0 L Monocytes % (Manual) Nucleated RBC % 4.0 H Seg Neutrophils # Man Lymphocytes # (Manual) 0.3 L Percent Retic ABG pO2 ABG HCO3 ABG Hemoglobin Sodium Potassium Chloride Carbon Dioxide BUN Creatinine Glucose POC Glucose 69 L 114 H Lactic Acid Calcium Phosphorus Magnesium AST ALT Ammonia Lactate Dehydrogenase Troponin T Total Protein Albumin LDL Cholesterol Direct Crossmatch 11/25/21 11/26/21 07:36 05:48 WBC RBC Hgb Hct MCHC RDW Plt Count [place] % (Auto) Seg Neuts % (Manual) Lymphocytes % (Manual) Monocytes % (Manual) Nucleated RBC % Seg Neutrophils # Man Lymphocytes # (Manual) Percent Retic ABG pO2 ABG HCO3 ABG Hemoglobin Sodium Potassium 3.4 L Chloride 107.9 H 109.2 H Carbon Dioxide BUN Creatinine Glucose POC Glucose Lactic Acid Calcium Phosphorus 1.60 L 2.30 L D Magnesium 1.20 L 1.40 L AST ALT Ammonia Lactate Dehydrogenase Troponin T Total Protein Albumin LDL Cholesterol Direct Crossmatch
[2021-11-26] MEDS: DEXTROSE 50% IN WATER (25GM) 50 ML SYRINGE IV PRN (16:55)
--- NOTE | 2021-11-27 07:24 | Discharge Summary ---
Providers - Providers Date of Admission: 11/15/21 22:36 Date of discharge: 11/27/21 Attending physician: MARIETTA FERREIRA MD 11/15/21 22:35 Consult to Physician [CONS] Routine Comment: Consulting Provider: JOANNA NAVARRETE Physician Instructions: Reason For Exam: Pulmonary Effusion,H/O Ovarian Ca. 11/15/21 22:36 Consult to Dietitian/Nutrition [CONS] Routine Physician Instructions: Reason For Exam: Reason for Consult: Diet education 11/15/21 22:45 Consult to Physician [CONS] Stat Comment: Consulting Provider: KRISTA KIRK Physician Instructions: Reason For Exam: PE 11/16/21 01:19 Consult to Physician [CONS] Routine Comment: Consulting Provider: KATIA NOVOA Physician Instructions: Reason For Exam: Pancytopenia, history of metastatic ovarian cancer 11/24/21 13:07 Physical Therapy Evaluation and Treat [CONS] Routine Comment: PT eval and treat Reason For Exam: debility 11/24/21 15:42 Occupational Therapy Evaluate and Treat [CONS] Routine Comment: Reason For Exam: Debility Primary care physician: [employer] Hospitalization Reason for admission: Acute on chronic hypoxic respiratory failure, saddle pu lmonary embolus Condition: Fair Pertinent studies: Reviewed. Procedures: Thoracentesis x2. Hospital course: The patient is a 70-year-old female past medical history of metastatic ovarian cancer (diagnosed 2017 with remission and recurrence in June 2021), sba-nilurbh-ppxeclwbe type 2 diabetes mellitus, and obesity who presented to the ED with complaints of shortness of breath mild chest discomfort. In the ED the patient was found to be hemodynamically stable but tachycardic to 124. Patient underwent chest x-ray revealing left pleural effusion with complete lung collapse. CT angio chest revealed bilateral pulmonary emboli. Patient's labs were remarkable for hemoglobin of 4, WBC 1.5, platelets of 6, and potassium of 3.3. The patient was immediately started on heparin drip in addition to being transfused packed RBCs. Hematology/oncology was consulted for anticoagulation recommendations, and the patient was started on Lovenox 1 mg/kg twice daily. Patient was also started on Neupogen for her neutropenia and continued supportive transfusion parameters. Cardiology was consulted for elevated troponins, but it was deemed to be a nonspecific finding that did not indicate cardiac work-up. Vascular surgery was consulted for management of saddle pulmonary emboli. Vascular surgery and the patient discussed her having a tunneled chest tube in her left lung to allow for drainage of reaccumulating pleural effusions. Patient expressed that she would discuss this with her outpatient line maintainer section. No surgical intervention was deemed necessary for management of the saddle pulmonary embolus. Patient underwent thoracentesis x2 with production of bloody fluid that was found to be unremarkable for malignant cells. Pulmonology was consulted for further assistance with management of the patient's dyspnea and hypoxemia. The patient was evaluated for her persistent tachycardia that continued despite multiple thoracenteses. Patient was started on metoprolol tartrate 25 mg twice daily and losartan 100 mg daily to better control her hypertension and tachycardia. Patient was evaluated by physical therapy, and it was explained to the patient and her family that patients undergoing rehab cannot also be doing chemotherapy at the same time. The patient and her family agreed with home health PT instead. Patient is medically clear for discharge. Disposition: 01 HOME / SELF CARE / HOMELESS Final Discharge Diagnosis (Prints w/discharge instructions): Acute on chronic hypoxic respiratory failure, saddle pulmonary embolus, severe anemia, pancytopenia left pleural effusion, LEANN secondary to vasomotor nephropathy, hypoglycemia, hypokalemia, hypomagnesemia, hypophosphatemia, lactic acidosis, metastatic uterine carcinoma, obesity. Time spent for discharge: 45 min Core Measure Documentation - Palliative Care Palliative Care/ Comfort Measures: Not Applicable - Core Measures Any of the following diagnoses?: DVT/PE - VTE Discharge Requirements Deep Vein Thrombosis/Pulmonary Embolism Present on Admission: Yes Has pt received <5 days of overlap therapy or INR<2.0: No Anticoagulant overlap therapy prescribed at discharge: No Contraindication No Overlap Therapy order at DC: Not Indicated Exam - Constitutional Vitals: Temp Pulse Resp BP Pulse Ox 98.7 F 69 18 116/55 100 11/26/21 19:18 11/26/21 19:18 11/26/21 19:18 11/26/21 19:18 11/26/21 19:18 General appearance: Present: no acute distress, obese - EENT Eyes: Present: PERRL, EOM intact ENT: hearing intact, clear oral mucosa, dentition normal - Neck Neck: Present: supple, normal ROM - Respiratory Respiratory effort: normal Respiratory: bilateral: diminished (2 L nasal cannula (baseline)) - Cardiovascular Rhythm: regular Heart Sounds: Present: S1 & S2 - Extremities Extremities: no ischemia, pulses intact, pulses symmetrical, No edema, normal temperature, normal color Peripheral Pulses: within normal limits - Abdominal General gastrointestinal: Present: soft, non-tender, non-distended, normal bowel sounds Female genitourinary: Present: deferred - Rectal Rectal Exam: deferred - Integumentary Integumentary: Present: clear, warm, dry - Musculoskeletal Musculoskeletal: generalized weakness - Psychiatric Psychiatric: appropriate mood/affect, intact judgment & insight, memory intact, cooperative - Neurologic Neurologic: CNII-XII intact - Allied Health Allied health notes reviewed: nursing Plan Activity: advance as tolerated Diet: regular Additional Instructions: The patient is a 70-year-old female past medical history of metastatic ovarian cancer (diagnosed 2017 with remission and recurrence in June 2021), mao-doaqfvy-mwkdxsbet type 2 diabetes mellitus, and obesity who presented to the ED with complaints of shortness of breath mild chest discomfort. In the ED the patient was found to be hemodynamically stable but tachycardic to 124. Patient underwent chest x-ray revealing left pleural effusion with complete lung collapse. CT angio chest revealed bilateral pulmonary emboli. Patient's labs were remarkable for hemoglobin of 4, WBC 1.5, platelets of 6, and potassium of 3.3. The patient was immediately started on heparin drip in addition to being transfused packed RBCs. Hematology/oncology was consulted for anticoagulation recommendations, and the patient was started on Lovenox 1 mg/kg twice daily. Patient was also started on Neupogen for her neutropenia and continued supportive transfusion parameters. Cardiology was consulted for elevated troponins, but it was deemed to be a nonspecific finding that did not indicate cardiac work-up. Vascular surgery was consulted for management of saddle pulmonary emboli. Vascular surgery and the patient discussed her having a tunneled chest tube in her left lung to allow for drainage of reaccumulating pleural effusions. Patient expressed that she would discuss this with her outpatient line maintainer section. No surgical intervention was deemed necessary for management of the saddle pulmonary embolus. Patient underwent thoracentesis x2 with production of bloody fluid that was found to be unremarkable for malignant cells. Pulmonology was consulted for further assistance with management of the patient's dyspnea and hypoxemia. The patient was evaluated for her persistent tachycardia that continued despite multiple thoracenteses. Patient was started on metoprolol tartrate 25 mg twice daily and losartan 100 mg daily to better control her hypertension and tachycardia. Patient was evaluated by physical therapy, and it was explained to the patient and her family that patients undergoing rehab cannot also be doing chemotherapy at the same time. The patient and her family agreed with home health PT instead. Patient is medically clear for discharge. Care Plan Goals: Patient is medically clear for discharge. Assessment: The patient is a 70-year-old female past medical history of metastatic ovarian cancer (diagnosed 2017 with remission and recurrence in June 2021), [id number] type 2 diabetes mellitus, and obesity who presented to the ED with complaints of shortness of breath mild chest discomfort. In the ED the patient was found to be hemodynamically stable but tachycardic to 124. Patient underwent chest x-ray revealing left pleural effusion with complete lung collapse. CT angio chest revealed bilateral pulmonary emboli. Patient's labs were remarkable for hemoglobin of 4, WBC 1.5, platelets of 6, and potassium of 3.3. The patient was immediately started on heparin drip in addition to being transfused packed RBCs. Hematology/oncology was consulted for anticoagulation recommendations, and the patient was started on Lovenox 1 mg/kg twice daily. Patient was also started on Neupogen for her neutropenia and continued supportive transfusion parameters. Cardiology was consulted for elevated troponins, but it was deemed to be a nonspecific finding that did not indicate cardiac work-up. Vascular surgery was consulted for management of saddle pulmonary emboli. Vascular surgery and the patient discussed her having a tunneled chest tube in her left lung to allow for drainage of reaccumulating pleural effusions. Patient expressed that she would discuss this with her outpatient line maintainer section. No surgical intervention was deemed necessary for management of the saddle pulmonary embolus. Patient underwent thoracentesis x2 with production of bloody fluid that was found to be unremarkable for malignant cells. Pulmonology was consulted for further assistance with management of the patient's dyspnea and hypoxemia. The patient was evaluated for her persistent tachycardia that continued despite multiple thoracenteses. Patient was started on metoprolol tartrate 25 mg twice daily and losartan 100 mg daily to better control her hypertension and tachycardia. Patient was evaluated by physical therapy, and it was explained to the patient and her family that patients undergoing rehab cannot also be doing chemotherapy at the same time. The patient and her family agreed with home health PT instead. Patient is medically clear for discharge. Follow up with: PRIMARY CARE, [Primary Care Provider] - 3-5 Days Prescriptions: Losartan [Cozaar] 100 mg PO QDAY #30 tablet Enoxaparin 100 mg SUB-Q Q12HR #60 syringe Metoprolol [Lopressor TAB] 25 mg PO BID #60 tablet
[2021-11-27 09:05] LABS: Hematocrit 23.3 % (30.3-42.9); Hemoglobin 7.8 gm/dl (10.1-14.3); Mean Corpuscular HGB Conc 34 % (30-34); Mean Corpuscular Volume 88 fl (79-97); Red Blood Count 2.65 M/mm3 (3.65-5.03); Red Cell Distribution Width 19.2 % (13.2-15.2)
[2021-11-27 09:13] LABS: Platelet Count 50 K/mm3 (140-440)
[2021-11-27 09:21] LABS: Blood Urea Nitrogen 13 mg/dL (7-17); Calcium 8.4 mg/dL (8.4-10.2); Hemolysis Index 8
[2021-11-27 09:22] LABS: BUN/Creatinine Ratio 19
[2021-11-27] MEDS: ACETAMINOPHEN 325 MG TAB PO PRN ×2 (10:28→14:23)
[2021-11-27] MEDS: METOPROLOL TARTRATE 25 MG TAB PO SCH (10:28)
[2021-11-27] MEDS: MEGESTROL 400 MG/10 ML ORAL LIQD PO SCH (10:28)
[2021-11-27] MEDS: INSULIN LISPRO 100 UNIT/ML SUB-Q SCH ×3 (10:33→16:49)
[2021-11-27] MEDS: LOSARTAN 50 MG TAB PO SCH (10:33)
[2021-11-27] MEDS: ENOXAPARIN 100 MG/1 ML INJ SUB-Q SCH (10:34)
[2021-11-27 10:50] LABS: Basophils % (Manual) 0 % (0.0-1.8); Eosinophils % (Manual) 0 % (0.0-4.3); Total Cells Counted 100
[2021-11-27 10:52] LABS: Platelet Estimate Consistent w Auto
[2021-11-27] MEDS ORDERED: MAGNESIUM SULFATE 1 GM in SODIUM CHLORIDE 0.9% 50 ML IV ONE (11:00)
[2021-11-27 17:50] VITALS: BP 145/65
== END 2021-11-27 20:45 | disposition home health service (06) | DRG 175 ==
LOC: ED 16:57 → 4A 22:36
PROVIDERS: ADMIT Internal Medicine Geriatric Medicine; ATTEND Student in an Organized Health Care Education/Training Program
PROC: 30233R1 Transfusion of Nonautologous Platelets into Peripheral Vein, Percutaneous Approach (ICD-10-PCS; 2021-11-16)
PROC: 30233N1 Transfusion of Nonautologous Red Blood Cells into Peripheral Vein, Percutaneous Approach (ICD-10-PCS; 2021-11-16)
PROC: 4A033R1 Measurement of Arterial Saturation, Peripheral, Percutaneous Approach (ICD-10-PCS; 2021-11-16)
PROC: 0W9B3ZZ Drainage of Left Pleural Cavity, Percutaneous Approach (ICD-10-PCS; principal; 2021-11-17)
PROC: 0W9B3ZZ Drainage of Left Pleural Cavity, Percutaneous Approach (ICD-10-PCS; 2021-11-24)
DX: I26.99 Other pulmonary embolism without acute cor pulmonale (principal); J96.21 Acute and chronic respiratory failure with hypoxia; N17.0 Acute kidney failure with tubular necrosis; D61.810 Antineoplastic chemotherapy induced pancytopenia; J90 Pleural effusion, not elsewhere classified; E87.2 Acidosis; R77.8 Other specified abnormalities of plasma proteins; I10 Essential (primary) hypertension; C55 Malignant neoplasm of uterus, part unspecified; E87.6 Hypokalemia; E11.649 Type 2 diabetes mellitus with hypoglycemia without coma; E66.9 Obesity, unspecified; Z71.3 Dietary counseling and surveillance; E83.39 Other disorders of phosphorus metabolism; E83.42 Hypomagnesemia; T45.1X5A Adverse effect of antineoplastic and immunosuppressive drugs, initial encounter; Y92.89 Other specified places as the place of occurrence of the external cause
CPT/HCPCS: 32555; 36415; 36600; 70450; 71045; 71275; 76700; 80048; 80053; 80061; 81001; 82140; 82803; 82947; 82962; 83605; 83615; 83735; 83880; 84100; 84132; 84145; 84160; 84478; 84484; 85007; 85014; 85018; 85025; 85027; 85045; 85049; 85610; 85730; 86850; 86900; 86901; 86920; 87040; 87116; 88112; 88305; 89051; 93005; 94640; 94760; G0378; J3480; J3490; J7510; Q9967; J0692; J1447; J1650; J1815; J2270; J2405; J3475; J7030; J7040; J7050; P9016; P9035